=== PATIENT | male | born 1945 | race Hispanic/Latino ===

== ENCOUNTER 2017-11-07 18:54 | Observation (INO) | payer MEDICARE ==
[2017-11-07 20:33] LABS: Mean Corpuscular HGB Conc 32 % (32-34); Mean Corpuscular Hemoglobin 29 pg (28-32); Mean Corpuscular Volume 90 fl (84-94); Platelet Count 102 K/mm3 (140-440); Red Blood Count 2.04 M/mm3 (3.65-5.03)
[2017-11-07 20:42] LABS: Hematocrit 18.4 % (35.5-45.6); Hemoglobin 5.9 gm/dl (11.8-15.2); Red Cell Distribution Width 24.9 % (13.2-15.2)
[2017-11-07 20:45] LABS: Calcium 9.4 mg/dL (8.4-10.2)
[2017-11-07] MEDS ORDERED: NACL 0.9% 1000 ML 1,000 ML IV ONE (21:03)
[2017-11-07] MEDS ORDERED: NACL 0.9% 500 ML 500 ML IV ONE (21:03)
[2017-11-07 21:08] LABS: Basophils % (Manual) 0 % (0.0-1.8); Total Cells Counted 100
[2017-11-07 21:09] LABS: Anisocytosis 2+; Poikilocytosis 1+
[2017-11-07 21:10] LABS: Hypochromasia 3+; Tear Drop Cells 1+
[2017-11-07 21:11] LABS: Schistocytes Few
[2017-11-07 21:12] LABS: Giant Platelets Few; Large Platelets Few; Platelet Estimate Consistent w Auto
[2017-11-07] MEDS ORDERED: BABY ASPIRIN PO ONE (21:17)
--- NOTE | 2017-11-07 21:17 | Emergency Department Report ---
HPI - General Chief Complaint: Medical Clearance Time Seen by Provider: 11/07/17 20:53 - HPI HPI: The patient is a 72-year-old male with a history of chronic anemia, diverticulosis, diffuse colitis, internal or external hemorrhoids, and GI bleed , and who presents for evaluation of generalized weakness and lightheadedness. The patient reports 1 week of progressive and severe lightheadedness and generalized weakness, exacerbated with position changes or activity, improved with rest. He shares that he has experienced recurrent episodes of severe anemia requiring blood transfusions for the past one year. He denies trauma to the abdomen, headache, chest pain, dyspnea, abdominal pain, hematemesis, hemoptysis, melana, hematochezia, hematuria, easy bruising or bleeding, or blood thinner use. ED Past Medical Hx - Past Medical History Hx Hypertension: Yes Hx Heart Attack/AMI: Yes (, meds only) Hx Renal Disease: No Hx of Cancer: Yes Hx Arthritis: Yes (foot lt.) Hx Seizures: No Hx Asthma: Yes (childhood, ) - Surgical History Additional Surgical History: hemorrhoid surgery - Social History Smoking Status: Former Smoker - Medications Home Medications: Home Medications Medication Instructions Recorded Confirmed Last Taken Type Levofloxacin [Levaquin TAB] 500 mg PO QDAY #7 tablet 10/01/16 Unknown Rx Multivitamin Tab W-MINERAL 1 each PO QDAY #30 tablet 10/01/16 Unknown Rx [Multiple Vitamin/Mineral (Theragran M)] Pantoprazole [Protonix TAB] 40 mg PO QDAY #30 tablet 10/01/16 Unknown Rx metroNIDAZOLE [Flagyl TAB] 500 mg PO Q8H #21 tablet 10/01/16 Unknown Rx ED Review of Systems ROS: Stated complaint: ANEMIC/LOW HEMOGLOBIN Other details as noted in HPI Constitutional: Reports generalized weakness and lightheadedness denies: fever ENT: denies: throat or neck pain Respiratory: denies: cough, shortness of breath Cardiovascular: denies: chest pain Endocrine: denies unexplained weight loss or gain Gastrointestinal: denies: abdominal pain, nausea Genitourinary: denies: dysuria Musculoskeletal: denies: leg swelling Skin: denies: rash Neurological: denies: headache Hematological/Lymphatic: denies: easy bleeding or easy bruising Psych: denies sadness or hopelessness Physical Exam - Physical Exam Vital Signs: Vital Signs 11/07/17 11/07/17 19:37 21:04 Temperature 98.8 F 98.3 F Pulse Rate 63 68 Respiratory 15 16 Rate Blood Pressure 157/56 Blood Pressure 134/44 [Left] O2 Sat by Pulse 100 100 Oximetry Physical Exam: General: well-nourished, well-developed, no acute distress Head: Normocephalic, atraumatic Eyes: normal sclera ENT: Mucous membranes are pale and dry Neck: No neck stiffness, no cervical adenopathy Respiratory: Breath sounds equal bilaterally, no wheezing, rales, or rhonchi Cardio: S1 and S2 present, no murmurs, rubs, gallops, capillary refill is delayed Abdomen: Normoactive bowel sounds, soft abdomen, no rigidity, no guarding or rebound tenderness Chest WALL/Back: No tenderness to palpation of the chest wall, no CVA tenderness with percussion Musc: No pitting edema Skin: No rash Neuro: no facial drooping, normal speech Psych: Normal affect ED Course Vital Signs 11/07/17 11/07/17 19:37 21:04 Temperature 98.8 F 98.3 F Pulse Rate 63 68 Respiratory 15 16 Rate Blood Pressure 157/56 Blood Pressure 134/44 [Left] O2 Sat by Pulse 100 100 Oximetry ED Medical Decision Making - Lab Data Result diagrams: 11/07/17 19:57 11/07/17 19:57 - Medical Decision Making The patient was seen and examined by myself. The patient is placed on a distribution center manager and continuous pulse ox. On initial evaluation, the patient was found to be in no distress. Evaluation orders were placed. Lab results revealed low hemoglobin of 5.9. The patient is given IV Protonix for treatment of suspected GI bleed, and 2 units of PRBCs were ordered for treatment of his severe anemia and weakness/lightheadedness. The on-call hospitalist service was contacted. They agreed to admit the patient for further treatment and close monitoring. The ED admit order was placed. The patient was admitted in guarded condition. Critical care attestation.: If time is entered above; I have spent that time in minutes in the direct care of this critically ill patient, excluding procedure time. ED Disposition Clinical Impression: Anemia requiring transfusions, Severe anemia, Positional lightheadedness, Generalized weakness GI bleed Qualifiers: GI bleed type/associated pathology: unspecified gastrointestinal hemorrhage type Qualified Code(s): K92.2 - Gastrointestinal hemorrhage, unspecified Disposition: 09 OP ADMIT IP TO THIS HOSP Is pt being admited?: Yes Does the pt Need Aspirin: Yes Condition: Serious Referrals: PRIMARY CARE, [Referring] - 3-5 Days Time of Disposition: 21:05
[2017-11-07 22:19] LABS: INR 1.13 (0.87-1.13)
[2017-11-07 22:20] LABS: Partial Thromboplastin Time 30.9 Sec. (24.2-36.6)
[2017-11-07] MEDS ORDERED: PROTONIX IV ONE (23:16)
--- NOTE | 2017-11-07 23:44 | History and Physical Report ---
History of Present Illness Date of examination: 11/07/17 History of present illness: 72-year-old man with history of coronary artery disease, hypertension, chronic anemia comes emergency room with complaints of generalized weakness, fatigue and dizziness. He went to his doctor, all lab work was drawn and his blood count was low, he was told to come to the emergency room for evaluation. He has any evaluated by GI in the past, no source of bleed was found. He has hemorrhoids, no blood per rectum, hematemesis Review of systems Constitutional: no weight loss, chills, fever Ears, eyes, nose, mouth and throat: no nasal congestion, no nasal discharge, no sinus pressure, no vision change, no red eye. Neck: No neck pain or rigidity. Cardiovascular: no chest pain, palpitations Respiratory: no cough, shortness of breath Gastrointestinal: no abdominal pain hematochezia Genitourinary : no frequency , no hematuria Musculoskeletal: no joint swelling or muscle ache Integumentary: no rash, no pruritis Neurological: no parathesias, no numbness, no focal weakness Endocrine: no cold or heat intolerance, no polyuria or polydipsia Hematologic/Lymphatic: no easy bruising, no easy bleeding, no gland swelling Allergic/Immunologic: no urticaria, no angioedema. PAST MEDICAL HISTORY coronary artery disease, hypertension, chronic anemia PAST SURGICAL HISTORY: None SOCIAL HISTORY: Quit tobacco, alcohol, no drugs FAMILY HISTORY: Hypertension Medications and Allergies Allergies Allergy/AdvReac Type Severity Reaction Status Date / Time tetanus and diphtheria Allergy Anaphylaxis Verified 09/29/16 17:51 toxoids [tetanus & diphtheria toxoids] Home Medications Medication Instructions Recorded Confirmed Last Taken Type Levofloxacin [Levaquin TAB] 500 mg PO QDAY #7 tablet 10/01/16 11/08/17 Unknown Rx Multivitamin Tab W-MINERAL 1 each PO QDAY #30 tablet 10/01/16 11/08/17 Unknown Rx [Multiple Vitamin/Mineral (Theragran M)] Pantoprazole [Protonix TAB] 40 mg PO QDAY #30 tablet 10/01/16 11/08/17 Unknown Rx metroNIDAZOLE [Flagyl TAB] 500 mg PO Q8H #21 tablet 10/01/16 11/08/17 Unknown Rx Exam - Physical Exam Narrative exam: Gen. appearance: Patient lying in bed, no apparent distress HEENT: Normocephalic, atraumatic, pupils equally round and reactive to light, extraocular movement intact, and no sclericterus,. No JVD or thyromegaly or nodule,neck supple, no carotid bruit ,mucous membranes moist, no exudate or erythema Heart: S1, S2, regular rate and rhythm Lungs: Clear to auscultation bilaterally, breathing comfortable Abdomen: Positive bowel sounds, non tenderness , nondistended, no organomegaly Extremity: No edema, cyanosis, clubbing Skin: No rash, nodules, warm, dry Neuro: Oriented 3, cranial nerves II-12 intact, speech is fluent, motor and sensory intact Rectal:refuse rectal exam - Constitutional Vitals: Temp Pulse Resp BP Pulse Ox 97.8 F 69 16 100/75 100 11/07/17 23:30 11/07/17 23:30 11/07/17 23:30 11/07/17 23:30 11/07/17 23:30 Results - Labs CBC & Chem 7: 11/07/17 19:57 11/07/17 19:57 Labs: Abnormal lab results 11/07/17 11/07/17 11/07/17 Range/Units 19:57 19:57 19:57 WBC 2.3 L (4.5-11.0) K/mm3 RBC 2.04 L (3.65-5.03) M/mm3 Hgb 5.9 L* (11.8-15.2) gm/dl Hct 18.4 L* (35.5-45.6) % RDW 24.9 H (13.2-15.2) % Plt Count 102 L (140-440) K/mm3 Lymphocytes % (Manual) 36.0 H (13.4-35.0) % Seg Neutrophils # Man 1.4 L (1.8-7.7) K/mm3 Lymphocytes # (Manual) 0.8 L (1.2-5.4) K/mm3 PT (12.2-14.9) Sec. BUN 26 H (9-20) mg/dL Glucose 139 H (75-100) mg/dL Crossmatch See Detail 11/07/17 Range/Units 21:06 WBC (4.5-11.0) K/mm3 RBC (3.65-5.03) M/mm3 Hgb (11.8-15.2) gm/dl Hct (35.5-45.6) % RDW (13.2-15.2) % Plt Count (140-440) K/mm3 Lymphocytes % (Manual) (13.4-35.0) % Seg Neutrophils # Man (1.8-7.7) K/mm3 Lymphocytes # (Manual) (1.2-5.4) K/mm3 PT 15.1 H (12.2-14.9) Sec. BUN (9-20) mg/dL Glucose (75-100) mg/dL Crossmatch Assessment and Plan Assessment Symptomatic Anemia, acute on chronic, blood loss Hypertension Coronary artery disease Plan Admit to medicine Transfuse packed red blood blood cells, consult GI Start DVT prophylaxis
[2017-11-08] MEDS ORDERED: TYLENOL PO PRN (01:00)
[2017-11-08] MEDS ORDERED: PROVENTIL IH PRN (01:00)
[2017-11-08] MEDS ORDERED: ZOFRAN IV PRN (01:00)
[2017-11-08] MEDS ORDERED: SODIUM CHLORIDE FLUSH SYRINGE 10 ML IV PRN (01:00)
--- NOTE | 2017-11-08 09:18 | Gastroenterology Consultation ---
<ZAK SERRANO - Last Filed: 11/08/17 09:23> History of Present Illness - Reason for Consult Consult date: 11/08/17 anemia Requesting physician: AFRICA CAZARES - History of Present Illness Patient is a 72 y/o male with PMH of CAD and anemia who presented to ED with c/ o generalized weakness and lightheadedness. He was found to be anemic on admission with HGB 5.9 to which GI has been consulted. He is previously known to our service from a consult last year for colitis and anemia. He underwent an EGD/colonoscopy at that time that revealed gastritis, 2 small stomach AVMs (s/p APC), small HH, diverticulosis, colon polyps, mild sigmoid colitis, and large hemorrhoids. This morning patient was resting in bed w/o acute distress. He reports his anemia has progressed over the past year requiring multiple blood transfusions. He states he underwent a further evaluation of anemia by a cyber transport systems specialist at [facility] with a pill camera approximately 5-6 months ago that was negative per patient with a follow up appt pending. He also reports recently being diagnosed with a "blood cancer" to which he is followed by [facility] and awaiting to start chemo. Has had no active signs of bleeding such as hematemesis, melena, or hematochezia. Denies fever, CP, SOB , dizziness, abd pain, N/V, dysphagia, diarrhea, or constipation. No blood thinning medications at home. Past History Past Medical History: anemia, CAD, cancer ("blood cancer"?) Past Surgical History: Other (hemorrhoidectomy) Social history: , other (former smoker) Family history: hypertension Medications and Allergies Allergies Allergy/AdvReac Type Severity Reaction Status Date / Time tetanus and diphtheria Allergy Anaphylaxis Verified 09/29/16 17:51 toxoids [tetanus & diphtheria toxoids] Home Medications Medication Instructions Recorded Confirmed Last Taken Type Levofloxacin [Levaquin TAB] 500 mg PO QDAY #7 tablet 10/01/16 11/08/17 Unknown Rx Multivitamin Tab W-MINERAL 1 each PO QDAY #30 tablet 10/01/16 11/08/17 Unknown Rx [Multiple Vitamin/Mineral (Theragran M)] Pantoprazole [Protonix TAB] 40 mg PO QDAY #30 tablet 06/09/17 07/17/18 Unknown Rx metroNIDAZOLE [Flagyl TAB] 500 mg PO Q8H #21 tablet 10/01/16 11/08/17 Unknown Rx Active Meds: Active Medications Acetaminophen (Tylenol) 650 mg PO Q4H PRN PRN Reason: Pain MILD(1-3)/Fever >100.5/LLANES Albuterol (Proventil) 2.5 mg IH Q4HRT PRN PRN Reason: Shortness Of Breath Ondansetron HCl (Zofran) 4 mg IV Q8H PRN PRN Reason: Nausea And Vomiting Sodium Chloride (Sodium Chloride Flush Syringe 10 Ml) 10 ml IV BID NANETTE Sodium Chloride (Sodium Chloride Flush Syringe 10 Ml) 10 ml IV PRN PRN PRN Reason: LINE FLUSH Review of Systems - Review of Systems All systems: negative Constitutional: weakness Exam - Constitutional Vital Signs: Temp Pulse Resp BP Pulse Ox 98.6 F 64 18 145/58 100 11/08/17 06:14 11/08/17 06:14 11/08/17 06:14 11/08/17 06:14 11/08/17 08:51 General appearance: no acute distress - EENT Eyes: PERRL, EOM intact ENT: hearing intact - Respiratory Respiratory: bilateral: CTA (anterior) - Cardiovascular Rhythm: regular Heart Sounds: Present: S1 & S2 - Gastrointestinal General gastrointestinal: Present: soft, non-tender, non-distended, normal bowel sounds - Integumentary Integumentary: Present: warm, dry - Neurologic Neurological: alert and oriented x3 - Labs CBC & Chem 7: 11/07/17 19:57 11/07/17 19:57 Lab Results: Laboratory Results - last 24 hr 11/07/17 11/07/17 11/07/17 19:57 19:57 19:57 WBC 2.3 L RBC 2.04 L Hgb 5.9 L* Hct 18.4 L* MCV 90 MCH 29 MCHC 32 RDW 24.9 H Plt Count 102 L Add Manual Diff Complete Total Counted 100 Seg Neuts % (Manual) 60.0 Band Neutrophils % 0 Lymphocytes % (Manual) 36.0 H Reactive Lymphs % (Man) 0 Monocytes % (Manual) 2.0 Eosinophils % (Manual) 2.0 Basophils % (Manual) 0 Metamyelocytes % 0 Myelocytes % 0 Promyelocytes % 0 Blast Cells % 0 Nucleated RBC % Not Reportable Seg Neutrophils # Man 1.4 L Band Neutrophils # 0.0 Lymphocytes # (Manual) 0.8 L Abs React Lymphs (Man) 0.0 Monocytes # (Manual) 0.0 Eosinophils # (Manual) 0.0 Basophils # (Manual) 0.0 Metamyelocytes # 0.0 Myelocytes # 0.0 Promyelocytes # 0.0 Blast Cells # 0.0 WBC Morphology Not Reportable Hypersegmented Neuts Not Reportable Hyposegmented Neuts Not Reportable Hypogranular Neuts Not Reportable Smudge Cells Not Reportable Toxic Granulation Not Reportable Toxic Vacuolation Not Reportable Dohle Bodies Not Reportable Pelger-Huet Anomaly Not Reportable Andra Rods Not Reportable Platelet Estimate Consistent w auto Clumped Platelets Not Reportable Plt Clumps, EDTA Not Reportable Large Platelets Few Giant Platelets Few Platelet Satelliting Not Reportable Plt Morphology Comment Not Reportable RBC Morphology Not Reportable Dimorphic RBCs Not Reportable Polychromasia Not Reportable Hypochromasia 3+ Poikilocytosis 1+ Anisocytosis 2+ Microcytosis Not Reportable Macrocytosis Not Reportable Spherocytes Not Reportable Pappenheimer Bodies Not Reportable Sickle Cells Not Reportable Target Cells Not Reportable Tear Drop Cells 1+ Ovalocytes Not Reportable Helmet Cells Not Reportable [place] Bodies Not Reportable [place]by Rings Not Reportable Tiona Cells Not Reportable Bite Cells Not Reportable Crenated Cell Not Reportable Elliptocytes 1+ Acanthocytes (Spur) Not Reportable Rouleaux Not Reportable Hemoglobin C Crystals Not Reportable Schistocytes Few Malaria parasites Not Reportable Donta Bodies Not Reportable Hem Pathologist Commnt No PT INR APTT Sodium 139 Potassium 4.7 Chloride 103.6 Carbon Dioxide 22 Anion Gap 18 BUN 26 H Creatinine 1.4 Estimated GFR 50 BUN/Creatinine Ratio 19 Glucose 139 H Calcium 9.4 Blood Type A POSITIVE Antibody Screen Negative Crossmatch See Detail 11/07/17 21:06 WBC RBC Hgb Hct MCV MCH MCHC RDW Plt Count Add Manual Diff Total Counted Seg Neuts % (Manual) Band Neutrophils % Lymphocytes % (Manual) Reactive Lymphs % (Man) Monocytes % (Manual) Eosinophils % (Manual) Basophils % (Manual) Metamyelocytes % Myelocytes % Promyelocytes % Blast Cells % Nucleated RBC % Seg Neutrophils # Man Band Neutrophils # Lymphocytes # (Manual) Abs React Lymphs (Man) Monocytes # (Manual) Eosinophils # (Manual) Basophils # (Manual) Metamyelocytes # Myelocytes # Promyelocytes # Blast Cells # WBC Morphology Hypersegmented Neuts Hyposegmented Neuts Hypogranular Neuts Smudge Cells Toxic Granulation Toxic Vacuolation Dohle Bodies Pelger-Huet Anomaly Andra Rods Platelet Estimate Clumped Platelets Plt Clumps, EDTA Large Platelets Giant Platelets Platelet Satelliting Plt Morphology Comment RBC Morphology Dimorphic RBCs Polychromasia Hypochromasia Poikilocytosis Anisocytosis Microcytosis Macrocytosis Spherocytes Pappenheimer Bodies Sickle Cells Target Cells Tear Drop Cells Ovalocytes Helmet Cells [place] Bodies Ashby Rings [place] Cells Bite Cells Crenated Cell Elliptocytes Acanthocytes (Spur) Rouleaux Hemoglobin C Crystals Schistocytes Malaria parasites Donta Bodies Hem Pathologist Commnt PT 15.1 H INR 1.13 APTT 30.9 Sodium Potassium Chloride Carbon Dioxide Anion Gap BUN Creatinine Estimated GFR BUN/Creatinine Ratio Glucose Calcium Blood Type Antibody Screen Crossmatch Assessment and Plan 1.anemia -HGB 5.9- 2 units PRBCs transfused- will order repeat H/H -continue to monitor H/H and transfuse as needed -hold blood thinning medications -no active signs of bleeding- HD stable -EGD 09/2016-antral gastritis, 2 small stomach AVMs (s/p APC), small HH -colon 09/2016-sigmoid diverticulosis, polyps, mild sigmoid colitis, and large hemorrhoids (IH & EH; grade III) -recent pill camera at [facility] with negative results per patient -etiology- likely multifactorial (recent dx of a "blood cancer" and h/o AVMs) -no plans for a repeat endoscopic evaluation at this time unless overt bleeding develops -will order iron studies- may require detention iron supplement 2/2 AVMs -start on daily PPI -continue supportive care -further recommendations to follow <CATRINA NIELSEN - Last Filed: 11/08/17 17:19> Medications and Allergies Active Meds: Active Medications Acetaminophen (Tylenol) 650 mg PO Q4H PRN PRN Reason: Pain MILD(1-3)/Fever >100.5/LLANES Albuterol (Proventil) 2.5 mg IH Q4HRT PRN PRN Reason: Shortness Of Breath Ondansetron HCl (Zofran) 4 mg IV Q8H PRN PRN Reason: Nausea And Vomiting Pantoprazole Sodium (Protonix) 40 mg PO QDAY [facility] Last Admin: 11/08/17 11:04 Dose: 40 mg Sodium Chloride (Sodium Chloride Flush Syringe 10 Ml) 10 ml IV BID [facility] Last Admin: 11/08/17 10:56 Dose: 10 ml Sodium Chloride (Sodium Chloride Flush Syringe 10 Ml) 10 ml IV PRN PRN PRN Reason: LINE FLUSH Exam - Constitutional Vital Signs: Temp Pulse Resp BP Pulse Ox 98.6 F 64 18 145/58 100 11/08/17 06:14 11/08/17 06:14 11/08/17 06:14 11/08/17 06:14 11/08/17 08:51 - Labs CBC & Chem 7: 11/08/17 13:59 11/07/17 19:57 Lab Results: Laboratory Results - last 24 hr 11/07/17 11/07/17 11/07/17 19:57 19:57 19:57 WBC 2.3 L RBC 2.04 L Hgb 5.9 L* Hct 18.4 L* MCV 90 MCH 29 MCHC 32 RDW 24.9 H Plt Count 102 L Add Manual Diff Complete Total Counted 100 Seg Neuts % (Manual) 60.0 Band Neutrophils % 0 Lymphocytes % (Manual) 36.0 H Reactive Lymphs % (Man) 0 Monocytes % (Manual) 2.0 Eosinophils % (Manual) 2.0 Basophils % (Manual) 0 Metamyelocytes % 0 Myelocytes % 0 Promyelocytes % 0 Blast Cells % 0 Nucleated RBC % Not Reportable Seg Neutrophils # Man 1.4 L Band Neutrophils # 0.0 Lymphocytes # (Manual) 0.8 L Abs React Lymphs (Man) 0.0 Monocytes # (Manual) 0.0 Eosinophils # (Manual) 0.0 Basophils # (Manual) 0.0 Metamyelocytes # 0.0 Myelocytes # 0.0 Promyelocytes # 0.0 Blast Cells # 0.0 WBC Morphology Not Reportable Hypersegmented Neuts Not Reportable Hyposegmented Neuts Not Reportable Hypogranular Neuts Not Reportable Smudge Cells Not Reportable Toxic Granulation Not Reportable Toxic Vacuolation Not Reportable Dohle Bodies Not Reportable Pelger-Huet Anomaly Not Reportable Andra Rods Not Reportable Platelet Estimate Consistent w auto Clumped Platelets Not Reportable Plt Clumps, EDTA Not Reportable Large Platelets Few Giant Platelets Few Platelet Satelliting Not Reportable Plt Morphology Comment Not Reportable RBC Morphology Not Reportable Dimorphic RBCs Not Reportable Polychromasia Not Reportable Hypochromasia 3+ Poikilocytosis 1+ Anisocytosis 2+ Microcytosis Not Reportable Macrocytosis Not Reportable Spherocytes Not Reportable Pappenheimer Bodies Not Reportable Sickle Cells Not Reportable Target Cells Not Reportable Tear Drop Cells 1+ Ovalocytes Not Reportable Helmet Cells Not Reportable [place] Bodies Not Reportable Ashby Rings Not Reportable [place] Cells Not Reportable Bite Cells Not Reportable Crenated Cell Not Reportable Elliptocytes 1+ Acanthocytes (Spur) Not Reportable Rouleaux Not Reportable Hemoglobin C Crystals Not Reportable Schistocytes Few Malaria parasites Not Reportable Donta Bodies Not Reportable Hem Pathologist Commnt No PT INR APTT Sodium 139 Potassium 4.7 Chloride 103.6 Carbon Dioxide 22 Anion Gap 18 BUN 26 H Creatinine 1.4 Estimated GFR 50 BUN/Creatinine Ratio 19 Glucose 139 H Calcium 9.4 Iron TIBC Ferritin Blood Type A POSITIVE Antibody Screen Negative Crossmatch See Detail 11/07/17 11/08/17 11/08/17 21:06 13:59 13:59 WBC RBC Hgb 8.1 L Hct 25.2 L D MCV MCH MCHC RDW Plt Count Add Manual Diff Total Counted Seg Neuts % (Manual) Band Neutrophils % Lymphocytes % (Manual) Reactive Lymphs % (Man) Monocytes % (Manual) Eosinophils % (Manual) Basophils % (Manual) Metamyelocytes % Myelocytes % Promyelocytes % Blast Cells % Nucleated RBC % Seg Neutrophils # Man Band Neutrophils # Lymphocytes # (Manual) Abs React Lymphs (Man) Monocytes # (Manual) Eosinophils # (Manual) Basophils # (Manual) Metamyelocytes # Myelocytes # Promyelocytes # Blast Cells # WBC Morphology Hypersegmented Neuts Hyposegmented Neuts Hypogranular Neuts Smudge Cells Toxic Granulation Toxic Vacuolation Dohle Bodies Pelger-Huet Anomaly Andra Rods Platelet Estimate Clumped Platelets Plt Clumps, EDTA Large Platelets Giant Platelets Platelet Satelliting Plt Morphology Comment RBC Morphology Dimorphic RBCs Polychromasia Hypochromasia Poikilocytosis Anisocytosis Microcytosis Macrocytosis Spherocytes Pappenheimer Bodies Sickle Cells Target Cells Tear Drop Cells Ovalocytes Helmet Cells [place] Bodies Ashby Rings Tiona Cells Bite Cells Crenated Cell Elliptocytes Acanthocytes (Spur) Rouleaux Hemoglobin C Crystals Schistocytes Malaria parasites Donta Bodies Hem Pathologist Commnt PT 15.1 H INR 1.13 APTT 30.9 Sodium Potassium Chloride Carbon Dioxide Anion Gap BUN Creatinine Estimated GFR BUN/Creatinine Ratio Glucose Calcium Iron 192 H TIBC 187 L Ferritin Blood Type Antibody Screen Crossmatch 11/08/17 13:59 WBC RBC Hgb Hct MCV MCH MCHC RDW Plt Count Add Manual Diff Total Counted Seg Neuts % (Manual) Band Neutrophils % Lymphocytes % (Manual) Reactive Lymphs % (Man) Monocytes % (Manual) Eosinophils % (Manual) Basophils % (Manual) Metamyelocytes % Myelocytes % Promyelocytes % Blast Cells % Nucleated RBC % Seg Neutrophils # Man Band Neutrophils # Lymphocytes # (Manual) Abs React Lymphs (Man) Monocytes # (Manual) Eosinophils # (Manual) Basophils # (Manual) Metamyelocytes # Myelocytes # Promyelocytes # Blast Cells # WBC Morphology Hypersegmented Neuts Hyposegmented Neuts Hypogranular Neuts Smudge Cells Toxic Granulation Toxic Vacuolation Dohle Bodies Pelger-Huet Anomaly Andra Rods Platelet Estimate Clumped Platelets Plt Clumps, EDTA Large Platelets Giant Platelets Platelet Satelliting Plt Morphology Comment RBC Morphology Dimorphic RBCs Polychromasia Hypochromasia Poikilocytosis Anisocytosis Microcytosis Macrocytosis Spherocytes Pappenheimer Bodies Sickle Cells Target Cells Tear Drop Cells Ovalocytes Helmet Cells [place] Bodies Ashby Rings [place] Cells Bite Cells Crenated Cell Elliptocytes Acanthocytes (Spur) Rouleaux Hemoglobin C Crystals Schistocytes Malaria parasites Donta Bodies Hem Pathologist Commnt PT INR APTT Sodium Potassium Chloride Carbon Dioxide Anion Gap BUN Creatinine Estimated GFR BUN/Creatinine Ratio Glucose Calcium Iron TIBC Ferritin 1521.0 H Blood Type Antibody Screen Crossmatch Assessment and Plan Pt seen and examined. Agree with note above by Zak Serrano. Pt with h/o severe anemia and prior AVM's on egd. presents after outpatient labs showed severe anemia. he denies overt gi bleeding. 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 He received blood transfusions and is feeling better. he has f/u with his gi physician in a couple months. hold off on endoscopy at this time.
[2017-11-08] MEDS: SODIUM CHLORIDE FLUSH SYRINGE 10 ML IV SCH ×2 (10:56→23:17)
[2017-11-08] MEDS: PROTONIX PO SCH (11:04)
--- NOTE | 2017-11-08 13:48 | Progress Note ---
Assessment and Plan Assessment and plan: 72-year-old man with history of coronary artery disease, hypertension, chronic anemia comes emergency room with complaints of generalized weakness, fatigue and dizziness. He went to his doctor, all lab work was drawn and his blood count was low, he was told to come to the emergency room for evaluation. He was evaluated by GI before, was admitted to [facility] and extensive workup was done. He had history of anemia with multiple transfusions. Severe symptomatic anemia likely due to GI bleed - Hemoglobin on admission was 5.9 transfused with 2 units of blood pending was transfusion H&H - GI was consulted and recommended no scope is needed unless the patient has active bleeding GI recommendations: -HGB 5.9- 2 units PRBCs transfused- will order repeat H/H -continue to monitor H/H and transfuse as needed -hold blood thinning medications -no active signs of bleeding- HD stable -EGD 09/2016-antral gastritis, 2 small stomach AVMs (s/p APC), small HH -colon 09/2016-sigmoid diverticulosis, polyps, mild sigmoid colitis, and large hemorrhoids (IH & EH; grade III) -recent pill camera at [place] with negative results per patient -etiology- likely multifactorial (recent dx of a "blood cancer" and h/o AVMs) -no plans for a repeat endoscopic evaluation at this time unless overt bleeding develops -will order iron studies- 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 History Interval history: Patient was seen and evaluated this morning, dizziness and weakness subsided. No active bleeding. Hospitalist Physical - Physical exam Narrative exam: Not in cardiopulmonary distress. The patient appeared well nourished and normally developed. Vital signs as documented. Head exam is unremarkable. No scleral icterus . Neck is without jugular venous distension, thyromegaly, or carotid bruits. Lungs are clear to auscultation. Cardiac exam reveals regular rate and Rhythm. First and second heart sounds normal. No murmurs, rubs or gallops. Abdominal exam reveals normal bowel sounds. Extremities are nonedematous and both femoral and pedal pulses are normal. CONSTRUCTION ELECTRICIAN: Alert and oriented 3. No focal weakness. - Constitutional Vitals: Temp Pulse Resp BP Pulse Ox 98.6 F 64 18 145/58 100 11/08/17 06:14 11/08/17 06:14 11/08/17 06:14 11/08/17 06:14 11/08/17 08:51 Results - Labs CBC & Chem 7: 11/07/17 19:57 11/07/17 19:57 Labs: Laboratory Last Values WBC 2.3 K/mm3 (4.5-11.0) L 11/07/17 19:57 RBC 2.04 M/mm3 (3.65-5.03) L 11/07/17 19:57 Hgb 5.9 gm/dl (11.8-15.2) L* 11/07/17 19:57 Hct 18.4 % (35.5-45.6) L* 11/07/17 19:57 MCV 90 fl (84-94) 11/07/17 19:57 MCH 29 pg (28-32) 11/07/17 19:57 MCHC 32 % (32-34) 11/07/17 19:57 RDW 24.9 % (13.2-15.2) H 11/07/17 19:57 Plt Count 102 K/mm3 (140-440) L 11/07/17 19:57 Add Manual Diff Complete 11/07/17 19:57 Total Counted 100 11/07/17 19:57 Seg Neuts % (Manual) 60.0 % (40.0-70.0) 11/07/17 19:57 Band Neutrophils % 0 % 11/07/17 19:57 Lymphocytes % (Manual) 36.0 % (13.4-35.0) H 11/07/17 19:57 Reactive Lymphs % (Man) 0 % 11/07/17 19:57 Monocytes % (Manual) 2.0 % (0.0-7.3) 11/07/17 19:57 Eosinophils % (Manual) 2.0 % (0.0-4.3) 11/07/17 19:57 Basophils % (Manual) 0 % (0.0-1.8) 11/07/17 19:57 Metamyelocytes % 0 % 11/07/17 19:57 Myelocytes % 0 % 11/07/17 19:57 Promyelocytes % 0 % 11/07/17 19:57 Blast Cells % 0 % 11/07/17 19:57 Nucleated RBC % Not Reportable 11/07/17 19:57 Seg Neutrophils # Man 1.4 K/mm3 (1.8-7.7) L 11/07/17 19:57 Band Neutrophils # 0.0 K/mm3 11/07/17 19:57 Lymphocytes # (Manual) 0.8 K/mm3 (1.2-5.4) L 11/07/17 19:57 Abs React Lymphs (Man) 0.0 K/mm3 11/07/17 19:57 Monocytes # (Manual) 0.0 K/mm3 (0.0-0.8) 11/07/17 19:57 Eosinophils # (Manual) 0.0 K/mm3 (0.0-0.4) 11/07/17 19:57 Basophils # (Manual) 0.0 K/mm3 (0.0-0.1) 11/07/17 19:57 Metamyelocytes # 0.0 K/mm3 11/07/17 19:57 Myelocytes # 0.0 K/mm3 11/07/17 19:57 Promyelocytes # 0.0 K/mm3 11/07/17 19:57 Blast Cells # 0.0 K/mm3 11/07/17 19:57 WBC Morphology Not Reportable 11/07/17 19:57 Hypersegmented Neuts Not Reportable 11/07/17 19:57 Hyposegmented Neuts Not Reportable 11/07/17 19:57 Hypogranular Neuts Not Reportable 11/07/17 19:57 Smudge Cells Not Reportable 11/07/17 19:57 Toxic Granulation Not Reportable 11/07/17 19:57 Toxic Vacuolation Not Reportable 11/07/17 19:57 Dohle Bodies Not Reportable 11/07/17 19:57 Pelger-Huet Anomaly Not Reportable 11/07/17 19:57 Andra Rods Not Reportable 11/07/17 19:57 Platelet Estimate Consistent w auto 11/07/17 19:57 Clumped Platelets Not Reportable 11/07/17 19:57 Plt Clumps, EDTA Not Reportable 11/07/17 19:57 Large Platelets Few 11/07/17 19:57 Giant Platelets Few 11/07/17 19:57 Platelet Satelliting Not Reportable 11/07/17 19:57 Plt Morphology Comment Not Reportable 11/07/17 19:57 RBC Morphology Not Reportable 11/07/17 19:57 Dimorphic RBCs Not Reportable 11/07/17 19:57 Polychromasia Not Reportable 11/07/17 19:57 Hypochromasia 3+ 11/07/17 19:57 Poikilocytosis 1+ 11/07/17 19:57 Anisocytosis 2+ 11/07/17 19:57 Microcytosis Not Reportable 11/07/17 19:57 Macrocytosis Not Reportable 11/07/17 19:57 Spherocytes Not Reportable 11/07/17 19:57 Pappenheimer Bodies Not Reportable 11/07/17 19:57 Sickle Cells Not Reportable 11/07/17 19:57 Target Cells Not Reportable 11/07/17 19:57 Tear Drop Cells 1+ 11/07/17 19:57 Ovalocytes Not Reportable 11/07/17 19:57 Helmet Cells Not Reportable 11/07/17 19:57 Joseph-[place]ri[place] Bodies Not Reportable 11/07/17 19:57 [place] Rings Not Reportable 11/07/17 19:57 Corona Cells Not Reportable 11/07/17 19:57 Bite Cells Not Reportable 11/07/17 19:57 Crenated Cell Not Reportable 11/07/17 19:57 Elliptocytes 1+ 11/07/17 19:57 Acanthocytes (Spur) Not Reportable 11/07/17 19:57 Rouleaux Not Reportable 11/07/17 19:57 Hemoglobin C Crystals Not Reportable 11/07/17 19:57 Schistocytes Few 11/07/17 19:57 Malaria parasites Not Reportable 11/07/17 19:57 Donta Bodies Not Reportable 11/07/17 19:57 Hem Pathologist Commnt No 11/07/17 19:57 PT 15.1 Sec. (12.2-14.9) H 11/07/17 21:06 INR 1.13 (0.87-1.13) 11/07/17 21:06 APTT 30.9 Sec. (24.2-36.6) 11/07/17 21:06 Sodium 139 mmol/L (137-145) 11/07/17 19:57 Potassium 4.7 mmol/L (3.6-5.0) 11/07/17 19:57 Chloride 103.6 mmol/L (98-107) 11/07/17 19:57 Carbon Dioxide 22 mmol/L (22-30) 11/07/17 19:57 Anion Gap 18 mmol/L 11/07/17 19:57 BUN 26 mg/dL (9-20) H 11/07/17 19:57 Creatinine 1.4 mg/dL (0.8-1.5) 11/07/17 19:57 Estimated GFR 50 ml/min 11/07/17 19:57 BUN/Creatinine Ratio 19 % 11/07/17 19:57 Glucose 139 mg/dL (75-100) H 11/07/17 19:57 Calcium 9.4 mg/dL (8.4-10.2) 11/07/17 19:57 Blood Type A POSITIVE 11/07/17 19:57 Antibody Screen Negative 11/07/17 19:57 Crossmatch See Detail 11/07/17 19:57
[2017-11-08 14:52] LABS: Hematocrit 25.2 % (35.5-45.6); Hemoglobin 8.1 gm/dl (11.8-15.2)
[2017-11-08 15:04] LABS: Iron 192 ug/dL (49-181)
[2017-11-08 16:10] LABS: Total Iron Binding Capacity 187 mcg/dL (250-450)
[2017-11-09 06:45] LABS: Hematocrit 22.6 % (35.5-45.6); Hemoglobin 7.2 gm/dl (11.8-15.2); Mean Corpuscular HGB Conc 32 % (32-34); Mean Corpuscular Hemoglobin 30 pg (28-32); Mean Corpuscular Volume 93 fl (84-94); Red Blood Count 2.45 M/mm3 (3.65-5.03); Red Cell Distribution Width 19.9 % (13.2-15.2)
[2017-11-09 06:49] LABS: Platelet Count 92 K/mm3 (140-440)
[2017-11-09 07:11] LABS: BUN/Creatinine Ratio 17; Blood Urea Nitrogen 17 mg/dL (9-20); Calcium 8.8 mg/dL (8.4-10.2); Hemolysis Index 7
[2017-11-09 08:25] LABS: Total Cells Counted 100
[2017-11-09 08:26] LABS: Anisocytosis 2+; Hypochromasia 2+; Platelet Estimate Consistent w Auto; Poikilocytosis 1+; Schistocytes Rare; Tear Drop Cells 1+
[2017-11-09] MEDS: PROTONIX PO SCH (09:21)
[2017-11-09] MEDS: SODIUM CHLORIDE FLUSH SYRINGE 10 ML IV SCH (09:23)
--- NOTE | 2017-11-09 11:07 | Gastroenterology Progress Note ---
<ZAK MEHTA - Last Filed: 11/09/17 11:08> Assessment and Plan 1.anemia -HGB 7.2- s/p transfusion of 2 units PRBCs -continue to monitor H/H and transfuse as needed -hold blood thinning medications -no active signs of bleeding- HD stable -EGD 09/2016-antral gastritis, 2 small stomach AVMs (s/p APC), small HH -colon 09/2016-sigmoid diverticulosis, polyps, mild sigmoid colitis, and large hemorrhoids (IH & EH; grade III) -recent pill camera at [place] with negative results per patient -etiology- likely multifactorial (recent dx of hematologic malignancy and h/o AVMs) -no plans for a repeat endoscopic evaluation at this time unless overt bleeding develops -iron studies elevated, however results may not be accurate due to recent transfusions -recommend starting on daily iron supplement -continue PPI and supportive care -no further recommendations per GI, patient okay to be d/c with follow up clinic appt with oncology and GI provider at [place] -will sign off, please call if needed Subjective Date of service: 11/09/17 Principal diagnosis: anemia Interval history: Patient resting in bed w/o acute distress. No active signs of bleeding overnight or this am. Denies abd pain or N/V. Tolerating diet. Objective - Constitutional Vitals: Temp Pulse Resp BP Pulse Ox 98.3 F 59 L 18 144/53 97 11/09/17 07:22 11/09/17 07:22 11/09/17 09:45 11/09/17 07:22 11/09/17 09:45 General appearance: no acute distress - Respiratory Respiratory: bilateral: CTA - Cardiovascular Rhythm: other (bradycardia) Heart Sounds: Present: S1 & S2 - Gastrointestinal General gastrointestinal: Present: soft, non-tender, non-distended, normal bowel sounds - Neurologic Neurological: alert and oriented x3 - Labs CBC & Chem 7: 11/09/17 05:40 11/09/17 05:40 Labs: Laboratory Results - last 24 hr 11/08/17 11/08/17 11/08/17 13:59 13:59 13:59 WBC RBC Hgb 8.1 L Hct 25.2 L D MCV MCH MCHC RDW Plt Count Add Manual Diff Total Counted Seg Neuts % (Manual) Band Neutrophils % Lymphocytes % (Manual) Reactive Lymphs % (Man) Monocytes % (Manual) Eosinophils % (Manual) Basophils % (Manual) Metamyelocytes % Myelocytes % Promyelocytes % Blast Cells % Nucleated RBC % Seg Neutrophils # Man Band Neutrophils # Lymphocytes # (Manual) Abs React Lymphs (Man) Monocytes # (Manual) Eosinophils # (Manual) Basophils # (Manual) Metamyelocytes # Myelocytes # Promyelocytes # Blast Cells # WBC Morphology Hypersegmented Neuts Hyposegmented Neuts Hypogranular Neuts Smudge Cells Toxic Granulation Toxic Vacuolation Dohle Bodies Pelger-Huet Anomaly Andra Rods Platelet Estimate Clumped Platelets Plt Clumps, EDTA Large Platelets Giant Platelets Platelet Satelliting Plt Morphology Comment RBC Morphology Dimorphic RBCs Polychromasia Hypochromasia Poikilocytosis Anisocytosis Microcytosis Macrocytosis Spherocytes Pappenheimer Bodies Sickle Cells Target Cells Tear Drop Cells Ovalocytes Helmet Cells Joseph-Lyman Bodies Ponder Rings [place] Cells Bite Cells Crenated Cell Elliptocytes Acanthocytes (Spur) Rouleaux Hemoglobin C Crystals Schistocytes Malaria parasites Donta Bodies Hem Pathologist Commnt Sodium Potassium Chloride Carbon Dioxide Anion Gap BUN Creatinine Estimated GFR BUN/Creatinine Ratio Glucose Calcium Iron 192 H TIBC 187 L Ferritin 1521.0 H 11/09/17 11/09/17 05:40 05:40 WBC 2.3 L RBC 2.45 L Hgb 7.2 L Hct 22.6 L MCV 93 MCH 30 MCHC 32 RDW 19.9 H Plt Count 92 L Add Manual Diff Complete Total Counted 100 Seg Neuts % (Manual) 47.0 Band Neutrophils % 0 Lymphocytes % (Manual) 43.0 H Reactive Lymphs % (Man) 0 Monocytes % (Manual) 6.0 Eosinophils % (Manual) 3.0 Basophils % (Manual) 1.0 Metamyelocytes % 0 Myelocytes % 0 Promyelocytes % 0 Blast Cells % 0 Nucleated RBC % Not Reportable Seg Neutrophils # Man 1.1 L Band Neutrophils # 0.0 Lymphocytes # (Manual) 1.0 L Abs React Lymphs (Man) 0.0 Monocytes # (Manual) 0.1 Eosinophils # (Manual) 0.1 Basophils # (Manual) 0.0 Metamyelocytes # 0.0 Myelocytes # 0.0 Promyelocytes # 0.0 Blast Cells # 0.0 WBC Morphology Not Reportable Hypersegmented Neuts Not Reportable Hyposegmented Neuts Not Reportable Hypogranular Neuts Not Reportable Smudge Cells Not Reportable Toxic Granulation Not Reportable Toxic Vacuolation Not Reportable Dohle Bodies Not Reportable Pelger-Huet Anomaly Not Reportable Andra Rods Not Reportable Platelet Estimate Consistent w auto Clumped Platelets Not Reportable Plt Clumps, EDTA Not Reportable Large Platelets Not Reportable Giant Platelets Not Reportable Platelet Satelliting Not Reportable Plt Morphology Comment Not Reportable RBC Morphology Not Reportable Dimorphic RBCs Not Reportable Polychromasia Not Reportable Hypochromasia 2+ Poikilocytosis 1+ Anisocytosis 2+ Microcytosis Not Reportable Macrocytosis Not Reportable Spherocytes Not Reportable Pappenheimer Bodies Not Reportable Sickle Cells Not Reportable Target Cells Not Reportable Tear Drop Cells 1+ Ovalocytes Not Reportable Helmet Cells Not Reportable Joseph-Lyman Bodies Not Reportable Ponder Rings Not Reportable [place] Cells Not Reportable Bite Cells Not Reportable Crenated Cell Not Reportable Elliptocytes Not Reportable Acanthocytes (Spur) Not Reportable Rouleaux Not Reportable Hemoglobin C Crystals Not Reportable Schistocytes Rare Malaria parasites Not Reportable Donta Bodies Not Reportable Hem Pathologist Commnt No Sodium 141 Potassium 5.0 Chloride 106.4 Carbon Dioxide 20 L Anion Gap 20 BUN 17 Creatinine 1.0 Estimated GFR > 60 BUN/Creatinine Ratio 17 Glucose 99 Calcium 8.8 Iron TIBC Ferritin <CATRINA NIELSEN - Last Filed: 11/09/17 11:17> Assessment and Plan pt seen and examined. agree with note above. pt continues to deny overt gi bleeding. noted drop in h/h today. he wishes to go home without further gi work-up as inpt. recommend transfusion prior to d/c. he needs to f/u with his outpt gi physician soon after discharge and with hematology due to ? hematologic malignancy. maintain on iron replacement therapy. Objective - Constitutional Vitals: Temp Pulse Resp BP Pulse Ox 98.3 F 59 L 18 144/53 97 11/09/17 07:22 11/09/17 07:22 11/09/17 09:45 11/09/17 07:22 11/09/17 09:45 - Labs CBC & Chem 7: 11/09/17 05:40 11/09/17 05:40 Labs: Laboratory Results - last 24 hr 11/07/17 11/08/17 11/08/17 19:57 13:59 13:59 WBC RBC Hgb 8.1 L Hct 25.2 L D MCV MCH MCHC RDW Plt Count Add Manual Diff Total Counted Seg Neuts % (Manual) Band Neutrophils % Lymphocytes % (Manual) Reactive Lymphs % (Man) Monocytes % (Manual) Eosinophils % (Manual) Basophils % (Manual) Metamyelocytes % Myelocytes % Promyelocytes % Blast Cells % Nucleated RBC % Seg Neutrophils # Man Band Neutrophils # Lymphocytes # (Manual) Abs React Lymphs (Man) Monocytes # (Manual) Eosinophils # (Manual) Basophils # (Manual) Metamyelocytes # Myelocytes # Promyelocytes # Blast Cells # WBC Morphology Hypersegmented Neuts Hyposegmented Neuts Hypogranular Neuts Smudge Cells Toxic Granulation Toxic Vacuolation Dohle Bodies Pelger-Huet Anomaly Andra Rods Platelet Estimate Clumped Platelets Plt Clumps, EDTA Large Platelets Giant Platelets Platelet Satelliting Plt Morphology Comment RBC Morphology Dimorphic RBCs Polychromasia Hypochromasia Poikilocytosis Anisocytosis Microcytosis Macrocytosis Spherocytes Pappenheimer Bodies Sickle Cells Target Cells Tear Drop Cells Ovalocytes Helmet Cells Joseph-Lyman Bodies Ponder Rings [place] Cells Bite Cells Crenated Cell Elliptocytes Acanthocytes (Spur) Rouleaux Hemoglobin C Crystals Schistocytes Malaria parasites Donta Bodies Hem Pathologist Commnt Sodium Potassium Chloride Carbon Dioxide Anion Gap BUN Creatinine Estimated GFR BUN/Creatinine Ratio Glucose Calcium Iron 192 H TIBC 187 L Ferritin Crossmatch See Detail 11/08/17 11/09/17 11/09/17 13:59 05:40 05:40 WBC 2.3 L RBC 2.45 L Hgb 7.2 L Hct 22.6 L MCV 93 MCH 30 MCHC 32 RDW 19.9 H Plt Count 92 L Add Manual Diff Complete Total Counted 100 Seg Neuts % (Manual) 47.0 Band Neutrophils % 0 Lymphocytes % (Manual) 43.0 H Reactive Lymphs % (Man) 0 Monocytes % (Manual) 6.0 Eosinophils % (Manual) 3.0 Basophils % (Manual) 1.0 Metamyelocytes % 0 Myelocytes % 0 Promyelocytes % 0 Blast Cells % 0 Nucleated RBC % Not Reportable Seg Neutrophils # Man 1.1 L Band Neutrophils # 0.0 Lymphocytes # (Manual) 1.0 L Abs React Lymphs (Man) 0.0 Monocytes # (Manual) 0.1 Eosinophils # (Manual) 0.1 Basophils # (Manual) 0.0 Metamyelocytes # 0.0 Myelocytes # 0.0 Promyelocytes # 0.0 Blast Cells # 0.0 WBC Morphology Not Reportable Hypersegmented Neuts Not Reportable Hyposegmented Neuts Not Reportable Hypogranular Neuts Not Reportable Smudge Cells Not Reportable Toxic Granulation Not Reportable Toxic Vacuolation Not Reportable Dohle Bodies Not Reportable Pelger-Huet Anomaly Not Reportable Andra Rods Not Reportable Platelet Estimate Consistent w auto Clumped Platelets Not Reportable Plt Clumps, EDTA Not Reportable Large Platelets Not Reportable Giant Platelets Not Reportable Platelet Satelliting Not Reportable Plt Morphology Comment Not Reportable RBC Morphology Not Reportable Dimorphic RBCs Not Reportable Polychromasia Not Reportable Hypochromasia 2+ Poikilocytosis 1+ Anisocytosis 2+ Microcytosis Not Reportable Macrocytosis Not Reportable Spherocytes Not Reportable Pappenheimer Bodies Not Reportable Sickle Cells Not Reportable Target Cells Not Reportable Tear Drop Cells 1+ Ovalocytes Not Reportable Helmet Cells Not Reportable Joseph-Lyman Bodies Not Reportable Ponder Rings Not Reportable [place] Cells Not Reportable Bite Cells Not Reportable Crenated Cell Not Reportable Elliptocytes Not Reportable Acanthocytes (Spur) Not Reportable Rouleaux Not Reportable Hemoglobin C Crystals Not Reportable Schistocytes Rare Malaria parasites Not Reportable Donta Bodies Not Reportable Hem Pathologist Commnt No Sodium 141 Potassium 5.0 Chloride 106.4 Carbon Dioxide 20 L Anion Gap 20 BUN 17 Creatinine 1.0 Estimated GFR > 60 BUN/Creatinine Ratio 17 Glucose 99 Calcium 8.8 Iron TIBC Ferritin 1521.0 H Crossmatch
[2017-11-09] MEDS ORDERED: NACL 0.9% 500 ML 500 ML IV NR (11:30)
[2017-11-09] MEDS ORDERED: FEOSOL PO ONE (12:09)
--- NOTE | 2017-11-09 12:19 | Discharge Summary ---
Providers - Providers Date of Admission: 11/07/17 23:43 Date of discharge: 11/09/17 Attending physician: RADHA LUU MD 11/08/17 01:00 Consult to Physician [CONS] Routine Comment: called ans. serv./ delaney Consulting Provider: MARGARITA ANTONIO Physician Instructions: Reason For Exam: anemia Primary care physician: TAVO DAMIAN Hospitalization Reason for admission: Severe anemia and acute GI bleed Condition: Serious Hospital course: 72-year-old man with history of coronary artery disease, hypertension, chronic anemia comes emergency room with complaints of generalized weakness, fatigue and dizziness. He went to his doctor, all lab work was drawn and his blood count was low, he was told to come to the emergency room for evaluation. He was evaluated by GI before, was admitted to [facility] and extensive workup was done. He had history of anemia with multiple transfusions. Present presentation hemoglobin was 5.9 and was transfused with 2 units of blood, this morning his hemoglobin was 7.2. Patient didn't have any dizziness, weakness resolved. patient transfused one more unit of blood and discharged home. Patient said he has follow up appointment with his warehouse unloader and primary care physician. Patient was hemodynamically stable at the time of discharge. Patient didn't have any active GI bleeding after admission. Disposition: TO HOME OR SELFCARE Time spent for discharge: 31 minutes - Discharge Diagnoses (1) Anemia requiring transfusions Status: Chronic (2) GI bleed Status: Chronic Qualifiers: GI bleed type/associated pathology: unspecified gastrointestinal hemorrhage type Qualified Code(s): K92.2 - Gastrointestinal hemorrhage, unspecified (3) Generalized weakness Status: Acute (4) Severe anemia Status: Chronic Core Measure Documentation - Palliative Care Palliative Care/ Comfort Measures: Not Applicable - Core Measures Any of the following diagnoses?: none Exam - Physical Exam Narrative exam: Not in cardiopulmonary distress. The patient appeared well nourished and normally developed. Vital signs as documented. Head exam is unremarkable. No scleral icterus . Neck is without jugular venous distension, thyromegaly, or carotid bruits. Lungs are clear to auscultation. Cardiac exam reveals regular rate and Rhythm. First and second heart sounds normal. No murmurs, rubs or gallops. Abdominal exam reveals normal bowel sounds. Extremities are nonedematous and both femoral and pedal pulses are normal. FRUIT SHIPPER: Alert and oriented 3. No focal weakness. - Constitutional Vitals: Temp Pulse Resp BP Pulse Ox 98.3 F 59 L 18 144/53 97 11/09/17 07:22 11/09/17 07:22 11/09/17 09:45 11/09/17 07:22 11/09/17 09:45 Plan Activity: no restrictions Weight Bearing Status: Full Weight Bearing Diet: low cholesterol Additional Instructions: Patient has an appointment with his GI Follow up with: PRIMARY CAREMD [Referring] - 3-5 Days
[2017-11-09 14:50] VITALS: BP 115/49
== END 2017-11-09 15:25 | disposition home or self-care (01) ==
LOC: ED 18:54 → INTOOBSV 23:43 → 2B-ACE 23:43
PROVIDERS: ADMIT Internal Medicine; ATTEND Internal Medicine
DX: D50.0 Iron deficiency anemia secondary to blood loss (chronic) (principal); I25.10 Atherosclerotic heart disease of native coronary artery without angina pectoris; I10 Essential (primary) hypertension
CPT/HCPCS: 36415; 36430; 80048; 82728; 83550; 85007; 85014; 85018; 85025; 85610; 85730; 86850; 86900; 86901; 86920; 99285; G0378; J7030; J7040; P9016

== ENCOUNTER 2017-11-26 20:07 | Emergency (ER) | payer MEDICARE ==
[2017-11-26 20:59] LABS: Hematocrit 21.4 % (35.5-45.6); Hemoglobin 7.2 gm/dl (11.8-15.2); Mean Corpuscular HGB Conc 34 % (32-34); Mean Corpuscular Hemoglobin 30 pg (28-32); Mean Corpuscular Volume 90 fl (84-94); Platelet Count 113 K/mm3 (140-440); Red Blood Count 2.38 M/mm3 (3.65-5.03)
[2017-11-26 21:09] LABS: Albumin 4.8 g/dL (3.9-5); Calcium 9.1 mg/dL (8.4-10.2); INR 1.1 (0.87-1.13)
[2017-11-26 21:10] LABS: Albumin 4.7 g/dL (3.9-5); Bilirubin,Direct 0.2 mg/dL (0-0.2)
[2017-11-26 21:10] LABS: Partial Thromboplastin Time 31.7 Sec. (24.2-36.6)
[2017-11-26] MEDS ORDERED: NACL 0.9% 500 ML 500 ML IV ONE (23:01)
--- NOTE | 2017-11-26 23:03 | Emergency Department Report ---
HPI - General Chief Complaint: Weakness Time Seen by Provider: 11/26/17 22:31 - HPI HPI: The patient is a 72 -year-old male with a history of hematologic cancer, who presents for evaluation of generalized weakness. The patient reports constant severe generalized weakness the past couple of days, exacerbated with physical activity or exertion, improved at rest. The patient denies fever, head injury, headache, chest pain, dyspnea, syncope, abdominal pain, neck pain, neck stiffness, vision or hearing changes, smell or taste changes, paresthesias, facial drooping, slurred speech, seizure-like activity, urine or bowel incontinence or retention, or other focal neurological deficit. ED Past Medical Hx - Past Medical History Previous Medical History?: Yes Hx Hypertension: Yes Hx Heart Attack/AMI: Yes (, meds only) Hx Renal Disease: No Hx Arthritis: Yes (foot lt.) Hx Seizures: No Hx Asthma: Yes (childhood, ) Additional medical history: GI bleeds, CAD, Anemia, Multiple blood transfusions 21 units since September 2017, recently diagnosed with Blood Cancer MDA - Surgical History Additional Surgical History: hemorrhoid surgery - Social History Smoking Status: Former Smoker - Medications Home Medications: Home Medications Medication Instructions Recorded Confirmed Last Taken Type Multivitamin Tab W-MINERAL 1 each PO QDAY #30 tablet 10/01/16 11/08/17 Unknown Rx [Multiple Vitamin/Mineral (Theragran M)] Pantoprazole [Protonix TAB] 40 mg PO QDAY #30 tablet 10/01/16 11/08/17 Unknown Rx ED Review of Systems ROS: Stated complaint: WEAKNESS Other details as noted in HPI Constitutional: reports generalized weaknes denies: fever ENT: denies: throat or neck pain Respiratory: denies: cough, shortness of breath Cardiovascular: denies: chest pain Endocrine: denies unexplained weight loss or gain Gastrointestinal: denies: abdominal pain, nausea Genitourinary: denies: dysuria Musculoskeletal: denies: leg swelling Skin: denies: rash Neurological: denies: headache Hematological/Lymphatic: denies: easy bleeding or easy bruising Psych: denies sadness or hopelessness Physical Exam - Physical Exam Vital Signs: Vital Signs 11/26/17 11/26/17 11/26/17 20:23 21:47 21:51 Temperature 98.6 F Pulse Rate 61 59 L Respiratory 20 20 20 Rate Blood Pressure 157/57 Blood Pressure 130/54 [Left] O2 Sat by Pulse 100 100 Oximetry Physical Exam: General: well-nourished, well-developed, no acute distress Head: Normocephalic, atraumatic Eyes: normal sclera ENT: Mucous membranes are pale and dry Neck: No neck stiffness, no cervical adenopathy Respiratory: Breath sounds equal bilaterally, no wheezing, rales, or rhonchi Cardio: S1 and S2 present, no murmurs, rubs, gallops, capillary refill is delayed Abdomen: Normoactive bowel sounds, soft abdomen, no rigidity, no guarding or rebound tenderness Chest WALL/Back: No tenderness to palpation of the chest wall, no CVA tenderness with percussion Musc: No pitting edema Skin: No rash Neuro: no facial drooping, normal speech Psych: Normal affect ED Course Vital Signs 11/26/17 11/26/17 11/26/17 20:23 21:47 21:51 Temperature 98.6 F Pulse Rate 61 59 L Respiratory 20 20 20 Rate Blood Pressure 157/57 Blood Pressure 130/54 [Left] O2 Sat by Pulse 100 100 Oximetry ED Medical Decision Making - Lab Data Result diagrams: 11/26/17 20:39 11/26/17 20:39 - Medical Decision Making The patient was seen and examined by myself. The patient is placed on a panel monitor and continuous pulse ox. On initial evaluation, the patient was found to be in no distress. Evaluation orders are placed. IV access is established and the patient is given 1 L normal saline fluid bolus and Zofran for nausea, and IV analgesic for pain Lab results revealed low hemoglobin of 7.2, low RBC, low hematocrit, and otherwise labs are grossly unrevealing. The patient is transfused 1 unit of PRBCs for treatment of his severe anemia and weakness. The patient was informed of recommendation to be admitted to the hospital. The patient declined. The patient is informed of risks of refusal of further care/ stabilization and signing out AGAINST MEDICAL ADVICE, including potential risk of increased morbidity and/or , versus benefits of further treatment and stablization. The patient is informed of treatment options and outside facility options for futher treatment and definitive stablization. The patient is able to verbalize their treatment options and benefits of treatments, versus risks of refusal of further care. The patient is competent to make medical decisions and signed out AGAINST MEDICAL ADVICE. Critical care attestation.: If time is entered above; I have spent that time in minutes in the direct care of this critically ill patient, excluding procedure time. ED Disposition Clinical Impression: Anemia requiring transfusions, Generalized weakness, Severe anemia Disposition: LEFT AGAINST MED ADVICE Is pt being admited?: No Does the pt Need Aspirin: No Condition: Serious Instructions: Chest Pain (ED), Anemia (ED), Weakness (ED) Referrals: PRIMARY CARE, [Primary Care Provider] - 3-5 Days [facility] [Outside] - 3-5 Days Time of Disposition: 23:02
[2017-11-27 02:11] VITALS: BP 136/53
== END 2017-11-27 01:55 | disposition left against medical advice (07) ==
LOC: ED 20:07
DX: D64.9 Anemia, unspecified (principal); I10 Essential (primary) hypertension; I25.2 Old myocardial infarction; M13.872 Other specified arthritis, left ankle and foot; J45.909 Unspecified asthma, uncomplicated; Z87.891 Personal history of nicotine dependence
CPT/HCPCS: 36415; 36430; 80053; 80074; 85027; 85610; 85730; 86850; 86900; 86901; 86920; 93005; 93010; 99284; J7040; P9016

== ENCOUNTER 2017-11-28 06:46 | Day surgery (SDC) | payer MEDICARE ==
[2017-11-28] MEDS ORDERED: NACL 0.9% 500 ML 500 ML ONE (07:18)
[2017-11-28 08:10] LABS: Hematocrit 23.2 % (35.5-45.6); Hemoglobin 7.7 gm/dl (11.8-15.2); Mean Corpuscular HGB Conc 33 % (32-34); Mean Corpuscular Hemoglobin 30 pg (28-32); Mean Corpuscular Volume 89 fl (84-94); Platelet Count 114 K/mm3 (140-440); Red Blood Count 2.61 M/mm3 (3.65-5.03); Red Cell Distribution Width 18.8 % (13.2-15.2)
[2017-11-28 08:20] LABS: INR 1.12 (0.87-1.13); Partial Thromboplastin Time 28.2 Sec. (24.2-36.6)
[2017-11-28 08:22] LABS: BUN/Creatinine Ratio 22; Blood Urea Nitrogen 24 mg/dL (9-20); Calcium 8.8 mg/dL (8.4-10.2); Hemolysis Index 31
[2017-11-28] MEDS ORDERED: SUBLIMAZE IV NR (08:56)
[2017-11-28] MEDS: VERSED IV NR ×2 (09:21→10:16)
[2017-11-28] MEDS ORDERED: XYLOCAINE 1% 20 mL ONE (09:23)
--- NOTE | 2017-11-28 10:37 | Cat Scan Report ---
CT BIOPSY BONE MARROW: HISTORY: Myelodysplastic syndrome. DESCRIPTION OF PROCEDURE: Informed consent was obtained. Sterile technique was utilized. Conscious sedation was accomplished with Versed and fentanyl. The patient was sedated for 15 minutes. Independent cardiorespiratory monitoring by RN. Intra-observer time of [address] guidance, an introducer needle was advanced into the right posterior iliac bone. 4 aspirations and one 11-gauge bone core was obtained. Pathology was present to handle the sample. The patient tolerated the procedure without difficulty. IMPRESSION: Successful CT-guided bone marrow biopsy.
[2017-11-28 11:42] LABS: Total Cells Counted 100
[2017-11-28 11:43] LABS: Anisocytosis 1+; Poikilocytosis 2+
[2017-11-28 11:44] LABS: Ovalocytes Few; Platelet Estimate Cons; Tear Drop Cells 1+
[2017-11-28 12:06] VITALS: BP 122/53
== END 2017-11-28 11:00 | disposition home or self-care (01) ==
LOC: CATHLABREC 06:46 → EDSTATUS 07:30 → CATHLABREC 11:00
DX: D46.9 Myelodysplastic syndrome, unspecified (principal); D61.818 Other pancytopenia; D75.81 Myelofibrosis; I25.2 Old myocardial infarction; I25.10 Atherosclerotic heart disease of native coronary artery without angina pectoris; I10 Essential (primary) hypertension; J45.909 Unspecified asthma, uncomplicated; M19.072 Primary osteoarthritis, left ankle and foot; Z79.899 Other long term (current) drug therapy; Z88.7 Allergy status to serum and vaccine; Z72.89 Other problems related to lifestyle; Z87.891 Personal history of nicotine dependence; Z98.890 Other specified postprocedural states
CPT/HCPCS: 36415; 38221; 77012; 80048; 85007; 85025; 85097; 85610; 85730; 88184; 88185; 88230; 88291; 88305; 99156; J2250; J3010; J7040; 88161; 88311; 88313

== ENCOUNTER 2017-12-22 07:23 | Emergency (ER) | payer MEDICARE ==
[2017-12-22 08:34] LABS: Hematocrit 22.9 % (35.5-45.6); Hemoglobin 7.4 gm/dl (11.8-15.2); Mean Corpuscular HGB Conc 33 % (32-34); Mean Corpuscular Hemoglobin 30 pg (28-32); Mean Corpuscular Volume 91 fl (84-94); Red Blood Count 2.51 M/mm3 (3.65-5.03)
[2017-12-22 08:41] LABS: Platelet Count 99 K/mm3 (140-440)
[2017-12-22 08:44] LABS: INR 1.17 (0.87-1.13)
[2017-12-22 08:45] LABS: Partial Thromboplastin Time 35.6 Sec. (24.2-36.6)
[2017-12-22 08:53] LABS: Albumin 4.4 g/dL (3.9-5); Calcium 9.2 mg/dL (8.4-10.2)
[2017-12-22 09:33] LABS: Basophils % (Manual) 0 % (0.0-1.8); Total Cells Counted 100
[2017-12-22 09:36] LABS: Anisocytosis 1+; Ovalocytes 1+; Platelet Estimate Consistent w Auto; Schistocytes Few; Tear Drop Cells 1+
--- NOTE | 2017-12-22 09:55 | Emergency Department Report ---
ED General Adult HPI - General Chief complaint: Recheck/Abnormal Lab/Rx Stated complaint: LABS DONE Time Seen by Provider: 12/22/17 08:24 Source: patient Mode of arrival: Ambulatory Limitations: No Limitations - History of Present Illness Initial comments: Patient reports hx low hemoglobin over the past year. Reports multiple blood transfusions. Reports followed by multiple specialists without diagnosis of anemia. Reports sent to the ER because told by Dr. Fitzpatrick PCP that his hgb was low. Reports no symptoms. - Related Data Home Medications Medication Instructions Recorded Confirmed Last Taken Atenolol [Tenormin] 25 mg PO DAILY 11/28/17 12/16/17 11/27/17 Previous Rx's Medication Instructions Recorded Last Taken Type Pantoprazole [Protonix TAB] 40 mg PO QDAY #30 tablet 10/01/16 11/26/17 Rx Allergies Allergy/AdvReac Type Severity Reaction Status Date / Time tetanus and diphtheria Allergy Anaphylaxis Verified 09/29/16 17:51 toxoids [tetanus & diphtheria toxoids] ED Review of Systems ROS: Stated complaint: LABS DONE Other details as noted in HPI Other: GENERAL: No weight change, fatigue, weakness, fever, chills, or night sweats SKIN: No changes in skin or hair, no itching, no rashes, no jaundice HEAD: No trauma, headache, or visual changes EYES: No blurriness, tearing, itching, acute visual loss, conjunctival discoloration, or scleral icterus EARS: No hearing loss, tinnitus, vertigo, or earache NOSE: No rhinorrhea, stuffiness, sneezing, itching, or epistaxis MOUTH: No bleeding gums, hoarseness, sore throat, or swelling CARDIAC: No new murmur, chest pain, palpitations, dyspnea on exertion, orthopnea , PND, or edema RESPIRATORY: No shortness of breath, wheeze, cough, sputum production, hemoptysis, pneumonia, asthma, bronchitis, or emphysema GI: No change in appetite, nausea, vomiting, dysphagia, change in bowel frequency, diarrhea, constipation, bleeding, hematemesis, melena, hematochezia, or abdominal pain URINARY: No frequency, urgency, polyuria, dysuria, hematuria, or incontinence MUSCULOSKELETAL: No muscle weakness, joint stiffness, decrease in range of motion, redness, swelling NEUROLOGIC: No loss of sensation, numbness, tingling, tremors, weakness, paralysis, seizures ENDOCRINE: No hot or cold intolerance, sweating, polyuria, polydipsia or, polyphagia no thyroid problems PSYCHIATRIC: No change in mood, no anxiety, no depression ED Past Medical Hx - Past Medical History Previous Medical History?: Yes Hx Hypertension: Yes Hx Heart Attack/AMI: Yes (1987) Hx Congestive Heart Failure: No Hx Diabetes: No Hx Renal Disease: No Hx Arthritis: Yes Hx Seizures: No Hx Asthma: Yes (childhood) Hx COPD: No Additional medical history: GI bleeds, CAD, Anemia, Multiple blood transfusions 21 units since September 2017, recently diagnosed with Blood Cancer MDA - Surgical History Past Surgical History?: Yes Additional Surgical History: hemorrhoid surgery - Social History Smoking Status: Former Smoker Substance Use Type: None - Medications Home Medications: Home Medications Medication Instructions Recorded Confirmed Last Taken Type Pantoprazole [Protonix TAB] 40 mg PO QDAY #30 tablet 10/01/16 12/16/17 11/26/17 Rx Atenolol [Tenormin] 25 mg PO DAILY 11/28/17 12/16/17 11/27/17 History ED Physical Exam - General Limitations: No Limitations - Other Other exam information: GENERAL: Patient in no acute distress HEAD: Normocephalic, atraumatic EYES: PERRLA, EOM intact, no scleral icterus, visual boswell and acuity wnl NOSE: No tenderness, discharge, sinus tenderness MOUTH: No erythema, bleeding, exudate HEART: Regular rate and rhythm, no murmur, S1-S2 are auscultated, pulses are symmetric LUNGS: bilateral breath sounds. No wheezing, rales, rhonchi ABDOMEN: Normal bowel sounds, no tenderness, no rebound, no guarding, no masses , no CVA tenderness MUSCULOSKELETAL: Normal joint range of motion, no redness, no swelling, no tenderness NEUROLOGIC: GCS 15, Alert and Oriented x3, Cranial nerves intact, normal sensation, normal strength, normal gait, no cerebellar deficit PSYCHIATRIC: No homicidal or suicidal ideation, no anxiety, no hallucinations SKIN: Skin is warm and dry, no wounds, no rashes ED Course Vital Signs 12/22/17 12/22/17 12/22/17 07:56 08:30 09:00 Temperature 98.9 F Pulse Rate 55 L 56 L Respiratory 16 17 Rate Blood Pressure 132/82 122/48 O2 Sat by Pulse 100 100 Oximetry 12/22/17 10:00 Temperature Pulse Rate 53 L Respiratory 15 Rate Blood Pressure 122/48 O2 Sat by Pulse Oximetry ED Medical Decision Making - Lab Data Result diagrams: 12/22/17 08:18 12/22/17 08:18 - Medical Decision Making Patient comfortable. Updated with results. Patient reports no symptoms. Reports he came to the ER because his PCP Dr. Fitzpatrick said his hgb was 6. Patient reports no complaints. Suggested Dr. Fitzpatrick be contacted for recommendations. Patient reports that he never stays in the hospital for repeat hgb checks. Patient says he is followed by multiple specialists and awaiting results of a bone marrow biopsy. Patient requesting discharge and agrees to monitor symptoms closely. Agrees to return to the ER if any worsening. Critical care attestation.: If time is entered above; I have spent that time in minutes in the direct care of this critically ill patient, excluding procedure time. ED Disposition Clinical Impression: Anemia Qualifiers: Anemia type: unspecified type Qualified Code(s): D64.9 - Anemia, unspecified Disposition: DC- TO HOME OR SELFCARE Is pt being admited?: No Condition: Stable Instructions: Anemia (ED) Referrals: PRIMARY CARE, [Primary Care Provider] - 2-3 Days Time of Disposition: 09:53
[2017-12-22 10:09] VITALS: BP 122/48
== END 2017-12-22 10:20 | disposition home or self-care (01) ==
LOC: ED 07:23
DX: D64.9 Anemia, unspecified (principal); I10 Essential (primary) hypertension; M19.90 Unspecified osteoarthritis, unspecified site; J45.909 Unspecified asthma, uncomplicated; I25.10 Atherosclerotic heart disease of native coronary artery without angina pectoris; Z87.891 Personal history of nicotine dependence; Z88.7 Allergy status to serum and vaccine
CPT/HCPCS: 36415; 80053; 83690; 84484; 85007; 85025; 85610; 85730; 86850; 86900; 86901; 93005; 93010

== ENCOUNTER 2018-01-16 12:49 | Emergency (ER) | payer MEDICARE ==
[2018-01-16] MEDS ORDERED: NACL 0.9% 1000 ML 1,000 ML IV ONE (13:15)
[2018-01-16 13:46] LABS: Hematocrit 26.1 % (35.5-45.6); Hemoglobin 8.5 gm/dl (11.8-15.2); Mean Corpuscular HGB Conc 33 % (32-34); Mean Corpuscular Hemoglobin 29 pg (28-32); Mean Corpuscular Volume 88 fl (84-94); Platelet Count 105 K/mm3 (140-440); Red Blood Count 2.96 M/mm3 (3.65-5.03); Red Cell Distribution Width 17.1 % (13.2-15.2)
[2018-01-16 14:01] LABS: INR 1.2 (0.87-1.13)
[2018-01-16 14:10] LABS: Albumin 4.4 g/dL (3.9-5); Calcium 9.2 mg/dL (8.4-10.2)
[2018-01-16 14:29] LABS: Basophils % (Manual) 0 % (0.0-1.8); Total Cells Counted 100
[2018-01-16 14:31] LABS: Large Platelets 1+; Platelet Estimate Consistent w Auto
[2018-01-16 14:32] LABS: Anisocytosis 1+; Ovalocytes Few; Schistocytes Few
--- NOTE | 2018-01-16 20:40 | Emergency Department Report ---
HPI - General Chief Complaint: Weakness Time Seen by Provider: 01/16/18 20:29 - HPI HPI: 72-year-old male presents to the emergency department with concern for worsening of his chronic anemia. The patient has had multiple visits that have required transfusions including a visit a few weeks ago where he got 4 units transfused. The patient says that he is following with a oncologist and was told that he has a myelodysplastic syndrome but the patient says that "I do not trust him" and is interested in seeing a different purifying plant operator. He says that he was seen by someone at [facility] on behalf of Dr. Fitzpatrick and had some recent blood drawn and was told that his hemoglobin was 5. The patient does complain of some generalized weakness but says that he "lives this way" over the past year or so. He otherwise has a history of coronary artery disease, hypertension, previous GI bleeds. ED Past Medical Hx - Past Medical History Hx Hypertension: Yes Hx Heart Attack/AMI: Yes (1987) Hx Congestive Heart Failure: No Hx Diabetes: No Hx Renal Disease: No Hx Arthritis: Yes Hx Seizures: No Hx Asthma: Yes (childhood) Hx COPD: No Additional medical history: GI bleeds, CAD, Anemia, Multiple blood transfusions 21 units since September 2017, recently diagnosed with Blood Cancer myelodysplastic syndrome - Surgical History Additional Surgical History: hemorrhoid surgery - Social History Smoking Status: Unknown if ever smoked Substance Use Type: None - Medications Home Medications: Home Medications Medication Instructions Recorded Confirmed Last Taken Type Pantoprazole [Protonix TAB] 40 mg PO QDAY #30 tablet 10/01/16 12/16/17 11/26/17 Rx Atenolol [Tenormin] 25 mg PO DAILY 11/28/17 12/16/17 11/27/17 History ED Review of Systems ROS: Stated complaint: LOW BLOOD LEVELS Other details as noted in HPI Constitutional: weakness (chronic). denies: fever Eyes: denies: eye pain, eye discharge, vision change ENT: denies: ear pain, throat pain Respiratory: denies: cough, shortness of breath, wheezing Cardiovascular: denies: chest pain, palpitations Gastrointestinal: denies: abdominal pain, nausea, diarrhea Genitourinary: denies: urgency, dysuria Musculoskeletal: denies: back pain, joint swelling, arthralgia Skin: denies: rash, lesions Neurological: denies: headache, weakness, paresthesias Physical Exam - Physical Exam Vital Signs: Vital Signs 01/16/18 13:10 Temperature 99.4 F Pulse Rate 56 L Respiratory 18 Rate Blood Pressure 142/52 O2 Sat by Pulse 99 Oximetry Physical Exam: GENERAL: The patient is well-developed well-nourished. HENT: Normocephalic. Atraumatic. Patient has moist mucous membranes. EYES: Extraocular motions are intact. NECK: Supple. Trachea is midline. CHEST/LUNGS: Clear to auscultation. There is no respiratory distress noted. HEART/CARDIOVASCULAR: Regular. There is no tachycardia. There is no murmur. ABDOMEN: Abdomen is soft, nontender. Patient has normal bowel sounds. There is no abdominal distention. SKIN: Skin is warm and dry. NEURO: The patient is awake, alert, and oriented. The patient is cooperative. The patient has no focal neurologic deficits. The patient has normal speech. Cranial nerves II through XII grossly intact. MUSCULOSKELETAL: There is no tenderness or deformity. There is no limitation range of motion. There is no evidence of acute injury. ED Course Vital Signs 01/16/18 13:10 Temperature 99.4 F Pulse Rate 56 L Respiratory 18 Rate Blood Pressure 142/52 O2 Sat by Pulse 99 Oximetry ED Medical Decision Making - Lab Data Result diagrams: 01/16/18 13:31 01/16/18 13:31 - Medical Decision Making Patient appears to have a history of a recent diagnosis of mild dysplastic syndrome. He has a history of severe anemia requiring multiple transfusions over the past few months. Apparently he was told that he had a hemoglobin of 5 recent blood work. This is the reason why he came to the hospital today. His hemoglobin was found to be 8.5. He denies any current bleeding. 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 Patient says that he has some chronic generalized weakness but no new complaints or any deficits. The patient has been here for many hours and has remained stable. Vital signs stable throughout his ED course. There are no focal, motor or sensory deficits. At the patient's request, he was given a different referral for oncology/hematology and he was instructed to follow-up with his PCP, Dr. Fitzpatrick. Critical Care Time: No Critical care attestation.: If time is entered above; I have spent that time in minutes in the direct care of this critically ill patient, excluding procedure time. ED Disposition Clinical Impression: Anemia Qualifiers: Anemia type: unspecified type Qualified Code(s): D64.9 - Anemia, unspecified Disposition: DC-01 TO HOME OR SELFCARE Is pt being admited?: No Condition: Stable Instructions: Anemia (ED) Additional Instructions: Please return to the emergency department with any chest pain, shortness of breath, worsening of your symptoms or any acute distress. I have given you a name of a different purifying plant operator/oncologist, Dr. De Souza, in case you would like a second opinion regarding your anemia. Referrals: TAVO FITZPATRICK MD [Primary Care Provider] - 3-5 Days SAILAJA DE SOUZA MD [Staff Physician] - 3-5 Days Time of Disposition: 20:40
[2018-01-16 20:59] VITALS: BP 133/61
== END 2018-01-16 21:04 | disposition home or self-care (01) ==
LOC: ED 12:49
DX: D64.9 Anemia, unspecified (principal); I11.0 Hypertensive heart disease with heart failure; M19.90 Unspecified osteoarthritis, unspecified site; J45.909 Unspecified asthma, uncomplicated
CPT/HCPCS: 36415; 80053; 83690; 85007; 85025; 85610; 85730; 86850; 86900; 86901; 93005; 93010; 99284

== ENCOUNTER 2018-01-30 17:30 | Observation (INO) | payer MEDICARE ==
[2018-01-30] MEDS ORDERED: NACL 0.9% 1000 ML 1,000 ML IV ONE (17:46)
[2018-01-30 18:47] LABS: Hemoglobin 6.9 gm/dl (11.8-15.2); Mean Corpuscular HGB Conc 33 % (32-34); Mean Corpuscular Hemoglobin 28 pg (28-32); Mean Corpuscular Volume 86 fl (84-94); Platelet Count 124 K/mm3 (140-440); Red Blood Count 2.43 M/mm3 (3.65-5.03); Red Cell Distribution Width 19.2 % (13.2-15.2)
[2018-01-30 18:58] LABS: INR 1.13 (0.87-1.13)
[2018-01-30 18:59] LABS: Partial Thromboplastin Time 35.3 Sec. (24.2-36.6)
[2018-01-30 19:04] LABS: Albumin 4.9 g/dL (3.9-5); Calcium 9.1 mg/dL (8.4-10.2)
[2018-01-30 20:02] LABS: Anisocytosis 1+; Basophils % (Manual) 0 % (0.0-1.8); Total Cells Counted 100
[2018-01-30 20:03] LABS: Hypochromasia 2+; Poikilocytosis 1+
[2018-01-30 20:04] LABS: Platelet Estimate Consistent w Auto; Schistocytes Few; Tear Drop Cells Few
[2018-01-30] MEDS ORDERED: NACL 0.9% 500 ML 500 ML IV ONE ×2 (20:20→22:51)
--- NOTE | 2018-01-30 20:26 | Emergency Department Report ---
ED General Adult HPI - General Chief complaint: GI Bleed Stated complaint: BLOOD TRANSFUSION Time Seen by Provider: 01/30/18 20:19 Source: patient Mode of arrival: Ambulatory Limitations: No Limitations - History of Present Illness Initial comments: Patient is 72 years old male with history of hypertension, coronary artery disease and MDS, blood transfusion-dependent anemia with multiple admission for blood transfusion. Patient was last time admitted here in December and received 3 pints of blood. Patient presented to the ER today complaining of generalized weakness. He also stated that his primary care physician: Dung and advised him to come to the ER because his hemoglobin is 5. Patient hemoglobin is 6.9. Patient denying any hematemesis, hematochezia, melena, hemoptysis or hematuria. Patient stated that he has bone marrow biopsy done at [facility] and he supposed to be started on chemotherapy very soon. Patient stated that he has a colonoscopy and endoscopy last year and was told that it was completely normal. - Related Data Home Medications Medication Instructions Recorded Confirmed Last Taken Atenolol [Tenormin] 25 mg PO DAILY 11/28/17 12/16/17 11/27/17 Previous Rx's Medication Instructions Recorded Last Taken Type Pantoprazole [Protonix TAB] 40 mg PO QDAY #30 tablet 10/01/16 11/26/17 Rx Allergies Allergy/AdvReac Type Severity Reaction Status Date / Time tetanus and diphtheria Allergy Anaphylaxis Verified 09/29/16 17:51 toxoids [tetanus & diphtheria toxoids] ED Review of Systems ROS: Stated complaint: BLOOD TRANSFUSION Other details as noted in HPI Comment: All other systems reviewed and negative Constitutional: denies: chills, fever Respiratory: denies: cough, orthopnea, shortness of breath, SOB with exertion, SOB at rest, wheezing Gastrointestinal: denies: abdominal pain, nausea, vomiting, diarrhea, constipation, hematemesis, melena, hematochezia Genitourinary: denies: hematuria Neurological: denies: headache, weakness, numbness, paresthesias, confusion ED Past Medical Hx - Past Medical History Hx Hypertension: Yes Hx Heart Attack/AMI: Yes (1987) Hx Congestive Heart Failure: No Hx Diabetes: No Hx Renal Disease: No Hx Arthritis: Yes Hx Seizures: No Hx Asthma: Yes (childhood) Hx COPD: No Additional medical history: GI bleeds, CAD, Anemia, Multiple blood transfusions 21 units since September 2017, recently diagnosed with Blood Cancer myelodysplastic syndrome - Surgical History Additional Surgical History: hemorrhoid surgery - Social History Smoking Status: Never Smoker Substance Use Type: None - Medications Home Medications: Home Medications Medication Instructions Recorded Confirmed Last Taken Type Pantoprazole [Protonix TAB] 40 mg PO QDAY #30 tablet 10/01/16 12/16/17 11/26/17 Rx Atenolol [Tenormin] 25 mg PO DAILY 11/28/17 12/16/17 11/27/17 History ED Physical Exam - General Limitations: No Limitations General appearance: alert, in no apparent distress, other (pale) - Head Head exam: Present: atraumatic, normocephalic, normal inspection - Eye Eye exam: Present: normal appearance - ENT ENT exam: Present: normal exam, normal orophraynx, mucous membranes moist - Neck Neck exam: Present: normal inspection, full ROM. Absent: tenderness, meningismus, lymphadenopathy, thyromegaly - Respiratory Respiratory exam: Present: normal lung sounds bilaterally. Absent: respiratory distress, wheezes, rales, rhonchi, chest wall tenderness, accessory muscle use, decreased breath sounds, prolonged expiratory - Cardiovascular Cardiovascular Exam: Present: regular rate, normal rhythm, normal heart sounds - GI/Abdominal GI/Abdominal exam: Present: soft, normal bowel sounds. Absent: distended, tenderness, guarding, rebound, rigid, organomegaly, mass, bruit, pulsatile mass , hernia - Extremities Exam Extremities exam: Present: normal inspection, full ROM, normal capillary refill. Absent: pedal edema, calf tenderness - Back Exam Back exam: Present: normal inspection, full ROM. Absent: CVA tenderness (R), CVA tenderness (L), muscle spasm, paraspinal tenderness, vertebral tenderness - Neurological Exam Neurological exam: Present: alert, oriented X3, CN II-XII intact, normal gait, reflexes normal - Skin Skin exam: Present: warm, intact, normal color ED Course Vital Signs 01/30/18 01/30/18 01/30/18 17:40 21:16 21:30 Temperature 98.1 F Pulse Rate 72 63 64 Respiratory 18 11 L 16 Rate Blood Pressure 134/42 136/43 136/43 O2 Sat by Pulse 98 100 100 Oximetry 01/30/18 01/30/18 01/30/18 21:36 21:46 21:51 Temperature 98.3 F 98.0 F Pulse Rate 65 65 65 Respiratory 11 L 14 16 Rate Blood Pressure 153/54 153/54 137/81 O2 Sat by Pulse 100 98 100 Oximetry ED Medical Decision Making - Lab Data Result diagrams: 01/30/18 18:08 01/30/18 18:08 - Medical Decision Making Mr Rincon is 72 years old male with history of hypertension, coronary artery disease and MDS, blood transfusion-dependent anemia with multiple admission for blood transfusion. Patient was last time admitted here in December and received 3 pints of blood. Patient presented to the ER today complaining of generalized weakness. He also stated that his primary care physician: Dung and advised him to come to the ER because his hemoglobin is 5. Patient hemoglobin is 6.9. Patient denying any hematemesis, hematochezia, melena, hemoptysis or hematuria. Patient stated that he has bone marrow biopsy done at [facility] and he supposed to be started on chemotherapy very soon. Patient stated that he has a colonoscopy and endoscopy last year and was told that it was completely normal. I discussed the patient was Isabelle Romo agreed to admit the patient to medical service. Critical Care Time: Yes Critical care time in (mins) excluding proc time.: 30 Critical care attestation.: If time is entered above; I have spent that time in minutes in the direct care of this critically ill patient, excluding procedure time. ED Disposition Clinical Impression: Myelodysplasia (myelodysplastic syndrome), Symptomatic anemia, Generalized weakness, Severe anemia Disposition: OP ADMIT IP TO THIS HOSP Is pt being admited?: Yes Condition: Stable Referrals: PRIMARY CARE, [Primary Care Provider] - 3-5 Days Forms: Accompanied Note
[2018-01-30] MEDS ORDERED: ZOFRAN IV PRN (22:49)
[2018-01-30] MEDS ORDERED: PERCOCET 5/325 PO PRN (22:49)
[2018-01-30] MEDS ORDERED: SODIUM CHLORIDE FLUSH SYRINGE 10 ML IV PRN (22:49)
[2018-01-30] MEDS ORDERED: TYLENOL PO PRN (22:49)
[2018-01-30] MEDS ORDERED: APRESOLINE IV PRN (22:51)
--- NOTE | 2018-01-30 22:51 | History and Physical Report ---
History of Present Illness Date of examination: 01/30/18 History of present illness: 72-year-old man with history of coronary artery disease, hypertension, transfusion dependent anemia, MDS comes emergency room with complaints of generalized weakness, fatigue and dizziness.His doctor sent him to the emergency room for evaluation of anemia. Review of systems Constitutional: no weight loss, chills, fever Ears, eyes, nose, mouth and throat: no nasal congestion, no nasal discharge, no sinus pressure, no vision change, no red eye. Neck: No neck pain or rigidity. Cardiovascular: no chest pain, palpitations Respiratory: no cough, shortness of breath Gastrointestinal: no abdominal pain hematochezia Genitourinary : no frequency , no hematuria Musculoskeletal: no joint swelling or muscle ache Integumentary: no rash, no pruritis Neurological: no parathesias, no numbness, no focal weakness Endocrine: no cold or heat intolerance, no polyuria or polydipsia Hematologic/Lymphatic: no easy bruising, no easy bleeding, no gland swelling Allergic/Immunologic: no urticaria, no angioedema. PAST MEDICAL HISTORY coronary artery disease, hypertension, chronic anemia, MDS PAST SURGICAL HISTORY: Hemorroidectomy SOCIAL HISTORY: Quit tobacco, alcohol, no drugs FAMILY HISTORY: Hypertension Medications and Allergies Allergies Allergy/AdvReac Type Severity Reaction Status Date / Time tetanus and diphtheria Allergy Anaphylaxis Verified 09/29/16 17:51 toxoids [tetanus & diphtheria toxoids] Home Medications Medication Instructions Recorded Confirmed Last Taken Type Pantoprazole [Protonix TAB] 40 mg PO QDAY #30 tablet 10/01/16 12/16/17 11/26/17 Rx Atenolol [Tenormin] 25 mg PO DAILY 11/28/17 12/16/17 11/27/17 History Exam - Physical Exam Narrative exam: Gen. appearance: Patient lying in bed, no apparent distress HEENT: Normocephalic, atraumatic, pupils equally round and reactive to light, extraocular movement intact, and no sclericterus,. No JVD or thyromegaly or nodule,neck supple, no carotid bruit ,mucous membranes moist, no exudate or erythema Heart: S1, S2, regular rate and rhythm Lungs: Clear bilaterally, breathing comfortable Abdomen: Positive bowel sounds, non-tender, nondistended, no organomegaly Extremity:no edema cyanosis, clubbing Skin: no rash, dry, warm Neuro: Oriented 3, cranial nerves II-12 intact, speech is fluent, motor and sensory intact - Constitutional Vitals: Temp Pulse Resp BP Pulse Ox 98.0 F 65 12 142/58 100 01/30/18 22:36 01/30/18 22:30 01/30/18 22:30 01/30/18 22:30 01/30/18 22:30 Results - Labs CBC & Chem 7: 01/30/18 18:08 01/30/18 18:08 Labs: Abnormal lab results 01/30/18 01/30/18 01/30/18 Range/Units 18:08 18:08 18:08 WBC 2.6 L (4.5-11.0) K/mm3 RBC 2.43 L (3.65-5.03) M/mm3 Hgb 6.9 L (11.8-15.2) gm/dl Hct 21.0 L (35.5-45.6) % RDW 19.2 H (13.2-15.2) % Plt Count 124 L (140-440) K/mm3 Lymphocytes % (Manual) 37.0 H (13.4-35.0) % Eosinophils % (Manual) 5.0 H (0.0-4.3) % Seg Neutrophils # Man 1.4 L (1.8-7.7) K/mm3 Lymphocytes # (Manual) 1.0 L (1.2-5.4) K/mm3 PT 15.0 H (12.2-14.9) Sec. BUN 30 H (9-20) mg/dL Creatinine 1.6 H (0.8-1.5) mg/dL Glucose 127 H (75-100) mg/dL Crossmatch 01/30/18 Range/Units 18:24 WBC (4.5-11.0) K/mm3 RBC (3.65-5.03) M/mm3 Hgb (11.8-15.2) gm/dl Hct (35.5-45.6) % RDW (13.2-15.2) % Plt Count (140-440) K/mm3 Lymphocytes % (Manual) (13.4-35.0) % Eosinophils % (Manual) (0.0-4.3) % Seg Neutrophils # Man (1.8-7.7) K/mm3 Lymphocytes # (Manual) (1.2-5.4) K/mm3 PT (12.2-14.9) Sec. BUN (9-20) mg/dL Creatinine (0.8-1.5) mg/dL Glucose (75-100) mg/dL Crossmatch See Detail Assessment and Plan Assessment Acute on chronic anemia secondary to MDS Acute renal insufficiency Hypertension MDS Coronary artery disease Pancytopenia Plan Transfuse blood, start IV fluid, monitor kidney function Continue appropriate outpatient medications DVT prophylaxis
[2018-01-30] MEDS ORDERED: NACL 0.45% 1000 ML 1,000 ML IV SCH (23:00)
[2018-01-31] MEDS ORDERED: TYLENOL PO ONE (01:37)
[2018-01-31] MEDS ORDERED: TYLENOL ONE (01:42)
[2018-01-31 05:20] LABS: Hematocrit 22.1 % (35.5-45.6); Hemoglobin 7.3 gm/dl (11.8-15.2); Mean Corpuscular HGB Conc 33 % (32-34); Mean Corpuscular Hemoglobin 28 pg (28-32); Mean Corpuscular Volume 84 fl (84-94); Platelet Count 113 K/mm3 (140-440); Red Blood Count 2.62 M/mm3 (3.65-5.03); Red Cell Distribution Width 17.9 % (13.2-15.2)
[2018-01-31 05:32] LABS: Calcium 8.8 mg/dL (8.4-10.2)
[2018-01-31] MEDS ORDERED: NACL 0.9% 500 ML 500 ML ONE (05:51)
[2018-01-31 06:14] LABS: Basophils % (Manual) 0 % (0.0-1.8); Total Cells Counted 100
[2018-01-31 06:15] LABS: Anisocytosis 1+; Hypochromasia 1+; Platelet Estimate Appears Decreased; Poikilocytosis 1+; Tear Drop Cells Few
[2018-01-31] MEDS ORDERED: SODIUM CHLORIDE FLUSH SYRINGE 10 ML IV SCH (10:00)
[2018-01-31] MEDS ORDERED: TENORMIN PO SCH (10:00)
[2018-01-31] MEDS ORDERED: PROTONIX PO SCH (10:00)
--- NOTE | 2018-01-31 11:44 | Progress Note ---
Assessment and Plan Assessment and plan: 72-year-old man with history of coronary artery disease, hypertension, transfusion dependent anemia, MDS comes emergency room with complaints of generalized weakness, fatigue and dizziness.His doctor sent him to the emergency room for evaluation of anemia. PAST MEDICAL HISTORY coronary artery disease, hypertension, chronic anemia, MDS Acute on chronic anemia secondary to MDS sp 3 units, did not have adequate response in Hg, will transfuse another 2 units and consult hematology n/b, has had recent GI workup -EGD 09/2016-antral gastritis, 2 small stomach AVMs (s/p APC), small HH -colon 09/2016-sigmoid diverticulosis, polyps, mild sigmoid colitis, and large hemorrhoids (IH & EH; grade III) -recent pill camera at [place] with negative results per patient Acute renal insufficiency due to ATN, resolved with blood transfusion Hypertension well controlled History Interval history: Review of systems Constitutional: No fevers, no malaise, no joint pains CVS: No chest pain, no orthopnea, no dyspnea on exertion, no pedal edema GI: No abdominal pain, no diarrhea, no vomiting, no constipation Respiratory: No shortness of breath, no wheezing, no coughing Hospitalist Physical - Physical exam Narrative exam: General.: Appears well, no distress, nontoxic HEENT: Moist mucous membranes, extraocular muscles intact, no lymphadenopathy Neck: supple Cardiac: S1-S2 heard Lungs: clear to auscultation bilaterally Abdomen: soft , nontender, nondistended, bowel sounds positive Extremities: no edema clubbing or cyanosis Skin: no rash or lesions Neurologic: no gross focal deficits Psych: appropriate behavior, appropriate mood, corporative, judgment intact - Constitutional Vitals: Temp Pulse Resp BP Pulse Ox 97.8 F 60 18 136/48 99 01/31/18 07:16 01/31/18 10:33 01/31/18 07:16 01/31/18 10:33 01/31/18 09:14 Results - Labs CBC & Chem 7: 01/31/18 05:09 01/31/18 05:09 Labs: Laboratory Last Values WBC 2.8 K/mm3 (4.5-11.0) L 01/31/18 05:09 RBC 2.62 M/mm3 (3.65-5.03) L 01/31/18 05:09 Hgb 7.3 gm/dl (11.8-15.2) L 01/31/18 05:09 Hct 22.1 % (35.5-45.6) L 01/31/18 05:09 MCV 84 fl (84-94) 01/31/18 05:09 MCH 28 pg (28-32) 01/31/18 05:09 MCHC 33 % (32-34) 01/31/18 05:09 RDW 17.9 % (13.2-15.2) H 01/31/18 05:09 Plt Count 113 K/mm3 (140-440) L 01/31/18 05:09 Add Manual Diff Complete 01/31/18 05:09 Total Counted 100 01/31/18 05:09 Seg Neuts % (Manual) 62.0 % (40.0-70.0) 01/31/18 05:09 Band Neutrophils % 0 % 01/31/18 05:09 Lymphocytes % (Manual) 33.0 % (13.4-35.0) 01/31/18 05:09 Reactive Lymphs % (Man) 0 % 01/31/18 05:09 Monocytes % (Manual) 3.0 % (0.0-7.3) 01/31/18 05:09 Eosinophils % (Manual) 2.0 % (0.0-4.3) 01/31/18 05:09 Basophils % (Manual) 0 % (0.0-1.8) 01/31/18 05:09 Metamyelocytes % 0 % 01/31/18 05:09 Myelocytes % 0 % 01/31/18 05:09 Promyelocytes % 0 % 01/31/18 05:09 Blast Cells % 0 % 01/31/18 05:09 Nucleated RBC % Not Reportable 01/31/18 05:09 Seg Neutrophils # Man 1.7 K/mm3 (1.8-7.7) L 01/31/18 05:09 Band Neutrophils # 0.0 K/mm3 01/31/18 05:09 Lymphocytes # (Manual) 0.9 K/mm3 (1.2-5.4) L 01/31/18 05:09 Abs React Lymphs (Man) 0.0 K/mm3 01/31/18 05:09 Monocytes # (Manual) 0.1 K/mm3 (0.0-0.8) 01/31/18 05:09 Eosinophils # (Manual) 0.1 K/mm3 (0.0-0.4) 01/31/18 05:09 Basophils # (Manual) 0.0 K/mm3 (0.0-0.1) 01/31/18 05:09 Metamyelocytes # 0.0 K/mm3 01/31/18 05:09 Myelocytes # 0.0 K/mm3 01/31/18 05:09 Promyelocytes # 0.0 K/mm3 01/31/18 05:09 Blast Cells # 0.0 K/mm3 01/31/18 05:09 WBC Morphology Not Reportable 01/31/18 05:09 Hypersegmented Neuts Not Reportable 01/31/18 05:09 Hyposegmented Neuts Not Reportable 01/31/18 05:09 Hypogranular Neuts Not Reportable 01/31/18 05:09 Smudge Cells Not Reportable 01/31/18 05:09 Toxic Granulation Not Reportable 01/31/18 05:09 Toxic Vacuolation Not Reportable 01/31/18 05:09 Dohle Bodies Not Reportable 01/31/18 05:09 Pelger-Huet Anomaly Not Reportable 01/31/18 05:09 Andra Rods Not Reportable 01/31/18 05:09 Platelet Estimate Appears decreased 01/31/18 05:09 Clumped Platelets Not Reportable 01/31/18 05:09 Plt Clumps, EDTA Not Reportable 01/31/18 05:09 Large Platelets Not Reportable 01/31/18 05:09 Giant Platelets Not Reportable 01/31/18 05:09 Platelet Satelliting Not Reportable 01/31/18 05:09 Plt Morphology Comment Not Reportable 01/31/18 05:09 RBC Morphology Not Reportable 01/31/18 05:09 Dimorphic RBCs Not Reportable 01/31/18 05:09 Polychromasia Not Reportable 01/31/18 05:09 Hypochromasia 1+ 01/31/18 05:09 Poikilocytosis 1+ 01/31/18 05:09 Anisocytosis 1+ 01/31/18 05:09 Microcytosis Not Reportable 01/31/18 05:09 Macrocytosis Not Reportable 01/31/18 05:09 Spherocytes Not Reportable 01/31/18 05:09 Pappenheimer Bodies Not Reportable 01/31/18 05:09 Sickle Cells Not Reportable 01/31/18 05:09 Target Cells Not Reportable 01/31/18 05:09 Tear Drop Cells Few 01/31/18 05:09 Ovalocytes Not Reportable 01/31/18 05:09 Helmet Cells Not Reportable 01/31/18 05:09 [place] Bodies Not Reportable 01/31/18 05:09 [place] Rings Not Reportable 01/31/18 05:09 [place] Cells Not Reportable 01/31/18 05:09 Bite Cells Not Reportable 01/31/18 05:09 Crenated Cell Not Reportable 01/31/18 05:09 Elliptocytes Not Reportable 01/31/18 05:09 Acanthocytes (Spur) Not Reportable 01/31/18 05:09 Rouleaux Not Reportable 01/31/18 05:09 Hemoglobin C Crystals Not Reportable 01/31/18 05:09 Schistocytes Not Reportable 01/31/18 05:09 Malaria parasites Not Reportable 01/31/18 05:09 Donta Bodies Not Reportable 01/31/18 05:09 Hem Pathologist Commnt No 01/31/18 05:09 PT 15.0 Sec. (12.2-14.9) H 01/30/18 18:08 INR 1.13 (0.87-1.13) 01/30/18 18:08 APTT 35.3 Sec. (24.2-36.6) 01/30/18 18:08 Sodium 142 mmol/L (137-145) 01/31/18 05:09 Potassium 4.4 mmol/L (3.6-5.0) 01/31/18 05:09 Chloride 106.6 mmol/L (98-107) 01/31/18 05:09 Carbon Dioxide 25 mmol/L (22-30) 01/31/18 05:09 Anion Gap 15 mmol/L 01/31/18 05:09 BUN 28 mg/dL (9-20) H 01/31/18 05:09 Creatinine 1.2 mg/dL (0.8-1.5) 01/31/18 05:09 Estimated GFR 59 ml/min 01/31/18 05:09 BUN/Creatinine Ratio 23 % 01/31/18 05:09 Glucose 103 mg/dL (75-100) H 01/31/18 05:09 Calcium 8.8 mg/dL (8.4-10.2) 01/31/18 05:09 Total Bilirubin 0.50 mg/dL (0.1-1.2) 01/30/18 18:08 AST 16 units/L (5-40) 01/30/18 18:08 ALT 25 units/L (7-56) 01/30/18 18:08 Alkaline Phosphatase 60 units/L (35-129) 01/30/18 18:08 Total Protein 7.5 g/dL (6.3-8.2) 01/30/18 18:08 Albumin 4.9 g/dL (3.9-5) 01/30/18 18:08 Albumin/Globulin Ratio 1.9 % 01/30/18 18:08 Lipase 42 units/L (13-60) 01/30/18 18:08 Blood Type A POSITIVE 01/30/18:24 Antibody Screen Negative 01/30/18: Crossmatch See Detail 01/30/18:24
[2018-01-31] MEDS ORDERED: NACL 0.9% 500 ML 500 ML IV ONE (11:58)
--- NOTE | 2018-01-31 12:52 | Discharge Summary ---
Providers - Providers Date of Admission: 01/30/18 22:49 Attending physician: JOHN CORONEL MD 01/31/18 11:45 Consult to Physician [CONS] Routine Comment: Consulting Provider: MONIQUE BRODY Physician Instructions: Reason For Exam: Anemia, MDS Primary care physician: [facility] [employer] Hospitalization Condition: Stable Hospital course: 72-year-old man with history of coronary artery disease, hypertension, transfusion dependent anemia, MDS comes emergency room with complaints of generalized weakness, fatigue and dizziness.His doctor sent him to the emergency room for evaluation of anemia. Of note patient had had recent GI workup -EGD 09/2016-antral gastritis, 2 small stomach AVMs (s/p APC), small HH -colon 09/2016-sigmoid diverticulosis, polyps, mild sigmoid colitis, and large hemorrhoids (IH & EH; grade III) -recent pill camera at [place] with negative results per patient He was transfused 3 units of blood after which he improved, and his renal function also improved afterwards Diagnosis Acute on chronic anemia secondary to MDS Acute renal insufficiency due to ATN Hypertension Disposition: - TO HOME OR SELFCARE Time spent for discharge: 33 minutes Core Measure Documentation - Palliative Care Palliative Care/ Comfort Measures: Not Applicable - Core Measures Any of the following diagnoses?: none Exam - Constitutional Vitals: Temp Pulse Resp BP Pulse Ox 97.8 F 60 18 136/48 99 01/31/18 07:16 01/31/18 10:33 01/31/18 07:16 01/31/18 10:33 01/31/18 09:14 General appearance: Present: no acute distress, well-nourished - EENT Eyes: Present: PERRL ENT: hearing intact, clear oral mucosa - Neck Neck: Present: supple, normal ROM - Respiratory Respiratory effort: normal Respiratory: bilateral: CTA - Cardiovascular Heart Sounds: Present: S1 & S2. Absent: rub, click - Extremities Extremities: pulses symmetrical, No edema Peripheral Pulses: within normal limits - Abdominal General gastrointestinal: Present: soft, non-tender, non-distended, normal bowel sounds Male genitourinary: Present: normal - Integumentary Integumentary: Present: clear, warm, dry - Musculoskeletal Musculoskeletal: gait normal, strength equal bilaterally - Psychiatric Psychiatric: appropriate mood/affect, intact judgment & insight - Neurologic Neurologic: CNII-XII intact, moves all extremities Plan Follow up with: PRIMARY CARE, [Primary Care Provider] - 3-5 Days Forms: Accompanied Note
[2018-01-31 13:14] LABS: Hematocrit 26.7 % (35.5-45.6)
[2018-01-31 13:38] LABS: Iron 215 ug/dL (49-181)
[2018-01-31 14:00] LABS: Total Iron Binding Capacity 210 mcg/dL (250-450)
[2018-01-31 14:22] VITALS: BP 125/58
--- NOTE | 2018-01-31 21:18 | Event Note ---
Date: 01/31/[address]emia MDS follows Dr Rojas at [facility] [id number]
--- NOTE | 2018-02-01 05:00 | Consultation ---
Consultation was referred by Dr. Chou. HISTORY OF PRESENT ILLNESS: I saw the patient, 72-year-old male in the medical floor. The patient has history of MDS. This he states was diagnosed in 2017. He has had received multiple blood transfusions. He follows with Dr. Rojas at [facility]. As per the patient, he has had two bone marrow biopsies, one at [place] and one at [facility]. Dr. Rojas was planning to start him on chemotherapeutic agent. The patient was sent to the hospital because of anemia and need for transfusion. His complaints include generalized weakness, fatigue, and dizziness. REVIEW OF SYSTEMS: CONSTITUTIONAL: No fever, no chills, no weight loss. HEENT: No nasal congestion. No vision change. CARDIOVASCULAR: No chest pain, no palpitations, no cough. PULMONARY: No shortness of breath. GASTROINTESTINAL: No abdominal pain. GENITOURINARY: No hematuria. SKIN: No rash, no focal weakness. PAST MEDICAL HISTORY: Coronary artery disease, hypertension, anemia, MDS. PAST SURGICAL HISTORY: Hemorrhoid surgery. SOCIAL HISTORY: No active alcohol, smoking or drug usage. FAMILY HISTORY: Hypertension. SOCIAL HISTORY: Lives with his who has diabetes and daughter. ALLERGIES: DIPHTHERIA AND TETANUS VACCINE. MEDICATIONS: Included Protonix and atenolol. PHYSICAL EXAMINATION: VITAL SIGNS: Temperature 98.2, pulse 53, respirations 18, BP 125/58. HEENT: Pallor present, no icterus. LYMPH NODES: No neck lymph nodes. LUNGS: Clear to auscultation. HEART: S1, S2. ABDOMEN: Soft. EXTREMITIES: No calf tenderness. NEUROLOGIC: Alert, awake. LABORATORY DATA: White cells 2.6, hemoglobin 6.9, MCV 86, platelet 124. After transfusion, hemoglobin was 9. Serum iron 215, serum ferritin 1499, B12 of 660, folate level 7.2, low. ASSESSMENT AND PLAN: 1. Anemia. The patient states that he has been diagnosed with MDS, details not clear. The patient follows with Dr. Rojas at [facility]. 2. Renal issues. 3. History of hypertension. 4. History of coronary artery disease. 5. Anemia secondary to myelodysplastic syndrome. 6. Thrombocytopenia secondary to myelodysplastic syndrome. 7. Leukopenia secondary to myelodysplastic syndrome. 8. The patient was admitted for transfusion. He will follow up with Dr. Rojas in the clinic setting. JOB# [id number] SHAHNAZ/BALJIT
== END 2018-01-31 14:40 | disposition home or self-care (01) ==
LOC: ED 17:30 → 2B-ACE 22:49
PROVIDERS: ADMIT Internal Medicine; ATTEND Internal Medicine
DX: D46.9 Myelodysplastic syndrome, unspecified (principal); K92.2 Gastrointestinal hemorrhage, unspecified; I10 Essential (primary) hypertension; J45.909 Unspecified asthma, uncomplicated; M19.90 Unspecified osteoarthritis, unspecified site; I25.10 Atherosclerotic heart disease of native coronary artery without angina pectoris; I21.9 Acute myocardial infarction, unspecified; D61.818 Other pancytopenia; N28.9 Disorder of kidney and ureter, unspecified; I82.409 Acute embolism and thrombosis of unspecified deep veins of unspecified lower extremity
CPT/HCPCS: 36415; 36430; 80048; 80053; 82607; 82728; 82747; 83550; 83615; 83690; 85007; 85014; 85018; 85025; 85610; 85730; 86850; 86900; 86901; 86920; 93005; 93010; G0378; J7030; J7040; P9016

== ENCOUNTER 2018-07-12 13:20 | Inpatient (IN) | payer MEDICARE ==
[2018-07-12] MEDS ORDERED: NACL 0.9% 1000 ML IV ONE (13:41)
[2018-07-12] MEDS ORDERED: MAXIPIME/NS 2 GM/100 ML 2 GM/100 ML BAG IV ONE (13:41)
--- NOTE | 2018-07-12 13:46 | Emergency Department Report ---
ED Abdominal Pain HPI - General Chief Complaint: Weakness Stated Complaint: WEAKNESS/SEPSIS Time Seen by Provider: 07/12/18 13:40 Source: patient, EMS Mode of arrival: Stretcher Limitations: No Limitations - History of Present Illness Initial Comments: Patient is a 73-year-old male that presents to emergency with complaints of fever and weakness 4 days and abdominal pain. Patient also complaining of diarrhea. Patient states he was in the hospital 4 days ago for a platelet infusion and packed red blood cells and ever since he's had a fever and weak ness. Patient states that the fever and weakness and abdominal pain or worsening. Patient states abdominal pain is a 10 out of 10 pain. Patient states that the pain is better with rest and worse with movement. Denies nausea vomiting. MD Complaint: abdominal pain -: Sudden Location: diffuse Radiation: none Migration to: no migration Severity: severe Severity scale (0 -10): 10 Quality: sharp Consistency: constant Improves With: rest Worsens With: movement Associated Symptoms: diarrhea, fever, chills. denies: nausea, vomiting, constipation, dysuria, hematemesis, hematochezia, melena, anorexia, syncope - Related Data Home Medications Medication Instructions Recorded Confirmed Last Taken Ascorbic Acid [Vitamin C] 500 mg PO DAILY 07/12/18 07/12/18 Unknown Magnesium Oxide 400 mg PO DAILY 07/12/18 07/12/18 Unknown Previous Rx's Medication Instructions Recorded Last Taken Type Potassium Chloride 20 meq PO QDAY #10 packet 06/03/18 Unknown Rx Allergies Allergy/AdvReac Type Severity Reaction Status Date / Time tetanus and diphtheria Allergy Anaphylaxis Verified 07/12/18 13:31 toxoids [tetanus & diphtheria toxoids] ED Review of Systems ROS: Stated complaint: WEAKNESS/SEPSIS Other details as noted in HPI Constitutional: chills, fever, weakness Eyes: denies: eye pain, eye discharge, vision change ENT: denies: ear pain, throat pain Respiratory: denies: cough, shortness of breath, wheezing Cardiovascular: denies: chest pain, palpitations Endocrine: no symptoms reported Gastrointestinal: abdominal pain, diarrhea. denies: nausea Genitourinary: denies: urgency, dysuria Musculoskeletal: denies: back pain, joint swelling, arthralgia Skin: denies: rash, lesions Neurological: weakness. denies: headache, paresthesias Psychiatric: denies: anxiety, depression Hematological/Lymphatic: denies: easy bleeding, easy bruising ED Past Medical Hx - Past Medical History Previous Medical History?: Yes Hx Hypertension: Yes Hx Heart Attack/AMI: Yes Hx Congestive Heart Failure: No Hx Diabetes: No Hx Renal Disease: No Hx Arthritis: Yes Hx Seizures: No Hx Asthma: Yes Hx COPD: No Additional medical history: GI bleeds, CAD, Anemia, Multiple blood transfusions 21 units since September 2017, recently diagnosed with Blood Cancer myelodysplastic syndrome - Surgical History Past Surgical History?: Yes Additional Surgical History: hemorrhoid surgery, port upper right chest - Family History Family history: no significant - Social History Smoking Status: Former Smoker Substance Use Type: None - Medications Home Medications: Home Medications Medication Instructions Recorded Confirmed Last Taken Type Potassium Chloride 20 meq PO QDAY #10 packet 06/03/18 07/12/18 Unknown Rx Ascorbic Acid [Vitamin C] 500 mg PO DAILY 07/12/18 07/12/18 Unknown History Magnesium Oxide 400 mg PO DAILY 07/12/18 07/12/18 Unknown History ED Physical Exam - General Limitations: No Limitations General appearance: alert, in no apparent distress - Head Head exam: Present: atraumatic, normocephalic - Eye Eye exam: Present: normal appearance, PERRL Pupils: Present: normal accommodation - ENT ENT exam: Present: mucous membranes moist - Neck Neck exam: Present: normal inspection - Respiratory Respiratory exam: Present: normal lung sounds bilaterally. Absent: respiratory distress - Cardiovascular Cardiovascular Exam: Present: regular rate, normal rhythm. Absent: systolic murmur, diastolic murmur, rubs, gallop - GI/Abdominal GI/Abdominal exam: Present: soft, normal bowel sounds - Rectal Rectal exam: Present: deferred - Extremities Exam Extremities exam: Present: normal inspection - Back Exam Back exam: Present: normal inspection - Neurological Exam Neurological exam: Present: alert, oriented X3 - Psychiatric Psychiatric exam: Present: normal affect, normal mood - Skin Skin exam: Present: warm, dry, intact, normal color. Absent: rash ED Course Vital Signs 07/12/18 07/12/18 07/12/18 13:31 14:30 15:06 Temperature 98.9 F Pulse Rate 115 H 121 H Respiratory 18 20 Rate Blood Pressure 117/46 117/56 117/56 O2 Sat by Pulse 97 99 Oximetry 07/12/18 07/12/18 07/12/18 15:10 15:20 15:30 Temperature Pulse Rate 116 H 117 H 111 H Respiratory 19 28 H 32 H Rate Blood Pressure 117/56 117/56 117/56 O2 Sat by Pulse 99 98 99 Oximetry 07/12/18 07/12/18 07/12/18 15:40 15:50 16:00 Temperature Pulse Rate 115 H 120 H 118 H Respiratory 16 26 H 26 H Rate Blood Pressure 120/54 120/54 120/54 O2 Sat by Pulse 100 100 Oximetry 07/12/18 07/12/18 07/12/18 16:10 16:20 16:30 Temperature Pulse Rate 117 H 122 H 110 H Respiratory 17 26 H 28 H Rate Blood Pressure 126/51 126/51 126/51 O2 Sat by Pulse 99 99 99 Oximetry 07/12/18 07/12/18 07/12/18 16:40 16:50 17:00 Temperature Pulse Rate 109 H 114 H 115 H Respiratory 29 H 16 11 L Rate Blood Pressure 116/57 116/57 116/57 O2 Sat by Pulse 99 96 94 Oximetry 07/12/18 07/12/18 07/12/18 17:10 17:20 17:30 Temperature Pulse Rate 116 H 112 H 115 H Respiratory 17 13 32 H Rate Blood Pressure 123/51 123/51 123/51 O2 Sat by Pulse 95 95 94 Oximetry 07/12/18 07/12/18 07/12/18 17:40 17:50 18:00 Temperature Pulse Rate 120 H 114 H 114 H Respiratory 22 30 H 32 H Rate Blood Pressure 128/56 128/56 128/56 O2 Sat by Pulse 94 95 94 Oximetry 07/12/18 07/12/18 07/12/18 18:10 18:22 18:52 Temperature Pulse Rate 119 H Respiratory 34 H Rate Blood Pressure 114/55 114/55 128/56 O2 Sat by Pulse 93 99 99 Oximetry - Reevaluation(s) Reevaluation #1: Discussed results with patient. CT is pending. Patient and family request to be transferred to [facility]. 07/12/18 15:47 - Consultations Consultation #1: [facility] transfer center/house mover consulted. The house mover is contacting the hospitalist. 07/12/18 15:48 Dr. Carter [facility] hospitalist refused to accept the patient as a transfer to the hospital. He recommends patient be admitted here. 07/12/18 16:01 I spoke with the patient's oncologist at [facility], Dr. Rojas and he also refused to accept the patient to be transferred. And states the patient should be admitted here 07/12/18 16:37 Consultation #2: Hospitalist here consulted for admission. Hospitalist to admit patient and assume care of patient. 07/12/18 16:30 ED Medical Decision Making - Lab Data Result diagrams: 07/12/18 14:02 07/13/18 05:40 - EKG Data -: EKG Interpreted by Ri EKG shows normal: sinus rhythm, axis, intervals, ST-T waves Rate: tachycardia - EKG Data Interpretation: other (widened QRS) - Radiology Data Radiology results: report reviewed PROCEDURE: CT ABDOMEN PELVIS WO CON TECHNIQUE: Computerized axial tomography of the abdomen and pelvis was performed without intravenous contrast. This study is performed without intravascular contrast material and its sensitivity for abdominal and pelvic pathology, including neoplasms, inflammation, abscess, free fluid, thrombosis, arterial dissection and infarction, is reduced compared with a contrast enhanced study. HISTORY: abd pain COMPARISONS: None . FINDINGS: Lower Lung boswell: There is a [id number] size right pleural effusion. Th ere are some patchy densities in both bases suggesting atelectasis. Subsegmental infiltrates and cli nical exclusion. Mild emphysematous changes appear to be present in the lower lung boswell. Upper Abdomen: Several small gallstones are seen lying dependently in the gallbladder. Gallbladder is otherwise unremarkable. The unenhanced images of the liver, the adrenal glands and the pancreas are unremarkable. Calcified granulomas are seen in the spleen which is otherwise unremarkable. Kidneys, Ureters and Urinary bladder: Renal arterial calcification visualized in the right and left. No renal calculi are seen in the right or left. There is no hydronephrosis. Cortical/parapelvic cyst visualized in the lower third of the left kidney measuring 3.5 cm. No solid masses are identified. Ureters are not distended. No ureteral calculi are seen. There is mild nonspecific increased density in the perinephric adipose tissue. There also appears to be mild prominence of Gerota's fascia bilaterally and mild strandy density in the right and left pericolonic gutters. Retroperitoneum: Atherosclerotic changes are seen in the abdominal aorta. No aneurysm is visualized. Nonspecific subcentimeter lymph nodes are seen in the retroperitoneum. No pathologically enlarged lymph nodes are identified. Bowel: There is minimal sigmoid diverticulosis without evidence of diverticulitis. No evidence of bowel obstruction ascites or free intraperitoneal gas. Reproductive organs: Prostate gland does not appear to be significantly enlarged. Other: No acute bone abnormalities are identified. IMPRESSION: Small to moderate sized right pleural effusion present. Increased density in the lung bases suggest atelectasis. Pneumonia needs clinical exclusion. Cholelithiasis. Mild sigmoid diverticulosis without evidence of diverticulitis. Mild increased density perinephric adipose tissue. This can be a normal variant. Correlation with urinalysis suggested to ensure there is no evidence of pyelonephritis. Cortical/peripelvic cyst left kidney. - Medical Decision Making Patient is a 73-year-old mellitus emergency room with fever, weakness and abdominal pain. Patient found to be acutely dehydrated. She also found to have pancytopenia.. Patient's baseline creatinine is 1.0. Patient's creatinine today is 1.5. Patient found to have metabolic acidosis. Patient found to have hyponatremia. - Differential Diagnosis weakness. Fever. MDS. Pancytopenia. Dehydration Critical Care Time: Yes Critical care attestation.: If time is entered above; I have spent that time in minutes in the direct care of this critically ill patient, excluding procedure time. Critical Care Time: 35 minutes ED Disposition Clinical Impression: Weakness, Pancytopenia, Myelodysplasia (myelodysplastic syndrome), Dehydration, Acute renal insufficiency, Metabolic acidosis, Hyponatremia Anemia Qualifiers: Anemia type: unspecified type Qualified Code(s): D64.9 - Anemia, unspecified Abdominal pain Qualifiers: Abdominal location: generalized Qualified Code(s): R10.84 - Generalized abdominal pain Fever Qualifiers: Fever type: unspecified Qualified Code(s): R50.9 - Fever, unspecified Diarrhea Qualifiers: Diarrhea type: unspecified type Qualified Code(s): R19.7 - Diarrhea, unspecified Disposition: -09 OP ADMIT IP TO THIS HOSP Is pt being admited?: Yes Does the pt Need Aspirin: No Condition: Critical Time of Disposition: 16:29
[2018-07-12 14:22] LABS: Hematocrit 21.8 % (35.5-45.6); Hemoglobin 7.5 gm/dl (11.8-15.2); Mean Corpuscular HGB Conc 34 % (32-34); Mean Corpuscular Volume 98 fl (84-94); Red Blood Count 2.24 M/mm3 (3.65-5.03); Red Cell Distribution Width 15.8 % (13.2-15.2)
[2018-07-12 14:24] LABS: Platelet Count 47 K/mm3 (140-440)
[2018-07-12 14:48] LABS: Alanine Aminotransferase 24 units/L (7-56); Albumin 3.3 g/dL (3.9-5); BUN/Creatinine Ratio 21; Blood Urea Nitrogen 31 mg/dL (9-20); Calcium 8.3 mg/dL (8.4-10.2); Hemolysis Index 13
[2018-07-12 15:44] LABS: Total Cells Counted 25
[2018-07-12 15:45] LABS: Basophils % (Manual) 0 % (0.0-1.8); Eosinophils % (Manual) 0 % (0.0-4.3)
[2018-07-12 15:47] LABS: Platelet Estimate Appears Decreased
[2018-07-12 15:48] LABS: Anisocytosis Few; Large Platelets Few; Ovalocytes Rare; Poikilocytosis Few
--- NOTE | 2018-07-12 17:00 | History and Physical Report ---
History of Present Illness Chief complaint: Im hurting History of present illness: 73 YO Male with MDS, Asthma, OA, GA, HTN presents to ED for evaluation. Pt states that he has experienced subjective fever, generalized weakness, and abdominal pain over the past 4 days with persistent symptoms over the same time frame. Pt states that his pain is 10/10, constant, worse with movement, relieved with rest and nonmovement. EMS notified. Pt transported to [facility]. Pt seen and evaluated in ED and found to have Acidosis, Pancytopenia, Hyponatremia, and MDS. Pt admitted to medical floor. Hemotology consulted in ED. Pt denies chills, CP, Palpitations, Trauma, BRBPR, Productive Cough, skin Rash, Hematuria, or recent ill contacts. Pt last admission on 04/24/18 reviewed. All listed medication reconciled at time of admission. Ultrasound Abdomen ordered and pending at admission. Past History Past Medical History: acute GA, arthritis, cancer, hypertension Past Surgical History: Other (hemmorhoid, Right chest prot) Social history: , lives with family. denies: smoking, alcohol abuse, prescription drug abuse Family history: hypertension Medications and Allergies Allergies Allergy/AdvReac Type Severity Reaction Status Date / Time tetanus and diphtheria Allergy Anaphylaxis Verified 07/12/18 13:31 toxoids [tetanus & diphtheria toxoids] Home Medications Medication Instructions Recorded Confirmed Last Taken Type Potassium Chloride 20 meq PO QDAY #10 packet 06/03/18 07/12/18 Unknown Rx Ascorbic Acid [Vitamin C] 500 mg PO DAILY 07/12/18 07/12/18 Unknown History Magnesium Oxide 400 mg PO DAILY 07/12/18 07/12/18 Unknown History Review of Systems Constitutional: fever, weakness, no weight loss, no weight gain Ears, nose, mouth and throat: no ear pain, no ear discharge, no tinnitis, no decreased hearing, no nose pain Cardiovascular: no chest pain, no orthopnea, no palpitations, no rapid/irregular heart beat Respiratory: no cough, no cough with sputum, no excessive sputum, no hemoptysis Gastrointestinal: abdominal pain, no constipation, no change in bowel habits, no hematemesis Genitourinary Male: no hematuria, no flank pain, no discharge, no urinary frequency Rectal: no pain, no incontinence, no bleeding Musculoskeletal: no neck pain, no shooting arm pain, no arm numbness/tingling, no low back pain, no shooting leg pain Integumentary: no rash, no pruritis, no redness, no sores, no wounds Neurological: no paralysis, no weakness, no parathesias, no numbness, no tingling, no seizures Psychiatric: no memory loss, no change in sleep habits, no sleep disturbances, no insomnia, no hypersomnia, no change in appetite Endocrine: no cold intolerance, no heat intolerance, no polyphagia, no excessive thirst, no polydipsia Hematologic/Lymphatic: no easy bruising, no easy bleeding, no lymphadenopathy, no lymphedema Allergic/Immunologic: no allergic rhinitis, no wheezing, no persistent infections Exam - Constitutional Vitals: Temp Pulse Resp BP Pulse Ox 98.9 F 115 H 18 117/46 97 07/12/18 13:31 07/12/18 13:31 07/12/18 13:31 07/12/18 13:31 07/12/18 13:31 General appearance: Present: mild distress, cachectic - EENT Eyes: Present: PERRL ENT: hearing intact, clear oral mucosa - Neck Neck: Present: supple, normal ROM - Respiratory Respiratory effort: normal Respiratory: bilateral: CTA - Cardiovascular Heart Sounds: Present: S1 & S2. Absent: rub, click - Extremities Extremities: pulses symmetrical, No edema Peripheral Pulses: within normal limits - Abdominal General gastrointestinal: Present: soft, non-tender, non-distended, normal bowel sounds Male genitourinary: Present: normal - Integumentary Integumentary: Present: clear, warm, dry - Musculoskeletal Musculoskeletal: generalized weakness - Psychiatric Psychiatric: appropriate mood/affect, intact judgment & insight - Neurologic Neurologic: CNII-XII intact, moves all extremities Results - Labs CBC & Chem 7: 07/12/18 14:02 07/12/18 14:02 Labs: Abnormal lab results 07/12/18 07/12/18 Range/Units 14:02 14:02 WBC 0.3 L* (4.5-11.0) K/mm3 RBC 2.24 L (3.65-5.03) M/mm3 Hgb 7.5 L (11.8-15.2) gm/dl Hct 21.8 L (35.5-45.6) % MCV 98 H (84-94) fl MCH 34 H (28-32) pg RDW 15.8 H (13.2-15.2) % Plt Count 47 L (140-440) K/mm3 Seg Neuts % (Manual) 12.0 L (40.0-70.0) % Lymphocytes % (Manual) 84.0 H (13.4-35.0) % Seg Neutrophils # Man 0.0 L (1.8-7.7) K/mm3 Lymphocytes # (Manual) 0.3 L (1.2-5.4) K/mm3 Sodium 135 L (137-145) mmol/L Potassium 3.5 L (3.6-5.0) mmol/L Carbon Dioxide 17 L (22-30) mmol/L BUN 31 H (9-20) mg/dL Glucose 115 H (75-100) mg/dL Calcium 8.3 L (8.4-10.2) mg/dL Total Bilirubin 2.00 H (0.1-1.2) mg/dL Alkaline Phosphatase 33 L (35-129) units/L Albumin 3.3 L (3.9-5) g/dL Assessment and Plan - Patient Problems (1) Myelodysplasia (myelodysplastic syndrome) Current Visit: Yes Status: Acute Plan to address problem: CBC, CMP, Hematology consulted, no transfusion at this time. pain control, IVF resuscitation therapy, neutropenic precautions. (2) Hyponatremia syndrome Current Visit: Yes Status: Acute Plan to address problem: IVF resuscitation therapy, repeat bmp in am to monitor serum sodium (3) Abdominal pain Current Visit: Yes Status: Acute Qualifiers: Abdominal location: generalized Qualified Code(s): R10.84 - Generalized abdominal pain Plan to address problem: pain control, CT Abdomen/Pelvis, serial abdominal exam, CMP, abdominal ultrasound (4) Acidosis Current Visit: Yes Status: Acute Plan to address problem: IVF resuscitation therapy, repeat bmp in am, IV bicarbonate therapy (5) Elevated LFTs Current Visit: Yes Status: Acute Plan to address problem: supportive care, CT Abdomen pelvis, Ultrasound abdomen to evaluate for biliary obstruction. (6) Generalized weakness Current Visit: Yes Status: Acute Plan to address problem: Supportive care, increasedprotein intake, IVF resuscitation therapy (7) Pancytopenia Current Visit: Yes Status: Acute Plan to address problem: Hematology consulted, supportive care, neutropenic precautions, (8) DVT prophylaxis Current Visit: Yes Status: Acute Plan to address problem: SCD to BLE while in bed.
[2018-07-12] MEDS ORDERED: ZOFRAN IV PRN (17:08)
[2018-07-12] MEDS ORDERED: PERCOCET 5/325 PO PRN (17:08)
[2018-07-12] MEDS ORDERED: PROVENTIL IH PRN (17:08)
[2018-07-12] MEDS ORDERED: SODIUM CHLORIDE FLUSH SYRINGE 10 ML IV PRN (17:08)
--- NOTE | 2018-07-12 17:14 | Cat Scan Report ---
PROCEDURE: CT ABDOMEN PELVIS WO CON TECHNIQUE: Computerized axial tomography of the abdomen and pelvis was performed without intravenous contrast. This study is performed without intravascular contrast material and its sensitivity for ab dominal and pelvic pathology, including neoplasms, inflammation, abscess, free fluid, thrombosis, art erial dissection and infarction, is reduced compared with a contrast enhanced study. HISTORY: abd pain COMPARISONS: None . FINDINGS: Lower Lung boswell: There is a [id number] size right pleural effusion. There are some patchy d ensities in both bases suggesting atelectasis. Subsegmental infiltrates and clinical exclusion. Mild emphysematous changes appear to be present in the lower lung boswell. Upper Abdomen: Several small gallstones are seen lying dependently in the gallbladder. Gallbladder i s otherwise unremarkable. The unenhanced images of the liver, the adrenal glands and the pancreas are unremarkable. Calcified granulomas are seen in the spleen which is otherwise unremarkable. Kidneys, Ureters and Urinary bladder: Renal arterial calcification visualized in the right and left. No renal calculi are seen in the right or left. There is no hydronephrosis. Cortical/parapelvic cyst visualized in the lower third of the left kidney measuring 3.5 cm. No solid masses are identified. U reters are not distended. No ureteral calculi are seen. There is mild nonspecific increased density in the perinephric adipose tissue. There also appears to be mild prominence of Gerota's fascia bilaterally and mild strandy density in the right and left dana colonic gutters. Retroperitoneum: Atherosclerotic changes are seen in the abdominal aorta. No aneurysm is visualized. Nonspecific subcentimeter lymph nodes are seen in the retroperitoneum. No pathologically enlarged ly mph nodes are identified. Bowel: There is minimal sigmoid diverticulosis without evidence of diverticulitis. No evidence of niraj wel obstruction ascites or free intraperitoneal gas. Reproductive organs: Prostate gland does not appear to be significantly enlarged. Other: No acute bone abnormalities are identified. IMPRESSION: Small to moderate sized right pleural effusion present. Increased density in the lung bas es suggest atelectasis. Pneumonia needs clinical exclusion. Cholelithiasis. Mild sigmoid diverticulosis without evidence of diverticulitis. Mild increased density perinephric adipose tissue. This can be a normal variant. Correlation with uri nalysis suggested to ensure there is no evidence of pyelonephritis. Cortical/peripelvic cyst left kidney. This document is electronically signed by Hi Bedolla MD., July 12 2018 05:12:16 PM ET
[2018-07-12] MEDS ORDERED: EMLA TP ONE (18:11)
[2018-07-12] MEDS ORDERED: SODIUM BICARBONATE IV ONE (20:01)
[2018-07-12] MEDS: TYLENOL PO PRN (22:44)
[2018-07-13 00:05] LABS: Amorphous Crystals,Urine 1+; Bilirubin,Urine NEG (Negative); Blood,Urine NEG (Negative); Color,Urine Amber (Yellow); Granular Casts,Urine 28 /LPF; Hyaline Casts,Urine 39 /LPF; Mucus,Urine FEW /HPF; Urobilinogen,Urine < 2.0 mg/dL (<2.0)
[2018-07-13] MEDS: SODIUM CHLORIDE FLUSH SYRINGE 10 ML IV SCH (02:31)
[2018-07-13] MEDS: NACL 0.45% 1000 ML 1,000 ML IV SCH (02:57)
[2018-07-13 06:14] LABS: Calcium 7.8 mg/dL (8.4-10.2)
--- NOTE | 2018-07-13 08:35 | Ultrasound Report ---
ULTRASOUND ABDOMEN COMPLETE: TECHNIQUE: Transabdominal ultrasound with color Doppler interrogation. HISTORY: abdominal pain. COMPARISON: Noncontrast CT abdomen pelvis dated 07/12/18. FINDINGS: LIVER: Within normal limits. BILIARY SYSTEM: There is moderate sludge in the gallbladder. No large shadowing gallstones, gallbladder wall thickening or surrounding fluid. The CBD measures 2 mm. PANCREAS: Normal. SPLEEN: Normal. KIDNEYS: The kidneys are normal size and position. The renal parenchyma echogenicity is slightly increased consistent with nonspecific medical renal disease. 2.3 cm cyst in the inferior left renal sinuses noted. No evidence for mass, shadowing calculus or hydronephrosis. AORTA/IVC: Normal. ASCITES: None. Small right pleural effusion is partially imaged. IMPRESSION: Moderate sludge in the gallbladder. Medical renal disease. Simple left renal cyst. Small right pleural effusion.
--- NOTE | 2018-07-13 08:50 | Event Note ---
Date: 07/13/18 [id number]
--- NOTE | 2018-07-13 09:02 | Consultation ---
History of Present Illness - Reason for Consult Consult date: 07/13/18 acute renal failure - History of Present Illness The patient is a 73 YO male with history significant for HTN, MDS transfusion dependent, chronic neutropenia and Asthma/COPD who presented to [facility] ED yesterday with complaintss of generalized weakness, shortness of breath and fever. He had a temp of 103F at home. Patient also reports cough, nausea, decreased PO intake, intermittent diarrhea and abd discomfort. Patient denies dsyuria, hematuria, dizziness, cp, syncope, leg swelling or hemoptysis. On further evaluation he was found to have hypotension, Neutropenia and FAWAD. Nephrology was consulted for further evaluation. Past History Past Medical History: acute [place], arthritis, cancer, hypertension Past Surgical History: Other (hemmorhoid, Right chest prot) Social history: , lives with family. denies: smoking, alcohol abuse, prescription drug abuse Family history: hypertension Medications and Allergies Allergies Allergy/AdvReac Type Severity Reaction Status Date / Time tetanus and diphtheria Allergy Anaphylaxis Verified 07/12/18 13:31 toxoids [tetanus & diphtheria toxoids] Home Medications Medication Instructions Recorded Confirmed Last Taken Type Potassium Chloride 20 meq PO QDAY #10 packet 06/03/18 07/12/18 Unknown Rx Ascorbic Acid [Vitamin C] 500 mg PO DAILY 07/12/18 07/12/18 Unknown History Magnesium Oxide 400 mg PO DAILY 07/12/18 07/12/18 Unknown History Active Meds: Active Medications Acetaminophen (Tylenol) 650 mg PO Q4H PRN PRN Reason: Pain MILD(1-3)/Fever >100.5/LLANES Last Admin: 07/12/18 22:44 Dose: 650 mg Documented by: Albuterol (Proventil) 2.5 mg IH Q4HRT PRN PRN Reason: Shortness Of Breath Ascorbic Acid (Vitamin C) 500 mg PO QDAY NANETTE Sodium Chloride (Nacl 0.45% 1000 Ml) 1,000 mls @ 42 mls/hr IV DIRECT NANETTE Last Admin: 07/13/18 02:57 Dose: 42 mls/hr Documented by: Magnesium Oxide (Mag-Ox) 400 mg PO QDAY NANETTE Ondansetron HCl (Zofran) 4 mg IV Q8H PRN PRN Reason: Nausea And Vomiting Oxycodone/Acetaminophen (Percocet 5/325) 1 tab PO Q6H PRN PRN Reason: Pain, Moderate (4-6) Potassium Chloride (K-Dur) 20 meq PO QDAY [facility] Sodium Chloride (Sodium Chloride Flush Syringe 10 Ml) 10 ml IV BID [facility] Last Admin: 07/13/18 02:31 Dose: 10 ml Documented by: Sodium Chloride (Sodium Chloride Flush Syringe 10 Ml) 10 ml IV PRN PRN PRN Reason: LINE FLUSH Tbo-Filgrastim (Granix) 480 mcg SUB-Q DAILY [facility] Stop: 07/17/18 23:59 Review of Systems Constitutional: weight loss, fever, chills, anorexia, weakness, poor appetite, no weight gain Cardiovascular: shortness of breath, dyspnea on exertion, high blood pressure, no chest pain, no orthopnea, no edema, no syncope, no lightheadedness, no leg edema Respiratory: cough, cough with sputum, shortness of breath, dyspnea on exertion, no hemoptysis, no home oxygen Gastrointestinal: nausea, diarrhea, no hematemesis, no melena Genitourinary Male: no dysuria, no hematuria Musculoskeletal: muscle weakness, no muscle cramps Integumentary: no rash, no wounds, no jaundice Neurological: weakness, no paralysis, no aphasia, no change in speech, no change in mentation, no confusion Exam - Vital Signs Vital signs: Vital Signs Temp Pulse Resp BP Pulse Ox 98.9 F 115 H 18 117/46 97 07/12/18 13:31 07/12/18 13:31 07/12/18 13:31 07/12/18 13:31 07/12/18 13:31 - General Appearance General appearance: well-developed, appears stated age, other (not in distress) EENT: ATNC, PERRL, hearing intact, vision intact Neck: Present: neck supple, trachea midline Respiratory: Clear to Ascultation Heart: regular, S1S2, no murmurs Gastrointestinal: Present: normoactive bowel sounds. Absent: tenderness, diste nded Integumentary: no rash, warm and dry Neurologic: no focal deficit, no asterixis Musculoskeletal: Present: other (no edema) Psychiatric: cooperative Results - Lab Results 07/12/18 14:02 07/13/18 05:40 Most recent lab results Calcium 7.8 mg/dL (8.4-10.2) L 07/13/18 05:40 - Image Kidney/bladder ultrasound: other Assessment and Plan 1. Acute kidney injury: Vasomotor / hemodynamic FAWAD in the setting of volume depletion and hypotension. Urine studies ordered. CT negative for hydronephrosis. Continue IV fluids. Monitor renal function. Renal prognosis is guarded. Avoid nephrotoxic agents. Meds dosage based on GFR. 2. FEN: Hypokalemia, replete K. Metabolic acidosis, monitor. 3. Pancytopenia. 4. Febrile neutropenia.
--- NOTE | 2018-07-13 09:40 | Progress Note ---
Assessment and Plan Assessment and plan: 73-year-old woman who presented to the hospital with fever and weakness plus abdominal pain 4 days. She also complained of diarrhea, Previously been in hospital for platelet and PRBC infusion. Past medical history chronic GI bleed, chronic anemia, transfusion dependence, CAD, myelodysplastic syndrome Ultrasound abdomen and pelvis shows moderate sludge in the gallbladder, medical renal disease and simple left renal cyst. There is also a small right pleural effusion. CT abdomen and pelvis shows small to moderate size right pleural effusion, increased density in the lung bases suggestive of atelectasis. Cholelithiasis, but no obvious cholecystitis. Diagnoses Neutropenic fever Anemia of chronic disease due to mild dysplastic syndrome, Thrombocytopenia Acute kidney injury likely due to vasomotor nephropathy Hypokalemia Abdominal pain Transaminitis ER course The family requested to be transferred to [facility] in the ER, ER physician called. He spoke to the hospitalist, and the patient was not accepted there. Therefore the patient was admitted to our hospital. The patient received IV antibiotics, IV fluids, and hospitalist was called for admission Plan cont neupogen Continue potassium supplements Obtain HIDA scan Continue empiric antibiotics ID and GI consults Patient has been seen by hematology/oncology and nephrology, awaiting dictated consultation DVT prophylaxis will be mechanical given thrombocytopenia History Interval history: Review of systems Constitutional: No fevers, no malaise, no joint pains CVS: No chest pain, no orthopnea, no dyspnea on exertion, no pedal edema GI: Abdominal pain has now resolved, no diarrhea, no vomiting, no constipation Respiratory: No shortness of breath, no wheezing, no coughing Hospitalist Physical - Physical exam Narrative exam: General.: Appears chronically ill, multiple cystic lesions on his skin HEENT: Moist mucous membranes, extraocular muscles intact, no lymphadenopathy Neck: supple Cardiac: S1-S2 heard Lungs: clear to auscultation bilaterally Abdomen: soft , nontender, nondistended, bowel sounds positive Extremities: no edema clubbing or cyanosis Skin: no rash Neurologic: no gross focal deficits Psych: calm, and cooperative - Constitutional Vitals: Temp Pulse Resp BP Pulse Ox 98.0 F 103 H 20 103/56 96 07/13/18 07:31 07/13/18 07:31 07/13/18 07:31 07/13/18 07:31 07/13/18 07:31 General appearance: Present: mild distress, cachectic Results - Labs CBC & Chem 7: 07/14/18 05:19 07/14/18 05:19 Labs: Laboratory Last Values WBC 0.3 K/mm3 (4.5-11.0) L* 07/12/18 14:02 RBC 2.24 M/mm3 (3.65-5.03) L 07/12/18 14:02 Hgb 7.5 gm/dl (11.8-15.2) L 07/12/18 14:02 Hct 21.8 % (35.5-45.6) L 07/12/18 14:02 MCV 98 fl (84-94) H 07/12/18 14:02 MCH 34 pg (28-32) H 07/12/18 14:02 MCHC 34 % (32-34) 07/12/18 14:02 RDW 15.8 % (13.2-15.2) H 07/12/18 14:02 Plt Count 47 K/mm3 (140-440) L 07/12/18 14:02 Lymph % (Auto) [employer]orer [employer] Gun Placing 07/12/18 14:02 Add Manual Diff Complete 07/12/18 14:02 Total Counted 25 07/12/18 14:02 Seg Neutrophils % [employer]orer [employer] Placing 07/12/18 14:02 Seg Neuts % (Manual) 12.0 % (40.0-70.0) L 07/12/18 14:02 Band Neutrophils % 0 % 07/12/18 14:02 Lymphocytes % (Manual) 84.0 % (13.4-35.0) H 07/12/18 14:02 Reactive Lymphs % (Man) 0 % 07/12/18 14:02 Monocytes % (Manual) 4.0 % (0.0-7.3) 07/12/18 14:02 Eosinophils % (Manual) 0 % (0.0-4.3) 07/12/18 14:02 Basophils % (Manual) 0 % (0.0-1.8) 07/12/18 14:02 Metamyelocytes % 0 % 07/12/18 14:02 Myelocytes % 0 % 07/12/18 14:02 Promyelocytes % 0 % 07/12/18 14:02 Blast Cells % 0 % 07/12/18 14:02 Nucleated RBC % Not Reportable 07/12/18 14:02 Seg Neutrophils # Man 0.0 K/mm3 (1.8-7.7) L 07/12/18 14:02 Band Neutrophils # 0.0 K/mm3 07/12/18 14:02 Lymphocytes # (Manual) 0.3 K/mm3 (1.2-5.4) L 07/12/18 14:02 Abs React Lymphs (Man) 0.0 K/mm3 07/12/18 14:02 Monocytes # (Manual) 0.0 K/mm3 (0.0-0.8) 07/12/18 14:02 Eosinophils # (Manual) 0.0 K/mm3 (0.0-0.4) 07/12/18 14:02 Basophils # (Manual) 0.0 K/mm3 (0.0-0.1) 07/12/18 14:02 Metamyelocytes # 0.0 K/mm3 07/12/18 14:02 Myelocytes # 0.0 K/mm3 07/12/18 14:02 Promyelocytes # 0.0 K/mm3 07/12/18 14:02 Blast Cells # 0.0 K/mm3 07/12/18 14:02 WBC Morphology Not Reportable 07/12/18 14:02 Hypersegmented Neuts Not Reportable 07/12/18 14:02 Hyposegmented Neuts Not Reportable 07/12/18 14:02 Hypogranular Neuts Not Reportable 07/12/18 14:02 Smudge Cells Not Reportable 07/12/18 14:02 Toxic Granulation Not Reportable 07/12/18 14:02 Toxic Vacuolation Not Reportable 07/12/18 14:02 Dohle Bodies Not Reportable 07/12/18 14:02 Pelger-Huet Anomaly Not Reportable 07/12/18 14:02 Andra Rods Not Reportable 07/12/18 14:02 Platelet Estimate Appears decreased 07/12/18 14:02 Clumped Platelets Not Reportable 07/12/18 14:02 Plt Clumps, EDTA Not Reportable 07/12/18 14:02 Large Platelets Few 07/12/18 14:02 Giant Platelets Not Reportable 07/12/18 14:02 Platelet Satelliting Not Reportable 07/12/18 14:02 Plt Morphology Comment Not Reportable 07/12/18 14:02 RBC Morphology Not Reportable 07/12/18 14:02 Dimorphic RBCs Not Reportable 07/12/18 14:02 Polychromasia Not Reportable 07/12/18 14:02 Hypochromasia Not Reportable 07/12/18 14:02 Poikilocytosis Few 07/12/18 14:02 Anisocytosis Few 07/12/18 14:02 Microcytosis Not Reportable 07/12/18 14:02 Macrocytosis Not Reportable 07/12/18 14:02 Spherocytes Not Reportable 07/12/18 14:02 Pappenheimer Bodies Not Reportable 07/12/18 14:02 Sickle Cells Not Reportable 07/12/18 14:02 Target Cells Not Reportable 07/12/18 14:02 Tear Drop Cells Not Reportable 07/12/18 14:02 Ovalocytes Rare 07/12/18 14:02 Helmet Cells Not Reportable 07/12/18 14:02 [employer] Bodies Not Reportable 07/12/18 14:02 [place] Rings Not Reportable 07/12/18 14:02 Harmans Cells Not Reportable 07/12/18 14:02 Bite Cells Not Reportable 07/12/18 14:02 Crenated Cell Not Reportable 07/12/18 14:02 Elliptocytes Rare 07/12/18 14:02 Acanthocytes (Spur) Not Reportable 07/12/18 14:02 Rouleaux Not Reportable 07/12/18 14:02 Hemoglobin C Crystals Not Reportable 07/12/18 14:02 Schistocytes Not Reportable 07/12/18 14:02 Malaria parasites Not Reportable 07/12/18 14:02 Donta Bodies Not Reportable 07/12/18 14:02 Hem Pathologist Commnt No 07/12/18 14:02 Sodium 140 mmol/L (137-145) 07/13/18 05:40 Potassium 3.3 mmol/L (3.6-5.0) L 07/13/18 05:40 Chloride 104.0 mmol/L (98-107) 07/13/18 05:40 Carbon Dioxide 20 mmol/L (22-30) L 07/13/18 05:40 Anion Gap 19 mmol/L 07/13/18 05:40 BUN 43 mg/dL (9-20) H 07/13/18 05:40 Creatinine 2.2 mg/dL (0.8-1.5) H 07/13/18 05:40 Estimated GFR 29 ml/min 07/13/18 05:40 BUN/Creatinine Ratio 20 % 07/13/18 05:40 Glucose 112 mg/dL (75-100) H 07/13/18 05:40 Calcium 7.8 mg/dL (8.4-10.2) L 07/13/18 05:40 Total Bilirubin 2.00 mg/dL (0.1-1.2) H 07/12/18 14:02 AST 26 units/L (5-40) 07/12/18 14:02 ALT 24 units/L (7-56) 07/12/18 14:02 Alkaline Phosphatase 33 units/L (35-129) L 07/12/18 14:02 Troponin T < 0.010 ng/mL (0.00-0.029) 07/12/18 14:02 Total Protein 6.9 g/dL (6.3-8.2) 07/12/18 14:02 Albumin 3.3 g/dL (3.9-5) L 07/12/18 14:02 Albumin/Globulin Ratio 0.9 % 07/12/18 14:02 Urine Color Felicia (Yellow) 07/12/18 23:15 Urine Turbidity Cloudy (Clear) 07/12/18 23:15 Urine pH 5.0 (5.0-7.0) 07/12/18 23:15 Ur Specific [place] 1.021 (1.003-1.030) 07/12/18 23:15 Urine Protein 100 mg/dl mg/dL (Negative) 07/12/18 23:15 Urine Glucose (UA) Neg mg/dL (Negative) 07/12/18 23:15 Urine Ketones Tr mg/dL (Negative) 07/12/18 23:15 Urine Blood Neg (Negative) 07/12/18 23:15 Urine Nitrite Neg (Negative) 07/12/18 23:15 Urine Bilirubin Neg (Negative) 07/12/18 23:15 Urine Urobilinogen < 2.0 mg/dL (<2.0) 07/12/18 23:15 Ur Leukocyte Esterase Neg (Negative) 07/12/18 23:15 Urine WBC (Auto) 6.0 /HPF (0.0-6.0) 07/12/18 23:15 Urine RBC (Auto) 1.0 /HPF (0.0-6.0) 07/12/18 23:15 U Epithel Cells (Auto) 1.0 /HPF (0-13.0) 07/12/18 23:15 Amorphous Crystals 1+ 07/12/18 23:15 Hyaline Casts 39 /LPF 07/12/18 23:15 Granular Casts 28 /LPF 07/12/18 23:15 Urine Mucus Few /HPF 07/12/18 23:15 Active Medications - Current Medications Current Medications: Generic Name Dose Route Start Last Admin Trade Name Freq PRN Reason Stop Dose Admin Acetaminophen 650 mg 07/12/18 17:08 07/12/18 22:44 Tylenol PO 650 mg Q4H PRN Administration Pain MILD(1-3)/Fever >100.5/LLANES Albuterol 2.5 mg 07/12/18 17:08 Proventil IH Q4HRT PRN Shortness Of Breath Ascorbic Acid 500 mg 07/13/18 10:00 Vitamin C PO QDAY [facility] Sodium Chloride 1,000 mls @ 125 mls/hr 07/12/18 18:00 07/13/18 02:57 Nacl 0.45% 1000 Ml IV 42 mls/hr DIRECT NANETTE Administration Potassium Chloride 40 meq/ 520 mls @ 125 mls/hr 07/13/18 09:45 Sodium Chloride IV 07/13/18 13:55 DIRECT NANETTE Piperacillin Sod/Tazobactam Sod 4.5 gm in 100 mls @ 200 mls/hr 07/13/18 10:00 Zosyn/Ns 4.5gm/100ml IV Q8HR [facility] Protocol Magnesium Oxide 400 mg 07/13/18 10:00 Mag-Ox PO QDAY NANETTE Ondansetron HCl 4 mg 07/12/18 17:08 Zofran IV Q8H PRN Nausea And Vomiting Oxycodone/Acetaminophen 1 tab 07/12/18 17:08 Percocet 5/325 PO Q6H PRN Pain, Moderate (4-6) Potassium Chloride 20 meq 07/13/18 10:00 K-Dur PO QDAY [facility] Sodium Chloride 10 ml 07/12/18 22:00 07/13/18 02:31 Sodium Chloride Flush Syringe 10 Ml IV 10 ml BID NANETTE Administration Sodium Chloride 10 ml 07/12/18 17:08 Sodium Chloride Flush Syringe 10 Ml IV PRN PRN LINE FLUSH Tbo-Filgrastim 480 mcg 07/13/18 10:00 Granix SUB-Q 07/17/18 23:59 DAILY NANETTE
--- NOTE | 2018-07-13 09:52 | Consultation ---
REFERRED BY: Orestes Figueredo MD REASON FOR CONSULTATION: MDS, anemia, leukopenia, thrombocytopenia. HISTORY OF PRESENT ILLNESS: I saw the patient, a 73-year-old male in the medical floor. I had seen the patient in the past in 01/2018. Today, I spoke to Dr. Rojas, a [facility], his oncologist. The patient has MDS. He has been cytopenic. His white cell count is 0.2 or 0.3 most of the time. The patient had been on Procrit before and has been getting blood and platelet transfusion periodically. Recently, the patient has completed 2 sessions of Dacogen through the port and he was due for the next cycle, but he came to the hospital because of weakness. The patient had undergone bone marrow biopsy last in 01/2018. At this time, he is complaining of cough. No bleeding. The patient states he received transfusion support recently. No headache, no visual disturbances. No ear discharge, no chest pain. Has a port, which has been accessed. No vomiting, no diarrhea, no dysuria. He has history of abdominal pain. PAST MEDICAL HISTORY: MDS, [place], arthritis, hypertension. PAST SURGICAL HISTORY: Port placement. SOCIAL HISTORY: , lives with family members. No history of tobacco use. FAMILY HISTORY: Hypertension. ALLERGIES: TETANUS AND DIPHTHERIA TOXIN. CURRENT MEDICATIONS: Include potassium, vitamin C, magnesium. PHYSICAL EXAMINATION: VITAL SIGNS: Temperature 98, respirations 20, pulse 103, BP is 103/56. HEENT: Pallor present. No icterus. NECK: No neck lymph nodes were present. HEART: S1, S2. LUNGS: Clear to auscultation anteriorly. ABDOMEN: Soft. No guarding. EXTREMITIES: No calf tenderness. NEUROLOGIC: Alert, awake, oriented. LABORATORY DATA: White cell 0.3, hemoglobin 7.5, MCV 98, platelet 47. In May, the platelet was 115, potassium 3.3, creatinine 2.2, calcium is 7.8, bilirubin 2. RADIOLOGY: Abdominal ultrasound was done and abdominal CT was done. Right pleural effusion, diverticular disease, gallbladder, mild density perinephric adipose tissue. ASSESSMENT AND PLAN: 1. Anemia secondary to myelodysplastic syndrome. 2. Leukopenia. Dr. Rojas told me that his white cell count had been low most of the time. 3. Thrombocytopenia secondary to myelodysplastic syndrome. 4. For his myelodysplastic syndrome, the patient has received 2 cycles of Dacogen regimen. He was on Procrit before. He was due to third cycle, but did not go to the [facility] for same. 5. Renal impairment. We will get Nephrology consultation. 6. History of hypertension. 7. History of coronary artery disease. 8. History of renal issues. I will follow the patient during inpatient stay and then in the clinic setting. We will look into [facility] support for now. JOB# [id number] NM/NTS
[2018-07-13] MEDS ORDERED: MAGNESIUM OXIDE 400 MG PO SCH (10:00)
[2018-07-13] MEDS ORDERED: ZOSYN/NS 4.5GM/100ML 4.5 GM/100 ML VIAL IV SCH (10:00)
[2018-07-13] MEDS ORDERED: NON-FORMULARY (Ascorbic Acid [Vitamin C] 500 MG) PO SCH (10:00)
[2018-07-13] MEDS ORDERED: NON-FORMULARY (Potassium Chloride [Potassium Chloride] 20 MEQ) PO SCH (10:00)
[2018-07-13] MEDS: GRANIX SUB-Q SCH (10:07)
[2018-07-13] MEDS: K-DUR PO SCH (10:22)
[2018-07-13] MEDS: VITAMIN C PO SCH (10:23)
[2018-07-13] MEDS: MAG-OX PO SCH (10:23)
[2018-07-13] MEDS ORDERED: KCL 40 MEQ in NACL 0.45% 500 ML IV SCH (12:45)
[2018-07-13] MEDS ORDERED: ZOSYN/NS 3.375GM/50ML 3.375 GM/50 ML BAG IV SCH (14:00)
--- NOTE | 2018-07-13 15:08 | Consultation ---
History of Present Illness - Reason for Consult Consult date: 07/13/18 Febrile neutropenia Requesting physician: JOHN CORONEL - History of Present Illness The patient is a 73-year-old male with MDS who is transfusion dependent and has chronic neutropenia. He also has asthma/COPD, hypertension. He has been on chemotherapy, receiving Dacogen by [facility]. He presented to the emergency room on 07/12/2018 with a multitude of complaints including weakness, shortness of breath, fever of 103F at home, cough with whitish expectoration more than usual. He also had abdominal pain, nausea along with diarrhea, reports 4-5 episodes of stools. Also reports frequent urination. He was admitted to the hospital, started empirically on IV Zosyn. Neutropenia. Infectious diseases was consulted. Currently, he denies any abdominal pain. His nausea has resolved. Still coughing and bringing out whitish expectoration. Feels weak. Review of Systems: General: no fevers,chills or rigors currently HEENT: no new visual disturbance Respiratory: + cough, sputum, shortness of breath. no hemoptysis Cardiovascular: No chest pain, syncope Gastrointestinal: + nausea, vomiting, diarrhea and abdominal pain Genitourinary: No dysuria or hematuria Musculoskeletal: No new or worsening neck pain or back pain Neurologic: No headaches, seizures Hematologic: No easy bruising or bleeding Endocrine: No night sweats or acute weight loss Skin: negative for rash, jaundice Psychiatric: No suicidal or homicidal ideation Past History Past Medical History: acute [place], arthritis, cancer, hypertension Past Surgical History: Other (hemmorhoid, Right chest prot) Social history: , lives with family. denies: smoking, alcohol abuse, prescription drug abuse Family history: hypertension Medications and Allergies Allergies Allergy/AdvReac Type Severity Reaction Status Date / Time tetanus and diphtheria Allergy Anaphylaxis Verified 07/12/18 13:31 toxoids [tetanus & diphtheria toxoids] Home Medications Medication Instructions Recorded Confirmed Last Taken Type Potassium Chloride 20 meq PO QDAY #10 packet 06/03/18 07/12/18 Unknown Rx Ascorbic Acid [Vitamin C] 500 mg PO DAILY 07/12/18 07/12/18 Unknown History Magnesium Oxide 400 mg PO DAILY 07/12/18 07/12/18 Unknown History Active Meds: Active Medications Acetaminophen (Tylenol) 650 mg PO Q4H PRN PRN Reason: Pain MILD(1-3)/Fever >100.5/LLANES Last Admin: 07/12/18 22:44 Dose: 650 mg Documented by: Albuterol (Proventil) 2.5 mg IH Q4HRT PRN PRN Reason: Shortness Of Breath Ascorbic Acid (Vitamin C) 500 mg PO QDAY COUNTS INCLUDE 234 BEDS AT THE [facility] Last Admin: 07/13/18 10:23 Dose: 500 mg Documented by: Sodium Chloride (Nacl 0.45% 1000 Ml) 1,000 mls @ 125 mls/hr IV DIRECT NANETTE Last Admin: 07/13/18 02:57 Dose: 42 mls/hr Documented by: Potassium Chloride 40 meq/ (Sodium Chloride) 520 mls @ 125 mls/hr IV DIRECT NANETTE Stop: 07/13/18 16:55 Piperacillin Sod/Tazobactam Sod (Zosyn/Ns 3.375gm/50ml) 3.375 gm in 50 mls @ 100 mls/hr IV Q8H NANETTE; Protocol Magnesium Oxide (Mag-Ox) 400 mg PO QDAY COUNTS INCLUDE 234 BEDS AT THE [facility] Last Admin: 07/13/18 10:23 Dose: 400 mg Documented by: Ondansetron HCl (Zofran) 4 mg IV Q8H PRN PRN Reason: Nausea And Vomiting Oxycodone/Acetaminophen (Percocet 5/325) 1 tab PO Q6H PRN PRN Reason: Pain, Moderate (4-6) Potassium Chloride (K-Dur) 20 meq PO QDAY COUNTS INCLUDE 234 BEDS AT THE [facility] Last Admin: 07/13/18 10:22 Dose: 20 meq Documented by: Sodium Chloride (Sodium Chloride Flush Syringe 10 Ml) 10 ml IV BID COUNTS INCLUDE 234 BEDS AT THE [facility] Last Admin: 07/13/18 02:31 Dose: 10 ml Documented by: Sodium Chloride (Sodium Chloride Flush Syringe 10 Ml) 10 ml IV PRN PRN PRN Reason: LINE FLUSH Tbo-Filgrastim (Granix) 480 mcg SUB-Q DAILY COUNTS INCLUDE 234 BEDS AT THE [facility] Stop: 07/17/18 13:59 Physical Examination - Physical Exam Narrative exam: Physical Exam: Constitutional: Alert, cooperative. No acute distress Head, Ears, Nose: Normocephalic, atraumatic. External ears, nose normal Eyes: Conjunctivae/corneas clear. No icterus. No ptosis. Neck: Supple, no meningeal signs Oral: dentition poor, no thrush Cardiovascular: S1, S2 normal. Respiratory: bilateral basal crackles GI: Soft, non-tender; bowel sounds normal. No peritoneal signs Musculoskeletal: No pedal edema, no cyanosis. Right upper chest PORT + Skin: No rash or abscess Hem/Lymphatic: No palpable cervical or supraclavicular nodes. No lymphangitis Psych: Mood ok. Affect normal Neurological: Awake, alert, oriented. No gross abnormality - Constitutional Vitals: Vital Signs Temp Pulse Resp BP Pulse Ox 98.0 F 74 22 96/52 96 07/13/18 13:14 07/13/18 13:14 07/13/18 13:14 07/13/18 13:14 07/13/18 13:50 Temperature -Last 24 Hours Temperature 98.0 F Temperature 98.0 F Temperature 97.5 F Temperature 99.2 F Results - Labs CBC & Chem 7: 07/12/18 14:02 07/13/18 05:40 Labs: Abnormal lab results 07/12/18 07/13/18 Range/Units 14:02 05:40 Seg Neuts % (Manual) 12.0 L (40.0-70.0) % Lymphocytes % (Manual) 84.0 H (13.4-35.0) % Seg Neutrophils # Man 0.0 L (1.8-7.7) K/mm3 Lymphocytes # (Manual) 0.3 L (1.2-5.4) K/mm3 Potassium 3.3 L (3.6-5.0) mmol/L Carbon Dioxide 20 L (22-30) mmol/L BUN 43 H (9-20) mg/dL Creatinine 2.2 H (0.8-1.5) mg/dL Glucose 112 H (75-100) mg/dL Calcium 7.8 L (8.4-10.2) mg/dL - Imaging and Cardiology Abdominal x-ray: report reviewed (Abdominal ultrasound showed moderate sludge in the gallbladder, small right pleural effusion.) CT scan - abdomen: report reviewed, image reviewed (CT abdomen pelvis without contrast showed small right-sided pleural effusion with associated atelectasis versus pneumonia. Cholelithiasis, diverticulosis without evidence of diverticulitis. Slight increased perinephric density.) Assessment and Plan Cultures: 07/12/2018 blood culture: No growth at 24 hours A/P: 73/M with MDS, admitted with: 1) Febrile neutropenia: Apparently was febrile at home, however no fevers here. He has chronic neutropenia that is unchanged. ANC here is 0. Etiology unclear, has multitude of complaints. Abdominal imaging thus far has been unremarkable. Follow-up blood cultures. Follow-up HIDA scan. For now, treat with empiric IV cefepime. Has indwelling PORT, follow up blood cultures. 2) Acute diarrhea: Multiple recent hospitalizations, check stool culture and C. difficile toxin PCR. Abdomen is non tender on exam, low suspicion for typhlitis. 3) Question of pneumonia: CT with small right pleural effusion, no obvious pneumonia as such. Does report increased cough, SOB and sputum, hence, check sputum culture. Also check Aspergillus galactomannan and 1,3 [id number] due to profound neutropenia. 4) Pancytopenia: from MDS, on Dacogen cycles per Oncology. Dr. Quiroga following. 5) FAWAD: Nephrology consulted. Renally dose antibiotics. Recs: Discontinued Zosyn Started IV cefepime, 1 g every 12 hr Follow-up HIDA scan Stool culture ordered C. difficile toxin PCR ordered Aspergillus galactomannan and 1,3 [id number] ordered F/U blood cultures and fever curve MD [facility] C: [phone] O: [phone] F: [phone]
--- NOTE | 2018-07-13 15:40 | Gastroenterology Consultation ---
<ZAK CASTANEDA - Last Filed: 07/13/18 15:56> History of Present Illness - Reason for Consult Consult date: 07/13/18 abd pain, transaminitis Requesting physician: JOHN CORONEL - History of Present Illness Patient is a 73 y/o male with PMH of CAD, COPD, and myelodysplastic syndrome ( on Dacogen cycles per Oncology) with refractory anemia (transfusion dependent) who presented to ED with c/o weakness and abdominal pain. He is currently being treated for febrile neutropenia, possible pneumonia, pancytopenia, and FAWAD. GI has been consulted for abdominal pain and elevated LFTs. Patient is previously known to our service. He was evaluated for anemia in 2017 with EGD/colonosocopy showing gastritis, 2 small stomach AVMs (s/p APC), small HH, diverticulosis, colon polyps, mild sigmoid colitis, and large hemorrhoids and was most recently seen by our group at [facility] last month (05/2018) for colitis which resolved with treatment of cefepime, levaquin, and flagyl. Abd CT this admission w/o acute inflammatory process. This afternoon patient was resting in bed w/o acute distress. He reports no GI complaints such as abd pain, N/V, or signs of bleeding. Has no hx or Fhx of liver disease. No ETOH abuse. Former smoker. Abdomen benign upon exam. Past History Past Medical History: acute VT, arthritis, cancer, COPD, hypertension Past Surgical History: Other (hemmorhoid, Right chest prot) Social history: , lives with family. denies: smoking, alcohol abuse, prescription drug abuse Family history: hypertension Medications and Allergies Allergies Allergy/AdvReac Type Severity Reaction Status Date / Time tetanus and diphtheria Allergy Anaphylaxis Verified 07/12/18 13:31 toxoids [tetanus & diphtheria toxoids] Home Medications Medication Instructions Recorded Confirmed Last Taken Type Potassium Chloride 20 meq PO QDAY #10 packet 06/03/18 07/12/18 Unknown Rx Ascorbic Acid [Vitamin C] 500 mg PO DAILY 07/12/18 07/12/18 Unknown History Magnesium Oxide 400 mg PO DAILY 07/12/18 07/12/18 Unknown History Active Meds: Active Medications Acetaminophen (Tylenol) 650 mg PO Q4H PRN PRN Reason: Pain MILD(1-3)/Fever >100.5/LLANES Last Admin: 07/12/18 22:44 Dose: 650 mg Documented by: Albuterol (Proventil) 2.5 mg IH Q4HRT PRN PRN Reason: Shortness Of Breath Ascorbic Acid (Vitamin C) 500 mg PO QDAY [facility] Last Admin: 07/13/18 10:23 Dose: 500 mg Documented by: Sodium Chloride (Nacl 0.45% 1000 Ml) 1,000 mls @ 125 mls/hr IV DIRECT [facility] Last Admin: 07/13/18 02:57 Dose: 42 mls/hr Documented by: Potassium Chloride 40 meq/ (Sodium Chloride) 520 mls @ 125 mls/hr IV DIRECT [facility] Stop: 07/13/18 16:55 Cefepime HCl (Maxipime/Ns 1 Gm/100 Ml) 1 gm in 100 mls @ 200 mls/hr IV Q8HR [facility]; Protocol Magnesium Oxide (Mag-Ox) 400 mg PO QDAY [facility] Last Admin: 07/13/18 10:23 Dose: 400 mg Documented by: Ondansetron HCl (Zofran) 4 mg IV Q8H PRN PRN Reason: Nausea And Vomiting Oxycodone/Acetaminophen (Percocet 5/325) 1 tab PO Q6H PRN PRN Reason: Pain, Moderate (4-6) Potassium Chloride (K-Dur) 20 meq PO QDAY [facility] Last Admin: 07/13/18 10:22 Dose: 20 meq Documented by: Sodium Chloride (Sodium Chloride Flush Syringe 10 Ml) 10 ml IV BID [facility] Last Admin: 07/13/18 02:31 Dose: 10 ml Documented by: Sodium Chloride (Sodium Chloride Flush Syringe 10 Ml) 10 ml IV PRN PRN PRN Reason: LINE FLUSH Tbo-Filgrastim (Granix) 480 mcg SUB-Q DAILY [facility] Stop: 07/17/18 13:59 medications reviewed/updated as required Review of Systems - Review of Systems All systems: negative Gastrointestinal: no abdominal pain, no nausea, no vomiting Exam - Constitutional Vital Signs: Temp Pulse Resp BP Pulse Ox 98.0 F 74 22 96/52 96 07/13/18 13:14 07/13/18 13:14 07/13/18 13:14 07/13/18 13:14 07/13/18 13:50 General appearance: no acute distress - Respiratory Respiratory: bilateral: diminished - Cardiovascular Rhythm: regular - Gastrointestinal General gastrointestinal: Present: soft, non-tender, non-distended, normal bowel sounds - Neurologic Neurological: alert and oriented x3 - Labs CBC & Chem 7: 07/12/18 14:02 07/13/18 05:40 Lab Results: Laboratory Results - last 24 hr 07/12/18 07/12/18 07/13/18 14:02 23:15 05:40 Add Manual Diff Complete Total Counted 25 Seg Neuts % (Manual) 12.0 L Band Neutrophils % 0 Lymphocytes % (Manual) 84.0 H Reactive Lymphs % (Man) 0 Monocytes % (Manual) 4.0 Eosinophils % (Manual) 0 Basophils % (Manual) 0 Metamyelocytes % 0 Myelocytes % 0 Promyelocytes % 0 Blast Cells % 0 Nucleated RBC % Not Reportable Seg Neutrophils # Man 0.0 L Band Neutrophils # 0.0 Lymphocytes # (Manual) 0.3 L Abs React Lymphs (Man) 0.0 Monocytes # (Manual) 0.0 Eosinophils # (Manual) 0.0 Basophils # (Manual) 0.0 Metamyelocytes # 0.0 Myelocytes # 0.0 Promyelocytes # 0.0 Blast Cells # 0.0 WBC Morphology Not Reportable Hypersegmented Neuts Not Reportable Hyposegmented Neuts Not Reportable Hypogranular Neuts Not Reportable Smudge Cells Not Reportable Toxic Granulation Not Reportable Toxic Vacuolation Not Reportable Dohle Bodies Not Reportable Pelger-Huet Anomaly Not Reportable Andra Rods Not Reportable Platelet Estimate Appears decreased Clumped Platelets Not Reportable Plt Clumps, EDTA Not Reportable Large Platelets Few Giant Platelets Not Reportable Platelet Satelliting Not Reportable Plt Morphology Comment Not Reportable RBC Morphology Not Reportable Dimorphic RBCs Not Reportable Polychromasia Not Reportable Hypochromasia Not Reportable Poikilocytosis Few Anisocytosis Few Microcytosis Not Reportable Macrocytosis Not Reportable Spherocytes Not Reportable Pappenheimer Bodies Not Reportable Sickle Cells Not Reportable Target Cells Not Reportable Tear Drop Cells Not Reportable Ovalocytes Rare Helmet Cells Not Reportable [place] [place] Bodies Not Reportable [place] Rings Not Reportable [place] Cells Not Reportable Bite Cells Not Reportable Crenated Cell Not Reportable Elliptocytes Rare Acanthocytes (Spur) Not Reportable Rouleaux Not Reportable Hemoglobin C Crystals Not Reportable Schistocytes Not Reportable Malaria parasites Not Reportable Donta Bodies Not Reportable Hem Pathologist Commnt No Sodium 140 Potassium 3.3 L Chloride 104.0 Carbon Dioxide 20 L Anion Gap 19 BUN 43 H Creatinine 2.2 H Estimated GFR 29 BUN/Creatinine Ratio 20 Glucose 112 H Calcium 7.8 L Urine Color Felicia Urine Turbidity Cloudy Urine pH 5.0 Ur Specific [place] 1.021 Urine Protein 100 mg/dl Urine Glucose (UA) Neg Urine Ketones Tr Urine Blood Neg Urine Nitrite Neg Urine Bilirubin Neg Urine Urobilinogen < 2.0 Ur Leukocyte Esterase Neg Urine WBC (Auto) 6.0 Urine RBC (Auto) 1.0 U Epithel Cells (Auto) 1.0 Amorphous Crystals 1+ Hyaline Casts 39 Granular Casts 28 Urine Mucus Few Assessment and Plan 1.abdominal pain 2.hyperbilirubinemia 3.myelodysplastic syndrome -T.mikey 2.0 (AST 26, ALT 24, alk phos 37-WNL) -CT with pleural effusion, and gallstones but no acute inflammatory process -abd U/S showed sludge in the gallbladder but liver normal -etiology-likely 2/2 cholestasis due to ineffective hemopoiesis from MDS -clinically, patient reports feeling better with no abd pain, N/V, or signs of bleeding. Tolerating diet. -continue supportive care -no further workup recommended per GI standpoint -will sign off, please call if needed <MATTHEW WINTERS R - Last Filed: 07/14/18 12:45> Medications and Allergies Active Meds: Active Medications Acetaminophen (Tylenol) 650 mg PO Q4H PRN PRN Reason: Pain MILD(1-3)/Fever >100.5/LLANES Last Admin: 07/12/18 22:44 Dose: 650 mg Documented by: Albuterol (Proventil) 2.5 mg IH Q4HRT PRN PRN Reason: Shortness Of Breath Ascorbic Acid (Vitamin C) 500 mg PO QDAY [facility] Last Admin: 07/14/18 09:42 Dose: 500 mg Documented by: Sodium Chloride (Nacl 0.45% 1000 Ml) 1,000 mls @ 125 mls/hr IV DIRECT [facility] Last Admin: 07/13/18 02:57 Dose: 42 mls/hr Documented by: Cefepime HCl (Maxipime/Ns 1 Gm/100 Ml) 1 gm in 100 mls @ 200 mls/hr IV Q8HR [facility]; Protocol Last Admin: 07/14/18 08:09 Dose: Not Given Documented by: Magnesium Oxide (Mag-Ox) 400 mg PO QDAY [facility] Last Admin: 07/14/18 09:42 Dose: 400 mg Documented by: Metoprolol Tartrate (Lopressor) 5 mg IV Q4H PRN PRN Reason: sustained HR >130 Metoprolol Tartrate (Lopressor) 12.5 mg PO BID [facility] Last Admin: 07/14/18 12:23 Dose: 12.5 mg Documented by: Ondansetron HCl (Zofran) 4 mg IV Q8H PRN PRN Reason: Nausea And Vomiting Oxycodone/Acetaminophen (Percocet 5/325) 1 tab PO Q6H PRN PRN Reason: Pain, Moderate (4-6) Potassium Chloride (K-Dur) 20 meq PO QDAY [facility] Last Admin: 07/14/18 09:42 Dose: 20 meq Documented by: Sodium Chloride (Sodium Chloride Flush Syringe 10 Ml) 10 ml IV BID [facility] Last Admin: 07/14/18 09:43 Dose: 10 ml Documented by: Sodium Chloride (Sodium Chloride Flush Syringe 10 Ml) 10 ml IV PRN PRN PRN Reason: LINE FLUSH Tbo-Filgrastim (Granix) 480 mcg SUB-Q DAILY [facility] Stop: 07/17/18 13:59 Last Admin: 07/14/18 12:23 Dose: 480 mcg Documented by: Exam - Constitutional Vital Signs: Temp Pulse Resp BP Pulse Ox 98.7 F 138 H 18 115/65 97 07/14/18 12:30 07/14/18 12:30 07/14/18 12:30 07/14/18 12:30 07/14/18 12:30 - Labs CBC & Chem 7: 07/14/18 05:19 07/14/18 05:19 Lab Results: Laboratory Results - last 24 hr 07/14/18 07/14/18 07/14/18 05:19 05:19 06:06 WBC 0.3 L* RBC 1.72 L Hgb 5.7 L* Hct 16.9 L* MCV 98 H MCH 33 H MCHC 34 RDW 16.4 H Plt Count 25 L Lymph % (Auto) Oil Producer Add Manual Diff Complete Total Counted 25 Seg Neutrophils % Oil Producer Seg Neuts % (Manual) 12.0 L Band Neutrophils % 4.0 Lymphocytes % (Manual) 64.0 H Reactive Lymphs % (Man) 0 Monocytes % (Manual) 8.0 H Eosinophils % (Manual) 12.0 H Basophils % (Manual) 0 Metamyelocytes % 0 Myelocytes % 0 Promyelocytes % 0 Blast Cells % 0 Nucleated RBC % Not Reportable Seg Neutrophils # Man 0.0 L Band Neutrophils # 0.0 Lymphocytes # (Manual) 0.2 L Abs React Lymphs (Man) 0.0 Monocytes # (Manual) 0.0 Eosinophils # (Manual) 0.0 Basophils # (Manual) 0.0 Metamyelocytes # 0.0 Myelocytes # 0.0 Promyelocytes # 0.0 Blast Cells # 0.0 WBC Morphology Not Reportable Hypersegmented Neuts Not Reportable Hyposegmented Neuts Not Reportable Hypogranular Neuts Not Reportable Smudge Cells Not Reportable Toxic Granulation Not Reportable Toxic Vacuolation Not Reportable Dohle Bodies Not Reportable Pelger-Huet Anomaly Not Reportable Andra Rods Not Reportable Platelet Estimate Consistent w auto Clumped Platelets Not Reportable Plt Clumps, EDTA Not Reportable Large Platelets Not Reportable Giant Platelets Not Reportable Platelet Satelliting Not Reportable Plt Morphology Comment Not Reportable RBC Morphology Not Reportable Dimorphic RBCs Not Reportable Polychromasia Not Reportable Hypochromasia Few Poikilocytosis Few Anisocytosis 1+ Microcytosis Not Reportable Macrocytosis Not Reportable Spherocytes Not Reportable Pappenheimer Bodies Not Reportable Sickle Cells Not Reportable Target Cells Not Reportable Tear Drop Cells Not Reportable Ovalocytes Few Helmet Cells Not Reportable [employer] Bodies Not Reportable [place] Rings Not Reportable [place] Cells Not Reportable Bite Cells Not Reportable Crenated Cell Not Reportable Elliptocytes Not Reportable Acanthocytes (Spur) Not Reportable Rouleaux Not Reportable Hemoglobin C Crystals Not Reportable Schistocytes Not Reportable Malaria parasites Not Reportable Donta Bodies Not Reportable Hem Pathologist Commnt No Sodium 141 Potassium 3.7 Chloride 106.5 Carbon Dioxide 20 L Anion Gap 18 BUN 54 H Creatinine 1.7 H Estimated GFR 39 BUN/Creatinine Ratio 32 Glucose 99 Calcium 7.8 L Phosphorus 3.70 Magnesium 1.70 Urine Creatinine 87.6 H Urine Sodium 10 Blood Type Antibody Screen Crossmatch 07/14/18 07:29 WBC RBC Hgb Hct MCV MCH MCHC RDW Plt Count Lymph % (Auto) Add Manual Diff Total Counted Seg Neutrophils % Seg Neuts % (Manual) Band Neutrophils % Lymphocytes % (Manual) Reactive Lymphs % (Man) Monocytes % (Manual) Eosinophils % (Manual) Basophils % (Manual) Metamyelocytes % Myelocytes % Promyelocytes % Blast Cells % Nucleated RBC % Seg Neutrophils # Man Band Neutrophils # Lymphocytes # (Manual) Abs React Lymphs (Man) Monocytes # (Manual) Eosinophils # (Manual) Basophils # (Manual) Metamyelocytes # Myelocytes # Promyelocytes # Blast Cells # WBC Morphology Hypersegmented Neuts Hyposegmented Neuts Hypogranular Neuts Smudge Cells Toxic Granulation Toxic Vacuolation Dohle Bodies Pelger-Huet Anomaly Andra Rods Platelet Estimate Clumped Platelets Plt Clumps, EDTA Large Platelets Giant Platelets Platelet Satelliting Plt Morphology Comment RBC Morphology Dimorphic RBCs Polychromasia Hypochromasia Poikilocytosis Anisocytosis Microcytosis Macrocytosis Spherocytes Pappenheimer Bodies Sickle Cells Target Cells Tear Drop Cells Ovalocytes Helmet Cells [place] [place] Bodies St[place]man Rings [place] Cells Bite Cells Crenated Cell Elliptocytes Acanthocytes (Spur) Rouleaux Hemoglobin C Crystals Schistocytes Malaria parasites Donta Bodies Hem Pathologist Commnt Sodium Potassium Chloride Carbon Dioxide Anion Gap BUN Creatinine Estimated GFR BUN/Creatinine Ratio Glucose Calcium Phosphorus Magnesium Urine Creatinine Urine Sodium Blood Type A POSITIVE Antibody Screen Negative Crossmatch See Detail Assessment and Plan Pt seen and examined. Plan as noted.
--- NOTE | 2018-07-13 16:17 | XRay Report ---
PROCEDURE: XR CHEST ROUTINE 2V TECHNIQUE: Frontal and lateral chest radiographs. HISTORY: fever COMPARISONS: None FINDINGS: The cardiomediastinal silhouette is normal. Right upper lobe consolidation is seen. A right chest port is present with the tip lying in the lower SVC. There is a trace right pleural effusion. No left pleural effusion. No pneumothorax. No acute osseous abnormality. IMPRESSION: Right upper lobe pneumonia. Trace right pleural effusion. This document is electronically signed by Clarisse Mcmillan., July 13 2018 04:15:13 PM ET
[2018-07-13] MEDS: MAXIPIME/NS 1 GM/100 ML 1 GM/100 ML BAG IV SCH (17:10)
[2018-07-14 06:10] LABS: Calcium 7.8 mg/dL (8.4-10.2)
[2018-07-14 07:03] LABS: Mean Corpuscular HGB Conc 34 % (32-34); Mean Corpuscular Volume 98 fl (84-94); Red Blood Count 1.72 M/mm3 (3.65-5.03); Red Cell Distribution Width 16.4 % (13.2-15.2)
[2018-07-14 07:19] LABS: Platelet Count 25 K/mm3 (140-440)
[2018-07-14 07:21] LABS: Hematocrit 16.9 % (35.5-45.6); Hemoglobin 5.7 gm/dl (11.8-15.2)
[2018-07-14] MEDS ORDERED: NACL 0.9% 500 ML 500 ML IV ONE ×2 (07:23→07:45)
--- NOTE | 2018-07-14 07:26 | Hem/Onc Progress Note ---
Assessment and Plan 1. Anemia secondary to myelodysplastic syndrome. 2. Leukopenia. Dr. Rojas told me that his white cell count had been low most of the time. 3. Thrombocytopenia secondary to myelodysplastic syndrome. 4. For his myelodysplastic syndrome, the patient has received 2 cycles of Dacogen regimen. He was on Procrit before. He was due to third cycle, but did not go to the [facility] for same. 5. Renal impairment. Nephrology consultation. 6. History of hypertension. 7. History of coronary artery disease. 8. History of renal issues. I will follow the patient during inpatient stay and then in the clinic setting. We will look into Neupogen support for now. Nephrology consult GCSF PRBC as per his collections assistant - pt's counts have been low for some time - Patient Problems (1) Anemia Current Visit: Yes Status: Acute Qualifiers: Anemia type: unspecified type Qualified Code(s): D64.9 - Anemia, unspecified Subjective Date of service: 07/14/18 Principal diagnosis: MDS Interval history: pt says doing ok Objective - Constitutional Vitals: Last Vital Signs Temp 97.8 F 07/14/18 02:09 Pulse 132 H 07/14/18 02:09 Resp 20 07/14/18 02:09 BP 98/56 07/14/18 02:09 Pulse Ox 93 07/14/18 02:09 Pain Intensity (0-10): denies any pain General appearance: no acute distress Performance status: 3-limited selfcare - EENT Eyes: EOM intact ENT: clear oral mucosa - Neck Neck: normal ROM - Respiratory Respiratory effort: Positive: normal Respiratory: bilateral: CTA - Cardiovascular Heart Sounds: Present: S1 & S2 Extremities: No edema - Gastrointestinal General gastrointestinal: Present: soft, non-tender Rectal Exam: deferred - Genitourinary Male genitourinary: Present: deferred - Integumentary Integumentary: warm - Musculoskeletal Musculoskeletal: generalized weakness - Neurologic Neurologic: moves all extremities - Labs Lab Results: Laboratory Results - last 24 hr 07/14/18 07/14/18 07/14/18 05:19 05:19 06:06 WBC 0.3 L* RBC 1.72 L Hgb 5.7 L* Hct 16.9 L* MCV 98 H MCH 33 H MCHC 34 RDW 16.4 H Plt Count 25 L Lymph % (Auto) Nutritionist Seg Neutrophils % Nutritionist Sodium 141 Potassium 3.7 Chloride 106.5 Carbon Dioxide 20 L Anion Gap 18 BUN 54 H Creatinine 1.7 H Estimated GFR 39 BUN/Creatinine Ratio 32 Glucose 99 Calcium 7.8 L Phosphorus 3.70 Magnesium 1.70 Urine Sodium 10 Medications & Allergies - Medications Allergies/Adverse Reactions: Allergies tetanus and diphtheria toxoids [tetanus & diphtheria toxoids] Allergy (Verified 07/12/18 13:31) Anaphylaxis Home Medications: Home Medications Medication Instructions Recorded Confirmed Last Taken Type Potassium Chloride 20 meq PO QDAY #10 packet 06/03/18 07/12/18 Unknown Rx Ascorbic Acid [Vitamin C] 500 mg PO DAILY 07/12/18 07/12/18 Unknown History Magnesium Oxide 400 mg PO DAILY 07/12/18 07/12/18 Unknown History Active Medications: Generic Name Dose Route Start Last Admin Trade Name Freq PRN Reason Stop Dose Admin Acetaminophen 650 mg 07/12/18 17:08 07/12/18 22:44 Tylenol PO 650 mg Q4H PRN Administration Pain MILD(1-3)/Fever >100.5/LLANES Albuterol 2.5 mg 07/12/18 17:08 Proventil IH Q4HRT PRN Shortness Of Breath Ascorbic Acid 500 mg 07/13/18 10:00 07/13/18 10:23 Vitamin C PO 500 mg QDAY [facility] Administration Sodium Chloride 1,000 mls @ 125 mls/hr 07/12/18 18:00 07/13/18 02:57 Nacl 0.45% 1000 Ml IV 42 mls/hr DIRECT [facility] Administration Cefepime HCl 1 gm in 100 mls @ 200 mls/hr 07/13/18 16:00 07/13/18 17:10 Maxipime/Ns 1 Gm/100 Ml IV 200 mls/hr Q8HR [facility] Administration Protocol Magnesium Oxide 400 mg 07/13/18 10:00 07/13/18 10:23 Mag-Ox PO 400 mg QDAY [facility] Administration Ondansetron HCl 4 mg 07/12/18 17:08 Zofran IV Q8H PRN Nausea And Vomiting Oxycodone/Acetaminophen 1 tab 07/12/18 17:08 Percocet 5/325 PO Q6H PRN Pain, Moderate (4-6) Potassium Chloride 20 meq 07/13/18 10:00 07/13/18 10:22 K-Dur PO 20 meq QDAY [facility] Administration Sodium Chloride 10 ml 07/12/18 22:00 07/13/18 02:31 Sodium Chloride Flush Syringe 10 Ml IV 10 ml BID [facility] Administration Sodium Chloride 10 ml 07/12/18 17:08 Sodium Chloride Flush Syringe 10 Ml IV PRN PRN LINE FLUSH Tbo-Filgrastim 480 mcg 07/13/18 14:00 07/13/18 10:07 Granix SUB-Q 07/17/18 13:59 480 mcg DAILY [facility] Administration
[2018-07-14 07:27] LABS: Creatinine,Urine 87.6 mg/dL (0.1-20.0)
[2018-07-14] MEDS: MAXIPIME/NS 1 GM/100 ML 1 GM/100 ML BAG IV SCH ×4 (08:08→23:25)
[2018-07-14 08:22] LABS: Basophils % (Manual) 0 % (0.0-1.8); Total Cells Counted 25
[2018-07-14 08:23] LABS: Anisocytosis 1+; Hypochromasia Few; Ovalocytes Few; Platelet Estimate Consistent w Auto; Poikilocytosis Few
[2018-07-14] MEDS: SODIUM CHLORIDE FLUSH SYRINGE 10 ML IV SCH ×2 (08:23→09:43)
--- NOTE | 2018-07-14 08:38 | Progress Note ---
Assessment and Plan Assessment and Plan Cultures: 07/12/2018 blood culture: No growth at 24 hours A/P: 73/M with MDS, admitted with: 1) Febrile neutropenia: Remains afebrile inpatient. Apparently was febrile at home. He has chronic neutropenia that is unchanged. ANC here is 0. Etiology unclear, has multitude of complaints. Abdominal imaging thus far has been unremarkable. Follow-up blood cultures. Follow-up HIDA scan. For now, treat with empiric IV cefepime. Has indwelling PORT, follow up blood cultures. 2) Acute diarrhea: Improved. Multiple recent hospitalizations, check stool culture and C. difficile toxin PCR. Abdomen is non tender on exam, low suspicion for typhlitis. 3) Question of pneumonia: CT with small right pleural effusion, no obvious pneumonia as such. Does report increased cough, SOB and sputum, hence, check sputum culture. Also check Aspergillus galactomannan and 1,3 [id number] due to profound neutropenia. 4) Pancytopenia: from MDS, on Dacogen cycles per Oncology. Dr. Quiroga following. 5) FAWAD: Nephrology consulted. Renally dose antibiotics. Recs: Continue IV cefepime, 1 g every 12 H, D2 Follow-up HIDA scan F/u stool culture ordered f/u C. difficile toxin PCR ordered f/u Aspergillus galactomannan and 1,3 [id number] ordered F/U blood cultures and fever curve order CT of chest with contrast obtain sputum culture order MRSA PCR [facility] M: [id number] O:[phone] Subjective Date of service: 07/14/18 Principal diagnosis: MDS Interval history: Patient seen and examined. Denies abdominal pain, weakness, SOB or diarrhea. No fevers. Objective - Exam Narrative Exam: Constitutional: Alert, cooperative. No acute distress Head, Ears, Nose: Normocephalic, atraumatic. External ears, nose normal Eyes: Conjunctivae/corneas clear. No icterus. No ptosis. Neck: Supple, no meningeal signs Oral: dentition poor, no thrush Cardiovascular: S1, S2 normal. Respiratory: bilateral basal crackles GI: Soft, non-tender; bowel sounds normal. No peritoneal signs Musculoskeletal: No pedal edema, no cyanosis. Right upper chest PORT + Skin: No rash or abscess Hem/Lymphatic: No palpable cervical or supraclavicular nodes. No lymphangitis Psych: Mood ok. Affect normal Neurological: Awake, alert, oriented. No gross abnormality - Constitutional Vitals: Vital Signs Temp Pulse Resp BP Pulse Ox 97.8 F 132 H 20 98/56 93 07/14/18 02:09 07/14/18 02:09 07/14/18 02:09 07/14/18 02:09 07/14/18 02:09 Temperature -Last 24 Hours Temperature 97.8 F Temperature 99.4 F Temperature 98.0 F - Labs CBC & Chem 7: 07/14/18 05:19 07/14/18 05:19 Labs: Abnormal lab results 07/14/18 07/14/18 07/14/18 Range/Units 05:19 05:19 06:06 WBC 0.3 L* (4.5-11.0) K/mm3 RBC 1.72 L (3.65-5.03) M/mm3 Hgb 5.7 L* (11.8-15.2) gm/dl Hct 16.9 L* (35.5-45.6) % MCV 98 H (84-94) fl MCH 33 H (28-32) pg RDW 16.4 H (13.2-15.2) % Plt Count 25 L (140-440) K/mm3 Seg Neuts % (Manual) 12.0 L (40.0-70.0) % Lymphocytes % (Manual) 64.0 H (13.4-35.0) % Monocytes % (Manual) 8.0 H (0.0-7.3) % Eosinophils % (Manual) 12.0 H (0.0-4.3) % Seg Neutrophils # Man 0.0 L (1.8-7.7) K/mm3 Lymphocytes # (Manual) 0.2 L (1.2-5.4) K/mm3 Carbon Dioxide 20 L (22-30) mmol/L BUN 54 H (9-20) mg/dL Creatinine 1.7 H (0.8-1.5) mg/dL Calcium 7.8 L (8.4-10.2) mg/dL Urine Creatinine 87.6 H (0.1-20.0) mg/dL Crossmatch 07/14/18 Range/Units 07:29 WBC (4.5-11.0) K/mm3 RBC (3.65-5.03) M/mm3 Hgb (11.8-15.2) gm/dl Hct (35.5-45.6) % MCV (84-94) fl MCH (28-32) pg RDW (13.2-15.2) % Plt Count (140-440) K/mm3 Seg Neuts % (Manual) (40.0-70.0) % Lymphocytes % (Manual) (13.4-35.0) % Monocytes % (Manual) (0.0-7.3) % Eosinophils % (Manual) (0.0-4.3) % Seg Neutrophils # Man (1.8-7.7) K/mm3 Lymphocytes # (Manual) (1.2-5.4) K/mm3 Carbon Dioxide (22-30) mmol/L BUN (9-20) mg/dL Creatinine (0.8-1.5) mg/dL Calcium (8.4-10.2) mg/dL Urine Creatinine (0.1-20.0) mg/dL Crossmatch See Detail
--- NOTE | 2018-07-14 09:01 | Progress Note ---
Assessment and Plan 1. Acute kidney injury: Vasomotor / hemodynamic FAWAD in the setting of volume depletion and hypotension. CT negative for hydronephrosis. Renal function is improving. Continue IV fluids. Monitor renal function. Renal prognosis is guarded. Avoid nephrotoxic agents. Meds dosage based on GFR. 2. FEN: Hypokalemia, replete K. Metabolic acidosis, monitor. 3. Pancytopenia: PRBC and Platelet transfusion. 4. Febrile neutropenia. Subjective Date of service: 07/14/18 Principal diagnosis: MDS Interval history: Patient was seen and examined at the bedside. Objective - Vital Signs Vital signs: Vital Signs - 12hr 07/14/18 07/14/18 02:09 08:54 Temperature 97.8 F Pulse Rate 132 H Respiratory 20 Rate Blood Pressure 98/56 O2 Sat by Pulse 93 95 Oximetry - General Appearance General appearance: well-developed, well-nourished, appears stated age, other (not in distress) EENT: ATNC, PERRL, hearing intact, vision intact Neck: supple Respiratory: Present: Clear to Ascultation Cardiology: regular, S1S2, no murmurs Gastrointestinal: normoactive bowel sounds, no tenderness, no distended Integumentary: no rash, warm and dry Neurologic: no focal deficit, no asterixis Musculoskeletal: other (no edema) - Lab 07/14/18 05:19 07/14/18 05:19 Most recent lab results Calcium 7.8 mg/dL (8.4-10.2) L 07/14/18 05:19 Phosphorus 3.70 mg/dL (2.5-4.5) 07/14/18 05:19 Magnesium 1.70 mg/dL (1.7-2.3) 07/14/18 05:19 Urine Creatinine 87.6 mg/dL (0.1-20.0) H 07/14/18 06:06 Urine Sodium 10 mmol/L 07/14/18 06:06 Medications & Allergies - Medications Allergies/Adverse Reactions: Allergies tetanus and diphtheria toxoids [tetanus & diphtheria toxoids] Allergy (Verified 07/12/18 13:31) Anaphylaxis Home Medications: Home Medications Medication Instructions Recorded Confirmed Last Taken Type Potassium Chloride 20 meq PO QDAY #10 packet 06/03/18 07/12/18 Unknown Rx Ascorbic Acid [Vitamin C] 500 mg PO DAILY 07/12/18 07/12/18 Unknown History Magnesium Oxide 400 mg PO DAILY 07/12/18 07/12/18 Unknown History Active Medications: Generic Name Dose Route Start Last Admin Trade Name Lei PRN Reason Stop Dose Admin Acetaminophen 650 mg 07/12/18 17:08 07/12/18 22:44 Tylenol PO 650 mg Q4H PRN Administration Pain MILD(1-3)/Fever >100.5/LLANES Albuterol 2.5 mg 07/12/18 17:08 Proventil IH Q4HRT PRN Shortness Of Breath Ascorbic Acid 500 mg 07/13/18 10:00 07/13/18 10:23 Vitamin C PO 500 mg QDAY NANETTE Administration Sodium Chloride 1,000 mls @ 125 mls/hr 07/12/18 18:00 07/13/18 02:57 Nacl 0.45% 1000 Ml IV 42 mls/hr DIRECT NANETTE Administration Cefepime HCl 1 gm in 100 mls @ 200 mls/hr 07/13/18 16:00 07/14/18 08:09 Maxipime/Ns 1 Gm/100 Ml IV Not Given Q8HR NANETTE Protocol Magnesium Oxide 400 mg 07/13/18 10:00 07/13/18 10:23 Mag-Ox PO 400 mg QDAY NANETTE Administration Ondansetron HCl 4 mg 07/12/18 17:08 Zofran IV Q8H PRN Nausea And Vomiting Oxycodone/Acetaminophen 1 tab 07/12/18 17:08 Percocet 5/325 PO Q6H PRN Pain, Moderate (4-6) Potassium Chloride 20 meq 07/13/18 10:00 07/13/18 10:22 K-Dur PO 20 meq QDAY NANETTE Administration Sodium Chloride 10 ml 07/12/18 22:00 07/14/18 08:23 Sodium Chloride Flush Syringe 10 Ml IV Not Given BID NANETTE Sodium Chloride 10 ml 07/12/18 17:08 Sodium Chloride Flush Syringe 10 Ml IV PRN PRN LINE FLUSH Tbo-Filgrastim 480 mcg 07/13/18 14:00 07/13/18 10:07 Granix SUB-Q 07/17/18 13:59 480 mcg DAILY NANETTE Administration
[2018-07-14] MEDS: MAG-OX PO SCH (09:42)
[2018-07-14] MEDS: VITAMIN C PO SCH (09:42)
[2018-07-14] MEDS: K-DUR PO SCH (09:42)
--- NOTE | 2018-07-14 10:21 | Progress Note ---
Assessment and Plan Assessment and plan: 73-year-old woman who presented to the hospital with fever and weakness plus abdominal pain 4 days. She also complained of diarrhea, Previously been in hospital for platelet and PRBC infusion. Past medical history chronic GI bleed, chronic anemia, transfusion dependence, CAD, myelodysplastic syndrome Ultrasound abdomen and pelvis shows moderate sludge in the gallbladder, medical renal disease and simple left renal cyst. There is also a small right pleural effusion. CT abdomen and pelvis shows small to moderate size right pleural effusion, increased density in the lung bases suggestive of atelectasis. Cholelithiasis, but no obvious cholecystitis. Chest x-ray positive for right upper lobe pneumonia Diagnoses Neutropenic fever Acute bacterial pneumonia last sepsis Anemia of chronic disease due to mild dysplastic syndrome, Thrombocytopenia Acute kidney injury likely due to vasomotor nephropathy Hypokalemia Abdominal pain Transaminitis Diarrhea Aflutter ER course The family requested to be transferred to [facility] in the ER, ER physician called. He spoke to the hospitalist, and the patient was not accepted there. Therefore the patient was admitted to our hospital. The patient received IV antibiotics, IV fluids, and hospitalist was called for admission Plan cont neupogen Continue potassium supplements transfuse 2 units PRBC on 07/14, 1 unit of platelets on 07/14 Continue antibiotics GI consult appreciated, no further workup is needed. "etiology-likely 2/2 cholestasis due to ineffective hemopoiesis from MDS " Patient has been seen by hematology/oncology and nephrology, awaiting dictated c onsultation ID input appreciated, continue empiric antibiotics for pneumonia, follow-up stool C. difficile, f/u Aspergillus galactomannan and 1,3 [id number] ordered DVT prophylaxis will be mechanical given thrombocytopenia Aflutter; Metoprol ordered, obtain echo and cardiology consulted History Interval history: Review of systems Constitutional: No fevers, no malaise, no joint pains CVS: No chest pain, no orthopnea, no dyspnea on exertion, no pedal edema GI: Abdominal pain has now resolved, no diarrhea, no vomiting, no constipation Respiratory:c/o sob, no wheezing, having dry cough Hospitalist Physical - Physical exam Narrative exam: General.: Appears chronically ill, multiple cystic lesions on his skin HEENT: Moist mucous membranes, extraocular muscles intact, no lymphadenopathy Neck: supple Cardiac: S1-S2 heard Lungs: crackles on R lung, decreased air entry Abdomen: soft , nontender, nondistended, bowel sounds positive Extremities: no edema clubbing or cyanosis Skin: no rash Neurologic: no gross focal deficits Psych: calm, and cooperative - Constitutional Vitals: Temp Pulse Resp BP Pulse Ox 98.0 F 136 H 20 98/52 98 07/14/18 10:14 07/14/18 10:14 07/14/18 10:14 07/14/18 10:14 07/14/18 10:14 General appearance: Present: mild distress, cachectic Results - Labs CBC & Chem 7: 07/14/18 05:19 07/14/18 05:19 Labs: Laboratory Last Values WBC 0.3 K/mm3 (4.5-11.0) L* 07/14/18 05:19 RBC 1.72 M/mm3 (3.65-5.03) L 07/14/18 05:19 Hgb 5.7 gm/dl (11.8-15.2) L* 07/14/18 05:19 Hct 16.9 % (35.5-45.6) L* 07/14/18 05:19 MCV 98 fl (84-94) H 07/14/18 05:19 MCH 33 pg (28-32) H 07/14/18 05:19 MCHC 34 % (32-34) 07/14/18 05:19 RDW 16.4 % (13.2-15.2) H 07/14/18 05:19 Plt Count 25 K/mm3 (140-440) L 07/14/18 05:19 Lymph % (Auto) Belt Cutter 07/14/18 05:19 Add Manual Diff Complete 07/14/18 05:19 Total Counted 25 07/14/18 05:19 Seg Neutrophils % Belt Cutter 07/14/18 05:19 Seg Neuts % (Manual) 12.0 % (40.0-70.0) L 07/14/18 05:19 Band Neutrophils % 4.0 % 07/14/18 05:19 Lymphocytes % (Manual) 64.0 % (13.4-35.0) H 07/14/18 05:19 Reactive Lymphs % (Man) 0 % 07/14/18 05:19 Monocytes % (Manual) 8.0 % (0.0-7.3) H 07/14/18 05:19 Eosinophils % (Manual) 12.0 % (0.0-4.3) H 07/14/18 05:19 Basophils % (Manual) 0 % (0.0-1.8) 07/14/18 05:19 Metamyelocytes % 0 % 07/14/18 05:19 Myelocytes % 0 % 07/14/18 05:19 Promyelocytes % 0 % 07/14/18 05:19 Blast Cells % 0 % 07/14/18 05:19 Nucleated RBC % Not Reportable 07/14/18 05:19 Seg Neutrophils # Man 0.0 K/mm3 (1.8-7.7) L 07/14/18 05:19 Band Neutrophils # 0.0 K/mm3 07/14/18 05:19 Lymphocytes # (Manual) 0.2 K/mm3 (1.2-5.4) L 07/14/18 05:19 Abs React Lymphs (Man) 0.0 K/mm3 07/14/18 05:19 Monocytes # (Manual) 0.0 K/mm3 (0.0-0.8) 07/14/18 05:19 Eosinophils # (Manual) 0.0 K/mm3 (0.0-0.4) 07/14/18 05:19 Basophils # (Manual) 0.0 K/mm3 (0.0-0.1) 07/14/18 05:19 Metamyelocytes # 0.0 K/mm3 07/14/18 05:19 Myelocytes # 0.0 K/mm3 07/14/18 05:19 Promyelocytes # 0.0 K/mm3 07/14/18 05:19 Blast Cells # 0.0 K/mm3 07/14/18 05:19 WBC Morphology Not Reportable 07/14/18 05:19 Hypersegmented Neuts Not Reportable 07/14/18 05:19 Hyposegmented Neuts Not Reportable 07/14/18 05:19 Hypogranular Neuts Not Reportable 07/14/18 05:19 Smudge Cells Not Reportable 07/14/18 05:19 Toxic Granulation Not Reportable 07/14/18 05:19 Toxic Vacuolation Not Reportable 07/14/18 05:19 Dohle Bodies Not Reportable 07/14/18 05:19 Pelger-Huet Anomaly Not Reportable 07/14/18 05:19 Andra Rods Not Reportable 07/14/18 05:19 Platelet Estimate Consistent w auto 07/14/18 05:19 Clumped Platelets Not Reportable 07/14/18 05:19 Plt Clumps, EDTA Not Reportable 07/14/18 05:19 Large Platelets Not Reportable 07/14/18 05:19 Giant Platelets Not Reportable 07/14/18 05:19 Platelet Satelliting Not Reportable 07/14/18 05:19 Plt Morphology Comment Not Reportable 07/14/18 05:19 RBC Morphology Not Reportable 07/14/18 05:19 Dimorphic RBCs Not Reportable 07/14/18 05:19 Polychromasia Not Reportable 07/14/18 05:19 Hypochromasia Few 07/14/18 05:19 Poikilocytosis Few 07/14/18 05:19 Anisocytosis 1+ 07/14/18 05:19 Microcytosis Not Reportable 07/14/18 05:19 Macrocytosis Not Reportable 07/14/18 05:19 Spherocytes Not Reportable 07/14/18 05:19 Pappenheimer Bodies Not Reportable 07/14/18 05:19 Sickle Cells Not Reportable 07/14/18 05:19 Target Cells Not Reportable 07/14/18 05:19 Tear Drop Cells Not Reportable 07/14/18 05:19 Ovalocytes Few 07/14/18 05:19 Helmet Cells Not Reportable 07/14/18 05:19 Joseph-Corinth Bodies Not Reportable 07/14/18 05:19 Ewell Rings Not Reportable 07/14/18 05:19 Corona Cells Not Reportable 07/14/18 05:19 Bite Cells Not Reportable 07/14/18 05:19 Crenated Cell Not Reportable 07/14/18 05:19 Elliptocytes Not Reportable 07/14/18 05:19 Acanthocytes (Spur) Not Reportable 07/14/18 05:19 Rouleaux Not Reportable 07/14/18 05:19 Hemoglobin C Crystals Not Reportable 07/14/18 05:19 Schistocytes Not Reportable 07/14/18 05:19 Malaria parasites Not Reportable 07/14/18 05:19 Donta Bodies Not Reportable 07/14/18 05:19 Hem Pathologist Commnt No 07/14/18 05:19 Sodium 141 mmol/L (137-145) 07/14/18 05:19 Potassium 3.7 mmol/L (3.6-5.0) 07/14/18 05:19 Chloride 106.5 mmol/L (98-107) 07/14/18 05:19 Carbon Dioxide 20 mmol/L (22-30) L 07/14/18 05:19 Anion Gap 18 mmol/L 07/14/18 05:19 BUN 54 mg/dL (9-20) H 07/14/18 05:19 Creatinine 1.7 mg/dL (0.8-1.5) H 07/14/18 05:19 Estimated GFR 39 ml/min 07/14/18 05:19 BUN/Creatinine Ratio 32 % 07/14/18 05:19 Glucose 99 mg/dL (75-100) 07/14/18 05:19 Calcium 7.8 mg/dL (8.4-10.2) L 07/14/18 05:19 Phosphorus 3.70 mg/dL (2.5-4.5) 07/14/18 05:19 Magnesium 1.70 mg/dL (1.7-2.3) 07/14/18 05:19 Total Bilirubin 2.00 mg/dL (0.1-1.2) H 07/12/18 14:02 AST 26 units/L (5-40) 07/12/18 14:02 ALT 24 units/L (7-56) 07/12/18 14:02 Alkaline Phosphatase 33 units/L (35-129) L 07/12/18 14:02 Troponin T < 0.010 ng/mL (0.00-0.029) 07/12/18 14:02 Total Protein 6.9 g/dL (6.3-8.2) 07/12/18 14:02 Albumin 3.3 g/dL (3.9-5) L 07/12/18 14:02 Albumin/Globulin Ratio 0.9 % 07/12/18 14:02 Urine Color Felicia (Yellow) 07/12/18 23:15 Urine Turbidity Cloudy (Clear) 07/12/18 23:15 Urine pH 5.0 (5.0-7.0) 07/12/18 23:15 Ur Specific [place] 1.021 (1.003-1.030) 07/12/18 23:15 Urine Protein 100 mg/dl mg/dL (Negative) 07/12/18 23:15 Urine Glucose (UA) Neg mg/dL (Negative) 07/12/18 23:15 Urine Ketones Tr mg/dL (Negative) 07/12/18 23:15 Urine Blood Neg (Negative) 07/12/18 23:15 Urine Nitrite Neg (Negative) 07/12/18 23:15 Urine Bilirubin Neg (Negative) 07/12/18 23:15 Urine Urobilinogen < 2.0 mg/dL (<2.0) 07/12/18 23:15 Ur Leukocyte Esterase Neg (Negative) 07/12/18 23:15 Urine WBC (Auto) 6.0 /HPF (0.0-6.0) 07/12/18 23:15 Urine RBC (Auto) 1.0 /HPF (0.0-6.0) 07/12/18 23:15 U Epithel Cells (Auto) 1.0 /HPF (0-13.0) 07/12/18 23:15 Amorphous Crystals 1+ 07/12/18 23:15 Hyaline Casts 39 /LPF 07/12/18 23:15 Granular Casts 28 /LPF 07/12/18 23:15 Urine Mucus Few /HPF 07/12/18 23:15 Urine Creatinine 87.6 mg/dL (0.1-20.0) H 07/14/18 06:06 Urine Sodium 10 mmol/L 07/14/18 06:06 Blood Type A POSITIVE 07/14/18 07:29 Antibody Screen Negative 07/14/18 07:29 Crossmatch See Detail 07/14/18 07:29 Active Medications - Current Medications Current Medications: Generic Name Dose Route Start Last Admin Trade Name Freq PRN Reason Stop Dose Admin Acetaminophen 650 mg 07/12/18 17:08 07/12/18 22:44 Tylenol PO 650 mg Q4H PRN Administration Pain MILD(1-3)/Fever >100.5/LLANES Albuterol 2.5 mg 07/12/18 17:08 Proventil IH Q4HRT PRN Shortness Of Breath Ascorbic Acid 500 mg 07/13/18 10:00 07/14/18 09:42 Vitamin C PO 500 mg QDAY NANETTE Administration Sodium Chloride 1,000 mls @ 125 mls/hr 07/12/18 18:00 07/13/18 02:57 Nacl 0.45% 1000 Ml IV 42 mls/hr DIRECT NANETTE Administration Cefepime HCl 1 gm in 100 mls @ 200 mls/hr 07/13/18 16:00 07/14/18 08:09 Maxipime/Ns 1 Gm/100 Ml IV Not Given Q8HR NANETTE Protocol Magnesium Oxide 400 mg 07/13/18 10:00 07/14/18 09:42 Mag-Ox PO 400 mg QDAY NANETTE Administration Ondansetron HCl 4 mg 07/12/18 17:08 Zofran IV Q8H PRN Nausea And Vomiting Oxycodone/Acetaminophen 1 tab 07/12/18 17:08 Percocet 5/325 PO Q6H PRN Pain, Moderate (4-6) Potassium Chloride 20 meq 07/13/18 10:00 07/14/18 09:42 K-Dur PO 20 meq QDAY NANETTE Administration Sodium Chloride 10 ml 07/12/18 22:00 07/14/18 09:43 Sodium Chloride Flush Syringe 10 Ml IV 10 ml BID NANETTE Administration Sodium Chloride 10 ml 07/12/18 17:08 Sodium Chloride Flush Syringe 10 Ml IV PRN PRN LINE FLUSH Tbo-Filgrastim 480 mcg 07/13/18 14:00 07/13/18 10:07 Granix SUB-Q 07/17/18 13:59 480 mcg DAILY NANETTE Administration Nutrition/Malnutrition Assess - Dietary Evaluation Nutrition/Malnutrition Findings: Nutrition Notes Start: 07/13/18 15:36 Freq: Status: Active Protocol: Document 07/13/18 15:36 RD (Rec: 07/13/18 16:09 RD [email or web address]) Co-Sign 07/13/18 15:36 RM Nutrition Notes 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 Pt previously NPO. Regular diet ordered later today. Pt reports constant throwing up and does not want to eat because of it. Pt can tolerate liquids. Pt had a decreased appetite due to weakness. Pt reports no chewing or swallowing difficulty. Observed no temporal or orbital wasting. Pt reported usual body weight is 214 lbs for past 10 years. Percent of energy/protein needs met: 0%/0% Burn Absent Trauma Absent GI Symptoms Nausea,Vomiting #1 Nutrition Diagnosis Inadequate oral intake Etiology N/V As Evidenced by Signs and Symptoms Previous NPO status Is patient on ventilator? No Is Patient Ambulatory and/or Out of Bed Yes REE-([facility]-ambulatory/OOB) [ 2001.415 [id number]] Calculation Used for Recommendations [facility] Additional Notes Protein needs: (1-1.5 g/kg) 80 -120g/day Fluid needs: 1mL/kcal Nutrition Intervention Change Diet Order: Continue Regular Diet Add Supplement/Snack (indicate name/kcal Ensure Clear BID /protein ) Provides kCal: 480 Provides Protein (gm) 16 Goal #1 Meet at least 75% of nutrient needs via ONS and PO intake Anticipated Discharge Needs: Unable to determine at this time Follow-Up By: 07/17/18 Additional Comments f/u: intakes
[2018-07-14] MEDS ORDERED: LOPRESSOR IV PRN (11:43)
[2018-07-14] MEDS: GRANIX SUB-Q SCH (12:23)
[2018-07-14] MEDS: LOPRESSOR PO SCH (12:23)
--- NOTE | 2018-07-14 14:18 | Consultation ---
History of Present Illness Consult date: 07/14/18 Requesting physician: JOHN CORONEL Consult reason: tachycardia History of present illness: The pt is a 73 YO male with a past medical history of reported AMI in with no intervention, COPD, former tobacco use (quit 2 years ago), HTN, GI bleed, chronic anemia requiring transfusions, myelodysplastic syndrome who presented to the hospital with c/o generalized weakness, fever, diarrhea and abdominal pain for several days prior to arrival. Since admission, he has been diagnosed with pancytopenia, pneumonia, FAWAD. He was noted to have atrial flutter on telemetry and thus cardiology has been consulted. Pt denies any current cardiac complaints. He denies any prior diagnosis of HF or arrhythmia. He has not had r egular cardiology follow up since his AMI in . Past History Past Medical History: acute CO, anemia, COPD, hypertension Past Surgical History: Other (hemmorhoid, Right chest port) Social history: , lives with family, smoking (former). denies: alcohol abuse, prescription drug abuse Family history: hypertension Medications and Allergies Allergies Allergy/AdvReac Type Severity Reaction Status Date / Time tetanus and diphtheria Allergy Anaphylaxis Verified 07/12/18 13:31 toxoids [tetanus & diphtheria toxoids] Home Medications Medication Instructions Recorded Confirmed Last Taken Type Potassium Chloride 20 meq PO QDAY #10 packet 06/03/18 07/12/18 Unknown Rx Ascorbic Acid [Vitamin C] 500 mg PO DAILY 07/12/18 07/12/18 Unknown History Magnesium Oxide 400 mg PO DAILY 07/12/18 07/12/18 Unknown History Active Meds: Active Medications Acetaminophen (Tylenol) 650 mg PO Q4H PRN PRN Reason: Pain MILD(1-3)/Fever >100.5/LLANES Last Admin: 07/12/18 22:44 Dose: 650 mg Documented by: Albuterol (Proventil) 2.5 mg IH Q4HRT PRN PRN Reason: Shortness Of Breath Ascorbic Acid (Vitamin C) 500 mg PO QDAY [facility] Last Admin: 07/14/18 09:42 Dose: 500 mg Documented by: Sodium Chloride (Nacl 0.45% 1000 Ml) 1,000 mls @ 125 mls/hr IV DIRECT NANETTE Last Admin: 07/13/18 02:57 Dose: 42 mls/hr Documented by: Cefepime HCl (Maxipime/Ns 1 Gm/100 Ml) 1 gm in 100 mls @ 200 mls/hr IV Q8HR [facility]; Protocol Last Admin: 07/14/18 08:09 Dose: Not Given Documented by: Magnesium Oxide (Mag-Ox) 400 mg PO QDAY [facility] Last Admin: 07/14/18 09:42 Dose: 400 mg Documented by: Metoprolol Tartrate (Lopressor) 5 mg IV Q4H PRN PRN Reason: sustained HR >130 Metoprolol Tartrate (Lopressor) 12.5 mg PO BID [facility] Last Admin: 07/14/18 12:23 Dose: 12.5 mg Documented by: Ondansetron HCl (Zofran) 4 mg IV Q8H PRN PRN Reason: Nausea And Vomiting Oxycodone/Acetaminophen (Percocet 5/325) 1 tab PO Q6H PRN PRN Reason: Pain, Moderate (4-6) Potassium Chloride (K-Dur) 20 meq PO QDAY [facility] Last Admin: 07/14/18 09:42 Dose: 20 meq Documented by: Sodium Chloride (Sodium Chloride Flush Syringe 10 Ml) 10 ml IV BID [facility] Last Admin: 07/14/18 09:43 Dose: 10 ml Documented by: Sodium Chloride (Sodium Chloride Flush Syringe 10 Ml) 10 ml IV PRN PRN PRN Reason: LINE FLUSH Tbo-Filgrastim (Granix) 480 mcg SUB-Q DAILY [facility] Stop: 07/17/18 13:59 Last Admin: 07/14/18 12:23 Dose: 480 mcg Documented by: Review of Systems All systems: negative Constitutional: fatigue, weakness (generalized) Cardiovascular: shortness of breath (chronic), dyspnea on exertion (chronic ), no chest pain, no palpitations, no rapid/irregular heart beat Physical Examination Vital Signs Temp Pulse Resp BP Pulse Ox 98.9 F 115 H 18 117/46 97 07/12/18 13:31 07/12/18 13:31 07/12/18 13:31 07/12/18 13:31 07/12/18 13:31 General appearance: no acute distress, other (chronically ill appearing) HEENT: Positive: PERRL, Normocephaly, Mucus Membranes Moist Cardiac: Positive: irregularly irregular, S1/S2, Tachycardia Lungs: Positive: Decreased Breath Sounds Neuro: Positive: Grossly Intact Abdomen: Negative: Tender Skin: Negative: Wound Musculoskeletal: No Pain Extremities: Absent: edema Results 07/14/18 05:19 07/14/18 05:19 CBC 07/14/18 Range/Units 05:19 WBC 0.3 L* (4.5-11.0) K/mm3 RBC 1.72 L (3.65-5.03) M/mm3 Hgb 5.7 L* (11.8-15.2) gm/dl Hct 16.9 L* (35.5-45.6) % Plt Count 25 L (140-440) K/mm3 Comprehensive Metabolic Panel 07/14/18 Range/Units 05:19 Sodium 141 (137-145) mmol/L Potassium 3.7 (3.6-5.0) mmol/L Chloride 106.5 (98-107) mmol/L Carbon Dioxide 20 L (22-30) mmol/L BUN 54 H (9-20) mg/dL Creatinine 1.7 H (0.8-1.5) mg/dL Glucose 99 (75-100) mg/dL Calcium 7.8 L (8.4-10.2) mg/dL - Imaging and Cardiology Echo: pending EKG: report reviewed, image reviewed EKG interpretations - Telemetry EKG Rhythm: Atrial Flutter - EKG Supraventricular dysrhythmia: atrial flutter Assessment and Plan Optimize HR - initiate PO amio. Consider addition of BB if BPs permit. Obtain thyroid profile and echo. Cont telemetry. The patient has been seen in conjunction with Dr. Mulligan who agrees with the assessment and plan of care. - Patient Problems (1) Paroxysmal atrial flutter Current Visit: Yes Status: Chronic (2) Symptomatic anemia Current Visit: Yes Status: Acute (3) Pancytopenia Current Visit: Yes Status: Acute (4) Pneumonia Current Visit: Yes Status: Suspected (5) Fever Current Visit: Yes Status: Acute Qualifiers: Fever type: unspecified Qualified Code(s): R50.9 - Fever, unspecified (6) Abdominal pain Current Visit: Yes Status: Acute Qualifiers: Abdominal location: generalized Qualified Code(s): R10.84 - Generalized abdominal pain (7) COPD (chronic obstructive pulmonary disease) Current Visit: Yes Status: Acute (8) History of GI bleed Current Visit: Yes Status: Chronic (9) FAWAD (acute kidney injury) Current Visit: Yes Status: Acute (10) HTN (hypertension) Current Visit: Yes Status: Chronic Qualifiers: Hypertension type: essential hypertension Qualified Code(s): I10 - Essential (primary) hypertension (11) History of myocardial infarction Current Visit: Yes Status: Suspected (12) Myelodysplasia (myelodysplastic syndrome) Current Visit: Yes Status: Chronic
[2018-07-14] MEDS: CORDARONE PO SCH ×2 (15:05→23:24)
--- NOTE | 2018-07-15 07:28 | Progress Note ---
Assessment and Plan Assessment and plan: 73-year-old woman who presented to the hospital with fever and weakness plus abdominal pain 4 days. She also complained of diarrhea, Previously been in hospital for platelet and PRBC infusion. Past medical history chronic GI bleed, chronic anemia, transfusion dependence, CAD, myelodysplastic syndrome Ultrasound abdomen and pelvis shows moderate sludge in the gallbladder, medical renal disease and simple left renal cyst. There is also a small right pleural effusion. CT abdomen and pelvis shows small to moderate size right pleural effusion, increased density in the lung bases suggestive of atelectasis. Cholelithiasis, but no obvious cholecystitis. Chest x-ray positive for right upper lobe pneumonia Diagnoses Neutropenic fever Acute bacterial pneumonia last sepsis Anemia of chronic disease due to mild dysplastic syndrome, Thrombocytopenia Acute kidney injury likely due to vasomotor nephropathy Hypokalemia Abdominal pain Transaminitis Diarrhea Aflutter ER course The family requested to be transferred to [facility] in the ER, ER physician called. He spoke to the hospitalist, and the patient was not accepted there. Therefore the patient was admitted to our hospital. The patient received IV antibiotics, IV fluids, and hospitalist was called for admission Plan cont neupogen Continue potassium supplements transfuse 2 units PRBC on 07/14, 1 unit of platelets on 07/14 Continue antibiotics GI consult appreciated, no further workup is needed. "etiology-likely 2/2 cholestasis due to ineffective hemopoiesis from MDS " Patient has been seen by hematology/oncology and nephrology ID input appreciated, continue empiric antibiotics for pneumonia, follow-up stool C. difficile, f/u Aspergillus galactomannan and 1,3 [id number] ordered DVT prophylaxis will be mechanical given thrombocytopenia Aflutter; Metoprol ordered, obtain echo and cardiology consulted History Interval history: Review of systems Constitutional: No fevers, no malaise, no joint pains CVS: No chest pain, no orthopnea, no dyspnea on exertion, no pedal edema GI: Abdominal pain has now resolved, no diarrhea, no vomiting, no constipation Respiratory:c/o sob, no wheezing, having dry cough Hospitalist Physical - Physical exam Narrative exam: General.: Appears chronically ill, multiple cystic lesions on his skin HEENT: Moist mucous membranes, extraocular muscles intact, no lymphadenopathy Neck: supple Cardiac: S1-S2 heard Lungs: crackles on R lung, decreased air entry Abdomen: soft , nontender, nondistended, bowel sounds positive Extremities: no edema clubbing or cyanosis Skin: no rash Neurologic: no gross focal deficits Psych: calm, and cooperative - Constitutional Vitals: Temp Pulse Resp BP Pulse Ox 98.3 F 125 H 20 98/66 96 07/15/18 04:55 07/15/18 04:55 07/15/18 04:55 07/15/18 04:55 07/15/18 02:07 General appearance: Present: mild distress, cachectic Results - Labs CBC & Chem 7: 07/15/18 07:50 07/15/18 07:50 Labs: Laboratory Last Values WBC 0.3 K/mm3 (4.5-11.0) L* 07/14/18 05:19 RBC 1.72 M/mm3 (3.65-5.03) L 07/14/18 05:19 Hgb 5.7 gm/dl (11.8-15.2) L* 07/14/18 05:19 Hct 16.9 % (35.5-45.6) L* 07/14/18 05:19 MCV 98 fl (84-94) H 07/14/18 05:19 MCH 33 pg (28-32) H 07/14/18 05:19 MCHC 34 % (32-34) 07/14/18 05:19 RDW 16.4 % (13.2-15.2) H 07/14/18 05:19 Plt Count 25 K/mm3 (140-440) L 07/14/18 05:19 Lymph % (Auto) Dance Artist 07/14/18 05:19 Add Manual Diff Complete 07/14/18 05:19 Total Counted 25 07/14/18 05:19 Seg Neutrophils % Dance Artist 07/14/18 05:19 Seg Neuts % (Manual) 12.0 % (40.0-70.0) L 07/14/18 05:19 Band Neutrophils % 4.0 % 07/14/18 05:19 Lymphocytes % (Manual) 64.0 % (13.4-35.0) H 07/14/18 05:19 Reactive Lymphs % (Man) 0 % 07/14/18 05:19 Monocytes % (Manual) 8.0 % (0.0-7.3) H 07/14/18 05:19 Eosinophils % (Manual) 12.0 % (0.0-4.3) H 07/14/18 05:19 Basophils % (Manual) 0 % (0.0-1.8) 07/14/18 05:19 Metamyelocytes % 0 % 07/14/18 05:19 Myelocytes % 0 % 07/14/18 05:19 Promyelocytes % 0 % 07/14/18 05:19 Blast Cells % 0 % 07/14/18 05:19 Nucleated RBC % Not Reportable 07/14/18 05:19 Seg Neutrophils # Man 0.0 K/mm3 (1.8-7.7) L 07/14/18 05:19 Band Neutrophils # 0.0 K/mm3 07/14/18 05:19 Lymphocytes # (Manual) 0.2 K/mm3 (1.2-5.4) L 07/14/18 05:19 Abs React Lymphs (Man) 0.0 K/mm3 07/14/18 05:19 Monocytes # (Manual) 0.0 K/mm3 (0.0-0.8) 07/14/18 05:19 Eosinophils # (Manual) 0.0 K/mm3 (0.0-0.4) 07/14/18 05:19 Basophils # (Manual) 0.0 K/mm3 (0.0-0.1) 07/14/18 05:19 Metamyelocytes # 0.0 K/mm3 07/14/18 05:19 Myelocytes # 0.0 K/mm3 07/14/18 05:19 Promyelocytes # 0.0 K/mm3 07/14/18 05:19 Blast Cells # 0.0 K/mm3 07/14/18 05:19 WBC Morphology Not Reportable 07/14/18 05:19 Hypersegmented Neuts Not Reportable 07/14/18 05:19 Hyposegmented Neuts Not Reportable 07/14/18 05:19 Hypogranular Neuts Not Reportable 07/14/18 05:19 Smudge Cells Not Reportable 07/14/18 05:19 Toxic Granulation Not Reportable 07/14/18 05:19 Toxic Vacuolation Not Reportable 07/14/18 05:19 Dohle Bodies Not Reportable 07/14/18 05:19 Pelger-Huet Anomaly Not Reportable 07/14/18 05:19 Andra Rods Not Reportable 07/14/18 05:19 Platelet Estimate Consistent w auto 07/14/18 05:19 Clumped Platelets Not Reportable 07/14/18 05:19 Plt Clumps, EDTA Not Reportable 07/14/18 05:19 Large Platelets Not Reportable 07/14/18 05:19 Giant Platelets Not Reportable 07/14/18 05:19 Platelet Satelliting Not Reportable 07/14/18 05:19 Plt Morphology Comment Not Reportable 07/14/18 05:19 RBC Morphology Not Reportable 07/14/18 05:19 Dimorphic RBCs Not Reportable 07/14/18 05:19 Polychromasia Not Reportable 07/14/18 05:19 Hypochromasia Few 07/14/18 05:19 Poikilocytosis Few 07/14/18 05:19 Anisocytosis 1+ 07/14/18 05:19 Microcytosis Not Reportable 07/14/18 05:19 Macrocytosis Not Reportable 07/14/18 05:19 Spherocytes Not Reportable 07/14/18 05:19 Pappenheimer Bodies Not Reportable 07/14/18 05:19 Sickle Cells Not Reportable 07/14/18 05:19 Target Cells Not Reportable 07/14/18 05:19 Tear Drop Cells Not Reportable 07/14/18 05:19 Ovalocytes Few 07/14/18 05:19 Helmet Cells Not Reportable 07/14/18 05:19 [place] Bodies Not Reportable 07/14/18 05:19 [place] Rings Not Reportable 07/14/18 05:19 [place] Cells Not Reportable 07/14/18 05:19 Bite Cells Not Reportable 07/14/18 05:19 Crenated Cell Not Reportable 07/14/18 05:19 Elliptocytes Not Reportable 07/14/18 05:19 Acanthocytes (Spur) Not Reportable 07/14/18 05:19 Rouleaux Not Reportable 07/14/18 05:19 Hemoglobin C Crystals Not Reportable 07/14/18 05:19 Schistocytes Not Reportable 07/14/18 05:19 Malaria parasites Not Reportable 07/14/18 05:19 Donta Bodies Not Reportable 07/14/18 05:19 Hem Pathologist Commnt No 07/14/18 05:19 Sodium 141 mmol/L (137-145) 07/14/18 05:19 Potassium 3.7 mmol/L (3.6-5.0) 07/14/18 05:19 Chloride 106.5 mmol/L (98-107) 07/14/18 05:19 Carbon Dioxide 20 mmol/L (22-30) L 07/14/18 05:19 Anion Gap 18 mmol/L 07/14/18 05:19 BUN 54 mg/dL (9-20) H 07/14/18 05:19 Creatinine 1.7 mg/dL (0.8-1.5) H 07/14/18 05:19 Estimated GFR 39 ml/min 07/14/18 05:19 BUN/Creatinine Ratio 32 % 07/14/18 05:19 Glucose 99 mg/dL (75-100) 07/14/18 05:19 Calcium 7.8 mg/dL (8.4-10.2) L 07/14/18 05:19 Phosphorus 3.70 mg/dL (2.5-4.5) 07/14/18 05:19 Magnesium 1.70 mg/dL (1.7-2.3) 07/14/18 05:19 Total Bilirubin 2.00 mg/dL (0.1-1.2) H 07/12/18 14:02 AST 26 units/L (5-40) 07/12/18 14:02 ALT 24 units/L (7-56) 07/12/18 14:02 Alkaline Phosphatase 33 units/L (35-129) L 07/12/18 14:02 Troponin T < 0.010 ng/mL (0.00-0.029) 07/12/18 14:02 Total Protein 6.9 g/dL (6.3-8.2) 07/12/18 14:02 Albumin 3.3 g/dL (3.9-5) L 07/12/18 14:02 Albumin/Globulin Ratio 0.9 % 07/12/18 14:02 TSH 2.990 mlU/mL (0.270-4.200) 07/14/18 16:35 Free T4 0.64 ng/dL (0.76-1.46) L 07/14/18 16:25 Urine Color Felicia (Yellow) 07/12/18 23:15 Urine Turbidity Cloudy (Clear) 07/12/18 23:15 Urine pH 5.0 (5.0-7.0) 07/12/18 23:15 Ur Specific [place] 1.021 (1.003-1.030) 07/12/18 23:15 Urine Protein 100 mg/dl mg/dL (Negative) 07/12/18 23:15 Urine Glucose (UA) Neg mg/dL (Negative) 07/12/18 23:15 Urine Ketones Tr mg/dL (Negative) 07/12/18 23:15 Urine Blood Neg (Negative) 07/12/18 23:15 Urine Nitrite Neg (Negative) 07/12/18 23:15 Urine Bilirubin Neg (Negative) 07/12/18 23:15 Urine Urobilinogen < 2.0 mg/dL (<2.0) 07/12/18 23:15 Ur Leukocyte Esterase Neg (Negative) 07/12/18 23:15 Urine WBC (Auto) 6.0 /HPF (0.0-6.0) 07/12/18 23:15 Urine RBC (Auto) 1.0 /HPF (0.0-6.0) 07/12/18 23:15 U Epithel Cells (Auto) 1.0 /HPF (0-13.0) 07/12/18 23:15 Amorphous Crystals 1+ 07/12/18 23:15 Hyaline Casts 39 /LPF 07/12/18 23:15 Granular Casts 28 /LPF 07/12/18 23:15 Urine Mucus Few /HPF 07/12/18 23:15 Urine Creatinine 87.6 mg/dL (0.1-20.0) H 07/14/18 06:06 Urine Sodium 10 mmol/L 07/14/18 06:06 Blood Type A POSITIVE 07/14/18 07:29 Antibody Screen Negative 07/14/18 07:29 Crossmatch See Detail 07/14/18 07:29 Active Medications - Current Medications Current Medications: Generic Name Dose Route Start Last Admin Trade Name Freq PRN Reason Stop Dose Admin Acetaminophen 650 mg 07/12/18 17:08 07/12/18 22:44 Tylenol PO 650 mg Q4H PRN Administration Pain MILD(1-3)/Fever >100.5/LLANES Albuterol 2.5 mg 07/12/18 17:08 Proventil IH Q4HRT PRN Shortness Of Breath Amiodarone HCl 200 mg 07/14/18 15:00 07/14/18 23:24 Cordarone PO 200 mg BID NANETTE Administration Ascorbic Acid 500 mg 07/13/18 10:00 07/14/18 09:42 Vitamin C PO 500 mg QDAY NANETTE Administration Sodium Chloride 1,000 mls @ 125 mls/hr 07/12/18 18:00 07/13/18 02:57 Nacl 0.45% 1000 Ml IV 42 mls/hr DIRECT NANETTE Administration Cefepime HCl 1 gm in 100 mls @ 200 mls/hr 07/13/18 16:00 07/14/18 23:25 Maxipime/Ns 1 Gm/100 Ml IV 200 mls/hr Q8HR NANETTE Administration Protocol Magnesium Oxide 400 mg 07/13/18 10:00 07/14/18 09:42 Mag-Ox PO 400 mg QDAY NANETTE Administration Metoprolol Tartrate 5 mg 07/14/18 11:43 Lopressor IV Q4H PRN sustained HR >130 Metoprolol Tartrate 12.5 mg 07/14/18 12:00 07/14/18 12:23 Lopressor PO 12.5 mg BID NANETTE Administration Ondansetron HCl 4 mg 07/12/18 17:08 Zofran IV Q8H PRN Nausea And Vomiting Oxycodone/Acetaminophen 1 tab 07/12/18 17:08 Percocet 5/325 PO Q6H PRN Pain, Moderate (4-6) Potassium Chloride 20 meq 07/13/18 10:00 07/14/18 09:42 K-Dur PO 20 meq QDAY NANETTE Administration Sodium Chloride 10 ml 07/12/18 22:00 07/14/18 09:43 Sodium Chloride Flush Syringe 10 Ml IV 10 ml BID NANETTE Administration Sodium Chloride 10 ml 07/12/18 17:08 Sodium Chloride Flush Syringe 10 Ml IV PRN PRN LINE FLUSH Tbo-Filgrastim 480 mcg 07/13/18 14:00 07/14/18 12:23 Granix SUB-Q 07/17/18 13:59 480 mcg DAILY NANETTE Administration Nutrition/Malnutrition Assess - Dietary Evaluation Nutrition/Malnutrition Findings: Nutrition Notes Start: 07/13/18 15:36 Freq: Status: Active Protocol: Document 07/13/18 15:36 RD (Rec: 07/13/18 16:09 RD [email or web address]) Co-Sign 07/13/18 15:36 RM Nutrition Notes Need for Assessment 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 Pt previously NPO. Regular diet ordered later today. Pt reports constant throwing up and does not want to eat because of it. Pt can tolerate liquids. Pt had a decreased appetite due to weakness. Pt reports no chewing or swallowing difficulty. Observed no temporal or orbital wasting. Pt reported usual body weight is 214 lbs for past 10 years. Percent of energy/protein needs met: 0%/0% Burn Absent Trauma Absent GI Symptoms Nausea,Vomiting #1 Nutrition Diagnosis Inadequate oral intake Etiology N/V As Evidenced by Signs and Symptoms Previous NPO status Is patient on ventilator? No Is Patient Ambulatory and/or Out of Bed Yes REE-([facility]-ambulatory/OOB) [ 2001.415 [id number]] Calculation Used for Recommendations [facility] Additional Notes Protein needs: (1-1.5 g/kg) 80 -120g/day Fluid needs: 1mL/kcal Nutrition Intervention Change Diet Order: Continue Regular Diet Add Supplement/Snack (indicate name/kcal Ensure Clear BID /protein ) Provides kCal: 480 Provides Protein (gm) 16 Goal #1 Meet at least 75% of nutrient needs via ONS and PO intake Anticipated Discharge Needs: Unable to determine at this time Follow-Up By: 07/17/18 Additional Comments f/u: intakes
[2018-07-15 08:43] LABS: Calcium 8.4 mg/dL (8.4-10.2)
[2018-07-15 09:43] LABS: Hematocrit 21.8 % (35.5-45.6); Hemoglobin 7.3 gm/dl (11.8-15.2); Mean Corpuscular HGB Conc 34 % (32-34); Mean Corpuscular Volume 95 fl (84-94); Mean Platelet Volume 9.4 fl (6-12); Platelet Count 33 K/mm3 (140-440); Red Blood Count 2.29 M/mm3 (3.65-5.03); Red Cell Distribution Width 19.8 % (13.2-15.2)
[2018-07-15 09:59] LABS: Monocytes % (Manual) 11.1 % (0.0-7.3); Total Cells Counted 18
[2018-07-15 10:00] LABS: Anisocytosis 1+; Basophils % (Manual) 0 % (0.0-1.8); Eosinophils % (Manual) 0 % (0.0-4.3); Hypochromasia Few; Ovalocytes Few; Platelet Estimate Consistent w Auto; Poikilocytosis Few
[2018-07-15] MEDS: VITAMIN C PO SCH (10:50)
[2018-07-15] MEDS: K-DUR PO SCH (10:50)
[2018-07-15] MEDS: CORDARONE PO SCH ×2 (10:50→21:59)
[2018-07-15] MEDS: MAG-OX PO SCH (10:51)
[2018-07-15] MEDS: LOPRESSOR PO SCH ×2 (10:51→22:00)
[2018-07-15] MEDS: SODIUM CHLORIDE FLUSH SYRINGE 10 ML IV SCH ×2 (10:52→22:01)
--- NOTE | 2018-07-15 11:08 | Hem/Onc Progress Note ---
Assessment and Plan 1. Anemia secondary to myelodysplastic syndrome. 2. Leukopenia. Dr. Rojas told me that his white cell count had been low most of the time. 3. Thrombocytopenia secondary to myelodysplastic syndrome. 4. For his myelodysplastic syndrome, the patient has received 2 cycles of Dacogen regimen. He was on Procrit before. He was due to third cycle, but did not go to the [facility] for same. 5. Renal impairment. Nephrology consultation. 6. History of hypertension. 7. History of coronary artery disease. 8. History of renal issues. I will follow the patient during inpatient stay and then in the clinic setting. We will look into Neupogen support for now. Nephrology consult GCSF PRBC as per his general manager - pt's counts have been low for some time 07/15 - hb better - post transfusion gcsf - wbc better - Patient Problems (1) Anemia Current Visit: Yes Status: Acute Qualifiers: Anemia type: unspecified type Qualified Code(s): D64.9 - Anemia, unspecifi ed Subjective Date of service: 07/15/18 Principal diagnosis: mds Interval history: s/p prbc Objective - Constitutional Vitals: Last Vital Signs Temp 98.3 F 07/15/18 08:13 Pulse 104 H 07/15/18 10:51 Resp 18 07/15/18 08:13 BP 107/63 07/15/18 10:51 Pulse Ox 97 07/15/18 08:13 Pain Intensity (0-10): denies any pain General appearance: no acute distress Performance status: 3-limited selfcare - EENT Eyes: EOM intact ENT: clear oral mucosa Lymph node exam: negative cervical - Neck Neck: normal ROM - Respiratory Respiratory effort: Positive: normal Respiratory: bilateral: CTA - Cardiovascular Heart Sounds: Present: S1 & S2 Extremities: No edema - Gastrointestinal General gastrointestinal: Present: soft, non-tender Rectal Exam: deferred - Genitourinary Male genitourinary: Present: deferred - Integumentary Integumentary: warm - Musculoskeletal Musculoskeletal: strength equal bilaterally - Neurologic Neurologic: moves all extremities - Labs Lab Results: Laboratory Results - last 24 hr 07/14/18 07/14/18 07/14/18 07:29 16:25 16:35 WBC RBC Hgb Hct MCV MCH MCHC RDW Plt Count Lymph % (Auto) Add Manual Diff Total Counted Seg Neutrophils % Seg Neuts % (Manual) Band Neutrophils % Lymphocytes % (Manual) Reactive Lymphs % (Man) Monocytes % (Manual) Eosinophils % (Manual) Basophils % (Manual) Metamyelocytes % Myelocytes % Promyelocytes % Blast Cells % Nucleated RBC % Seg Neutrophils # Man Band Neutrophils # Lymphocytes # (Manual) Abs React Lymphs (Man) Monocytes # (Manual) Eosinophils # (Manual) Basophils # (Manual) Metamyelocytes # Myelocytes # Promyelocytes # Blast Cells # WBC Morphology Hypersegmented Neuts Hyposegmented Neuts Hypogranular Neuts Smudge Cells Toxic Granulation Toxic Vacuolation Dohle Bodies Pelger-Huet Anomaly Andra Rods Platelet Estimate Clumped Platelets Plt Clumps, EDTA Large Platelets Giant Platelets Platelet Satelliting Plt Morphology Comment RBC Morphology Dimorphic RBCs Polychromasia Hypochromasia Poikilocytosis Anisocytosis Microcytosis Macrocytosis Spherocytes Pappenheimer Bodies Sickle Cells Target Cells Tear Drop Cells Ovalocytes Helmet Cells [place] Bodies [place] Rings [place] Cells Bite Cells Crenated Cell Elliptocytes Acanthocytes (Spur) Rouleaux Hemoglobin C Crystals Schistocytes Malaria parasites Donta Bodies Hem Pathologist Commnt Sodium Potassium Chloride Carbon Dioxide Anion Gap BUN Creatinine Estimated GFR BUN/Creatinine Ratio Glucose Calcium TSH 2.990 Free T4 0.64 L Thyroxine (T4) Blood Type A POSITIVE Antibody Screen Negative Crossmatch See Detail 07/15/18 07/15/18 07/15/18 07:50 07:50 07:50 WBC 0.5 L* RBC 2.29 L Hgb 7.3 L Hct 21.8 L MCV 95 H MCH 32 MCHC 34 RDW 19.8 H Plt Count 33 L Lymph % (Auto) Project/Production Manager Imaging Add Manual Diff Complete Total Counted 18 Seg Neutrophils % Project/Production Manager Imaging Seg Neuts % (Manual) 22.2 L Band Neutrophils % 0 Lymphocytes % (Manual) 66.7 H Reactive Lymphs % (Man) 0 Monocytes % (Manual) 11.1 H Eosinophils % (Manual) 0 Basophils % (Manual) 0 Metamyelocytes % 0 Myelocytes % 0 Promyelocytes % 0 Blast Cells % 0 Nucleated RBC % Not Reportable Seg Neutrophils # Man 0.1 L Band Neutrophils # 0.0 Lymphocytes # (Manual) 0.3 L Abs React Lymphs (Man) 0.0 Monocytes # (Manual) 0.1 Eosinophils # (Manual) 0.0 Basophils # (Manual) 0.0 Metamyelocytes # 0.0 Myelocytes # 0.0 Promyelocytes # 0.0 Blast Cells # 0.0 WBC Morphology Not Reportable Hypersegmented Neuts Not Reportable Hyposegmented Neuts Not Reportable Hypogranular Neuts Not Reportable Smudge Cells Not Reportable Toxic Granulation Not Reportable Toxic Vacuolation Not Reportable Dohle Bodies Not Reportable Pelger-Huet Anomaly Not Reportable Andra Rods Not Reportable Platelet Estimate Consistent w auto Clumped Platelets Not Reportable Plt Clumps, EDTA Not Reportable Large Platelets Not Reportable Giant Platelets Not Reportable Platelet Satelliting Not Reportable Plt Morphology Comment Not Reportable RBC Morphology Not Reportable Dimorphic RBCs Not Reportable Polychromasia Not Reportable Hypochromasia Few Poikilocytosis Few Anisocytosis 1+ Microcytosis Not Reportable Macrocytosis Not Reportable Spherocytes Not Reportable Pappenheimer Bodies Not Reportable Sickle Cells Not Reportable Target Cells Not Reportable Tear Drop Cells Not Reportable Ovalocytes Few Helmet Cells Not Reportable Joseph-[place] Bodies Not Reportable [place] Rings Not Reportable [place] Cells Not Reportable Bite Cells Not Reportable Crenated Cell Not Reportable Elliptocytes Not Reportable Acanthocytes (Spur) Not Reportable Rouleaux Not Reportable Hemoglobin C Crystals Not Reportable Schistocytes Not Reportable Malaria parasites Not Reportable Donta Bodies Not Reportable Hem Pathologist Commnt No Sodium 138 Potassium 3.7 Chloride 105.4 Carbon Dioxide 20 L Anion Gap 16 BUN 64 H Creatinine 1.4 Estimated GFR 49 BUN/Creatinine Ratio 46 Glucose 124 H Calcium 8.4 TSH Free T4 Thyroxine (T4) 3.4 L Blood Type Antibody Screen Crossmatch Medications & Allergies - Medications Allergies/Adverse Reactions: Allergies tetanus and diphtheria toxoids [tetanus & diphtheria toxoids] Allergy (Verified 07/12/18 13:31) Anaphylaxis Home Medications: Home Medications Medication Instructions Recorded Confirmed Last Taken Type Potassium Chloride 20 meq PO QDAY #10 packet 06/03/18 07/12/18 Unknown Rx Ascorbic Acid [Vitamin C] 500 mg PO DAILY 07/12/18 07/12/18 Unknown History Magnesium Oxide 400 mg PO DAILY 07/12/18 07/12/18 Unknown History Active Medications: Generic Name Dose Route Start Last Admin Trade Name Freq PRN Reason Stop Dose Admin Acetaminophen 650 mg 07/12/18 17:08 07/12/18 22:44 Tylenol PO 650 mg Q4H PRN Administration Pain MILD(1-3)/Fever >100.5/LLANES Albuterol 2.5 mg 07/12/18 17:08 Proventil IH Q4HRT PRN Shortness Of Breath Amiodarone HCl 200 mg 07/14/18 15:00 07/15/18 10:50 Cordarone PO 200 mg BID NANETTE Administration Ascorbic Acid 500 mg 07/13/18 10:00 07/15/18 10:50 Vitamin C PO 500 mg QDAY NANETTE Administration Sodium Chloride 1,000 mls @ 125 mls/hr 07/12/18 18:00 07/13/18 02:57 Nacl 0.45% 1000 Ml IV 42 mls/hr DIRECT NANETTE Administration Cefepime HCl 1 gm in 100 mls @ 200 mls/hr 07/13/18 16:00 07/14/18 23:25 Maxipime/Ns 1 Gm/100 Ml IV 200 mls/hr Q8HR NANETTE Administration Protocol Magnesium Oxide 400 mg 07/13/18 10:00 07/15/18 10:51 Mag-Ox PO 400 mg QDAY NANETTE Administration Metoprolol Tartrate 5 mg 07/14/18 11:43 Lopressor IV Q4H PRN sustained HR >130 Metoprolol Tartrate 12.5 mg 07/14/18 12:00 07/15/18 10:51 Lopressor PO Not Given BID NANETTE Ondansetron HCl 4 mg 07/12/18 17:08 Zofran IV Q8H PRN Nausea And Vomiting Oxycodone/Acetaminophen 1 tab 07/12/18 17:08 Percocet 5/325 PO Q6H PRN Pain, Moderate (4-6) Potassium Chloride 20 meq 07/13/18 10:00 07/15/18 10:50 K-Dur PO 20 meq QDAY NANETTE Administration Sodium Chloride 10 ml 07/12/18 22:00 07/15/18 10:52 Sodium Chloride Flush Syringe 10 Ml IV 10 ml BID NANETTE Administration Sodium Chloride 10 ml 07/12/18 17:08 Sodium Chloride Flush Syringe 10 Ml IV PRN PRN LINE FLUSH Tbo-Filgrastim 480 mcg 07/13/18 14:00 07/14/18 12:23 Granix SUB-Q 07/17/18 13:59 480 mcg DAILY NANETTE Administration
[2018-07-15] MEDS: GRANIX SUB-Q SCH (12:35)
--- NOTE | 2018-07-15 12:57 | Progress Note ---
Assessment and Plan 1. Acute kidney injury: Vasomotor / hemodynamic FAWAD in the setting of volume depletion and hypotension. CT negative for hydronephrosis. Renal function is improving. Continue IV fluids. Monitor renal function. Avoid nephrotoxic agents. Meds dosage based on GFR. 2. FEN: Hypokalemia, replete K. Metabolic acidosis, monitor. 3. Pancytopenia: PRBC and Platelet transfusion. 4. Febrile neutropenia. 5. A.fib. Subjective Date of service: 07/15/18 Principal diagnosis: MDS Interval history: Patient was seen and examined at the bedside. Objective - Vital Signs Vital signs: Vital Signs - 12hr 07/15/18 07/15/18 07/15/18 02:07 04:30 04:45 Temperature 98.0 F 98.3 F 98.3 F Pulse Rate 118 H 93 H 114 H Pulse Rate [ From Monitor] Respiratory 18 20 20 Rate Blood Pressure 96/55 98/60 98/65 O2 Sat by Pulse 96 Oximetry 07/15/18 07/15/18 07/15/18 04:55 08:13 09:03 Temperature 98.3 F 98.3 F Pulse Rate 125 H 104 H Pulse Rate [ 104 H From Monitor] Respiratory 20 18 Rate Blood Pressure 98/66 107/63 O2 Sat by Pulse 97 Oximetry 07/15/18 10:51 Temperature Pulse Rate 104 H Pulse Rate [ From Monitor] Respiratory Rate Blood Pressure 107/63 O2 Sat by Pulse Oximetry - General Appearance General appearance: well-developed, appears stated age, other (not in distress) EENT: ATNC, PERRL, hearing intact, vision intact Neck: supple Respiratory: Present: Clear to Ascultation Cardiology: irregularly irregular, S1S2, no murmurs Gastrointestinal: normoactive bowel sounds, no tenderness, no distended Integumentary: no rash Neurologic: no focal deficit, no asterixis Musculoskeletal: other (no edema) Psychiatric: cooperative - Lab 07/15/18 07:50 07/15/18 07:50 Most recent lab results Calcium 8.4 mg/dL (8.4-10.2) 07/15/18 07:50 Phosphorus 3.70 mg/dL (2.5-4.5) 07/14/18 05:19 Magnesium 1.70 mg/dL (1.7-2.3) 07/14/18 05:19 Urine Creatinine 87.6 mg/dL (0.1-20.0) H 07/14/18 06:06 Urine Sodium 10 mmol/L 07/14/18 06:06 Medications & Allergies - Medications Allergies/Adverse Reactions: Allergies tetanus and diphtheria toxoids [tetanus & diphtheria toxoids] Allergy (Verified 07/12/18 13:31) Anaphylaxis Home Medications: Home Medications Medication Instructions Recorded Confirmed Last Taken Type Potassium Chloride 20 meq PO QDAY #10 packet 06/03/18 07/12/18 Unknown Rx Ascorbic Acid [Vitamin C] 500 mg PO DAILY 07/12/18 07/12/18 Unknown History Magnesium Oxide 400 mg PO DAILY 07/12/18 07/12/18 Unknown History Active Medications: Generic Name Dose Route Start Last Admin Trade Name Freq PRN Reason Stop Dose Admin Acetaminophen 650 mg 07/12/18 17:08 07/12/18 22:44 Tylenol PO 650 mg Q4H PRN Administration Pain MILD(1-3)/Fever >100.5/LLANES Albuterol 2.5 mg 07/12/18 17:08 Proventil IH Q4HRT PRN Shortness Of Breath Amiodarone HCl 200 mg 07/14/18 15:00 07/15/18 10:50 Cordarone PO 200 mg BID NANETTE Administration Ascorbic Acid 500 mg 07/13/18 10:00 07/15/18 10:50 Vitamin C PO 500 mg QDAY NANETTE Administration Sodium Chloride 1,000 mls @ 125 mls/hr 07/12/18 18:00 07/13/18 02:57 Nacl 0.45% 1000 Ml IV 42 mls/hr DIRECT NANETTE Administration Cefepime HCl 1 gm in 100 mls @ 200 mls/hr 07/13/18 16:00 07/14/18 23:25 Maxipime/Ns 1 Gm/100 Ml IV 200 mls/hr Q8HR NANETTE Administration Protocol Magnesium Oxide 400 mg 07/13/18 10:00 07/15/18 10:51 Mag-Ox PO 400 mg QDAY NANETTE Administration Metoprolol Tartrate 5 mg 07/14/18 11:43 Lopressor IV Q4H PRN sustained HR >130 Metoprolol Tartrate 12.5 mg 07/14/18 12:00 07/15/18 10:51 Lopressor PO Not Given BID NANETTE Ondansetron HCl 4 mg 07/12/18 17:08 Zofran IV Q8H PRN Nausea And Vomiting Oxycodone/Acetaminophen 1 tab 07/12/18 17:08 Percocet 5/325 PO Q6H PRN Pain, Moderate (4-6) Potassium Chloride 20 meq 07/13/18 10:00 07/15/18 10:50 K-Dur PO 20 meq QDAY NANETTE Administration Sodium Chloride 10 ml 07/12/18 22:00 07/15/18 10:52 Sodium Chloride Flush Syringe 10 Ml IV 10 ml BID NANETTE Administration Sodium Chloride 10 ml 07/12/18 17:08 Sodium Chloride Flush Syringe 10 Ml IV PRN PRN LINE FLUSH Tbo-Filgrastim 480 mcg 07/13/18 14:00 07/14/18 12:23 Granix SUB-Q 07/17/18 13:59 480 mcg DAILY NANETTE Administration
[2018-07-15] MEDS: MAXIPIME/NS 1 GM/100 ML 1 GM/100 ML BAG IV SCH ×3 (13:02→21:59)
--- NOTE | 2018-07-15 13:39 | Progress Note ---
Assessment and Plan Patient lying in bed in no palpitations patient's A. fib being controlled with amiodarone and low-dose beta ronni candidate for oral coagulation secondary to anemia echo is pending - Patient Problems (1) Atrial fibrillation Current Visit: Yes Status: Acute Qualifiers: Atrial fibrillation type: persistent Qualified Code(s): I48.1 - Persistent atrial fibrillation (2) FAWAD (acute kidney injury) Current Visit: Yes Status: Acute (3) Anemia Current Visit: Yes Status: Acute Qualifiers: Anemia type: unspecified type Qualified Code(s): D64.9 - Anemia, unspecified (4) Myelodysplasia (myelodysplastic syndrome) Current Visit: Yes Status: Chronic (5) CAD (coronary artery disease) Current Visit: No Status: Acute Qualifiers: Associated angina: without angina (6) Severe anemia Current Visit: No Status: Chronic Subjective Date of service: 07/15/18 Principal diagnosis: MDS Interval history: lying in bed Objective Vital Signs Temp Pulse Pulse Resp BP Pulse Ox 07/15/18 10:51 104 H 107/63 07/15/18 09:03 104 H 07/15/18 08:13 98.3 F 104 H 18 107/63 97 07/15/18 04:55 98.3 F 125 H 20 98/66 07/15/18 04:45 98.3 F 114 H 20 98/65 07/15/18 04:30 98.3 F 93 H 20 98/60 07/15/18 02:07 98.0 F 118 H 18 96/55 96 07/14/18 19:46 97.5 F L 118 H 20 104/53 92 07/14/18 14:26 97.4 F L 113 H 20 93/59 98 07/14/18 14:00 97.3 F L 133 H 18 94/55 97 - Physical Examination General: No Apparent Distress HEENT: Positive: PERRL, Normocephaly, Mucus Membranes Moist Neck: Positive: neck supple, trachea midline Cardiac: Positive: Irregularly Regular Lungs: Positive: clear to auscultation Neuro: Positive: Grossly Intact Abdomen: Negative: Tender Skin: Negative: Wound Musculoskeletal: No Pain Extremities: Absent: edema - Labs and Meds CBC 07/15/18 Range/Units 07:50 WBC 0.5 L* (4.5-11.0) K/mm3 RBC 2.29 L (3.65-5.03) M/mm3 Hgb 7.3 L (11.8-15.2) gm/dl Hct 21.8 L (35.5-45.6) % Plt Count 33 L (140-440) K/mm3 Comprehensive Metabolic Panel 07/15/18 Range/Units 07:50 Sodium 138 (137-145) mmol/L Potassium 3.7 (3.6-5.0) mmol/L Chloride 105.4 (98-107) mmol/L Carbon Dioxide 20 L (22-30) mmol/L BUN 64 H (9-20) mg/dL Creatinine 1.4 (0.8-1.5) mg/dL Glucose 124 H (75-100) mg/dL Calcium 8.4 (8.4-10.2) mg/dL - Imaging and Cardiology EKG: report reviewed, image reviewed Echo: pending - Telemetry EKG Rhythm: Atrial Fibrillation (in 100's)
--- NOTE | 2018-07-15 16:49 | Progress Note ---
Assessment and Plan Cultures: 07/12/2018 blood culture: No growth A/P: 73/M with MDS, admitted with: 1) Febrile neutropenia: Remains afebrile inpatient. Apparently was febrile at home. He has chronic neutropenia that is unchanged. ANC here is low but slowly improving. Etiology likely R sided pneumonia. Abdominal imaging thus far has been unremarkable. Follow-up HIDA scan. For now, treat with empiric IV cefepime. Has indwelling PORT, follow up blood cultures. 2) Right sided pneumonia: f/u sputum culture. Also check Aspergillus galactomannan and 1,3 [id number] due to profound neutropenia. He is at risk for invasive mold disease, hence needs CT chest 3) Acute diarrhea: Improved. Multiple recent hospitalizations. Abdomen is non tender on exam, low suspicion for typhlitis. No stool sample sent. 4) Pancytopenia: from MDS, on Dacogen cycles per Oncology. Dr. Quiroga following. 5) FAWAD: Nephrology consulted. Renally dose antibiotics. Recs: Continue IV cefepime, increase dose to 1 g every 8H, D3 CT chest ordered without contrast Follow-up HIDA scan f/u Aspergillus galactomannan and 1,3 [id number] ordered F/U blood cultures and fever curve obtain sputum culture f/u MRSA PCR No Flores MD [facility] C: [phone] O: [phone] F: [phone] Subjective Date of service: 07/15/18 Principal diagnosis: MDS Interval history: No fever. States he feels well. No diarrhea, no abdominal pain. Objective - Exam Narrative Exam: Physical Exam: Constitutional: Alert, cooperative. No acute distress Head, Ears, Nose: Normocephalic, atraumatic. External ears, nose normal Eyes: Conjunctivae/corneas clear. No icterus. No ptosis. Neck: Supple, no meningeal signs Oral: dentition poor, no thrush Cardiovascular: S1, S2 normal. Respiratory: bilateral basal crackles GI: Soft, non-tender; bowel sounds normal. No peritoneal signs Musculoskeletal: No pedal edema, no cyanosis. Right upper chest PORT + site non tender Skin: No rash or abscess Hem/Lymphatic: No palpable cervical or supraclavicular nodes. No lymphangitis Psych: Mood ok. Affect normal Neurological: Awake, alert, oriented. No gross abnormality - Constitutional Vitals: Vital Signs Temp Pulse Resp BP Pulse Ox 97.3 F L 90 18 116/71 96 07/15/18 13:11 07/15/18 13:13 07/15/18 13:11 07/15/18 13:11 07/15/18 13:13 Temperature -Last 24 Hours Temperature 97.3 F Temperature 98.3 F Temperature 98.3 F Temperature 98.3 F Temperature 98.3 F Temperature 98.0 F Temperature 97.5 F - Labs CBC & Chem 7: 07/15/18 07:50 07/15/18 07:50 Labs: Abnormal lab results 07/14/18 07/14/18 07/15/18 Range/Units 07:29 16:25 07:50 WBC 0.5 L* (4.5-11.0) K/mm3 RBC 2.29 L (3.65-5.03) M/mm3 Hgb 7.3 L (11.8-15.2) gm/dl Hct 21.8 L (35.5-45.6) % MCV 95 H (84-94) fl RDW 19.8 H (13.2-15.2) % Plt Count 33 L (140-440) K/mm3 Seg Neuts % (Manual) 22.2 L (40.0-70.0) % Lymphocytes % (Manual) 66.7 H (13.4-35.0) % Monocytes % (Manual) 11.1 H (0.0-7.3) % Seg Neutrophils # Man 0.1 L (1.8-7.7) K/mm3 Lymphocytes # (Manual) 0.3 L (1.2-5.4) K/mm3 Carbon Dioxide (22-30) mmol/L BUN (9-20) mg/dL Glucose (75-100) mg/dL Free T4 0.64 L (0.76-1.46) ng/dL Thyroxine (T4) (4.0-12.0) ug/dL Crossmatch See Detail 07/15/18 07/15/18 Range/Units 07:50 07:50 WBC (4.5-11.0) K/mm3 RBC (3.65-5.03) M/mm3 Hgb (11.8-15.2) gm/dl Hct (35.5-45.6) % MCV (84-94) fl RDW (13.2-15.2) % Plt Count (140-440) K/mm3 Seg Neuts % (Manual) (40.0-70.0) % Lymphocytes % (Manual) (13.4-35.0) % Monocytes % (Manual) (0.0-7.3) % Seg Neutrophils # Man (1.8-7.7) K/mm3 Lymphocytes # (Manual) (1.2-5.4) K/mm3 Carbon Dioxide 20 L (22-30) mmol/L BUN 64 H (9-20) mg/dL Glucose 124 H (75-100) mg/dL Free T4 (0.76-1.46) ng/dL Thyroxine (T4) 3.4 L (4.0-12.0) ug/dL Crossmatch - Imaging and cardiology Chest x-ray: report reviewed, image reviewed (R sided pneumonia)
[2018-07-16] MEDS: MAXIPIME/NS 1 GM/100 ML 1 GM/100 ML BAG IV SCH ×3 (05:14→22:59)
--- NOTE | 2018-07-16 07:59 | Hem/Onc Progress Note ---
Assessment and Plan 1. Anemia secondary to myelodysplastic syndrome. 2. Leukopenia. Dr. Rojas told me that his white cell count had been low most of the time. 3. Thrombocytopenia secondary to myelodysplastic syndrome. 4. For his myelodysplastic syndrome, the patient has received 2 cycles of Dacogen regimen. He was on Procrit before. He was due to third cycle, but did not go to the [facility] for same. 5. Renal impairment. Nephrology consultation. 6. History of hypertension. 7. History of coronary artery disease. 8. History of renal issues. I will follow the patient during inpatient stay and then in the clinic setting. We will look into Neupogen support for now. Nephrology consult GCSF PRBC as per his formula technician - pt's counts have been low for some time 07/15 - hb better - post transfusion gcsf - wbc better 07/16 - plt 13 - plan for transfusion support as per RN OP follow up with pts oncologist at [facility] - as per the pt's onc - pt's count have been low most of the time - Patient Problems (1) Anemia Current Visit: Yes Status: Acute Qualifiers: Anemia type: unspecified type Qualified Code(s): D64.9 - Anemia, unspecified Subjective Date of service: 07/16/18 Principal diagnosis: MDS Objective - Constitutional Vitals: Last Vital Signs Temp 98.6 F 07/16/18 01:49 Pulse 106 H 07/16/18 02:09 Resp 20 07/16/18 01:49 BP 108/54 07/16/18 01:49 Pulse Ox 98 07/16/18 02:09 Pain Intensity (0-10): denies any pain General appearance: no acute distress Performance status: 3-limited selfcare - EENT Eyes: EOM intact ENT: clear oral mucosa Lymph node exam: negative cervical - Neck Neck: normal ROM - Respiratory Respiratory effort: Positive: normal Respiratory: bilateral: CTA - Cardiovascular Heart Sounds: Present: S1 & S2 Extremities: No edema - Gastrointestinal General gastrointestinal: Present: soft, non-tender Rectal Exam: deferred - Integumentary Integumentary: warm - Musculoskeletal Musculoskeletal: strength equal bilaterally - Neurologic Neurologic: moves all extremities - Psychiatric Psychiatric: appropriate mood/affect - Labs Lab Results: Laboratory Results - last 24 hr 07/15/18 07/15/18 07/15/18 07:50 07:50 07:50 WBC 0.5 L* RBC 2.29 L Hgb 7.3 L Hct 21.8 L MCV 95 H MCH 32 MCHC 34 RDW 19.8 H Plt Count 33 L Lymph % (Auto) Marine Operations Coordinator Add Manual Diff Complete Total Counted 18 Seg Neutrophils % Marine Operations Coordinator Seg Neuts % (Manual) 22.2 L Band Neutrophils % 0 Lymphocytes % (Manual) 66.7 H Reactive Lymphs % (Man) 0 Monocytes % (Manual) 11.1 H Eosinophils % (Manual) 0 Basophils % (Manual) 0 Metamyelocytes % 0 Myelocytes % 0 Promyelocytes % 0 Blast Cells % 0 Nucleated RBC % Not Reportable Seg Neutrophils # Man 0.1 L Band Neutrophils # 0.0 Lymphocytes # (Manual) 0.3 L Abs React Lymphs (Man) 0.0 Monocytes # (Manual) 0.1 Eosinophils # (Manual) 0.0 Basophils # (Manual) 0.0 Metamyelocytes # 0.0 Myelocytes # 0.0 Promyelocytes # 0.0 Blast Cells # 0.0 WBC Morphology Not Reportable Hypersegmented Neuts Not Reportable Hyposegmented Neuts Not Reportable Hypogranular Neuts Not Reportable Smudge Cells Not Reportable Toxic Granulation Not Reportable Toxic Vacuolation Not Reportable Dohle Bodies Not Reportable Pelger-Huet Anomaly Not Reportable Andra Rods Not Reportable Platelet Estimate Consistent w auto Clumped Platelets Not Reportable Plt Clumps, EDTA Not Reportable Large Platelets Not Reportable Giant Platelets Not Reportable Platelet Satelliting Not Reportable Plt Morphology Comment Not Reportable RBC Morphology Not Reportable Dimorphic RBCs Not Reportable Polychromasia Not Reportable Hypochromasia Few Poikilocytosis Few Anisocytosis 1+ Microcytosis Not Reportable Macrocytosis Not Reportable Spherocytes Not Reportable Pappenheimer Bodies Not Reportable Sickle Cells Not Reportable Target Cells Not Reportable Tear Drop Cells Not Reportable Ovalocytes Few Helmet Cells Not Reportable [place] Bodies Not Reportable Belcher Rings Not Reportable Butler Cells Not Reportable Bite Cells Not Reportable Crenated Cell Not Reportable Elliptocytes Not Reportable Acanthocytes (Spur) Not Reportable Rouleaux Not Reportable Hemoglobin C Crystals Not Reportable Schistocytes Not Reportable Malaria parasites Not Reportable Donta Bodies Not Reportable Hem Pathologist Commnt No Sodium 138 Potassium 3.7 Chloride 105.4 Carbon Dioxide 20 L Anion Gap 16 BUN 64 H Creatinine 1.4 Estimated GFR 49 BUN/Creatinine Ratio 46 Glucose 124 H Calcium 8.4 Thyroxine (T4) 3.4 L Medications & Allergies - Medications Allergies/Adverse Reactions: Allergies tetanus and diphtheria toxoids [tetanus & diphtheria toxoids] Allergy (Verified 07/12/18 13:31) Anaphylaxis Home Medications: Home Medications Medication Instructions Recorded Confirmed Last Taken Type Potassium Chloride 20 meq PO QDAY #10 packet 06/03/18 07/12/18 Unknown Rx Ascorbic Acid [Vitamin C] 500 mg PO DAILY 07/12/18 07/12/18 Unknown History Magnesium Oxide 400 mg PO DAILY 07/12/18 07/12/18 Unknown History Active Medications: Generic Name Dose Route Start Last Admin Trade Name Freq PRN Reason Stop Dose Admin Acetaminophen 650 mg 07/12/18 17:08 07/12/18 22:44 Tylenol PO 650 mg Q4H PRN Administration Pain MILD(1-3)/Fever >100.5/LLANES Albuterol 2.5 mg 07/12/18 17:08 Proventil IH Q4HRT PRN Shortness Of Breath Amiodarone HCl 200 mg 07/14/18 15:00 07/15/18 21:59 Cordarone PO 200 mg BID NANETTE Administration Ascorbic Acid 500 mg 07/13/18 10:00 07/15/18 10:50 Vitamin C PO 500 mg QDAY NANETTE Administration Sodium Chloride 1,000 mls @ 125 mls/hr 07/12/18 18:00 07/13/18 02:57 Nacl 0.45% 1000 Ml IV 42 mls/hr DIRECT NANETTE Administration Cefepime HCl 1 gm in 100 mls @ 200 mls/hr 07/13/18 16:00 07/16/18 05:14 Maxipime/Ns 1 Gm/100 Ml IV 200 mls/hr Q8HR NANETTE Administration Protocol Magnesium Oxide 400 mg 07/13/18 10:00 07/15/18 10:51 Mag-Ox PO 400 mg QDAY NANETTE Administration Metoprolol Tartrate 5 mg 07/14/18 11:43 Lopressor IV Q4H PRN sustained HR >130 Metoprolol Tartrate 12.5 mg 07/14/18 12:00 07/15/18 22:00 Lopressor PO 12.5 mg BID NANETTE Administration Ondansetron HCl 4 mg 07/12/18 17:08 Zofran IV Q8H PRN Nausea And Vomiting Oxycodone/Acetaminophen 1 tab 07/12/18 17:08 Percocet 5/325 PO Q6H PRN Pain, Moderate (4-6) Potassium Chloride 20 meq 07/13/18 10:00 07/15/18 10:50 K-Dur PO 20 meq QDAY NANETTE Administration Sodium Chloride 10 ml 07/12/18 22:00 07/15/18 22:01 Sodium Chloride Flush Syringe 10 Ml IV 10 ml BID NANETTE Administration Sodium Chloride 10 ml 07/12/18 17:08 Sodium Chloride Flush Syringe 10 Ml IV PRN PRN LINE FLUSH Tbo-Filgrastim 480 mcg 07/13/18 14:00 07/15/18 12:35 Granix SUB-Q 07/17/18 13:59 480 mcg DAILY NANETTE Administration
--- NOTE | 2018-07-16 09:33 | Progress Note ---
Assessment and Plan Assessment and plan: 73-year-old woman who presented to the hospital with fever and weakness plus abdominal pain 4 days. She also complained of diarrhea, Previously been in hospital for platelet and PRBC infusion. Past medical history chronic GI bleed, chronic anemia, transfusion dependence, CAD, myelodysplastic syndrome Ultrasound abdomen and pelvis shows moderate sludge in the gallbladder, medical renal disease and simple left renal cyst. There is also a small right pleural effusion. CT abdomen and pelvis shows small to moderate size right pleural effusion, increased density in the lung bases suggestive of atelectasis. Cholelithiasis, but no obvious cholecystitis. Chest x-ray positive for right upper lobe pneumonia Diagnoses Neutropenic fever Acute bacterial pneumonia last sepsis Anemia of chronic disease due to mild dysplastic syndrome, Thrombocytopenia Acute kidney injury likely due to vasomotor nephropathy Hypokalemia Abdominal pain Transaminitis Diarrhea Aflutter ER course The family requested to be transferred to [facility] in the ER, ER physician called. He spoke to the hospitalist, and the patient was not accepted there. Therefore the patient was admitted to our hospital. The patient received IV antibiotics, IV fluids, and hospitalist was called for admission Plan cont neupogen Continue potassium supplements continue to tranfuse rbc and plts Continue antibiotics GI consult appreciated, no further workup is needed. "etiology-likely 2/2 cholestasis due to ineffective hemopoiesis from MDS " Patient has been seen by hematology/oncology and nephrology ID input appreciated, continue empiric antibiotics for pneumonia, follow-up stool C. difficile, f/u Aspergillus galactomannan and 1,3 [id number] ordered DVT prophylaxis will be mechanical given thrombocytopenia Aflutter; Metoprol ordered, echo shows preserved EF, cardiology input appreciated History Interval history: Review of systems Constitutional: No fevers, no malaise, no joint pains CVS: No chest pain, no orthopnea, no dyspnea on exertion, no pedal edema GI: Abdominal pain has now resolved, no diarrhea, no vomiting, no constipation Respiratory:c/o sob, no wheezing, having dry cough Hospitalist Physical - Physical exam Narrative exam: General.: Appears chronically ill, multiple cystic lesions on his skin HEENT: Moist mucous membranes, extraocular muscles intact, no lymphadenopathy Neck: supple Cardiac: S1-S2 heard Lungs: crackles on R lung, decreased air entry Abdomen: soft , nontender, nondistended, bowel sounds positive Extremities: no edema clubbing or cyanosis Skin: no rash Neurologic: no gross focal deficits Psych: calm, and cooperative - Constitutional Vitals: Temp Pulse Resp BP Pulse Ox 97.7 F 84 20 112/63 96 07/16/18 08:04 07/16/18 08:04 07/16/18 08:47 07/16/18 08:04 07/16/18 08:04 General appearance: Present: mild distress, cachectic Results - Labs CBC & Chem 7: 07/17/18 07:34 07/17/18 07:33 Labs: Laboratory Last Values WBC 0.5 K/mm3 (4.5-11.0) L* 07/15/18 07:50 RBC 2.29 M/mm3 (3.65-5.03) L 07/15/18 07:50 Hgb 7.3 gm/dl (11.8-15.2) L 07/15/18 07:50 Hct 21.8 % (35.5-45.6) L 07/15/18 07:50 MCV 95 fl (84-94) H 07/15/18 07:50 MCH 32 pg (28-32) 07/15/18 07:50 MCHC 34 % (32-34) 07/15/18 07:50 RDW 19.8 % (13.2-15.2) H 07/15/18 07:50 Plt Count 33 K/mm3 (140-440) L 07/15/18 07:50 Lymph % (Auto) Business Account Specialist 07/15/18 07:50 Add Manual Diff Complete 07/15/18 07:50 Total Counted 18 07/15/18 07:50 Seg Neutrophils % Business Account Specialist 07/15/18 07:50 Seg Neuts % (Manual) 22.2 % (40.0-70.0) L 07/15/18 07:50 Band Neutrophils % 0 % 07/15/18 07:50 Lymphocytes % (Manual) 66.7 % (13.4-35.0) H 07/15/18 07:50 Reactive Lymphs % (Man) 0 % 07/15/18 07:50 Monocytes % (Manual) 11.1 % (0.0-7.3) H 07/15/18 07:50 Eosinophils % (Manual) 0 % (0.0-4.3) 07/15/18 07:50 Basophils % (Manual) 0 % (0.0-1.8) 07/15/18 07:50 Metamyelocytes % 0 % 07/15/18 07:50 Myelocytes % 0 % 07/15/18 07:50 Promyelocytes % 0 % 07/15/18 07:50 Blast Cells % 0 % 07/15/18 07:50 Nucleated RBC % Not Reportable 07/15/18 07:50 Seg Neutrophils # Man 0.1 K/mm3 (1.8-7.7) L 07/15/18 07:50 Band Neutrophils # 0.0 K/mm3 07/15/18 07:50 Lymphocytes # (Manual) 0.3 K/mm3 (1.2-5.4) L 07/15/18 07:50 Abs React Lymphs (Man) 0.0 K/mm3 07/15/18 07:50 Monocytes # (Manual) 0.1 K/mm3 (0.0-0.8) 07/15/18 07:50 Eosinophils # (Manual) 0.0 K/mm3 (0.0-0.4) 07/15/18 07:50 Basophils # (Manual) 0.0 K/mm3 (0.0-0.1) 07/15/18 07:50 Metamyelocytes # 0.0 K/mm3 07/15/18 07:50 Myelocytes # 0.0 K/mm3 07/15/18 07:50 Promyelocytes # 0.0 K/mm3 07/15/18 07:50 Blast Cells # 0.0 K/mm3 07/15/18 07:50 WBC Morphology Not Reportable 07/15/18 07:50 Hypersegmented Neuts Not Reportable 07/15/18 07:50 Hyposegmented Neuts Not Reportable 07/15/18 07:50 Hypogranular Neuts Not Reportable 07/15/18 07:50 Smudge Cells Not Reportable 07/15/18 07:50 Toxic Granulation Not Reportable 07/15/18 07:50 Toxic Vacuolation Not Reportable 07/15/18 07:50 Dohle Bodies Not Reportable 07/15/18 07:50 Pelger-Huet Anomaly Not Reportable 07/15/18 07:50 Andra Rods Not Reportable 07/15/18 07:50 Platelet Estimate Consistent w auto 07/15/18 07:50 Clumped Platelets Not Reportable 07/15/18 07:50 Plt Clumps, EDTA Not Reportable 07/15/18 07:50 Large Platelets Not Reportable 07/15/18 07:50 Giant Platelets Not Reportable 07/15/18 07:50 Platelet Satelliting Not Reportable 07/15/18 07:50 Plt Morphology Comment Not Reportable 07/15/18 07:50 RBC Morphology Not Reportable 07/15/18 07:50 Dimorphic RBCs Not Reportable 07/15/18 07:50 Polychromasia Not Reportable 07/15/18 07:50 Hypochromasia Few 07/15/18 07:50 Poikilocytosis Few 07/15/18 07:50 Anisocytosis 1+ 07/15/18 07:50 Microcytosis Not Reportable 07/15/18 07:50 Macrocytosis Not Reportable 07/15/18 07:50 Spherocytes Not Reportable 07/15/18 07:50 Pappenheimer Bodies Not Reportable 07/15/18 07:50 Sickle Cells Not Reportable 07/15/18 07:50 Target Cells Not Reportable 07/15/18 07:50 Tear Drop Cells Not Reportable 07/15/18 07:50 Ovalocytes Few 07/15/18 07:50 Helmet Cells Not Reportable 07/15/18 07:50 Joseph-Grotto[place] Bodies Not Reportable 07/15/18 07:50 Buchanan Rings Not Reportable 07/15/18 07:50 [place]a Cells Not Reportable 07/15/18 07:50 Bite Cells Not Reportable 07/15/18 07:50 Crenated Cell Not Reportable 07/15/18 07:50 Elliptocytes Not Reportable 07/15/18 07:50 Acanthocytes (Spur) Not Reportable 07/15/18 07:50 Rouleaux Not Reportable 07/15/18 07:50 Hemoglobin C Crystals Not Reportable 07/15/18 07:50 Schistocytes Not Reportable 07/15/18 07:50 Malaria parasites Not Reportable 07/15/18 07:50 Donta Bodies Not Reportable 07/15/18 07:50 Hem Pathologist Commnt No 07/15/18 07:50 Sodium 138 mmol/L (137-145) 07/15/18 07:50 Potassium 3.7 mmol/L (3.6-5.0) 07/15/18 07:50 Chloride 105.4 mmol/L (98-107) 07/15/18 07:50 Carbon Dioxide 20 mmol/L (22-30) L 07/15/18 07:50 Anion Gap 16 mmol/L 07/15/18 07:50 BUN 64 mg/dL (9-20) H 07/15/18 07:50 Creatinine 1.4 mg/dL (0.8-1.5) 07/15/18 07:50 Estimated GFR 49 ml/min 07/15/18 07:50 BUN/Creatinine Ratio 46 % 07/15/18 07:50 Glucose 124 mg/dL (75-100) H 07/15/18 07:50 Calcium 8.4 mg/dL (8.4-10.2) 07/15/18 07:50 Phosphorus 3.70 mg/dL (2.5-4.5) 07/14/18 05:19 Magnesium 1.70 mg/dL (1.7-2.3) 07/14/18 05:19 Total Bilirubin 2.00 mg/dL (0.1-1.2) H 07/12/18 14:02 AST 26 units/L (5-40) 07/12/18 14:02 ALT 24 units/L (7-56) 07/12/18 14:02 Alkaline Phosphatase 33 units/L (35-129) L 07/12/18 14:02 Troponin T < 0.010 ng/mL (0.00-0.029) 07/12/18 14:02 Total Protein 6.9 g/dL (6.3-8.2) 07/12/18 14:02 Albumin 3.3 g/dL (3.9-5) L 07/12/18 14:02 Albumin/Globulin Ratio 0.9 % 07/12/18 14:02 TSH 2.990 mlU/mL (0.270-4.200) 07/14/18 16:35 Free T4 0.64 ng/dL (0.76-1.46) L 07/14/18 16:25 Thyroxine (T4) 3.4 ug/dL (4.0-12.0) L 07/15/18 07:50 Urine Color Felicia (Yellow) 07/12/18 23:15 Urine Turbidity Cloudy (Clear) 07/12/18 23:15 Urine pH 5.0 (5.0-7.0) 07/12/18 23:15 Ur Specific Preble 1.021 (1.003-1.030) 07/12/18 23:15 Urine Protein 100 mg/dl mg/dL (Negative) 07/12/18 23:15 Urine Glucose (UA) Neg mg/dL (Negative) 07/12/18 23:15 Urine Ketones Tr mg/dL (Negative) 07/12/18 23:15 Urine Blood Neg (Negative) 07/12/18 23:15 Urine Nitrite Neg (Negative) 07/12/18 23:15 Urine Bilirubin Neg (Negative) 07/12/18 23:15 Urine Urobilinogen < 2.0 mg/dL (<2.0) 07/12/18 23:15 Ur Leukocyte Esterase Neg (Negative) 07/12/18 23:15 Urine WBC (Auto) 6.0 /HPF (0.0-6.0) 07/12/18 23:15 Urine RBC (Auto) 1.0 /HPF (0.0-6.0) 07/12/18 23:15 U Epithel Cells (Auto) 1.0 /HPF (0-13.0) 07/12/18 23:15 Amorphous Crystals 1+ 07/12/18 23:15 Hyaline Casts 39 /LPF 07/12/18 23:15 Granular Casts 28 /LPF 07/12/18 23:15 Urine Mucus Few /HPF 07/12/18 23:15 Urine Creatinine 87.6 mg/dL (0.1-20.0) H 07/14/18 06:06 Urine Sodium 10 mmol/L 07/14/18 06:06 Blood Type A POSITIVE 07/14/18 07:29 Antibody Screen Negative 07/14/18 07:29 Crossmatch See Detail 07/14/18 07:29 Active Medications - Current Medications Current Medications: Generic Name Dose Route Start Last Admin Trade Name Freq PRN Reason Stop Dose Admin Acetaminophen 650 mg 07/12/18 17:08 07/12/18 22:44 Tylenol PO 650 mg Q4H PRN Administration Pain MILD(1-3)/Fever >100.5/LLANES Albuterol 2.5 mg 07/12/18 17:08 Proventil IH Q4HRT PRN Shortness Of Breath Amiodarone HCl 200 mg 07/14/18 15:00 07/15/18 21:59 Cordarone PO 200 mg BID NANETTE Administration Ascorbic Acid 500 mg 07/13/18 10:00 07/15/18 10:50 Vitamin C PO 500 mg QDAY NANETTE Administration Sodium Chloride 1,000 mls @ 125 mls/hr 07/12/18 18:00 07/13/18 02:57 Nacl 0.45% 1000 Ml IV 42 mls/hr DIRECT NANETTE Administration Cefepime HCl 1 gm in 100 mls @ 200 mls/hr 07/13/18 16:00 07/16/18 05:14 Maxipime/Ns 1 Gm/100 Ml IV 200 mls/hr Q8HR NANETTE Administration Protocol Magnesium Oxide 400 mg 07/13/18 10:00 07/15/18 10:51 Mag-Ox PO 400 mg QDAY NANETTE Administration Metoprolol Tartrate 5 mg 07/14/18 11:43 Lopressor IV Q4H PRN sustained HR >130 Metoprolol Tartrate 12.5 mg 07/14/18 12:00 07/15/18 22:00 Lopressor PO 12.5 mg BID NANETTE Administration Ondansetron HCl 4 mg 07/12/18 17:08 Zofran IV Q8H PRN Nausea And Vomiting Oxycodone/Acetaminophen 1 tab 07/12/18 17:08 Percocet 5/325 PO Q6H PRN Pain, Moderate (4-6) Potassium Chloride 20 meq 07/13/18 10:00 07/15/18 10:50 K-Dur PO 20 meq QDAY NANETTE Administration Sodium Chloride 10 ml 07/12/18 22:00 07/15/18 22:01 Sodium Chloride Flush Syringe 10 Ml IV 10 ml BID NANETTE Administration Sodium Chloride 10 ml 07/12/18 17:08 Sodium Chloride Flush Syringe 10 Ml IV PRN PRN LINE FLUSH Tbo-Filgrastim 480 mcg 07/13/18 14:00 07/15/18 12:35 Granix SUB-Q 07/17/18 13:59 480 mcg DAILY NANETTE Administration Nutrition/Malnutrition Assess - Dietary Evaluation Nutrition/Malnutrition Findings: Nutrition Notes Start: 07/13/18 15:36 Freq: Status: Active Protocol: Document 07/13/18 15:36 RD (Rec: 07/13/18 16:09 RD [email or web address]) Co-Sign 07/13/18 15:36 RM Nutrition Notes 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 Pt previously NPO. Regular diet ordered later today. Pt reports constant throwing up and does not want to eat because of it. Pt can tolerate liquids. Pt had a decreased appetite due to weakness. Pt reports no chewing or swallowing difficulty. Observed no temporal or orbital wasting. Pt reported usual body weight is 214 lbs for past 10 years. Percent of energy/protein needs met: 0%/0% Burn Absent Trauma Absent GI Symptoms Nausea,Vomiting #1 Nutrition Diagnosis Inadequate oral intake Etiology N/V As Evidenced by Signs and Symptoms Previous NPO status Is patient on ventilator? No Is Patient Ambulatory and/or Out of Bed Yes REE-([facility]-ambulatory/OOB) [ 2001.415 [id number]] Calculation Used for Recommendations [facility] Additional Notes Protein needs: (1-1.5 g/kg) 80 -120g/day Fluid needs: 1mL/kcal Nutrition Intervention Change Diet Order: Continue Regular Diet Add Supplement/Snack (indicate name/kcal Ensure Clear BID /protein ) Provides kCal: 480 Provides Protein (gm) 16 Goal #1 Meet at least 75% of nutrient needs via ONS and PO intake Anticipated Discharge Needs: Unable to determine at this time Follow-Up By: 07/17/18 Additional Comments f/u: intakes
[2018-07-16] MEDS: CORDARONE PO SCH ×2 (09:54→23:00)
[2018-07-16] MEDS: K-DUR PO SCH (09:54)
[2018-07-16] MEDS: MAG-OX PO SCH (09:54)
[2018-07-16] MEDS: VITAMIN C PO SCH (09:54)
[2018-07-16] MEDS: LOPRESSOR PO SCH ×3 (09:54→23:01)
[2018-07-16] MEDS: GRANIX SUB-Q SCH (09:55)
[2018-07-16] MEDS: SODIUM CHLORIDE FLUSH SYRINGE 10 ML IV SCH ×3 (09:56→23:01)
--- NOTE | 2018-07-16 11:04 | Progress Note ---
Assessment and Plan Patient lying in bed in no palpitations patient's A. fib being controlled with amiodarone and low-dose beta ronni candidate for oral coagulation secondary to anemia , heart fluctuates with activity and senna maximum tolerable dose of medications has normal function on echocardiogram - Patient Problems (1) Atrial fibrillation Current Visit: Yes Status: Acute Qualifiers: Atrial fibrillation type: persistent Qualified Code(s): I48.1 - Persistent atrial fibrillation (2) FAWAD (acute kidney injury) Current Visit: Yes Status: Acute (3) Anemia Current Visit: Yes Status: Acute Qualifiers: Anemia type: unspecified type Qualified Code(s): D64.9 - Anemia, unspecified (4) Myelodysplasia (myelodysplastic syndrome) Current Visit: Yes Status: Chronic (5) CAD (coronary artery disease) Current Visit: No Status: Acute Qualifiers: Associated angina: without angina (6) Severe anemia Current Visit: No Status: Chronic Subjective Date of service: 07/16/18 Principal diagnosis: MDS Interval history: pt lying in bed in no distress no palpations Objective Vital Signs Temp Pulse Pulse Resp BP Pulse Ox 07/16/18 09:54 84 112/63 07/16/18 08:47 20 07/16/18 08:04 97.7 F 84 18 112/63 96 07/16/18 02:09 106 H 98 07/16/18 01:49 98.6 F 20 108/54 07/15/18 22:00 131 H 131 H 20 117/66 07/15/18 21:12 131 H 95 07/15/18 20:40 99.2 F 20 117/66 07/15/18 13:13 90 96 07/15/18 13:11 97.3 F L 18 116/71 - Physical Examination General: No Apparent Distress HEENT: Positive: PERRL, Normocephaly, Mucus Membranes Moist Neck: Positive: neck supple, trachea midline Cardiac: Positive: Irregularly Regular Lungs: Positive: clear to auscultation Neuro: Positive: Grossly Intact Abdomen: Negative: Tender Skin: Negative: Wound Musculoskeletal: No Pain Extremities: Absent: edema - Imaging and Cardiology EKG: report reviewed, image reviewed Echo: report reviewed (normal lv function, no signficant regurtitations ) - Telemetry EKG Rhythm: Atrial Fibrillation (in afib 80's ,)
[2018-07-16 12:36] LABS: Hemoglobin 6.7 gm/dl (11.8-15.2); Mean Corpuscular HGB Conc 35 % (32-34); Mean Corpuscular Volume 94 fl (84-94); Red Blood Count 2.05 M/mm3 (3.65-5.03); Red Cell Distribution Width 19.1 % (13.2-15.2)
--- NOTE | 2018-07-16 12:46 | Progress Note ---
Assessment and Plan 1. Acute kidney injury: Vasomotor / hemodynamic FAWAD in the setting of volume depletion and hypotension. Renal function is better. Continue IV fluids. Monitor renal function. Avoid nephrotoxic agents. Meds dosage based on GFR. 2. FEN: Hypokalemia, replete K. Metabolic acidosis, monitor. 3. Pancytopenia: PRBC and Platelet transfusion. 4. Febrile neutropenia: No fever in the hospital. 5. A.fib. Subjective Date of service: 07/16/18 Principal diagnosis: MDS Interval history: Patient was seen and examined at the bedside. Doing ok. Objective - Vital Signs Vital signs: Vital Signs - 12hr 07/16/18 07/16/18 07/16/18 01:49 02:09 08:04 Temperature 98.6 F 97.7 F Pulse Rate 106 H 84 Respiratory 20 18 Rate Blood Pressure 108/54 112/63 O2 Sat by Pulse 98 96 Oximetry 07/16/18 07/16/18 08:47 09:54 Temperature Pulse Rate 84 Respiratory 20 Rate Blood Pressure 112/63 O2 Sat by Pulse Oximetry - General Appearance General appearance: well-developed, appears stated age, other (not in distress) EENT: ATNC, PERRL, vision intact Neck: supple Respiratory: Present: Clear to Ascultation Cardiology: irregularly irregular, S1S2, no murmurs Gastrointestinal: normoactive bowel sounds, no tenderness, no distended Integumentary: no rash Neurologic: no focal deficit, no asterixis Musculoskeletal: other (no edema) - Lab 07/16/18 11:47 07/16/18 11:47 Most recent lab results Calcium 8.4 mg/dL (8.4-10.2) 07/15/18 07:50 Phosphorus 3.70 mg/dL (2.5-4.5) 07/14/18 05:19 Magnesium 1.70 mg/dL (1.7-2.3) 07/14/18 05:19 Urine Creatinine 87.6 mg/dL (0.1-20.0) H 07/14/18 06:06 Urine Sodium 10 mmol/L 07/14/18 06:06 Medications & Allergies - Medications Allergies/Adverse Reactions: Allergies tetanus and diphtheria toxoids [tetanus & diphtheria toxoids] Allergy (Verified 07/12/18 13:31) Anaphylaxis Home Medications: Home Medications Medication Instructions Recorded Confirmed Last Taken Type Potassium Chloride 20 meq PO QDAY #10 packet 06/03/18 07/12/18 Unknown Rx Ascorbic Acid [Vitamin C] 500 mg PO DAILY 07/12/18 07/12/18 Unknown History Magnesium Oxide 400 mg PO DAILY 07/12/18 07/12/18 Unknown History Active Medications: Generic Name Dose Route Start Last Admin Trade Name Freq PRN Reason Stop Dose Admin Acetaminophen 650 mg 07/12/18 17:08 07/12/18 22:44 Tylenol PO 650 mg Q4H PRN Administration Pain MILD(1-3)/Fever >100.5/LLANES Albuterol 2.5 mg 07/12/18 17:08 Proventil IH Q4HRT PRN Shortness Of Breath Amiodarone HCl 200 mg 07/14/18 15:00 07/16/18 09:54 Cordarone PO 200 mg BID NANETTE Administration Ascorbic Acid 500 mg 07/13/18 10:00 07/16/18 09:54 Vitamin C PO 500 mg QDAY NANETTE Administration Sodium Chloride 1,000 mls @ 125 mls/hr 07/12/18 18:00 07/13/18 02:57 Nacl 0.45% 1000 Ml IV 42 mls/hr DIRECT NANETTE Administration Cefepime HCl 1 gm in 100 mls @ 200 mls/hr 07/13/18 16:00 07/16/18 05:14 Maxipime/Ns 1 Gm/100 Ml IV 200 mls/hr Q8HR NANETTE Administration Protocol Magnesium Oxide 400 mg 07/13/18 10:00 07/16/18 09:54 Mag-Ox PO 400 mg QDAY NANETTE Administration Metoprolol Tartrate 5 mg 07/14/18 11:43 Lopressor IV Q4H PRN sustained HR >130 Metoprolol Tartrate 12.5 mg 07/14/18 12:00 07/16/18 09:54 Lopressor PO Not Given BID NANETTE Ondansetron HCl 4 mg 07/12/18 17:08 Zofran IV Q8H PRN Nausea And Vomiting Oxycodone/Acetaminophen 1 tab 07/12/18 17:08 Percocet 5/325 PO Q6H PRN Pain, Moderate (4-6) Potassium Chloride 20 meq 07/13/18 10:00 07/16/18 09:54 K-Dur PO 20 meq QDAY NANETTE Administration Sodium Chloride 10 ml 07/12/18 22:00 07/16/18 09:56 Sodium Chloride Flush Syringe 10 Ml IV 10 ml BID NANETTE Administration Sodium Chloride 10 ml 07/12/18 17:08 Sodium Chloride Flush Syringe 10 Ml IV PRN PRN LINE FLUSH Tbo-Filgrastim 480 mcg 07/13/18 14:00 07/16/18 09:55 Granix SUB-Q 07/17/18 13:59 480 mcg DAILY NANETTE Administration
[2018-07-16 12:48] LABS: Hematocrit 19.3 % (35.5-45.6); Platelet Count 13 K/mm3 (140-440)
[2018-07-16] MEDS ORDERED: NACL 0.9% 500 ML 500 ML IV ONE (12:54)
[2018-07-16 12:57] LABS: BUN/Creatinine Ratio 50; Blood Urea Nitrogen 55 mg/dL (9-20); Hemolysis Index 14
--- NOTE | 2018-07-16 13:32 | Cat Scan Report ---
PROCEDURE: CT CHEST WO CON TECHNIQUE: Computerized axial tomography of the chest was performed without contrast material. This study is performed without intravenous contrast and the sensitivity for pathology, including neoplasm s, adenopathy, abscess, pulmonary embolism and aortic dissection, is reduced. CT DOSE LENGTH PRODUCT: mGycm HISTORY: Neutropenic patient with pneumonia, ?fungal pna COMPARISONS: None . FINDINGS: A large area of consolidation is noted involving the right upper lobe. Moderate degree centrilobular emphysematous changes are noted involving bilateral lungs with bullous formation. Bilateral pleural e ffusions are noted right more than left. Hilar structures are within normal limits as visualized on t his noncontrast study. Multiple nonenlarged lymph nodes are noted in the mediastinum. A 1.1 cm lymph node is noted in the as ago esophageal recess. Aorta is of normal caliber. Coronary arterial calcific ation is noted. Thyroid is normal in size and density. Vertebral height is normal. A few small calcul i measuring up to 4 mm are noted in the partially distended gallbladder. There is increased density o f the liver. A small calcified granuloma noted in the spleen. IMPRESSION: Large area of consolidation in the right upper lobe consistent with pneumonia Minimal degree mediastinal lymphadenopathy Cholelithiasis Bilateral pleural effusions right more than left Coronary arterial calcification Centrilobular emphysema This document is electronically signed by Rosales You MD., July 16 2018 01:30:49 PM ET
[2018-07-16 15:29] LABS: Basophils % (Manual) 0 % (0.0-1.8); Total Cells Counted 100
[2018-07-16 15:30] LABS: Hypochromasia 1+; Platelet Estimate Consistent w Auto
[2018-07-17] MEDS: MAXIPIME/NS 1 GM/100 ML 1 GM/100 ML BAG IV SCH ×3 (06:17→21:49)
--- NOTE | 2018-07-17 07:53 | Hem/Onc Progress Note ---
Assessment and Plan 1. Anemia secondary to myelodysplastic syndrome. 2. Leukopenia. Dr. Rojas told me that his white cell count had been low most of the time. 3. Thrombocytopenia secondary to myelodysplastic syndrome. 4. For his myelodysplastic syndrome, the patient has received 2 cycles of Dacogen regimen. He was on Procrit before. He was due to third cycle, but did not go to the [facility] for same. 5. Renal impairment. Nephrology consultation. 6. History of hypertension. 7. History of coronary artery disease. 8. History of renal issues. I will follow the patient during inpatient stay and then in the clinic setting. We will look into Neupogen support for now. 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 - pt's counts have been low for some time 07/15 - hb better - post transfusion gcsf - wbc better 07/16 - plt 13 - plan for transfusion support as per RN OP follow up with pts oncologist at [place] - as per the pt's onc - pt's count have been low most of the time 07/17 - plt 15k not sure if the plt will rise a lot if no bleeding - and he can get an apt with his onc for next day labs - OP follow up an option - Patient Problems (1) Anemia Current Visit: Yes Status: Acute Qualifiers: Anemia type: unspecified type Qualified Code(s): D64.9 - Anemia, unspecified Subjective Date of service: 07/17/18 Principal diagnosis: MDS Interval history: s/p plt Objective - Constitutional Vitals: Last Vital Signs Temp 98.3 F 07/17/18 02:36 Pulse 75 07/17/18 02:37 Resp 22 07/17/18 02:36 BP 107/58 07/17/18 02:36 Pulse Ox 95 07/17/18 02:37 Pain Intensity (0-10): denies any pain General appearance: no acute distress Performance status: 3-limited selfcare - EENT Eyes: EOM intact ENT: clear oral mucosa Lymph node exam: negative cervical - Neck Neck: normal ROM - Respiratory Respiratory effort: Positive: normal Respiratory: bilateral: CTA - Cardiovascular Heart Sounds: Present: S1 & S2 Extremities: No edema - Gastrointestinal General gastrointestinal: Present: soft, non-tender Rectal Exam: deferred - Genitourinary Male genitourinary: Present: deferred - Integumentary Integumentary: warm - Musculoskeletal Musculoskeletal: strength equal bilaterally, generalized weakness - Neurologic Neurologic: moves all extremities - Labs Lab Results: Laboratory Results - last 24 hr 07/14/18 07/16/18 07/16/18 07:29 11:47 11:47 WBC 0.5 L* RBC 2.05 L Hgb 6.7 L Hct 19.3 L* MCV 94 MCH 33 H MCHC 35 H RDW 19.1 H Plt Count 13 L* Add Manual Diff Complete Total Counted 100 Seg Neutrophils % Spinning Lathe Operator Hydraulic Seg Neuts % (Manual) 32.0 L Band Neutrophils % 0 Lymphocytes % (Manual) 59.0 H Reactive Lymphs % (Man) 1.0 Monocytes % (Manual) 3.0 Eosinophils % (Manual) 5.0 H Basophils % (Manual) 0 Metamyelocytes % 0 Myelocytes % 0 Promyelocytes % 0 Blast Cells % 0 Nucleated RBC % Not Reportable Seg Neutrophils # Man 0.2 L Band Neutrophils # 0.0 Lymphocytes # (Manual) 0.3 L Abs React Lymphs (Man) 0.0 Monocytes # (Manual) 0.0 Eosinophils # (Manual) 0.0 Basophils # (Manual) 0.0 Metamyelocytes # 0.0 Myelocytes # 0.0 Promyelocytes # 0.0 Blast Cells # 0.0 WBC Morphology Not Reportable Hypersegmented Neuts Not Reportable Hyposegmented Neuts Not Reportable Hypogranular Neuts Not Reportable Smudge Cells Not Reportable Toxic Granulation Not Reportable Toxic Vacuolation Not Reportable Dohle Bodies Not Reportable Pelger-Huet Anomaly Not Reportable Andra Rods Not Reportable Platelet Estimate Consistent w auto Clumped Platelets Not Reportable Plt Clumps, EDTA Not Reportable Large Platelets Not Reportable Giant Platelets Not Reportable Platelet Satelliting Not Reportable Plt Morphology Comment Not Reportable RBC Morphology Not Reportable Dimorphic RBCs Not Reportable Polychromasia Not Reportable Hypochromasia 1+ Poikilocytosis Not Reportable Anisocytosis Not Reportable Microcytosis Not Reportable Macrocytosis Not Reportable Spherocytes Not Reportable Pappenheimer Bodies Not Reportable Sickle Cells Not Reportable Target Cells Not Reportable Tear Drop Cells Not Reportable Ovalocytes Not Reportable Helmet Cells Not Reportable Joseph-Umbarger Bodies Not Reportable [place] Rings Not Reportable [place] Cells Not Reportable Bite Cells Not Reportable Crenated Cell Not Reportable Elliptocytes Not Reportable Acanthocytes (Spur) Not Reportable Rouleaux Not Reportable Hemoglobin C Crystals Not Reportable Schistocytes Not Reportable Malaria parasites Not Reportable Donta Bodies Not Reportable Hem Pathologist Commnt No Sodium 138 Potassium 3.8 Chloride 106.7 Carbon Dioxide 19 L Anion Gap 16 BUN 55 H Creatinine 1.1 Estimated GFR > 60 BUN/Creatinine Ratio 50 Glucose 119 H Calcium 8.0 L Blood Type A POSITIVE Antibody Screen Negative Crossmatch See Detail Medications & Allergies - Medications Allergies/Adverse Reactions: Allergies tetanus and diphtheria toxoids [tetanus & diphtheria toxoids] Allergy (Verified 07/12/18 13:31) Anaphylaxis Home Medications: Home Medications Medication Instructions Recorded Confirmed Last Taken Type Potassium Chloride 20 meq PO QDAY #10 packet 06/03/18 07/12/18 Unknown Rx Ascorbic Acid [Vitamin C] 500 mg PO DAILY 07/12/18 07/12/18 Unknown History Magnesium Oxide 400 mg PO DAILY 07/12/18 07/12/18 Unknown History Active Medications: Generic Name Dose Route Start Last Admin Trade Name Freq PRN Reason Stop Dose Admin Acetaminophen 650 mg 07/12/18 17:08 07/12/18 22:44 Tylenol PO 650 mg Q4H PRN Administration Pain MILD(1-3)/Fever >100.5/LLANES Albuterol 2.5 mg 07/12/18 17:08 Proventil IH Q4HRT PRN Shortness Of Breath Amiodarone HCl 200 mg 07/14/18 15:00 07/16/18 23:00 Cordarone PO 200 mg BID NANETTE Administration Ascorbic Acid 500 mg 07/13/18 10:00 07/16/18 09:54 Vitamin C PO 500 mg QDAY NANETTE Administration Sodium Chloride 1,000 mls @ 125 mls/hr 07/12/18 18:00 07/13/18 02:57 Nacl 0.45% 1000 Ml IV 42 mls/hr DIRECT NANETTE Administration Cefepime HCl 1 gm in 100 mls @ 200 mls/hr 07/13/18 16:00 07/17/18 06:17 Maxipime/Ns 1 Gm/100 Ml IV 200 mls/hr Q8HR NANETTE Administration Protocol Magnesium Oxide 400 mg 07/13/18 10:00 07/16/18 09:54 Mag-Ox PO 400 mg QDAY NANETTE Administration Metoprolol Tartrate 5 mg 07/14/18 11:43 Lopressor IV Q4H PRN sustained HR >130 Metoprolol Tartrate 12.5 mg 07/14/18 12:00 07/16/18 23:01 Lopressor PO 12.5 mg BID NANETTE Administration Ondansetron HCl 4 mg 07/12/18 17:08 Zofran IV Q8H PRN Nausea And Vomiting Oxycodone/Acetaminophen 1 tab 07/12/18 17:08 Percocet 5/325 PO Q6H PRN Pain, Moderate (4-6) Potassium Chloride 20 meq 07/13/18 10:00 07/16/18 09:54 K-Dur PO 20 meq QDAY NANETTE Administration Sodium Chloride 10 ml 07/12/18 22:00 07/16/18 23:01 Sodium Chloride Flush Syringe 10 Ml IV 10 ml BID NANETTE Administration Sodium Chloride 10 ml 07/12/18 17:08 Sodium Chloride Flush Syringe 10 Ml IV PRN PRN LINE FLUSH Tbo-Filgrastim 480 mcg 07/13/18 14:00 07/16/18 09:55 Granix SUB-Q 07/17/18 13:59 480 mcg DAILY NANETTE Administration
[2018-07-17 08:02] LABS: Hemoglobin 6.3 gm/dl (11.8-15.2); Mean Corpuscular HGB Conc 34 % (32-34); Mean Corpuscular Volume 95 fl (84-94); Red Blood Count 1.98 M/mm3 (3.65-5.03); Red Cell Distribution Width 18.6 % (13.2-15.2)
[2018-07-17 08:03] LABS: BUN/Creatinine Ratio 45; Blood Urea Nitrogen 49 mg/dL (9-20); Hemolysis Index 4
[2018-07-17 08:07] LABS: Hematocrit 18.8 % (35.5-45.6); Platelet Count 15 K/mm3 (140-440)
--- NOTE | 2018-07-17 08:36 | Progress Note ---
Assessment and Plan Assessment and Plan Cultures: 07/12/2018 blood culture: No growth 07/12/2018 MRSA: negative A/P: 73/M with MDS, admitted with: 1) Febrile neutropenia: Remains afebrile inpatient. Apparently was febrile at home. He has chronic neutropenia that is unchanged. ANC here is low but slowly improving. Etiology likely R sided pneumonia. Abdominal imaging thus far has been unremarkable. Follow-up HIDA scan. For now, treat with empiric IV cefepime. Has indwelling PORT, follow up blood cultures. 2) Right sided pneumonia: large upper lobe pneumonia in immunocompromised patient, at risk for invasive mold disease, f/u Aspergillus galactomannan and sputum cultures. CT chest: Large area of consolidation in the right upper lobe consistent with pneumonia Cholelithiasis Bilateral pleural effusions right more than left Centrilobular emphysema 1,3 [id number] - negative 3) Acute diarrhea: Improved. Multiple recent hospitalizations. Abdomen is non tender on exam, low suspicion for typhlitis. No stool sample sent. 4) Pancytopenia: from MDS, on Dacogen cycles per Oncology. Dr. Quiroga following. 5) FAWAD: Nephrology consulted. Renally dose antibiotics. Recs: Continue Cefepime, 1 gm IV every 8 hours Follow-up HIDA scan f/u Aspergillus galactomannan F/U blood cultures [facility] M: [id number] O:[phone] Subjective Date of service: 07/17/18 Principal diagnosis: MDS Interval history: Patient seen and examined. Complains of generalized weakness, no pain or SOB. no fevers. Objective - Exam Narrative Exam: Constitutional: Alert, generalized weakness. Head, Ears, Nose: Normocephalic, atraumatic. External ears, nose normal Eyes: Conjunctivae/corneas clear. No icterus. No ptosis. Neck: Supple, no meningeal signs Oral: dentition poor, no thrush Cardiovascular: S1, S2 normal. Respiratory: scattered rhonci GI: Soft, non-tender; bowel sounds normal. No peritoneal signs Musculoskeletal: No pedal edema, no cyanosis. Right upper chest PORT + Skin: No rash or abscess Hem/Lymphatic: No palpable cervical or supraclavicular nodes. No lymphangitis Psych: Mood ok. Affect normal Neurological: Awake, alert, oriented. No gross abnormality - Constitutional Vitals: Vital Signs Temp Pulse Resp BP Pulse Ox 98.2 F 78 20 130/57 94 07/17/18 07:45 07/17/18 07:45 07/17/18 07:45 07/17/18 07:45 07/17/18 07:45 Temperature -Last 24 Hours Temperature 98.2 F Temperature 98.3 F Temperature 98.2 F Temperature 98.5 F Temperature 98.6 F - Labs CBC & Chem 7: 07/17/18 07:34 07/17/18 07:33 Labs: Abnormal lab results 07/14/18 07/16/18 07/16/18 Range/Units 07:29 11:47 11:47 WBC 0.5 L* (4.5-11.0) K/mm3 RBC 2.05 L (3.65-5.03) M/mm3 Hgb 6.7 L (11.8-15.2) gm/dl Hct 19.3 L* (35.5-45.6) % MCV (84-94) fl MCH 33 H (28-32) pg MCHC 35 H (32-34) % RDW 19.1 H (13.2-15.2) % Plt Count 13 L* (140-440) K/mm3 Seg Neuts % (Manual) 32.0 L (40.0-70.0) % Lymphocytes % (Manual) 59.0 H (13.4-35.0) % Eosinophils % (Manual) 5.0 H (0.0-4.3) % Seg Neutrophils # Man 0.2 L (1.8-7.7) K/mm3 Lymphocytes # (Manual) 0.3 L (1.2-5.4) K/mm3 Sodium (137-145) mmol/L Carbon Dioxide 19 L (22-30) mmol/L BUN 55 H (9-20) mg/dL Glucose 119 H (75-100) mg/dL Calcium 8.0 L (8.4-10.2) mg/dL Crossmatch See Detail 07/17/18 07/17/18 Range/Units 07:33 07:34 WBC 0.7 L* (4.5-11.0) K/mm3 RBC 1.98 L (3.65-5.03) M/mm3 Hgb 6.3 L (11.8-15.2) gm/dl Hct 18.8 L* (35.5-45.6) % MCV 95 H (84-94) fl MCH (28-32) pg MCHC (32-34) % RDW 18.6 H (13.2-15.2) % Plt Count 15 L* (140-440) K/mm3 Seg Neuts % (Manual) (40.0-70.0) % Lymphocytes % (Manual) (13.4-35.0) % Eosinophils % (Manual) (0.0-4.3) % Seg Neutrophils # Man (1.8-7.7) K/mm3 Lymphocytes # (Manual) (1.2-5.4) K/mm3 Sodium 136 L (137-145) mmol/L Carbon Dioxide 19 L (22-30) mmol/L BUN 49 H (9-20) mg/dL Glucose 108 H (75-100) mg/dL Calcium 8.0 L (8.4-10.2) mg/dL Crossmatch
[2018-07-17 09:23] LABS: Basophils % (Manual) 0 % (0.0-1.8); Total Cells Counted 100
[2018-07-17] MEDS: K-DUR PO SCH (09:23)
[2018-07-17] MEDS: LOPRESSOR PO SCH ×2 (09:23→21:56)
[2018-07-17] MEDS: CORDARONE PO SCH ×2 (09:23→21:49)
[2018-07-17] MEDS: VITAMIN C PO SCH (09:23)
[2018-07-17] MEDS: MAG-OX PO SCH (09:23)
[2018-07-17 09:24] LABS: Anisocytosis 1+; Hypochromasia 1+; Poikilocytosis 1+
[2018-07-17 09:25] LABS: Giant Platelets Few; Platelet Estimate Consistent w Auto
--- NOTE | 2018-07-17 09:26 | Progress Note ---
Assessment and Plan 1. Acute kidney injury: Vasomotor / hemodynamic FAWAD in the setting of volume depletion and hypotension. Renal function is better. Continue IV fluids. Monitor renal function. Avoid nephrotoxic agents. Meds dosage based on GFR. 2. FEN: Hypokalemia, K level is better. Metabolic acidosis, monitor. 3. Pancytopenia: PRBC and Platelet transfusion. 4. Pneumonia: Followed by ID. Joel Koch. Subjective Date of service: 07/17/18 Principal diagnosis: MDS Interval history: Patient was seen and examined at the bedside. Doing ok. Objective - Vital Signs Vital signs: Vital Signs - 12hr 07/16/18 07/16/18 07/16/18 21:36 22:00 22:59 Temperature Pulse Rate 77 78 78 Pulse Rate [ 78 From Monitor] Respiratory 20 20 Rate Blood Pressure 114/48 114/48 O2 Sat by Pulse 98 Oximetry 07/16/18 07/17/18 07/17/18 23:01 02:36 02:37 Temperature 98.3 F Pulse Rate 78 75 Pulse Rate [ From Monitor] Respiratory 22 Rate Blood Pressure 114/48 107/58 O2 Sat by Pulse 95 Oximetry 07/17/18 07:45 Temperature 98.2 F Pulse Rate 78 Pulse Rate [ From Monitor] Respiratory 20 Rate Blood Pressure 130/57 O2 Sat by Pulse 94 Oximetry - General Appearance General appearance: well-developed, well-nourished, appears stated age, other (not in distress) EENT: ATNC, PERRL, hearing intact, vision intact Neck: supple Respiratory: Present: Clear to Ascultation Cardiology: S1S2, no murmurs Gastrointestinal: normoactive bowel sounds, no tenderness, no distended Integumentary: warm and dry Neurologic: no focal deficit, no asterixis Musculoskeletal: other (no edema) - Lab 07/17/18 07:34 07/17/18 07:33 Most recent lab results Calcium 8.0 mg/dL (8.4-10.2) L 07/17/18 07:33 Phosphorus 2.80 mg/dL (2.5-4.5) 07/17/18 07:33 Magnesium 1.80 mg/dL (1.7-2.3) 07/17/18 07:33 Urine Creatinine 87.6 mg/dL (0.1-20.0) H 07/14/18 06:06 Urine Sodium 10 mmol/L 07/14/18 06:06 Medications & Allergies - Medications Allergies/Adverse Reactions: Allergies tetanus and diphtheria toxoids [tetanus & diphtheria toxoids] Allergy (Verified 07/12/18 13:31) Anaphylaxis Home Medications: Home Medications Medication Instructions Recorded Confirmed Last Taken Type Potassium Chloride 20 meq PO QDAY #10 packet 06/03/18 07/12/18 Unknown Rx Ascorbic Acid [Vitamin C] 500 mg PO DAILY 07/12/18 07/12/18 Unknown History Magnesium Oxide 400 mg PO DAILY 07/12/18 07/12/18 Unknown History Active Medications: Generic Name Dose Route Start Last Admin Trade Name Freq PRN Reason Stop Dose Admin Acetaminophen 650 mg 07/12/18 17:08 07/12/18 22:44 Tylenol PO 650 mg Q4H PRN Administration Pain MILD(1-3)/Fever >100.5/LLANES Albuterol 2.5 mg 07/12/18 17:08 Proventil IH Q4HRT PRN Shortness Of Breath Amiodarone HCl 200 mg 07/14/18 15:00 07/17/18 09:23 Cordarone PO 200 mg BID NANETTE Administration Ascorbic Acid 500 mg 07/13/18 10:00 07/17/18 09:23 Vitamin C PO 500 mg QDAY NANETTE Administration Sodium Chloride 1,000 mls @ 125 mls/hr 07/12/18 18:00 07/13/18 02:57 Nacl 0.45% 1000 Ml IV 42 mls/hr DIRECT NANETTE Administration Cefepime HCl 1 gm in 100 mls @ 200 mls/hr 07/13/18 16:00 07/17/18 06:17 Maxipime/Ns 1 Gm/100 Ml IV 200 mls/hr Q8HR ANNETTE Administration Protocol Magnesium Oxide 400 mg 07/13/18 10:00 07/17/18 09:23 Mag-Ox PO 400 mg QDAY NANETTE Administration Metoprolol Tartrate 5 mg 07/14/18 11:43 Lopressor IV Q4H PRN sustained HR >130 Metoprolol Tartrate 12.5 mg 07/14/18 12:00 07/17/18 09:23 Lopressor PO 12.5 mg BID NANETTE Administration Ondansetron HCl 4 mg 07/12/18 17:08 Zofran IV Q8H PRN Nausea And Vomiting Oxycodone/Acetaminophen 1 tab 07/12/18 17:08 Percocet 5/325 PO Q6H PRN Pain, Moderate (4-6) Potassium Chloride 20 meq 07/13/18 10:00 07/17/18 09:23 K-Dur PO 20 meq QDAY NANETTE Administration Sodium Chloride 10 ml 07/12/18 22:00 07/16/18 23:01 Sodium Chloride Flush Syringe 10 Ml IV 10 ml BID NANETTE Administration Sodium Chloride 10 ml 07/12/18 17:08 Sodium Chloride Flush Syringe 10 Ml IV PRN PRN LINE FLUSH Tbo-Filgrastim 480 mcg 07/13/18 14:00 07/16/18 09:55 Granix SUB-Q 07/17/18 13:59 480 mcg DAILY NANETTE Administration
[2018-07-17] MEDS: SODIUM CHLORIDE FLUSH SYRINGE 10 ML IV SCH ×2 (09:31→21:50)
[2018-07-17] MEDS ORDERED: NACL 0.9% 500 ML 500 ML IV ONE ×2 (09:32→23:00)
--- NOTE | 2018-07-17 10:18 | Progress Note ---
Assessment and Plan Assessment and plan: 73-year-old woman who presented to the hospital with fever and weakness plus abdominal pain 4 days. She also complained of diarrhea, Previously been in hospital for platelet and PRBC infusion. Past medical history chronic GI bleed, chronic anemia, transfusion dependence, CAD, myelodysplastic syndrome Ultrasound abdomen and pelvis shows moderate sludge in the gallbladder, medical renal disease and simple left renal cyst. There is also a small right pleural effusion. CT abdomen and pelvis shows small to moderate size right pleural effusion, increased density in the lung bases suggestive of atelectasis. Cholelithiasis, but no obvious cholecystitis. Chest x-ray positive for right upper lobe pneumonia Diagnoses Neutropenic fever sepsis Acute bacterial pneumonia last sepsis Anemia of chronic disease due to mild dysplastic syndrome, Thrombocytopenia Acute kidney injury likely due to vasomotor nephropathy Hypokalemia Abdominal pain Transaminitis Diarrhea Aflutter ER course The family requested to be transferred to [facility] in the ER, ER physician called. He spoke to the hospitalist, and the patient was not accepted there. Therefore the patient was admitted to our hospital. The patient received IV antibiotics, IV fluids, and hospitalist was called for admission Plan cont neupogen Continue potassium supplements continue to tranfuse rbc and plts Continue antibiotics GI consult appreciated, no further workup is needed. "etiology-likely 2/2 cholestasis due to ineffective hemopoiesis from MDS " Patient has been seen by hematology/oncology and nephrology ID input appreciated, continue empiric antibiotics for pneumonia, follow-up stool C. difficile, f/u Aspergillus galactomannan and 1,3 [id number] ordered DVT prophylaxis will be mechanical given thrombocytopenia Aflutter; Metoprol ordered, echo shows preserved EF, cardiology input appreciated History Interval history: Review of systems Constitutional: No fevers, no malaise, no joint pains CVS: No chest pain, no orthopnea, no dyspnea on exertion, no pedal edema GI: Abdominal pain has now resolved, no diarrhea, no vomiting, no constipation Respiratory:c/o sob, no wheezing, having dry cough Hospitalist Physical - Physical exam Narrative exam: General.: Appears chronically ill, multiple cystic lesions on his skin HEENT: Moist mucous membranes, extraocular muscles intact, no lymphadenopathy Neck: supple Cardiac: S1-S2 heard Lungs: crackles on R lung, decreased air entry Abdomen: soft , nontender, nondistended, bowel sounds positive Extremities: no edema clubbing or cyanosis Skin: no rash Neurologic: no gross focal deficits Psych: calm, and cooperative - Constitutional Vitals: Temp Pulse Resp BP Pulse Ox 98.2 F 78 20 130/57 94 07/17/18 07:45 07/17/18 07:45 07/17/18 07:45 07/17/18 07:45 07/17/18 07:45 General appearance: Present: mild distress, cachectic Results - Labs CBC & Chem 7: 07/18/18 09:39 07/18/18 09:34 Labs: Laboratory Last Values WBC 0.7 K/mm3 (4.5-11.0) L* 07/17/18 07:34 RBC 1.98 M/mm3 (3.65-5.03) L 07/17/18 07:34 Hgb 6.3 gm/dl (11.8-15.2) L 07/17/18 07:34 Hct 18.8 % (35.5-45.6) L* 07/17/18 07:34 MCV 95 fl (84-94) H 07/17/18 07:34 MCH 32 pg (28-32) 07/17/18 07:34 MCHC 34 % (32-34) 07/17/18 07:34 RDW 18.6 % (13.2-15.2) H 07/17/18 07:34 Plt Count 15 K/mm3 (140-440) L* 07/17/18 07:34 Lymph % (Auto) Reporter Anchor 07/15/18 07:50 Add Manual Diff Complete 07/17/18 07:34 Total Counted 100 07/17/18 07:34 Seg Neutrophils % Reporter Anchor 07/16/18 11:47 Seg Neuts % (Manual) 46.0 % (40.0-70.0) 07/17/18 07:34 Band Neutrophils % 0 % 07/17/18 07:34 Lymphocytes % (Manual) 43.0 % (13.4-35.0) H 07/17/18 07:34 Reactive Lymphs % (Man) 0 % 07/17/18 07:34 Monocytes % (Manual) 7.0 % (0.0-7.3) 07/17/18 07:34 Eosinophils % (Manual) 4.0 % (0.0-4.3) 07/17/18 07:34 Basophils % (Manual) 0 % (0.0-1.8) 07/17/18 07:34 Metamyelocytes % 0 % 07/17/18 07:34 Myelocytes % 0 % 07/17/18 07:34 Promyelocytes % 0 % 07/17/18 07:34 Blast Cells % 0 % 07/17/18 07:34 Nucleated RBC % Not Reportable 07/17/18 07:34 Seg Neutrophils # Man 0.3 K/mm3 (1.8-7.7) L 07/17/18 07:34 Band Neutrophils # 0.0 K/mm3 07/17/18 07:34 Lymphocytes # (Manual) 0.3 K/mm3 (1.2-5.4) L 07/17/18 07:34 Abs React Lymphs (Man) 0.0 K/mm3 07/17/18 07:34 Monocytes # (Manual) 0.0 K/mm3 (0.0-0.8) 07/17/18 07:34 Eosinophils # (Manual) 0.0 K/mm3 (0.0-0.4) 07/17/18 07:34 Basophils # (Manual) 0.0 K/mm3 (0.0-0.1) 07/17/18 07:34 Metamyelocytes # 0.0 K/mm3 07/17/18 07:34 Myelocytes # 0.0 K/mm3 07/17/18 07:34 Promyelocytes # 0.0 K/mm3 07/17/18 07:34 Blast Cells # 0.0 K/mm3 07/17/18 07:34 WBC Morphology Not Reportable 07/17/18 07:34 Hypersegmented Neuts Not Reportable 07/17/18 07:34 Hyposegmented Neuts Not Reportable 07/17/18 07:34 Hypogranular Neuts Not Reportable 07/17/18 07:34 Smudge Cells Not Reportable 07/17/18 07:34 Toxic Granulation Not Reportable 07/17/18 07:34 Toxic Vacuolation Not Reportable 07/17/18 07:34 Dohle Bodies Not Reportable 07/17/18 07:34 Pelger-Huet Anomaly Not Reportable 07/17/18 07:34 Andra Rods Not Reportable 07/17/18 07:34 Platelet Estimate Consistent w auto 07/17/18 07:34 Clumped Platelets Not Reportable 07/17/18 07:34 Plt Clumps, EDTA Not Reportable 07/17/18 07:34 Large Platelets Not Reportable 07/17/18 07:34 Giant Platelets Few 07/17/18 07:34 Platelet Satelliting Not Reportable 07/17/18 07:34 Plt Morphology Comment Not Reportable 07/17/18 07:34 RBC Morphology Not Reportable 07/17/18 07:34 Dimorphic RBCs Not Reportable 07/17/18 07:34 Polychromasia Not Reportable 07/17/18 07:34 Hypochromasia 1+ 07/17/18 07:34 Poikilocytosis 1+ 07/17/18 07:34 Anisocytosis 1+ 07/17/18 07:34 Microcytosis Not Reportable 07/17/18 07:34 Macrocytosis Not Reportable 07/17/18 07:34 Spherocytes Not Reportable 07/17/18 07:34 Pappenheimer Bodies Not Reportable 07/17/18 07:34 Sickle Cells Not Reportable 07/17/18 07:34 Target Cells Not Reportable 07/17/18 07:34 Tear Drop Cells Not Reportable 07/17/18 07:34 Ovalocytes Not Reportable 07/17/18 07:34 Helmet Cells Not Reportable 07/17/18 07:34 Joseph-Jane Bodies Not Reportable 07/17/18 07:34 [place] Rings Not Reportable 07/17/18 07:34 [place] Cells Not Reportable 07/17/18 07:34 Bite Cells Not Reportable 07/17/18 07:34 Crenated Cell Not Reportable 07/17/18 07:34 Elliptocytes Rare 07/17/18 07:34 Acanthocytes (Spur) Not Reportable 07/17/18 07:34 Rouleaux Not Reportable 07/17/18 07:34 Hemoglobin C Crystals Not Reportable 07/17/18 07:34 Schistocytes Not Reportable 07/17/18 07:34 Malaria parasites Not Reportable 07/17/18 07:34 Donta Bodies Not Reportable 07/17/18 07:34 Hem Pathologist Commnt No 07/17/18 07:34 Sodium 136 mmol/L (137-145) L 07/17/18 07:33 Potassium 3.8 mmol/L (3.6-5.0) 07/17/18 07:33 Chloride 105.6 mmol/L (98-107) 07/17/18 07:33 Carbon Dioxide 19 mmol/L (22-30) L 07/17/18 07:33 Anion Gap 15 mmol/L 07/17/18 07:33 BUN 49 mg/dL (9-20) H 07/17/18 07:33 Creatinine 1.1 mg/dL (0.8-1.5) 07/17/18 07:33 Estimated GFR > 60 ml/min 07/17/18 07:33 BUN/Creatinine Ratio 45 % 07/17/18 07:33 Glucose 108 mg/dL (75-100) H 07/17/18 07:33 Calcium 8.0 mg/dL (8.4-10.2) L 07/17/18 07:33 Phosphorus 2.80 mg/dL (2.5-4.5) 07/17/18 07:33 Magnesium 1.80 mg/dL (1.7-2.3) 07/17/18 07:33 Total Bilirubin 2.00 mg/dL (0.1-1.2) H 07/12/18 14:02 AST 26 units/L (5-40) 07/12/18 14:02 ALT 24 units/L (7-56) 07/12/18 14:02 Alkaline Phosphatase 33 units/L (35-129) L 07/12/18 14:02 Troponin T < 0.010 ng/mL (0.00-0.029) 07/12/18 14:02 Total Protein 6.9 g/dL (6.3-8.2) 07/12/18 14:02 Albumin 3.3 g/dL (3.9-5) L 07/12/18 14:02 Albumin/Globulin Ratio 0.9 % 07/12/18 14:02 TSH 2.990 mlU/mL (0.270-4.200) 07/14/18 16:35 Free T4 0.64 ng/dL (0.76-1.46) L 07/14/18 16:25 Thyroxine (T4) 3.4 ug/dL (4.0-12.0) L 07/15/18 07:50 Urine Color Felicia (Yellow) 07/12/18 23:15 Urine Turbidity Cloudy (Clear) 07/12/18 23:15 Urine pH 5.0 (5.0-7.0) 07/12/18 23:15 Ur Specific [place] 1.021 (1.003-1.030) 07/12/18 23:15 Urine Protein 100 mg/dl mg/dL (Negative) 07/12/18 23:15 Urine Glucose (UA) Neg mg/dL (Negative) 07/12/18 23:15 Urine Ketones Tr mg/dL (Negative) 07/12/18 23:15 Urine Blood Neg (Negative) 07/12/18 23:15 Urine Nitrite Neg (Negative) 07/12/18 23:15 Urine Bilirubin Neg (Negative) 07/12/18 23:15 Urine Urobilinogen < 2.0 mg/dL (<2.0) 07/12/18 23:15 Ur Leukocyte Esterase Neg (Negative) 07/12/18 23:15 Urine WBC (Auto) 6.0 /HPF (0.0-6.0) 07/12/18 23:15 Urine RBC (Auto) 1.0 /HPF (0.0-6.0) 07/12/18 23:15 U Epithel Cells (Auto) 1.0 /HPF (0-13.0) 07/12/18 23:15 Amorphous Crystals 1+ 07/12/18 23:15 Hyaline Casts 39 /LPF 07/12/18 23:15 Granular Casts 28 /LPF 07/12/18 23:15 Urine Mucus Few /HPF 07/12/18 23:15 Urine Creatinine 87.6 mg/dL (0.1-20.0) H 07/14/18 06:06 Urine Sodium 10 mmol/L 07/14/18 06:06 Blood Type A POSITIVE 07/14/18 07:29 Antibody Screen Negative 07/14/18 07:29 Crossmatch See Detail 07/14/18 07:29 Active Medications - Current Medications Current Medications: Generic Name Dose Route Start Last Admin Trade Name Freq PRN Reason Stop Dose Admin Acetaminophen 650 mg 07/12/18 17:08 07/12/18 22:44 Tylenol PO 650 mg Q4H PRN Administration Pain MILD(1-3)/Fever >100.5/LLANES Albuterol 2.5 mg 07/12/18 17:08 Proventil IH Q4HRT PRN Shortness Of Breath Amiodarone HCl 200 mg 07/14/18 15:00 07/17/18 09:23 Cordarone PO 200 mg BID NANETTE Administration Ascorbic Acid 500 mg 07/13/18 10:00 07/17/18 09:23 Vitamin C PO 500 mg QDAY NANETTE Administration Sodium Chloride 1,000 mls @ 125 mls/hr 07/12/18 18:00 07/13/18 02:57 Nacl 0.45% 1000 Ml IV 42 mls/hr DIRECT NANETTE Administration Cefepime HCl 1 gm in 100 mls @ 200 mls/hr 07/13/18 16:00 07/17/18 06:17 Maxipime/Ns 1 Gm/100 Ml IV 200 mls/hr Q8HR NANETTE Administration Protocol Magnesium Oxide 400 mg 07/13/18 10:00 07/17/18 09:23 Mag-Ox PO 400 mg QDAY NANETTE Administration Metoprolol Tartrate 5 mg 07/14/18 11:43 Lopressor IV Q4H PRN sustained HR >130 Metoprolol Tartrate 12.5 mg 07/14/18 12:00 07/17/18 09:23 Lopressor PO 12.5 mg BID NANETTE Administration Ondansetron HCl 4 mg 07/12/18 17:08 Zofran IV Q8H PRN Nausea And Vomiting Oxycodone/Acetaminophen 1 tab 07/12/18 17:08 Percocet 5/325 PO Q6H PRN Pain, Moderate (4-6) Potassium Chloride 20 meq 07/13/18 10:00 07/17/18 09:23 K-Dur PO 20 meq QDAY NANETTE Administration Sodium Chloride 10 ml 07/12/18 22:00 07/17/18 09:31 Sodium Chloride Flush Syringe 10 Ml IV 10 ml BID NANETTE Administration Sodium Chloride 10 ml 07/12/18 17:08 Sodium Chloride Flush Syringe 10 Ml IV PRN PRN LINE FLUSH Tbo-Filgrastim 480 mcg 07/13/18 14:00 07/16/18 09:55 Granix SUB-Q 07/17/18 13:59 480 mcg DAILY NANETTE Administration Nutrition/Malnutrition Assess - Dietary Evaluation Nutrition/Malnutrition Findings: Nutrition Notes Start: 07/13/18 15:36 Freq: Status: Active Protocol: Document 07/13/18 15:36 RD (Rec: 07/13/18 16:09 RD [email or web address]) Co-Sign 07/13/18 15:36 RM Nutrition Notes Need for Assessment generated from: order caller Initial or Follow up Assessment Current Diagnosis Acute Kidney Injury, Hypertension Other Pertinent Diagnosis Acute [place], arthritis, cancer, acidosis, MDS, hyponatremia Current Diet Regular Labs/Tests K 3.3 BUN 43 Creat 2.2 Pertinent Medications Reviewed Height 5 ft 10 in Weight 79.83 kg Usual Body Weight 97.069 kg [place] Body Weight (kg) 75.45 BMI 25.2 Weight change and time frame 17.8% over 10 years Subjective/Other Information RD screen for malnutrition risk. Pt previously NPO. Regular diet ordered later today. Pt reports constant throwing up and does not want to eat because of it. Pt can tolerate liquids. Pt had a decreased appetite due to weakness. Pt reports no chewing or swallowing difficulty. Observed no temporal or orbital wasting. Pt reported usual body weight is 214 lbs for past 10 years. Percent of energy/protein needs met: 0%/0% Burn Absent Trauma Absent GI Symptoms Nausea,Vomiting #1 Nutrition Diagnosis Inadequate oral intake Etiology N/V As Evidenced by Signs and Symptoms Previous NPO status Is patient on ventilator? No Is Patient Ambulatory and/or Out of Bed Yes REE-([facility]-ambulatory/OOB) [ 2001.415 [id number]] Calculation Used for Recommendations [facility] Additional Notes Protein needs: (1-1.5 g/kg) 80 -120g/day Fluid needs: 1mL/kcal Nutrition Intervention Change Diet Order: Continue Regular Diet Add Supplement/Snack (indicate name/kcal Ensure Clear BID /protein ) Provides kCal: 480 Provides Protein (gm) 16 Goal #1 Meet at least 75% of nutrient needs via ONS and PO intake Anticipated Discharge Needs: Unable to determine at this time Follow-Up By: 07/17/18 Additional Comments f/u: intakes
[2018-07-17] MEDS: GRANIX SUB-Q SCH (10:21)
--- NOTE | 2018-07-17 11:11 | Progress Note ---
Assessment and Plan Patient currently in SR. Cont current cardiac regimen. Pt is not currently a candidate for systemic AC in regards to AFib/AFlutter due to severe anemia and thrombocytopenia. The patient has been seen in conjunction with Dr. Stephanie Liz who agrees with the assessment and plan of care. - Patient Problems (1) Paroxysmal atrial flutter Current Visit: Yes Status: Chronic (2) Symptomatic anemia Current Visit: Yes Status: Acute (3) Pancytopenia Current Visit: Yes Status: Acute (4) Pneumonia Current Visit: Yes Status: Suspected (5) Fever Current Visit: Yes Status: Acute Qualifiers: Fever type: unspecified Qualified Code(s): R50.9 - Fever, unspecified (6) Abdominal pain Current Visit: Yes Status: Acute Qualifiers: Abdominal location: generalized Qualified Code(s): R10.84 - Generalized abdominal pain (7) COPD (chronic obstructive pulmonary disease) Current Visit: Yes Status: Acute (8) History of GI bleed Current Visit: Yes Status: Chronic (9) FAWAD (acute kidney injury) Current Visit: Yes Status: Acute (10) HTN (hypertension) Current Visit: Yes Status: Chronic Qualifiers: Hypertension type: essential hypertension Qualified Code(s): I10 - Essential (primary) hypertension (11) History of myocardial infarction Current Visit: Yes Status: Suspected (12) Myelodysplasia (myelodysplastic syndrome) Current Visit: Yes Status: Chronic Subjective Date of service: 07/17/18 Principal diagnosis: MDS Interval history: pt resting in bed, no current cardiac complaints. states he still feels weak. tele reviewed - in SR. Objective Last Vital Signs Temp 98.2 F 07/17/18 07:45 Pulse 78 07/17/18 10:00 Resp 20 07/17/18 10:00 BP 130/57 07/17/18 07:45 Pulse Ox 94 07/17/18 10:00 - Physical Examination General: No Apparent Distress HEENT: Positive: PERRL, Normocephaly, Mucus Membranes Moist Neck: Positive: neck supple, trachea midline Cardiac: Positive: Reg Rate and Rhythm, S1/S2 Lungs: Positive: Decreased Breath Sounds Neuro: Positive: Grossly Intact Abdomen: Negative: Tender Skin: Negative: Wound Musculoskeletal: No Pain Extremities: Absent: edema - Labs and Meds CBC 07/16/18 07/17/18 Range/Units 11:47 07:34 WBC 0.5 L* 0.7 L* (4.5-11.0) K/mm3 RBC 2.05 L 1.98 L (3.65-5.03) M/mm3 Hgb 6.7 L 6.3 L (11.8-15.2) gm/dl Hct 19.3 L* 18.8 L* (35.5-45.6) % Plt Count 13 L* 15 L* (140-440) K/mm3 Comprehensive Metabolic Panel 07/16/18 07/17/18 Range/Units 11:47 07:33 Sodium 138 136 L (137-145) mmol/L Potassium 3.8 3.8 (3.6-5.0) mmol/L Chloride 106.7 105.6 (98-107) mmol/L Carbon Dioxide 19 L 19 L (22-30) mmol/L BUN 55 H 49 H (9-20) mg/dL Creatinine 1.1 1.1 (0.8-1.5) mg/dL Glucose 119 H 108 H (75-100) mg/dL Calcium 8.0 L 8.0 L (8.4-10.2) mg/dL - Imaging and Cardiology EKG: report reviewed, image reviewed Echo: report reviewed (normal lv function, no signficant regurtitations ) - Telemetry EKG Rhythm: Sinus Rhythm
[2018-07-17] MEDS: TYLENOL PO PRN (23:12)
[2018-07-18] MEDS: MAXIPIME/NS 1 GM/100 ML 1 GM/100 ML BAG IV SCH ×3 (05:06→21:41)
--- NOTE | 2018-07-18 08:52 | Progress Note ---
Assessment and Plan Assessment and Plan Cultures: 07/12/2018 blood culture: No growth 07/12/2018 MRSA: negative 07/17/2018 Sputum: rare Gram positive rods A/P: 73/M with MDS, admitted with: 1) Febrile neutropenia: Remains afebrile inpatient. Apparently was febrile at home. He has chronic neutropenia that is unchanged. ANC here is low but slowly improving. Etiology likely R sided pneumonia. Abdominal imaging thus far has been unremarkable. Follow-up HIDA scan. Continue to treat with empiric IV cefepime. Has indwelling PORT, follow up blood cultures. 2) Right sided pneumonia: large upper lobe pneumonia in immunocompromised patient. CT chest: Large area of consolidation in the right upper lobe consistent with pneumonia Cholelithiasis Bilateral pleural effusions right more than left Centrilobular emphysema 1,3 [id number] - negative Aspergillus Antigen- Negative 3) Acute diarrhea: Improved. Multiple recent hospitalizations. Abdomen is non tender on exam, low suspicion for typhlitis. No stool sample sent. 4) Pancytopenia: remains severely pancytopenic not responding to transfusions. 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 Quiroga following 5) FAWAD: Nephrology consulted. Renally dose antibiotics. Recs: Continue Cefepime, 1 gm IV every 8 hours, D6 of D7 Follow-up HIDA scan F/U blood cultures F/U sputum cultures Patient to follow outpatient oncologist [facility] M: [phone] O:[phone] Subjective Date of service: 07/18/18 Principal diagnosis: MDS Interval history: Patient seen and examined. Complains of generalized weakness, no pain or SOB. no fevers. Objective - Exam Narrative Exam: Constitutional: Alert, generalized weakness. Head, Ears, Nose: Normocephalic, atraumatic. External ears, nose normal Eyes: Conjunctivae/corneas clear. No icterus. No ptosis. Neck: Supple, no meningeal signs Oral: dentition poor, no thrush Cardiovascular: S1, S2 normal. Respiratory: scattered rhonci GI: Soft, non-tender; bowel sounds normal. No peritoneal signs Musculoskeletal: No pedal edema, no cyanosis. Right upper chest PORT + Skin: No rash or abscess Hem/Lymphatic: No palpable cervical or supraclavicular nodes. No lymphangitis Psych: Mood ok. Affect normal Neurological: Awake, alert, oriented. No gross abnormality - Constitutional Vitals: Vital Signs Temp Pulse Resp BP Pulse Ox 98.8 F 70 18 132/61 97 07/18/18 07:36 07/18/18 08:41 07/18/18 07:36 07/18/18 07:36 07/18/18 07:36 Temperature -Last 24 Hours Temperature 98.8 F Temperature 98.0 F Temperature 98.2 F Temperature 98.2 F Temperature 98.2 F Temperature 98.5 F Temperature 98.4 F Temperature 99.0 F Temperature 98.3 F Temperature 99.2 F Temperature 99.4 F Temperature 99.5 F Temperature 99.4 F Temperature 99.3 F Temperature 99.4 F Temperature 99.3 F Temperature 99.2 F Temperature 99.0 F Temperature 99.0 F Temperature 97.3 F Temperature 98.6 F Temperature 98 F Temperature 97.7 F Temperature 99.1 F Temperature 98.5 F Temperature 98.5 F Temperature 98.5 F Temperature 98.5 F Temperature 98.2 F Temperature 97.3 F Temperature 97.9 F - Labs CBC & Chem 7: 07/18/18 09:39 07/18/18 09:34 Labs: Abnormal lab results 07/14/18 07/17/18 07/17/18 Range/Units 07:29 07:34 10:45 Lymphocytes % (Manual) 43.0 H (13.4-35.0) % Seg Neutrophils # Man 0.3 L (1.8-7.7) K/mm3 Lymphocytes # (Manual) 0.3 L (1.2-5.4) K/mm3 Crossmatch See Detail See Detail
--- NOTE | 2018-07-18 09:15 | Progress Note ---
Assessment and Plan 1. Acute kidney injury: Vasomotor / hemodynamic FAWAD in the setting of volume depletion and hypotension. Renal function is better. Continue IV fluids. Monitor renal function. Avoid nephrotoxic agents. Meds dosage based on GFR. 2. FEN: Hypokalemia, K level is better. Metabolic acidosis, monitor. 3. Pancytopenia: PRBC and Platelet transfusion. 4. Pneumonia: Followed by ID. Joel Brennan Subjective Date of service: 07/18/18 Principal diagnosis: MDS Interval history: Patient was seen and examined at the bedside. Doing ok. Objective - Vital Signs Vital signs: Vital Signs - 12hr 07/17/18 07/17/18 07/17/18 21:56 22:00 22:43 Temperature 99.0 F Pulse Rate 77 74 Pulse Rate [ 76 From Monitor] Respiratory 18 18 Rate Blood Pressure 128/58 124/57 O2 Sat by Pulse 96 95 Oximetry 07/17/18 07/17/18 07/17/18 22:55 23:00 23:12 Temperature 99.0 F 99.2 F Pulse Rate 73 76 Pulse Rate [ From Monitor] Respiratory 18 18 18 Rate Blood Pressure 126/57 121/56 O2 Sat by Pulse Oximetry 07/17/18 07/17/18 07/18/18 23:15 23:45 00:15 Temperature 99.3 F 99.4 F 99.3 F Pulse Rate 75 68 Pulse Rate [ From Monitor] Respiratory 18 20 18 Rate Blood Pressure 120/55 110/52 109/49 O2 Sat by Pulse Oximetry 07/18/18 07/18/18 07/18/18 00:49 00:50 01:05 Temperature 99.5 F 99.4 F Pulse Rate 67 65 64 Pulse Rate [ From Monitor] Respiratory 20 18 Rate Blood Pressure 115/54 114/50 O2 Sat by Pulse 95 Oximetry 07/18/18 07/18/18 07/18/18 01:26 01:33 01:35 Temperature 99.2 F 98.3 F 99.0 F Pulse Rate 66 65 62 Pulse Rate [ From Monitor] Respiratory 20 18 18 Rate Blood Pressure 111/54 116/53 119/54 O2 Sat by Pulse 94 Oximetry 07/18/18 07/18/18 07/18/18 02:05 02:35 03:04 Temperature 98.4 F 98.5 F 98.2 F Pulse Rate 64 64 66 Pulse Rate [ From Monitor] Respiratory 18 20 18 Rate Blood Pressure 116/52 118/57 123/54 O2 Sat by Pulse 97 Oximetry 07/18/18 07/18/18 07/18/18 03:05 03:35 03:37 Temperature 98.2 F 98.2 F 98.0 F Pulse Rate 65 65 63 Pulse Rate [ From Monitor] Respiratory 20 18 18 Rate Blood Pressure 122/55 121/59 122/58 O2 Sat by Pulse 98 98 Oximetry 07/18/18 07/18/18 07:36 08:41 Temperature 98.8 F Pulse Rate 68 70 Pulse Rate [ From Monitor] Respiratory 18 Rate Blood Pressure 132/61 O2 Sat by Pulse 97 Oximetry - General Appearance General appearance: well-developed, appears stated age, other (not in distress) EENT: ATNC, PERRL, hearing intact, vision intact Neck: supple Respiratory: Present: Clear to Ascultation Cardiology: S1S2, no murmurs Gastrointestinal: normoactive bowel sounds, no tenderness, no distended Neurologic: no focal deficit, no asterixis Musculoskeletal: other (no edema) Psychiatric: cooperative - Lab 07/18/18 09:39 07/18/18 09:34 Most recent lab results Calcium 8.0 mg/dL (8.4-10.2) L 07/17/18 07:33 Phosphorus 2.80 mg/dL (2.5-4.5) 07/17/18 07:33 Magnesium 1.80 mg/dL (1.7-2.3) 07/17/18 07:33 Urine Creatinine 87.6 mg/dL (0.1-20.0) H 07/14/18 06:06 Urine Sodium 10 mmol/L 07/14/18 06:06 Medications & Allergies - Medications Allergies/Adverse Reactions: Allergies tetanus and diphtheria toxoids [tetanus & diphtheria toxoids] Allergy (Verified 07/12/18 13:31) Anaphylaxis Home Medications: Home Medications Medication Instructions Recorded Confirmed Last Taken Type Potassium Chloride 20 meq PO QDAY #10 packet 06/03/18 07/12/18 Unknown Rx Ascorbic Acid [Vitamin C] 500 mg PO DAILY 07/12/18 07/12/18 Unknown History Magnesium Oxide 400 mg PO DAILY 07/12/18 07/12/18 Unknown History Active Medications: Generic Name Dose Route Start Last Admin Trade Name Freq PRN Reason Stop Dose Admin Acetaminophen 650 mg 07/12/18 17:08 07/17/18 23:12 Tylenol PO 650 mg Q4H PRN Administration Pain MILD(1-3)/Fever >100.5/LLANES Albuterol 2.5 mg 07/12/18 17:08 Proventil IH Q4HRT PRN Shortness Of Breath Amiodarone HCl 200 mg 07/14/18 15:00 07/17/18 21:49 Cordarone PO 200 mg BID NANETTE Administration Ascorbic Acid 500 mg 07/13/18 10:00 07/17/18 09:23 Vitamin C PO 500 mg QDAY NANETTE Administration Sodium Chloride 1,000 mls @ 125 mls/hr 07/12/18 18:00 07/13/18 02:57 Nacl 0.45% 1000 Ml IV 42 mls/hr DIRECT NANETTE Administration Cefepime HCl 1 gm in 100 mls @ 200 mls/hr 07/13/18 16:00 07/18/18 05:06 Maxipime/Ns 1 Gm/100 Ml IV 200 mls/hr Q8HR NANETTE Administration Protocol Magnesium Oxide 400 mg 07/13/18 10:00 07/17/18 09:23 Mag-Ox PO 400 mg QDAY NANETTE Administration Metoprolol Tartrate 5 mg 07/14/18 11:43 Lopressor IV Q4H PRN sustained HR >130 Metoprolol Tartrate 12.5 mg 07/14/18 12:00 07/17/18 21:56 Lopressor PO 12.5 mg BID NANETTE Administration Ondansetron HCl 4 mg 07/12/18 17:08 Zofran IV Q8H PRN Nausea And Vomiting Oxycodone/Acetaminophen 1 tab 07/12/18 17:08 Percocet 5/325 PO Q6H PRN Pain, Moderate (4-6) Potassium Chloride 20 meq 07/13/18 10:00 07/17/18 09:23 K-Dur PO 20 meq QDAY NANETTE Administration Sodium Chloride 10 ml 07/12/18 22:00 07/17/18 21:50 Sodium Chloride Flush Syringe 10 Ml IV 10 ml BID NANETTE Administration Sodium Chloride 10 ml 07/12/18 17:08 Sodium Chloride Flush Syringe 10 Ml IV PRN PRN LINE FLUSH
[2018-07-18] MEDS: VITAMIN C PO SCH (09:50)
[2018-07-18] MEDS: LOPRESSOR PO SCH ×2 (09:50→21:40)
[2018-07-18] MEDS: CORDARONE PO SCH (09:51)
[2018-07-18] MEDS: SODIUM CHLORIDE FLUSH SYRINGE 10 ML IV SCH ×2 (09:51→21:53)
[2018-07-18] MEDS: MAG-OX PO SCH (09:51)
[2018-07-18] MEDS: K-DUR PO SCH (09:51)
[2018-07-18 09:55] LABS: Hematocrit 22.5 % (35.5-45.6); Hemoglobin 7.8 gm/dl (11.8-15.2); Mean Corpuscular HGB Conc 34 % (32-34); Mean Corpuscular Volume 92 fl (84-94); Red Blood Count 2.45 M/mm3 (3.65-5.03); Red Cell Distribution Width 18.1 % (13.2-15.2)
[2018-07-18 10:06] LABS: BUN/Creatinine Ratio 46; Blood Urea Nitrogen 37 mg/dL (9-20); Calcium 8.2 mg/dL (8.4-10.2); Hemolysis Index 23
[2018-07-18 10:16] LABS: Platelet Count 18 K/mm3 (140-440)
[2018-07-18] MEDS ORDERED: NACL 0.9% 500 ML 500 ML IV SCH (10:16)
--- NOTE | 2018-07-18 10:16 | Hem/Onc Progress Note ---
Assessment and Plan 1. Anemia secondary to myelodysplastic syndrome. 2. Leukopenia. Dr. Rojas told me that his white cell count had been low most of the time. 3. Thrombocytopenia secondary to myelodysplastic syndrome. 4. For his myelodysplastic syndrome, the patient has received 2 cycles of Dacogen regimen. He was on Procrit before. He was due to third cycle, but did not go to the [facility] for same. 5. Renal impairment. Nephrology consultation. 6. History of hypertension. 7. History of coronary artery disease. 8. History of renal issues. I will follow the patient during inpatient stay and then in the clinic setting. We will look into Neupogen support for now. Nephrology consult GCSF PRBC as per his investigations chief - pt's counts have been low for some time 07/15 - hb better - post transfusion gcsf - wbc better 07/16 - plt 13 - plan for transfusion support as per RN OP follow up with pts oncologist at [place] - as per the pt's onc - pt's count have been low most of the time 07/17 - plt 15k not sure if the plt will rise a lot if no bleeding - and he can get an apt with his onc for next day labs - OP follow up an option 07/18 - dw hospitalist - I am not sure if the plt count will rise a lot - he would need OP follow up by his hem onc pneumonia Rx as per ID - Patient Problems (1) Anemia Current Visit: Yes Status: Acute Qualifiers: Anemia type: unspecified type Qualified Code(s): D64.9 - Anemia, unspecified Subjective Date of service: 07/18/18 Principal diagnosis: MDS Interval history: no active bleeding Objective - Constitutional Vitals: Last Vital Signs Temp 98.8 F 07/18/18 07:36 Pulse 70 07/18/18 08:41 Resp 18 07/18/18 07:36 BP 132/61 07/18/18 07:36 Pulse Ox 97 07/18/18 07:36 Pain Intensity (0-10): denies any pain General appearance: no acute distress Performance status: 3-limited selfcare - EENT Eyes: EOM intact ENT: clear oral mucosa Lymph node exam: negative cervical - Neck Neck: normal ROM - Respiratory Respiratory effort: Positive: normal Respiratory: bilateral: CTA - Cardiovascular Heart Sounds: Present: S1 & S2 Extremities: No edema - Gastrointestinal General gastrointestinal: Present: soft, non-tender Rectal Exam: deferred - Genitourinary Male genitourinary: Present: deferred - Integumentary Integumentary: warm - Musculoskeletal Musculoskeletal: generalized weakness - Neurologic Neurologic: moves all extremities - Labs Lab Results: Laboratory Results - last 24 hr 07/14/18 07/14/18 07/14/18 06:48 06:48 07:29 Sodium Potassium Chloride Carbon Dioxide Anion Gap BUN Creatinine Estimated GFR BUN/Creatinine Ratio Glucose Calcium Miscellaneous Test Flexitest 1 Flexitest 1 Blood Type A POSITIVE Antibody Screen Negative Crossmatch See Detail 07/17/18 07/18/18 10:45 09:34 Sodium 139 Potassium 4.0 Chloride 107.3 H Carbon Dioxide 20 L Anion Gap 16 BUN 37 H Creatinine 0.8 Estimated GFR > 60 BUN/Creatinine Ratio 46 Glucose 137 H Calcium 8.2 L Miscellaneous Test Blood Type A POSITIVE Antibody Screen Negative Crossmatch See Detail Medications & Allergies - Medications Allergies/Adverse Reactions: Allergies tetanus and diphtheria toxoids [tetanus & diphtheria toxoids] Allergy (Verified 07/12/18 13:31) Anaphylaxis Home Medications: Home Medications Medication Instructions Recorded Confirmed Last Taken Type Potassium Chloride 20 meq PO QDAY #10 packet 06/03/18 07/12/18 Unknown Rx Ascorbic Acid [Vitamin C] 500 mg PO DAILY 07/12/18 07/12/18 Unknown History Magnesium Oxide 400 mg PO DAILY 07/12/18 07/12/18 Unknown History Active Medications: Generic Name Dose Route Start Last Admin Trade Name Freq PRN Reason Stop Dose Admin Acetaminophen 650 mg 07/12/18 17:08 07/17/18 23:12 Tylenol PO 650 mg Q4H PRN Administration Pain MILD(1-3)/Fever >100.5/LLANES Albuterol 2.5 mg 07/12/18 17:08 Proventil IH Q4HRT PRN Shortness Of Breath Amiodarone HCl 200 mg 07/14/18 15:00 07/18/18 09:51 Cordarone PO 200 mg BID NANETTE Administration Ascorbic Acid 500 mg 07/13/18 10:00 07/18/18 09:50 Vitamin C PO 500 mg QDAY NANETTE Administration Sodium Chloride 1,000 mls @ 125 mls/hr 07/12/18 18:00 07/13/18 02:57 Nacl 0.45% 1000 Ml IV 42 mls/hr DIRECT NANETTE Administration Cefepime HCl 1 gm in 100 mls @ 200 mls/hr 07/13/18 16:00 07/18/18 05:06 Maxipime/Ns 1 Gm/100 Ml IV 200 mls/hr Q8HR NANETTE Administration Protocol Magnesium Oxide 400 mg 07/13/18 10:00 07/18/18 09:51 Mag-Ox PO 400 mg QDAY NANETTE Administration Metoprolol Tartrate 5 mg 07/14/18 11:43 Lopressor IV Q4H PRN sustained HR >130 Metoprolol Tartrate 12.5 mg 07/14/18 12:00 07/18/18 09:50 Lopressor PO 12.5 mg BID NANETTE Administration Ondansetron HCl 4 mg 07/12/18 17:08 Zofran IV Q8H PRN Nausea And Vomiting Oxycodone/Acetaminophen 1 tab 07/12/18 17:08 Percocet 5/325 PO Q6H PRN Pain, Moderate (4-6) Potassium Chloride 20 meq 07/13/18 10:00 07/18/18 09:51 K-Dur PO 20 meq QDAY NANETTE Administration Sodium Chloride 10 ml 07/12/18 22:00 07/18/18 09:51 Sodium Chloride Flush Syringe 10 Ml IV 10 ml BID NANETTE Administration Sodium Chloride 10 ml 07/12/18 17:08 Sodium Chloride Flush Syringe 10 Ml IV PRN PRN LINE FLUSH
--- NOTE | 2018-07-18 11:04 | Progress Note ---
Assessment and Plan Currently stable cardiac status. Cont current cardiac regimen. Pt is not currently a candidate for systemic AC in regards to AFib/AFlutter due to severe anemia and thrombocytopenia. Will follow on as needed basis. The patient has been seen in conjunction with Dr. Stephanie Liz who agrees with the assessment and plan of care. - Patient Problems (1) Paroxysmal atrial flutter Current Visit: Yes Status: Chronic (2) Symptomatic anemia Current Visit: Yes Status: Acute (3) Pancytopenia Current Visit: Yes Status: Acute (4) Pneumonia Current Visit: Yes Status: Suspected (5) Fever Current Visit: Yes Status: Acute Qualifiers: Fever type: unspecified Qualified Code(s): R50.9 - Fever, unspecified (6) Abdominal pain Current Visit: Yes Status: Acute Qualifiers: Abdominal location: generalized Qualified Code(s): R10.84 - Generalized abdominal pain (7) COPD (chronic obstructive pulmonary disease) Current Visit: Yes Status: Acute (8) History of GI bleed Current Visit: Yes Status: Chronic (9) FAWAD (acute kidney injury) Current Visit: Yes Status: Acute (10) HTN (hypertension) Current Visit: Yes Status: Chronic Qualifiers: Hypertension type: essential hypertension Qualified Code(s): I10 - Essential (primary) hypertension (11) History of myocardial infarction Current Visit: Yes Status: Suspected (12) Myelodysplasia (myelodysplastic syndrome) Current Visit: Yes Status: Chronic Subjective Date of service: 07/18/18 Principal diagnosis: MDS Interval history: pt resting in bed, no current cardiac complaints. Objective Last Vital Signs Temp 98.8 F 07/18/18 07:36 Pulse 70 07/18/18 08:41 Resp 18 07/18/18 07:36 BP 132/61 07/18/18 07:36 Pulse Ox 97 07/18/18 07:36 - Physical Examination General: No Apparent Distress HEENT: Positive: PERRL, Normocephaly, Mucus Membranes Moist Neck: Positive: neck supple, trachea midline Cardiac: Positive: Reg Rate and Rhythm, S1/S2 Lungs: Positive: Decreased Breath Sounds Neuro: Positive: Grossly Intact Abdomen: Negative: Tender Skin: Negative: Wound Musculoskeletal: No Pain Extremities: Absent: edema - Labs and Meds CBC 07/18/18 Range/Units 09:39 WBC 1.3 L* (4.5-11.0) K/mm3 RBC 2.45 L (3.65-5.03) M/mm3 Hgb 7.8 L (11.8-15.2) gm/dl Hct 22.5 L (35.5-45.6) % Plt Count 18 L* (140-440) K/mm3 Comprehensive Metabolic Panel 07/18/18 Range/Units 09:34 Sodium 139 (137-145) mmol/L Potassium 4.0 (3.6-5.0) mmol/L Chloride 107.3 H (98-107) mmol/L Carbon Dioxide 20 L (22-30) mmol/L BUN 37 H (9-20) mg/dL Creatinine 0.8 (0.8-1.5) mg/dL Glucose 137 H (75-100) mg/dL Calcium 8.2 L (8.4-10.2) mg/dL - Imaging and Cardiology EKG: report reviewed, image reviewed Echo: report reviewed (normal lv function, no signficant regurtitations )
[2018-07-18 11:05] LABS: Band Neutrophils # (Manual) 0.1 K/mm3; Basophils % (Manual) 0 % (0.0-1.8); Total Cells Counted 100
[2018-07-18 11:06] LABS: Dohle Bodies Few
[2018-07-18 11:07] LABS: Hypochromasia Few; Macrocytosis 1+; Ovalocytes Few
[2018-07-18 11:08] LABS: Anisocytosis 1+; Burr Cells Few; Platelet Estimate Appears Decreased
[2018-07-18] MEDS ORDERED: NACL 0.9% 500 ML 500 ML IV ONE (15:51)
--- NOTE | 2018-07-18 16:04 | Progress Note ---
Assessment and Plan Assessment and plan: 73-year-old woman who presented to the hospital with fever and weakness plus abdominal pain 4 days. She also complained of diarrhea, Previously been in hospital for platelet and PRBC infusion. Past medical history chronic GI bleed, chronic anemia, transfusion dependence, CAD, myelodysplastic syndrome Ultrasound abdomen and pelvis shows moderate sludge in the gallbladder, medical renal disease and simple left renal cyst. There is also a small right pleural effusion. CT abdomen and pelvis shows small to moderate size right pleural effusion, increased density in the lung bases suggestive of atelectasis. Cholelithiasis, but no obvious cholecystitis. Chest x-ray positive for right upper lobe pneumonia Diagnoses Neutropenic fever sepsis Acute bacterial pneumonia last sepsis Anemia of chronic disease due to mild dysplastic syndrome, Thrombocytopenia Acute kidney injury likely due to vasomotor nephropathy Hypokalemia Abdominal pain Transaminitis Diarrhea Aflutter ER course The family requested to be transferred to [facility] in the ER, ER physician called. He spoke to the hospitalist, and the patient was not accepted there. Therefore the patient was admitted to our hospital. The patient received IV antibiotics, IV fluids, and hospitalist was called for admission Plan cont neupogen Continue potassium supplements continue to tranfuse rbc and plts Continue antibiotics GI consult appreciated, no further workup is needed. "etiology-likely 2/2 cholestasis due to ineffective hemopoiesis from MDS " Patient has been seen by hematology/oncology and nephrology ID input appreciated, continue empiric antibiotics for pneumonia DVT prophylaxis will be mechanical given thrombocytopenia Aflutter; Metoprol ordered, echo shows preserved EF, cardiology input appreciated History Interval history: Review of systems Constitutional: No fevers, no malaise, no joint pains CVS: No chest pain, no orthopnea, no dyspnea on exertion, no pedal edema GI: Abdominal pain has now resolved, no diarrhea, no vomiting, no constipation Respiratory:c/o sob, no wheezing, having dry cough Hospitalist Physical - Physical exam Narrative exam: General.: Appears chronically ill, multiple cystic lesions on his skin HEENT: Moist mucous membranes, extraocular muscles intact, no lymphadenopathy Neck: supple Cardiac: S1-S2 heard Lungs: crackles on R lung, decreased air entry Abdomen: soft , nontender, nondistended, bowel sounds positive Extremities: no edema clubbing or cyanosis Skin: no rash Neurologic: no gross focal deficits Psych: calm, and cooperative - Constitutional Vitals: Temp Pulse Resp BP Pulse Ox 98.7 F 68 18 130/59 96 07/18/18 14:47 07/18/18 14:47 07/18/18 14:47 07/18/18 14:47 07/18/18 14:47 General appearance: Present: mild distress, cachectic Results - Labs CBC & Chem 7: 07/19/18 06:50 07/19/18 06:50 Labs: Laboratory Last Values WBC 1.3 K/mm3 (4.5-11.0) L* 07/18/18 09:39 RBC 2.45 M/mm3 (3.65-5.03) L 07/18/18 09:39 Hgb 7.8 gm/dl (11.8-15.2) L 07/18/18 09:39 Hct 22.5 % (35.5-45.6) L 07/18/18 09:39 MCV 92 fl (84-94) 07/18/18 09:39 MCH 32 pg (28-32) 07/18/18 09:39 MCHC 34 % (32-34) 07/18/18 09:39 RDW 18.1 % (13.2-15.2) H 07/18/18 09:39 Plt Count 18 K/mm3 (140-440) L* 07/18/18 09:39 Lymph % (Auto) Telemedicine Physician 07/15/18 07:50 Add Manual Diff Complete 07/18/18 09:39 Total Counted 100 07/18/18 09:39 Seg Neutrophils % Telemedicine Physician 07/16/18 11:47 Seg Neuts % (Manual) 60.0 % (40.0-70.0) 07/18/18 09:39 Band Neutrophils % 4.0 % 07/18/18 09:39 Lymphocytes % (Manual) 26.0 % (13.4-35.0) 07/18/18 09:39 Reactive Lymphs % (Man) 1.0 % 07/18/18 09:39 Monocytes % (Manual) 5.0 % (0.0-7.3) 07/18/18 09:39 Eosinophils % (Manual) 4.0 % (0.0-4.3) 07/18/18 09:39 Basophils % (Manual) 0 % (0.0-1.8) 07/18/18 09:39 Metamyelocytes % 0 % 07/18/18 09:39 Myelocytes % 0 % 07/18/18 09:39 Promyelocytes % 0 % 07/18/18 09:39 Blast Cells % 0 % 07/18/18 09:39 Nucleated RBC % Not Reportable 07/18/18 09:39 Seg Neutrophils # Man 0.8 K/mm3 (1.8-7.7) L 07/18/18 09:39 Band Neutrophils # 0.1 K/mm3 07/18/18 09:39 Lymphocytes # (Manual) 0.3 K/mm3 (1.2-5.4) L 07/18/18 09:39 Abs React Lymphs (Man) 0.0 K/mm3 07/18/18 09:39 Monocytes # (Manual) 0.1 K/mm3 (0.0-0.8) 07/18/18 09:39 Eosinophils # (Manual) 0.1 K/mm3 (0.0-0.4) 07/18/18 09:39 Basophils # (Manual) 0.0 K/mm3 (0.0-0.1) 07/18/18 09:39 Metamyelocytes # 0.0 K/mm3 07/18/18 09:39 Myelocytes # 0.0 K/mm3 07/18/18 09:39 Promyelocytes # 0.0 K/mm3 07/18/18 09:39 Blast Cells # 0.0 K/mm3 07/18/18 09:39 WBC Morphology Not Reportable 07/18/18 09:39 Hypersegmented Neuts Not Reportable 07/18/18 09:39 Hyposegmented Neuts Not Reportable 07/18/18 09:39 Hypogranular Neuts Not Reportable 07/18/18 09:39 Smudge Cells Not Reportable 07/18/18 09:39 Toxic Granulation Not Reportable 07/18/18 09:39 Toxic Vacuolation Not Reportable 07/18/18 09:39 Dohle Bodies Few 07/18/18 09:39 Pelger-Huet Anomaly Not Reportable 07/18/18 09:39 Andra Rods Not Reportable 07/18/18 09:39 Platelet Estimate Appears decreased 07/18/18 09:39 Clumped Platelets Not Reportable 07/18/18 09:39 Plt Clumps, EDTA Not Reportable 07/18/18 09:39 Large Platelets Not Reportable 07/18/18 09:39 Giant Platelets Not Reportable 07/18/18 09:39 Platelet Satelliting Not Reportable 07/18/18 09:39 Plt Morphology Comment Not Reportable 07/18/18 09:39 RBC Morphology Not Reportable 07/18/18 09:39 Dimorphic RBCs Not Reportable 07/18/18 09:39 Polychromasia Few 07/18/18 09:39 Hypochromasia Few 07/18/18 09:39 Poikilocytosis Not Reportable 07/18/18 09:39 Anisocytosis 1+ 07/18/18 09:39 Microcytosis Not Reportable 07/18/18 09:39 Macrocytosis 1+ 07/18/18 09:39 Spherocytes Not Reportable 07/18/18 09:39 Pappenheimer Bodies Not Reportable 07/18/18 09:39 Sickle Cells Not Reportable 07/18/18 09:39 Target Cells Not Reportable 07/18/18 09:39 Tear Drop Cells Not Reportable 07/18/18 09:39 Ovalocytes Few 07/18/18 09:39 Helmet Cells Not Reportable 07/18/18 09:39 [place] Bodies Not Reportable 07/18/18 09:39 [place] Rings Not Reportable 07/18/18 09:39 [place] Cells Few 07/18/18 09:39 Bite Cells Not Reportable 07/18/18 09:39 Crenated Cell Not Reportable 07/18/18 09:39 Elliptocytes Not Reportable 07/18/18 09:39 Acanthocytes (Spur) Not Reportable 07/18/18 09:39 Rouleaux Not Reportable 07/18/18 09:39 Hemoglobin C Crystals Not Reportable 07/18/18 09:39 Schistocytes Not Reportable 07/18/18 09:39 Malaria parasites Not Reportable 07/18/18 09:39 Donta Bodies Not Reportable 07/18/18 09:39 Hem Pathologist Commnt No 07/18/18 09:39 Sodium 139 mmol/L (137-145) 07/18/18 09:34 Potassium 4.0 mmol/L (3.6-5.0) 07/18/18 09:34 Chloride 107.3 mmol/L (98-107) H 07/18/18 09:34 Carbon Dioxide 20 mmol/L (22-30) L 07/18/18 09:34 Anion Gap 16 mmol/L 07/18/18 09:34 BUN 37 mg/dL (9-20) H 07/18/18 09:34 Creatinine 0.8 mg/dL (0.8-1.5) 07/18/18 09:34 Estimated GFR > 60 ml/min 07/18/18 09:34 BUN/Creatinine Ratio 46 % 07/18/18 09:34 Glucose 137 mg/dL (75-100) H 07/18/18 09:34 Calcium 8.2 mg/dL (8.4-10.2) L 07/18/18 09:34 Phosphorus 2.80 mg/dL (2.5-4.5) 07/17/18 07:33 Magnesium 1.80 mg/dL (1.7-2.3) 07/17/18 07:33 Total Bilirubin 2.00 mg/dL (0.1-1.2) H 07/12/18 14:02 AST 26 units/L (5-40) 07/12/18 14:02 ALT 24 units/L (7-56) 07/12/18 14:02 Alkaline Phosphatase 33 units/L (35-129) L 07/12/18 14:02 Troponin T < 0.010 ng/mL (0.00-0.029) 07/12/18 14:02 Total Protein 6.9 g/dL (6.3-8.2) 07/12/18 14:02 Albumin 3.3 g/dL (3.9-5) L 07/12/18 14:02 Albumin/Globulin Ratio 0.9 % 07/12/18 14:02 TSH 2.990 mlU/mL (0.270-4.200) 07/14/18 16:35 Free T4 0.64 ng/dL (0.76-1.46) L 07/14/18 16:25 Thyroxine (T4) 3.4 ug/dL (4.0-12.0) L 07/15/18 07:50 Urine Color Felicia (Yellow) 07/12/18 23:15 Urine Turbidity Cloudy (Clear) 07/12/18 23:15 Urine pH 5.0 (5.0-7.0) 07/12/18 23:15 Ur Specific [place] 1.021 (1.003-1.030) 07/12/18 23:15 Urine Protein 100 mg/dl mg/dL (Negative) 07/12/18 23:15 Urine Glucose (UA) Neg mg/dL (Negative) 07/12/18 23:15 Urine Ketones Tr mg/dL (Negative) 07/12/18 23:15 Urine Blood Neg (Negative) 07/12/18 23:15 Urine Nitrite Neg (Negative) 07/12/18 23:15 Urine Bilirubin Neg (Negative) 07/12/18 23:15 Urine Urobilinogen < 2.0 mg/dL (<2.0) 07/12/18 23:15 Ur Leukocyte Esterase Neg (Negative) 07/12/18 23:15 Urine WBC (Auto) 6.0 /HPF (0.0-6.0) 07/12/18 23:15 Urine RBC (Auto) 1.0 /HPF (0.0-6.0) 07/12/18 23:15 U Epithel Cells (Auto) 1.0 /HPF (0-13.0) 07/12/18 23:15 Amorphous Crystals 1+ 07/12/18 23:15 Hyaline Casts 39 /LPF 07/12/18 23:15 Granular Casts 28 /LPF 07/12/18 23:15 Urine Mucus Few /HPF 07/12/18 23:15 Urine Creatinine 87.6 mg/dL (0.1-20.0) H 07/14/18 06:06 Urine Sodium 10 mmol/L 07/14/18 06:06 Miscellaneous Test Flexitest 1 07/14/18 06:48 Blood Type A POSITIVE 07/17/18 10:45 Antibody Screen Negative 07/17/18 10:45 Crossmatch See Detail 07/17/18 10:45 Active Medications - Current Medications Current Medications: Generic Name Dose Route Start Last Admin Trade Name Freq PRN Reason Stop Dose Admin Acetaminophen 650 mg 07/12/18 17:08 07/17/18 23:12 Tylenol PO 650 mg Q4H PRN Administration Pain MILD(1-3)/Fever >100.5/LLANES Albuterol 2.5 mg 07/12/18 17:08 Proventil IH Q4HRT PRN Shortness Of Breath Amiodarone HCl 200 mg 07/19/18 10:00 Cordarone PO DAILY NANETTE Ascorbic Acid 500 mg 07/13/18 10:00 07/18/18 09:50 Vitamin C PO 500 mg QDAY NANETTE Administration Sodium Chloride 1,000 mls @ 125 mls/hr 07/12/18 18:00 07/13/18 02:57 Nacl 0.45% 1000 Ml IV 42 mls/hr DIRECT NANETTE Administration Cefepime HCl 1 gm in 100 mls @ 200 mls/hr 07/13/18 16:00 07/18/18 14:05 Maxipime/Ns 1 Gm/100 Ml IV 200 mls/hr Q8HR NANETTE Administration Protocol Sodium Chloride 500 mls @ 0 mls/hr 07/18/18 10:16 Nacl 0.9% 500 Ml IV 07/18/18 23:00 ONCE NANETTE As Directed Magnesium Oxide 400 mg 07/13/18 10:00 07/18/18 09:51 Mag-Ox PO 400 mg QDAY NANETTE Administration Metoprolol Tartrate 5 mg 07/14/18 11:43 Lopressor IV Q4H PRN sustained HR >130 Metoprolol Tartrate 12.5 mg 07/14/18 12:00 07/18/18 09:50 Lopressor PO 12.5 mg BID NANETTE Administration Ondansetron HCl 4 mg 07/12/18 17:08 Zofran IV Q8H PRN Nausea And Vomiting Oxycodone/Acetaminophen 1 tab 07/12/18 17:08 Percocet 5/325 PO Q6H PRN Pain, Moderate (4-6) Potassium Chloride 20 meq 07/13/18 10:00 07/18/18 09:51 K-Dur PO 20 meq QDAY NANETTE Administration Sodium Chloride 10 ml 07/12/18 22:00 07/18/18 09:51 Sodium Chloride Flush Syringe 10 Ml IV 10 ml BID NANETTE Administration Sodium Chloride 10 ml 07/12/18 17:08 Sodium Chloride Flush Syringe 10 Ml IV PRN PRN LINE FLUSH Nutrition/Malnutrition Assess - Dietary Evaluation Nutrition/Malnutrition Findings: Nutrition Notes Start: 07/13/18 15:36 Freq: Status: Active Protocol: Document 07/17/18 15:01 RM (Rec: 07/17/18 15:05 RM [id number]) Nutrition Notes Initial or Follow up Reassessment Current Diagnosis Acute Kidney Injury, Hypertension Other Pertinent Diagnosis Acute CO, arthritis, cancer, acidosis, MDS, hyponatremia Current Diet Regular w/Ensure Clear BID Labs/Tests Reviewed Pertinent Medications Reviewed Height 5 ft 10 in Weight 79.5 kg [place] Body Weight (kg) 75.45 BMI 25.1 Subjective/Other Information Pt stated that he eats bites of his meals and drinks only the apple flavor Ensure Clear. Noted preferences. Burn Absent Trauma Absent #1 Nutrition Diagnosis Inadequate oral intake Diagnosis Progress(for reassessment Continues documentation) Is patient on ventilator? No Is Patient Ambulatory and/or Out of Bed Yes REE-([facility]-ambulatory/OOB) [ 1997.125 [id number]] Calculation Used for Recommendations [facility] Additional Notes Protein needs: (1-1.5 g/kg) 80 -120g/day Fluid needs: 1mL/kcal Nutrition Intervention Change Diet Order: Continue Regular Diet Add Supplement/Snack (indicate name/kcal Ensure Clear Apple BID /protein ) Provides kCal: 480 Provides Protein (gm) 16 Goal #1 Meet at least 75% of nutrient needs via ONS and PO intake Anticipated Discharge Needs: Unable to determine at this time Follow-Up By: 07/19/18 Additional Comments Follow for PO and ONS intakes
[2018-07-18] MEDS: NACL 0.45% 1000 ML 1,000 ML IV SCH (21:44)
[2018-07-19 07:03] LABS: Hematocrit 25.8 % (35.5-45.6); Hemoglobin 8.8 gm/dl (11.8-15.2); Mean Corpuscular HGB Conc 34 % (32-34); Mean Corpuscular Volume 90 fl (84-94); Red Blood Count 2.88 M/mm3 (3.65-5.03); Red Cell Distribution Width 17.1 % (13.2-15.2)
[2018-07-19 07:06] LABS: Platelet Count 16 K/mm3 (140-440)
[2018-07-19 07:17] LABS: BUN/Creatinine Ratio 37; Blood Urea Nitrogen 26 mg/dL (9-20); Hemolysis Index 6
--- NOTE | 2018-07-19 07:40 | Hem/Onc Progress Note ---
Assessment and Plan 1. Anemia secondary to myelodysplastic syndrome. 2. Leukopenia. Dr. Rojas told me that his white cell count had been low most of the time. 3. Thrombocytopenia secondary to myelodysplastic syndrome. 4. For his myelodysplastic syndrome, the patient has received 2 cycles of Dacogen regimen. He was on Procrit before. He was due to third cycle, but did not go to the [facility] for same. 5. Renal impairment. Nephrology consultation. 6. History of hypertension. 7. History of coronary artery disease. 8. History of renal issues. I will follow the patient during inpatient stay and then in the clinic setting. We will look into Neupogen support for now. Nephrology consult GCSF PRBC as per his admissions recruiter - pt's counts have been low for some time 07/15 - hb better - post transfusion gcsf - wbc better 07/16 - plt 13 - plan for transfusion support as per RN OP follow up with pts oncologist at [place] - as per the pt's onc - pt's count have been low most of the time 07/17 - plt 15k not sure if the plt will rise a lot if no bleeding - and he can get an apt with his onc for next day labs - OP follow up an option 07/18 - dw hospitalist - I am not sure if the plt count will rise a lot - he would need OP follow up by his hem onc pneumonia Rx as per ID 07/19 - wbc better no bleeding OP f/u with his admissions recruiter an option - Patient Problems (1) Anemia Current Visit: Yes Status: Acute Qualifiers: Anemia type: unspecified type Qualified Code(s): D64.9 - Anemia, unspecified Subjective Date of service: 07/19/18 Principal diagnosis: MDS Interval history: pts wbc better pt says he is doing ojk no bleeding Objective - Constitutional Vitals: Last Vital Signs Temp 98.2 F 07/19/18 03:30 Pulse 66 07/19/18 03:30 Resp 20 07/19/18 03:30 BP 140/69 07/19/18 03:30 Pulse Ox 97 07/19/18 03:30 Pain Intensity (0-10): denies any pain General appearance: no acute distress Performance status: 3-limited selfcare - EENT Eyes: EOM intact ENT: clear oral mucosa Lymph node exam: negative cervical - Neck Neck: normal ROM - Respiratory Respiratory effort: Positive: normal Respiratory: bilateral: CTA - Cardiovascular Heart Sounds: Present: S1 & S2 Extremities: No edema - Gastrointestinal General gastrointestinal: Present: soft, non-tender Rectal Exam: deferred - Genitourinary Male genitourinary: Present: deferred - Integumentary Integumentary: warm - Musculoskeletal Musculoskeletal: strength equal bilaterally - Neurologic Neurologic: moves all extremities - Psychiatric Psychiatric: appropriate mood/affect - Labs Lab Results: Laboratory Results - last 24 hr 07/17/18 07/18/18 07/18/18 10:45 09:34 09:39 WBC 1.3 L* RBC 2.45 L Hgb 7.8 L Hct 22.5 L MCV 92 MCH 32 MCHC 34 RDW 18.1 H Plt Count 18 L* Add Manual Diff Complete Total Counted 100 Seg Neuts % (Manual) 60.0 Band Neutrophils % 4.0 Lymphocytes % (Manual) 26.0 Reactive Lymphs % (Man) 1.0 Monocytes % (Manual) 5.0 Eosinophils % (Manual) 4.0 Basophils % (Manual) 0 Metamyelocytes % 0 Myelocytes % 0 Promyelocytes % 0 Blast Cells % 0 Nucleated RBC % Not Reportable Seg Neutrophils # Man 0.8 L Band Neutrophils # 0.1 Lymphocytes # (Manual) 0.3 L Abs React Lymphs (Man) 0.0 Monocytes # (Manual) 0.1 Eosinophils # (Manual) 0.1 Basophils # (Manual) 0.0 Metamyelocytes # 0.0 Myelocytes # 0.0 Promyelocytes # 0.0 Blast Cells # 0.0 WBC Morphology Not Reportable Hypersegmented Neuts Not Reportable Hyposegmented Neuts Not Reportable Hypogranular Neuts Not Reportable Smudge Cells Not Reportable Toxic Granulation Not Reportable Toxic Vacuolation Not Reportable Dohle Bodies Few Pelger-Huet Anomaly Not Reportable Andra Rods Not Reportable Platelet Estimate Appears decreased Clumped Platelets Not Reportable Plt Clumps, EDTA Not Reportable Large Platelets Not Reportable Giant Platelets Not Reportable Platelet Satelliting Not Reportable Plt Morphology Comment Not Reportable RBC Morphology Not Reportable Dimorphic RBCs Not Reportable Polychromasia Few Hypochromasia Few Poikilocytosis Not Reportable Anisocytosis 1+ Microcytosis Not Reportable Macrocytosis 1+ Spherocytes Not Reportable Pappenheimer Bodies Not Reportable Sickle Cells Not Reportable Target Cells Not Reportable Tear Drop Cells Not Reportable Ovalocytes Few Helmet Cells Not Reportable Joseph[place] Bodies Not Reportable [place] Rings Not Reportable Corona Cells Few Bite Cells Not Reportable Crenated Cell Not Reportable Elliptocytes Not Reportable Acanthocytes (Spur) Not Reportable Rouleaux Not Reportable Hemoglobin C Crystals Not Reportable Schistocytes Not Reportable Malaria parasites Not Reportable Donta Bodies Not Reportable Hem Pathologist Commnt No Sodium 139 Potassium 4.0 Chloride 107.3 H Carbon Dioxide 20 L Anion Gap 16 BUN 37 H Creatinine 0.8 Estimated GFR > 60 BUN/Creatinine Ratio 46 Glucose 137 H Calcium 8.2 L Blood Type A POSITIVE Antibody Screen Negative Crossmatch See Detail 07/19/18 07/19/18 06:50 06:50 WBC 1.9 L* RBC 2.88 L Hgb 8.8 L Hct 25.8 L MCV 90 MCH 31 MCHC 34 RDW 17.1 H Plt Count 16 L* Add Manual Diff Total Counted Seg Neuts % (Manual) Band Neutrophils % Lymphocytes % (Manual) Reactive Lymphs % (Man) Monocytes % (Manual) Eosinophils % (Manual) Basophils % (Manual) Metamyelocytes % Myelocytes % Promyelocytes % Blast Cells % Nucleated RBC % Seg Neutrophils # Man Band Neutrophils # Lymphocytes # (Manual) Abs React Lymphs (Man) Monocytes # (Manual) Eosinophils # (Manual) Basophils # (Manual) Metamyelocytes # Myelocytes # Promyelocytes # Blast Cells # WBC Morphology Hypersegmented Neuts Hyposegmented Neuts Hypogranular Neuts Smudge Cells Toxic Granulation Toxic Vacuolation Dohle Bodies Pelger-Huet Anomaly Andra Rods Platelet Estimate Clumped Platelets Plt Clumps, EDTA Large Platelets Giant Platelets Platelet Satelliting Plt Morphology Comment RBC Morphology Dimorphic RBCs Polychromasia Hypochromasia Poikilocytosis Anisocytosis Microcytosis Macrocytosis Spherocytes Pappenheimer Bodies Sickle Cells Target Cells Tear Drop Cells Ovalocytes Helmet Cells Joseph[place] Bodies [place] Rings Spencer Cells Bite Cells Crenated Cell Elliptocytes Acanthocytes (Spur) Rouleaux Hemoglobin C Crystals Schistocytes Malaria parasites Donta Bodies Hem Pathologist Commnt Sodium 137 Potassium 3.9 Chloride 106.8 Carbon Dioxide 23 Anion Gap 11 BUN 26 H Creatinine 0.7 L Estimated GFR > 60 BUN/Creatinine Ratio 37 Glucose 107 H Calcium 8.0 L Blood Type Antibody Screen Crossmatch Medications & Allergies - Medications Allergies/Adverse Reactions: Allergies tetanus and diphtheria toxoids [tetanus & diphtheria toxoids] Allergy (Verified 07/12/18 13:31) Anaphylaxis Home Medications: Home Medications Medication Instructions Recorded Confirmed Last Taken Type Potassium Chloride 20 meq PO QDAY #10 packet 06/03/18 07/12/18 Unknown Rx Ascorbic Acid [Vitamin C] 500 mg PO DAILY 07/12/18 07/12/18 Unknown History Magnesium Oxide 400 mg PO DAILY 07/12/18 07/12/18 Unknown History Active Medications: Generic Name Dose Route Start Last Admin Trade Name Freq PRN Reason Stop Dose Admin Acetaminophen 650 mg 07/12/18 17:08 07/17/18 23:12 Tylenol PO 650 mg Q4H PRN Administration Pain MILD(1-3)/Fever >100.5/LLANES Albuterol 2.5 mg 07/12/18 17:08 Proventil IH Q4HRT PRN Shortness Of Breath Amiodarone HCl 200 mg 07/19/18 10:00 Cordarone PO DAILY NANETTE Ascorbic Acid 500 mg 07/13/18 10:00 07/18/18 09:50 Vitamin C PO 500 mg QDAY NANETTE Administration Sodium Chloride 1,000 mls @ 125 mls/hr 07/12/18 18:00 07/18/18 21:44 Nacl 0.45% 1000 Ml IV 42 mls/hr DIRECT NANETTE Administration Cefepime HCl 1 gm in 100 mls @ 200 mls/hr 07/13/18 16:00 07/18/18 21:41 Maxipime/Ns 1 Gm/100 Ml IV 200 mls/hr Q8HR NANETTE Administration Protocol Magnesium Oxide 400 mg 07/13/18 10:00 07/18/18 09:51 Mag-Ox PO 400 mg QDAY NANETTE Administration Metoprolol Tartrate 5 mg 07/14/18 11:43 Lopressor IV Q4H PRN sustained HR >130 Metoprolol Tartrate 12.5 mg 07/14/18 12:00 07/18/18 21:40 Lopressor PO 12.5 mg BID NANETTE Administration Ondansetron HCl 4 mg 07/12/18 17:08 Zofran IV Q8H PRN Nausea And Vomiting Oxycodone/Acetaminophen 1 tab 07/12/18 17:08 Percocet 5/325 PO Q6H PRN Pain, Moderate (4-6) Potassium Chloride 20 meq 07/13/18 10:00 07/18/18 09:51 K-Dur PO 20 meq QDAY NANETTE Administration Sodium Chloride 10 ml 07/12/18 22:00 07/18/18 21:53 Sodium Chloride Flush Syringe 10 Ml IV 10 ml BID NANETTE Administration Sodium Chloride 10 ml 07/12/18 17:08 Sodium Chloride Flush Syringe 10 Ml IV PRN PRN LINE FLUSH
[2018-07-19] MEDS: MAXIPIME/NS 1 GM/100 ML 1 GM/100 ML BAG IV SCH ×2 (08:04→15:47)
--- NOTE | 2018-07-19 08:46 | Progress Note ---
Assessment and Plan Assessment and Plan Cultures: 07/12/2018 blood culture: No growth 07/12/2018 MRSA: negative 07/17/2018 Sputum: rare Gram positive rods A/P: 73/M with MDS, admitted with: 1) Febrile neutropenia: Remains afebrile inpatient. Apparently was febrile at home. He has chronic neutropenia that is unchanged. ANC here is low but slowly improving. Etiology likely R sided pneumonia. Abdominal imaging thus far has been unremarkable. Last dose of IV cefepime today. Has indwelling PORT, blood cultures show no growth. 2) Right sided pneumonia: large upper lobe pneumonia in immunocompromised patient. CT chest: Large area of consolidation in the right upper lobe consistent with pneumonia Cholelithiasis Bilateral pleural effusions right more than left Centrilobular emphysema 1,3 [id number] - negative Aspergillus Antigen- Negative 3) Acute diarrhea: Resolved. Multiple recent hospitalizations. Abdomen is non tender on exam, low suspicion for typhlitis. No stool sample sent. 4) Pancytopenia: WBC improving, remains pancytopenic not responding to transfusions. 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 Quiroga following. Dr. Rojas oncologist from [facility], previous admission ordered prophylaxis acyclovir 200mg PO BID. 5) FAWAD: Nephrology consulted. Renally dose antibiotics. Recs: Continue Cefepime, 1 gm IV every 8 hours, D7- last dose today Ok to discharge home from ID standpoint, close f/u with his Hem. For prophylaxis per Dr. Rojas keep patient on Acyclovir 20 mg PO BID , will write a prescription for 30 days. d/w Dr. Cirilo Nash, ROBERT [facility] M: [phone] O:[phone] Subjective Date of service: 07/19/18 Principal diagnosis: MDS Interval history: Patient seen and examined. States that he is feeling better today, no acute distress, conversant. No fevers. Objective - Exam Narrative Exam: Constitutional: Alert, awake. conversant. No acute distress Head, Ears, Nose: Normocephalic, atraumatic. External ears, nose normal Eyes: Conjunctivae/corneas clear. No icterus. No ptosis. Neck: Supple, no meningeal signs Oral: dentition poor, no thrush Cardiovascular: S1, S2 normal. Respiratory: scattered rhonci GI: Soft, non-tender; bowel sounds normal. No peritoneal signs Musculoskeletal: No pedal edema, no cyanosis. Right upper chest PORT + Skin: No rash or abscess Hem/Lymphatic: No palpable cervical or supraclavicular nodes. No lymphangitis Psych: Mood ok. Affect normal Neurological: Awake, alert, oriented. No gross abnormality - Constitutional Vitals: Vital Signs Temp Pulse Resp BP Pulse Ox 98.2 F 69 18 139/65 94 07/19/18 07:34 07/19/18 07:34 07/19/18 07:34 07/19/18 07:34 07/19/18 07:34 Temperature -Last 24 Hours Temperature 98.2 F Temperature 98.2 F Temperature 98.3 F Temperature 98.1 F Temperature 98.3 F Temperature 99.0 F Temperature 99.0 F Temperature 98.5 F Temperature 98.6 F Temperature 98.8 F Temperature 98.1 F Temperature 98.7 F Temperature 98.7 F Temperature 98.3 F Temperature 99 F Temperature 98.7 F - Labs CBC & Chem 7: 07/19/18 06:50 07/19/18 06:50 Labs: Abnormal lab results 07/17/18 07/18/18 07/18/18 Range/Units 10:45 09:34 09:39 WBC 1.3 L* (4.5-11.0) K/mm3 RBC 2.45 L (3.65-5.03) M/mm3 Hgb 7.8 L (11.8-15.2) gm/dl Hct 22.5 L (35.5-45.6) % RDW 18.1 H (13.2-15.2) % Plt Count 18 L* (140-440) K/mm3 Seg Neutrophils # Man 0.8 L (1.8-7.7) K/mm3 Lymphocytes # (Manual) 0.3 L (1.2-5.4) K/mm3 Chloride 107.3 H (98-107) mmol/L Carbon Dioxide 20 L (22-30) mmol/L BUN 37 H (9-20) mg/dL Creatinine (0.8-1.5) mg/dL Glucose 137 H (75-100) mg/dL Calcium 8.2 L (8.4-10.2) mg/dL Crossmatch See Detail 07/19/18 07/19/18 Range/Units 06:50 06:50 WBC 1.9 L* (4.5-11.0) K/mm3 RBC 2.88 L (3.65-5.03) M/mm3 Hgb 8.8 L (11.8-15.2) gm/dl Hct 25.8 L (35.5-45.6) % RDW 17.1 H (13.2-15.2) % Plt Count 16 L* (140-440) K/mm3 Seg Neutrophils # Man (1.8-7.7) K/mm3 Lymphocytes # (Manual) (1.2-5.4) K/mm3 Chloride (98-107) mmol/L Carbon Dioxide (22-30) mmol/L BUN 26 H (9-20) mg/dL Creatinine 0.7 L (0.8-1.5) mg/dL Glucose 107 H (75-100) mg/dL Calcium 8.0 L (8.4-10.2) mg/dL Crossmatch
[2018-07-19] MEDS ORDERED: CORDARONE PO SCH (10:00)
[2018-07-19 10:13] LABS: Basophils % (Manual) 0 % (0.0-1.8); Total Cells Counted 100
[2018-07-19 10:14] LABS: Anisocytosis 1+; Burr Cells Rare; Hypochromasia Few; Macrocytosis 1+; Ovalocytes Few; Platelet Estimate Consistent w Auto
[2018-07-19] MEDS: LOPRESSOR PO SCH (10:45)
[2018-07-19] MEDS: K-DUR PO SCH (10:45)
[2018-07-19] MEDS: MAG-OX PO SCH (10:45)
[2018-07-19] MEDS: SODIUM CHLORIDE FLUSH SYRINGE 10 ML IV SCH (10:46)
[2018-07-19] MEDS: VITAMIN C PO SCH (10:47)
[2018-07-19] MEDS: NACL 0.45% 1000 ML 1,000 ML IV SCH (10:50)
--- NOTE | 2018-07-19 11:15 | Discharge Summary ---
Providers - Providers Date of Admission: 07/12/18 17:08 Attending physician: JOHN CORONEL MD 07/12/18 19:29 Consult to Physician [CONS] Routine Comment: called answering serv./ delaney Consulting Provider: MONIQUE BRODY Physician Instructions: Reason For Exam: pancytopenia 07/13/18 08:42 Consult to Physician [CONS] Routine Comment: spoke to dr. serrano/delaney Consulting Provider: DANILO SERRANO Physician Instructions: timber bucker 2.2 Reason For Exam: timber bucker 2.2 07/13/18 09:35 Physical Therapy Evaluation and Treat [CONS] Routine Comment: Reason For Exam: ataxia 07/13/18 09:38 Consult to Physician [CONS] Routine Comment: called office/ delaney Consulting Provider: MARGARITA ANTONIO Physician Instructions: Reason For Exam: Abdo pain, transaminitis Consult to Physician [CONS] Routine Comment: spoke to prateek [employer] SALESPERSON/delaney Consulting Provider: MINDA RUBALCAVA Physician Instructions: Reason For Exam: neutropenic fever 07/14/18 11:42 Consult to Physician [CONS] Routine Comment: BABS Consulting Provider: SHANTA GRANGER Physician Instructions: Addis was notified Reason For Exam: MAT Hospitalization Condition: Critical Hospital course: 73-year-old woman who presented to the hospital with fever and weakness plus abdominal pain 4 days. She also complained of diarrhea, Previously been in hospital for platelet and PRBC infusion. Past medical history chronic GI bleed, chronic anemia, transfusion dependence, CAD, myelodysplastic syndrome Ultrasound abdomen and pelvis shows moderate sludge in the gallbladder, medical renal disease and simple left renal cyst. There is also a small right pleural effusion. CT abdomen and pelvis shows small to moderate size right pleural effusion, increased density in the lung bases suggestive of atelectasis. Cholelithiasis, but no obvious cholecystitis. Chest x-ray positive for right upper lobe pneumonia Diagnoses Neutropenic fever sepsis Acute bacterial pneumonia last sepsis Anemia of chronic disease due to mild dysplastic syndrome, Thrombocytopenia Acute kidney injury likely due to vasomotor nephropathy Hypokalemia Abdominal pain Transaminitis Diarrhea Aflutter ER course The family requested to be transferred to [facility] in the ER, ER physician called. He spoke to the hospitalist, and the patient was not accepted there. Therefore the patient was admitted to our hospital. The patient received IV antibiotics, IV fluids, and hospitalist was called for admission Plan He was treated with Neupogen, he is transfusion dependent, he received a total of 6 units of packed red blood cells, and 4 units of platelets. -He was continued on his potassium supplements, he was treated with antibiotics for pneumonia. GI consult appreciated, no further workup is needed. "etiology-likely 2/2 cholestasis due to ineffective hemopoiesis from MDS " His kidney function improved with IV fluids, Patient has been seen by hematology/oncology and nephrology He suffered Aflutter; he was started on a beta ronni, echo shows preserved EF, cardiology input appreciated -The patient has communicated with his oncologist, and our in-house oncologist also spoke to his personal oncologist. The patient will follow-up with his oncologist tomorrow in clinic Disposition: [id number] HOME UNDER HOME [facility] Time spent for discharge: 35 minutes Core Measure Documentation - Palliative Care Palliative Care/ Comfort Measures: Not Applicable - Core Measures Any of the following diagnoses?: none Exam - Physical Exam Narrative exam: General.: Appears chronically ill, multiple cystic lesions on his skin HEENT: Moist mucous membranes, extraocular muscles intact, no lymphadenopathy Neck: supple Cardiac: S1-S2 heard Lungs: crackles on R lung, decreased air entry Abdomen: soft , nontender, nondistended, bowel sounds positive Extremities: no edema clubbing or cyanosis Skin: no rash Neurologic: no gross focal deficits Psych: calm, and cooperative - Constitutional Vitals: Temp Pulse Resp BP Pulse Ox 98.2 F 69 18 139/65 94 07/19/18 07:34 07/19/18 10:45 07/19/18 07:34 07/19/18 10:45 07/19/18 07:34 Plan Follow up with: MYA HUMMEL [Other] - 3-5 Days Prescriptions: Amiodarone [Cordarone 200 MG TAB] 200 mg PO DAILY #30 tablet Metoprolol [Lopressor TAB] 12.5 mg PO BID #60 tablet oxyCODONE /ACETAMINOPHEN [Percocet 5/325 mg] 1 tab PO Q6H PRN #30 tablet PRN Reason: Pain, Moderate (4-6) Acyclovir [Zovirax Cap] 200 mg PO BID 30 Days #60 capsule
[2018-07-19] MEDS ORDERED: ZOVIRAX PO SCH ×2 (13:00→14:00)
[2018-07-19 14:52] VITALS: BP 142/62
--- NOTE | 2018-07-19 23:38 | Progress Note ---
Assessment and Plan 1. Acute kidney injury: Vasomotor / hemodynamic FAWAD in the setting of volume depletion and hypotension. Renal function is better. Monitor renal function. Avoid nephrotoxic agents. Meds dosage based on GFR. 2. FEN: Hypokalemia, K level is better. Metabolic acidosis, monitor. 3. Pancytopenia: PRBC and Platelet transfusion. 4. Pneumonia: Followed by ID. Joel Brennan Subjective Date of service: 07/19/18 Principal diagnosis: MDS Interval history: Patient was seen and examined at the bedside. Doing ok. Objective - Vital Signs Vital signs: Vital Signs - 12hr 07/19/18 13:20 Temperature 97.7 F Pulse Rate 62 Respiratory 18 Rate Blood Pressure 142/62 O2 Sat by Pulse 95 Oximetry - General Appearance General appearance: well-developed, appears stated age, other (not in distress) EENT: ATNC, PERRL, hearing intact, vision intact Neck: supple Respiratory: Present: Clear to Ascultation Cardiology: S1S2, no murmurs Gastrointestinal: normoactive bowel sounds, no tenderness, no distended Integumentary: warm and dry Neurologic: no focal deficit, no asterixis Musculoskeletal: other (no edema) - Lab 07/19/18 06:50 07/19/18 06:50 Most recent lab results Calcium 8.0 mg/dL (8.4-10.2) L 07/19/18 06:50 Phosphorus 2.80 mg/dL (2.5-4.5) 07/17/18 07:33 Magnesium 1.80 mg/dL (1.7-2.3) 07/17/18 07:33 Urine Creatinine 87.6 mg/dL (0.1-20.0) H 07/14/18 06:06 Urine Sodium 10 mmol/L 07/14/18 06:06 Medications & Allergies - Medications Allergies/Adverse Reactions: Allergies tetanus and diphtheria toxoids [tetanus & diphtheria toxoids] Allergy (Verified 07/12/18 13:31) Anaphylaxis Home Medications: Home Medications Medication Instructions Recorded Confirmed Last Taken Type Potassium Chloride 20 meq PO QDAY #10 packet 06/03/18 07/12/18 Unknown Rx Ascorbic Acid [Vitamin C] 500 mg PO DAILY 07/12/18 07/12/18 Unknown History Magnesium Oxide 400 mg PO DAILY 07/12/18 07/12/18 Unknown History Acyclovir [Zovirax Cap] 200 mg PO BID 30 Days #60 capsule 07/19/18 Unknown Rx Amiodarone [Cordarone 200 MG TAB] 200 mg PO DAILY #30 tablet 07/19/18 Unknown Rx Metoprolol [Lopressor TAB] 12.5 mg PO BID #60 tablet 07/19/18 Unknown Rx oxyCODONE /ACETAMINOPHEN [Percocet 1 tab PO Q6H PRN #30 tablet 07/19/18 Unknown Rx 5/325 mg]
== END 2018-07-19 17:53 | disposition home health service (06) | DRG 871 ==
LOC: ED 13:20 → 2B-ACE 17:08
PROVIDERS: ADMIT Internal Medicine; ATTEND Internal Medicine
PROC: 30233N1 Transfusion of Nonautologous Red Blood Cells into Peripheral Vein, Percutaneous Approach (ICD-10-PCS; 2018-07-14)
PROC: 30233R1 Transfusion of Nonautologous Platelets into Peripheral Vein, Percutaneous Approach (ICD-10-PCS; principal; 2018-07-15)
DX: A41.9 Sepsis, unspecified organism (principal); N17.0 Acute kidney failure with tubular necrosis; J15.9 Unspecified bacterial pneumonia; D61.818 Other pancytopenia; K92.2 Gastrointestinal hemorrhage, unspecified; J90 Pleural effusion, not elsewhere classified; I48.92 Unspecified atrial flutter; J98.11 Atelectasis; D46.9 Myelodysplastic syndrome, unspecified; E87.6 Hypokalemia; I10 Essential (primary) hypertension; M19.90 Unspecified osteoarthritis, unspecified site; J45.909 Unspecified asthma, uncomplicated; I25.10 Atherosclerotic heart disease of native coronary artery without angina pectoris; E86.0 Dehydration; R19.7 Diarrhea, unspecified; N28.1 Cyst of kidney, acquired; K80.20 Calculus of gallbladder without cholecystitis without obstruction; D63.8 Anemia in other chronic diseases classified elsewhere; D89.9 Disorder involving the immune mechanism, unspecified; J43.2 Centrilobular emphysema; I25.2 Old myocardial infarction; Z87.891 Personal history of nicotine dependence; Z88.7 Allergy status to serum and vaccine
CPT/HCPCS: 36415; 71046; 71250; 74176; 76700; 80048; 80053; 81001; 82570; 83735; 84100; 84300; 84436; 84439; 84443; 84484; 85007; 85025; 86850; 86900; 86901; 86920; 87040; 87070; 87116; 87205; 93005; 93010; 93306; 94760; 96365; G0378; J0692; J1447; J2543; J3480; J7030; J7040; P9016; P9035

== ENCOUNTER 2019-03-09 01:42 | Inpatient (IN) | payer MEDICARE ==
[2019-03-09] MEDS ORDERED: SODIUM CHLORIDE 0.9% 500 ML 500 ML IV ONE (01:57)
--- NOTE | 2019-03-09 02:27 | Emergency Department Report ---
ED General Adult HPI - General Chief complaint: Altered Mental Status Stated complaint: DAINA Time Seen by Provider: 03/09/19 01:55 Source: patient, EMS Mode of arrival: Stretcher Limitations: No Limitations - History of Present Illness Initial comments: The patient presents to the emergency department with a chief complaint of syncopal episode. Patient arrived to the emergency department via EMS and states that he was here earlier today with flulike symptoms but left before being seen. Patient states while home and while taking a shower tonight he passed out. Patient has a chest pain, shortness of breath, or abdominal pain. -: Sudden Location: head Radiation: non-radiation Severity scale (0 -10): 1 Quality: aching Consistency: constant Improves with: none Worsens with: none Associated Symptoms: denies other symptoms Treatments Prior to Arrival: none - Related Data Home Medications Medication Instructions Recorded Confirmed Last Taken Ascorbic Acid [Vitamin C] 500 mg PO DAILY 07/12/18 07/12/18 Unknown Magnesium Oxide 400 mg PO DAILY 07/12/18 07/12/18 Unknown Previous Rx's Medication Instructions Recorded Last Taken Type Potassium Chloride 20 meq PO QDAY #10 packet 06/03/18 Unknown Rx Acyclovir [Zovirax Cap] 200 mg PO BID 30 Days #60 capsule 07/19/18 Unknown Rx Amiodarone [Cordarone 200 MG TAB] 200 mg PO DAILY #30 tablet 07/19/18 Unknown Rx Metoprolol [Lopressor TAB] 12.5 mg PO BID #60 tablet 07/19/18 Unknown Rx oxyCODONE /ACETAMINOPHEN [Percocet 1 tab PO Q6H PRN #30 tablet 07/19/18 Unknown Rx 5/325 mg] Allergies Allergy/AdvReac Type Severity Reaction Status Date / Time tetanus and diphtheria Allergy Anaphylaxis Verified 07/12/18 13:31 toxoids [tetanus & diphtheria toxoids] ED Review of Systems ROS: Stated complaint: DAINA Other details as noted in HPI Constitutional: chills, fever, malaise Eyes: denies: eye pain, eye discharge, vision change ENT: denies: ear pain, throat pain Respiratory: denies: cough, shortness of breath, wheezing Cardiovascular: denies: chest pain, palpitations Endocrine: no symptoms reported Gastrointestinal: denies: abdominal pain, nausea, diarrhea Genitourinary: denies: urgency, dysuria Musculoskeletal: denies: back pain, joint swelling, arthralgia Skin: denies: rash, lesions Neurological: other (syncope). denies: headache, weakness, paresthesias Psychiatric: denies: anxiety, depression Hematological/Lymphatic: denies: easy bleeding, easy bruising ED Past Medical Hx - Past Medical History Hx Hypertension: Yes Hx Heart Attack/AMI: Yes Hx Congestive Heart Failure: No Hx Diabetes: No Hx Renal Disease: No Hx Arthritis: Yes Hx Seizures: No Hx Asthma: Yes Hx COPD: No Additional medical history: GI bleeds, CAD, Anemia, Multiple blood transfusions 21 units since September 2017, recently diagnosed with Blood Cancer myelodysplastic syndrome - Surgical History Additional Surgical History: hemorrhoid surgery, port upper right chest - Social History Smoking Status: Never Smoker - Medications Home Medications: Home Medications Medication Instructions Recorded Confirmed Last Taken Type Potassium Chloride 20 meq PO QDAY #10 packet 06/03/18 07/12/18 Unknown Rx Ascorbic Acid [Vitamin C] 500 mg PO DAILY 07/12/18 07/12/18 Unknown History Magnesium Oxide 400 mg PO DAILY 07/12/18 07/12/18 Unknown History Acyclovir [Zovirax Cap] 200 mg PO BID 30 Days #60 capsule 07/19/18 Unknown Rx Amiodarone [Cordarone 200 MG TAB] 200 mg PO DAILY #30 tablet 07/19/18 Unknown Rx Metoprolol [Lopressor TAB] 12.5 mg PO BID #60 tablet 07/19/18 Unknown Rx oxyCODONE /ACETAMINOPHEN [Percocet 1 tab PO Q6H PRN #30 tablet 07/19/18 Unknown Rx 5/325 mg] ED Physical Exam - General Limitations: No Limitations General appearance: alert, in no apparent distress, other (patient has multiple molelike lesions of the face) - Head Head exam: Present: normocephalic, other (abrasion to scalp) - Eye Eye exam: Present: normal appearance - ENT ENT exam: Present: mucous membranes moist - Neck Neck exam: Present: normal inspection - Respiratory Respiratory exam: Present: normal lung sounds bilaterally. Absent: respiratory distress - Cardiovascular Cardiovascular Exam: Present: normal rhythm, tachycardia. Absent: systolic murmur, diastolic murmur, rubs, gallop - GI/Abdominal GI/Abdominal exam: Present: soft, normal bowel sounds. Absent: distended, tende rness - Rectal Rectal exam: Present: deferred - Extremities Exam Extremities exam: Present: normal inspection - Back Exam Back exam: Present: normal inspection - Neurological Exam Neurological exam: Present: alert, oriented X3, CN II-XII intact. Absent: motor sensory deficit - Psychiatric Psychiatric exam: Present: normal affect, normal mood - Skin Skin exam: Present: warm, dry, intact, normal color. Absent: rash ED Course Vital Signs 03/09/19 03/09/19 03/09/19 01:57 02:00 02:45 Temperature 99.8 F H Pulse Rate 105 H Respiratory 18 20 Rate Blood Pressure 116/63 116/63 O2 Sat by Pulse 97 95 Oximetry 03/09/19 02:46 Temperature Pulse Rate 122 H Respiratory 21 Rate Blood Pressure 156/70 O2 Sat by Pulse 95 Oximetry ED Medical Decision Making - Lab Data Result diagrams: 03/09/19 02:16 03/09/19 02:16 Lab Results 03/09/19 03/09/19 03/09/19 Range/Units 02:16 02:16 02:16 WBC 0.4 L* (4.5-11.0) K/mm3 RBC 2.53 L (3.65-5.03) M/mm3 Hgb 7.5 L (11.8-15.2) gm/dl Hct 21.9 L (35.5-45.6) % MCV 87 (84-94) fl MCH 30 (28-32) pg MCHC 34 (32-34) % RDW 13.4 (13.2-15.2) % Plt Count 6 L* (140-440) K/mm3 Lymph % (Auto) [employer] Operator Seg Neutrophils % Con[employer] Pile Driver Operator APTT 41.5 H (24.2-36.6) Sec. Sodium 139 (137-145) mmol/L Potassium 3.3 L (3.6-5.0) mmol/L Chloride 101.8 (98-107) mmol/L Carbon Dioxide 21 L (22-30) mmol/L Anion Gap 20 mmol/L BUN 38 H (9-20) mg/dL Creatinine 1.8 H (0.8-1.5) mg/dL Estimated GFR 37 ml/min BUN/Creatinine Ratio 21 % Glucose 190 H (75-100) mg/dL Lactic Acid (0.7-2.0) mmol/L Calcium 8.9 (8.4-10.2) mg/dL Total Bilirubin 1.10 (0.1-1.2) mg/dL AST 20 (5-40) units/L ALT 18 (7-56) units/L Alkaline Phosphatase 58 (35-129) units/L Troponin T 0.042 H (0.00-0.029) ng/mL NT-Pro-B Natriuret Pep (0-900) pg/mL Total Protein 6.9 (6.3-8.2) g/dL Albumin 3.5 L (3.9-5) g/dL Albumin/Globulin Ratio 1.0 % 03/09/19 03/09/19 03/09/19 Range/Units 02:16 02:16 02:16 WBC (4.5-11.0) K/mm3 RBC (3.65-5.03) M/mm3 Hgb (11.8-15.2) gm/dl Hct (35.5-45.6) % MCV (84-94) fl MCH (28-32) pg MCHC (32-34) % RDW (13.2-15.2) % Plt Count (140-440) K/mm3 Lymph % (Auto) Seg Neutrophils % APTT (24.2-36.6) Sec. Sodium (137-145) mmol/L Potassium (3.6-5.0) mmol/L Chloride (98-107) mmol/L Carbon Dioxide (22-30) mmol/L Anion Gap mmol/L BUN (9-20) mg/dL Creatinine (0.8-1.5) mg/dL Estimated GFR ml/min BUN/Creatinine Ratio % Glucose (75-100) mg/dL Lactic Acid 3.50 H* (0.7-2.0) mmol/L Calcium (8.4-10.2) mg/dL Total Bilirubin (0.1-1.2) mg/dL AST (5-40) units/L ALT (7-56) units/L Alkaline Phosphatase (35-129) units/L Troponin T 0.043 H (0.00-0.029) ng/mL NT-Pro-B Natriuret Pep 3715 H (0-900) pg/mL Total Protein (6.3-8.2) g/dL Albumin (3.9-5) g/dL Albumin/Globulin Ratio % - EKG Data -: EKG Interpreted by Me EKG shows normal: sinus rhythm Rate: tachycardia - Radiology Data Radiology results: report reviewed - Medical Decision Making Results discussed with patient Critical Care Time: Yes Critical care time in (mins) excluding proc time.: 45 Critical care attestation.: If time is entered above; I have spent that time in minutes in the direct care of this critically ill patient, excluding procedure time. ED Disposition Clinical Impression: Sepsis, Thrombocytopenia, Syncope and collapse Disposition: DC-09 OP ADMIT IP TO THIS HOSP Is pt being admited?: Yes Does the pt Need Aspirin: No Condition: Fair Instructions: Syncope (ED) Referrals: PRIMARY CARE, [Primary Care Provider] - 3-5 Days
--- NOTE | 2019-03-09 02:42 | Cat Scan Report ---
CT head/brain wo con INDICATION / CLINICAL INFORMATION: syncope. TECHNIQUE: Axial CT imaging of the brain was obtained without contrast. Coronal and sagittal reformatted imaging obtained and reviewed. All CT scans at this location are performed using CT dose reduction for ALAR A by means of automated exposure control. COMPARISON: 06/03/[address] FINDINGS: No intracranial hemorrhage, mass, or midline shift. No extra-axial fluid collection or suggestion of acute territorial infarct. Ventricular system and basilar cisterns are unremarkable. Mild/moderate ce rebral/cerebellar atrophy. A few of the ethmoid air cells are partially opacified, not significantly changed compared with prior CT. The remainder of the paranasal sinuses are well aerated and clear. No air-fluid levels. Mastoid air cells remain well aerated. No calvarial abnormality. No soft tissue abnormality. IMPRESSION: 1. No acute intracranial abnormality. No interval change from prior CT of 06/03/2018 2. A few of the ethmoid air cells are opacified, unchanged from prior study. Signer Name: Maryan Pérez MD Signed: 03/09/2019 2:37 AM Workstation Name: [id number]
[2019-03-09 02:55] LABS: Hematocrit 21.9 % (35.5-45.6); Hemoglobin 7.5 gm/dl (11.8-15.2); Mean Corpuscular HGB Conc 34 % (32-34); Mean Corpuscular Volume 87 fl (84-94); Red Blood Count 2.53 M/mm3 (3.65-5.03); Red Cell Distribution Width 13.4 % (13.2-15.2)
--- NOTE | 2019-03-09 02:56 | XRay Report ---
CHEST 1 VIEW INDICATION / CLINICAL INFORMATION: syncope. COMPARISON: 07/13/2018 FINDINGS: SUPPORT DEVICES: Port-A-Cath is in stable and satisfactory position. HEART / MEDIASTINUM: No significant abnormality. LUNGS / PLEURA: Abnormal parenchymal disease is identified within the right lung, probably mostly thr oughout the right lower lobe. Similar area was seen on prior chest radiograph of 07/13/2018. There is a very small right pleural effusion. Left lung is grossly clear. No interstitial pulmonary edema. No pneumothorax. ADDITIONAL FINDINGS: No significant additional findings. IMPRESSION: 1. Nonspecific parenchymal disease is identified within the right mid and lower lung. The appearance is most suggestive of pneumonia. Similar but more severe findings were seen on the prior chest radiog raph of 07/13/2018. This raises concern for the possibility of recurrent pneumonia due to aspiration. Please correlate clinically. Signer Name: Maryan Pérez MD Signed: 03/09/2019 2:51 AM Workstation Name: [id number]
[2019-03-09 03:00] LABS: Albumin 3.5 g/dL (3.9-5); Calcium 8.9 mg/dL (8.4-10.2)
[2019-03-09 03:01] LABS: Platelet Count 6 K/mm3 (140-440)
[2019-03-09] MEDS ORDERED: CEFEPIME/NS 1 GM/100 ML 1 GM/100 ML BAG IV ONE (03:03)
[2019-03-09] MEDS ORDERED: SODIUM CHLORIDE 0.9% 1000 ML 1,500 ML IV ONE (03:23)
[2019-03-09 03:50] LABS: Chol/HDL Ratio 2.34 %
[2019-03-09] MEDS ORDERED: ONDANSETRON 4 MG/2 ML INJ IV PRN (04:22)
[2019-03-09] MEDS ORDERED: MAGNESIUM HYDROXIDE (MOM) ORAL LIQD UDC PO PRN (04:22)
[2019-03-09 05:23] LABS: Anisocytosis 1+; Basophils % (Manual) 0 % (0.0-1.8); Eosinophils % (Manual) 0 % (0.0-4.3); Monocytes % (Manual) 0 % (0.0-7.3); Total Cells Counted 25
[2019-03-09 05:24] LABS: Platelet Estimate Consistent w Auto
--- NOTE | 2019-03-09 05:54 | History and Physical Report ---
History of Present Illness Date of examination: 03/09/19 Date of admission: 03/09/19 Chief complaint: Syncope History of present illness: 74-year-old male with known history of myelodysplastic disorder presented to the emergency room today complaining of syncopal episode. Was noted to have presented a few days ago with flulike symptoms but decided to leave AMA. He said he had a syncopal episode today. He denies any chest pain or shortness of breath. No nausea vomiting. Upon arrival in the emergency room his work-up was significant for anemia with hemoglobin of 7.5, he had a white count of 0.4 and elevated lactic acid. Was found to be tachycardic. He was given IV fluid and started on empiric IV antibiotics for possible sepsis Past History Past Medical History: hypertension, other (Myelodysplastic disorder) Social history: smoking (Quit tobacco use about 3 years ago after smoking about 2 and half packs by day for about 54 years), alcohol abuse (With alcohol abuse about 3 years ago) Family history: no significant family history Medications and Allergies Allergies Allergy/AdvReac Type Severity Reaction Status Date / Time tetanus and diphtheria Allergy Anaphylaxis Verified 07/12/18 13:31 toxoids [tetanus & diphtheria toxoids] Home Medications Medication Instructions Recorded Confirmed Last Taken Type Potassium Chloride 20 meq PO QDAY #10 packet 06/03/18 07/12/18 Unknown Rx Ascorbic Acid [Vitamin C] 500 mg PO DAILY 07/12/18 07/12/18 Unknown History Magnesium Oxide 400 mg PO DAILY 07/12/18 07/12/18 Unknown History Acyclovir [Zovirax Cap] 200 mg PO BID 30 Days #60 capsule 07/19/18 Unknown Rx Amiodarone [Cordarone 200 MG TAB] 200 mg PO DAILY #30 tablet 07/19/18 Unknown Rx Metoprolol [Lopressor TAB] 12.5 mg PO BID #60 tablet 07/19/18 Unknown Rx oxyCODONE /ACETAMINOPHEN [Percocet 1 tab PO Q6H PRN #30 tablet 07/19/18 Unknown Rx 5/325 mg] Active Meds: Active Medications Acetaminophen (Tylenol) 650 mg PO Q4H PRN PRN Reason: Pain MILD(1-3)/Fever >100.5/LLANES Cefepime HCl (Cefepime/Ns 1 Gm/100 Ml) 1 gm in 100 mls @ 200 mls/hr IV Q12HR NANETTE; Protocol Magnesium Hydroxide (Milk Of Magnesia) 30 ml PO Q4H PRN PRN Reason: Constipation Ondansetron HCl (Zofran) 4 mg IV Q8H PRN PRN Reason: Nausea And Vomiting Sodium Chloride (Sodium Chloride Flush Syringe 10 Ml) 10 ml IV BID NANETTE Sodium Chloride (Sodium Chloride Flush Syringe 10 Ml) 10 ml IV PRN PRN PRN Reason: LINE FLUSH Review of Systems Neurological: syncope Exam - Constitutional Vitals: Temp Pulse Resp BP Pulse Ox 99.8 F H 104 H 24 126/54 87 03/09/19 01:57 03/09/19 05:30 03/09/19 05:30 03/09/19 05:30 03/09/19 05:30 General appearance: Present: no acute distress - EENT Eyes: Present: PERRL, EOM intact ENT: hearing intact, clear oral mucosa, dentition normal - Neck Neck: Present: supple, normal ROM - Respiratory Respiratory effort: normal Respiratory: bilateral: CTA - Cardiovascular Rhythm: regular Heart Sounds: Present: S1 & S2 - Extremities Extremities: no ischemia, pulses intact, No edema Peripheral Pulses: within normal limits - Abdominal General gastrointestinal: Present: soft, non-tender, non-distended, normal bowel sounds - Integumentary Integumentary: Present: clear, warm, dry, pale - Musculoskeletal Musculoskeletal: strength equal bilaterally - Psychiatric Psychiatric: appropriate mood/affect, intact judgment & insight, cooperative - Neurologic Neurologic: CNII-XII intact, moves all extremities Results - Labs CBC & Chem 7: 03/09/19 02:16 03/09/19 02:16 Labs: Abnormal lab results 03/09/19 03/09/19 03/09/19 Range/Units 02:16 02:16 02:16 WBC 0.4 L* (4.5-11.0) K/mm3 RBC 2.53 L (3.65-5.03) M/mm3 Hgb 7.5 L (11.8-15.2) gm/dl Hct 21.9 L (35.5-45.6) % Plt Count 6 L* (140-440) K/mm3 Seg Neuts % (Manual) 8.0 L (40.0-70.0) % Lymphocytes % (Manual) 92.0 H (13.4-35.0) % Seg Neutrophils # Man 0.0 L (1.8-7.7) K/mm3 Lymphocytes # (Manual) 0.4 L (1.2-5.4) K/mm3 APTT 41.5 H (24.2-36.6) Sec. Potassium 3.3 L (3.6-5.0) mmol/L Carbon Dioxide 21 L (22-30) mmol/L BUN 38 H (9-20) mg/dL Creatinine 1.8 H (0.8-1.5) mg/dL Glucose 190 H (75-100) mg/dL Lactic Acid (0.7-2.0) mmol/L Troponin T 0.042 H (0.00-0.029) ng/mL NT-Pro-B Natriuret Pep (0-900) pg/mL Albumin 3.5 L (3.9-5) g/dL LDL Cholesterol Direct 35 L (50-130) mg/dL HDL Cholesterol 26 L (40-59) mg/dL 03/09/19 03/09/19 03/09/19 Range/Units 02:16 02:16 02:16 WBC (4.5-11.0) K/mm3 RBC (3.65-5.03) M/mm3 Hgb (11.8-15.2) gm/dl Hct (35.5-45.6) % Plt Count (140-440) K/mm3 Seg Neuts % (Manual) (40.0-70.0) % Lymphocytes % (Manual) (13.4-35.0) % Seg Neutrophils # Man (1.8-7.7) K/mm3 Lymphocytes # (Manual) (1.2-5.4) K/mm3 APTT (24.2-36.6) Sec. Potassium (3.6-5.0) mmol/L Carbon Dioxide (22-30) mmol/L BUN (9-20) mg/dL Creatinine (0.8-1.5) mg/dL Glucose (75-100) mg/dL Lactic Acid 3.50 H* (0.7-2.0) mmol/L Troponin T 0.043 H (0.00-0.029) ng/mL NT-Pro-B Natriuret Pep 3715 H (0-900) pg/mL Albumin (3.9-5) g/dL LDL Cholesterol Direct (50-130) mg/dL HDL Cholesterol (40-59) mg/dL Assessment and Plan - Patient Problems (1) Syncope and collapse Current Visit: Yes Status: Acute Plan to address problem: Probably secondary to symptomatic anemia. However we will schedule patient for echocardiogram and carotid Doppler. (2) Hypokalemia Current Visit: Yes Status: Acute Plan to address problem: Potassium will be repleted and will monitor chemistry. (3) Myelodysplasia (myelodysplastic syndrome) Current Visit: No Status: Chronic Plan to address problem: Patient is pancytopenic. Patient has required multiple blood transfusions in the past. Will monitor CBC we will transfuse patient with packed red blood cells as needed. (4) DVT prophylaxis Current Visit: No Status: Acute (5) Full code status Current Visit: Yes Status: Acute
[2019-03-09] MEDS ORDERED: POTASSIUM CHLORIDE ER 20 MEQ TAB PO ONE (06:08)
--- NOTE | 2019-03-09 12:00 | Vascular Lab Report ---
BILATERAL CAROTID DOPPLER ULTRASOUND INDICATION : syncope TECHNIQUE: Grayscale and color Doppler imaging performed through the neck. COMPARISON: None FINDINGS: Right: There is moderate shadowing irregular calcified plaque in the carotid bulb extending to the proximal ICA. Peak systolic velocity in the CCA is 76 cm/s with end-diastolic velocity of 11 cm/s. Pe ak systolic velocity in the proximal ICA is 134 cm/s with end-diastolic velocity of 52 cm/s. ICA to C CA ratio is less than 2. There is antegrade flow in the ECA and the vertebral artery. Left: There is moderate irregular shadowing plaque in the proximal and mid ICA. Peak systolic velocit y in the CCA is 75 cm/s with end-diastolic velocity of 17 cm/s. Peak systolic velocity in the proxima l ICA is 181 cm/s with end-diastolic velocity of 42 cm/s. ICA to CCA ratio is 2.4. There is antegrade flow in the ECA and the vertebral artery. IMPRESSION: Moderate irregular plaques are identified at both carotid bifurcations extending to the p roximal ICAs. Doppler velocities indicate 50-79% stenosis in both internal carotid arteries.. Signer Name: Alen Grove Jr, MD Signed: 03/09/2019 11:56 AM Workstation Name: [id number]
[2019-03-09] MEDS: CEFEPIME/NS 1 GM/100 ML 1 GM/100 ML BAG IV SCH ×2 (15:01→23:09)
--- NOTE | 2019-03-09 15:08 | Consultation ---
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 He also has asthma/COPD, hypertension. He is known to us from his previous hospitalizations. He has an indwelling PORT. He came into the emergency room yesterday with complaints of feeling weak for the last 2 days, more so over the last 1 day. He apparently left from the waiting room but then almost passed out and hence returned to the hospital. He denies any fever. He was noted to have low-grade temperature. He had a low white count, was found to be anemic with thrombocytopenia, tachycardic and with an elevated lactic acid. Due to concerns for sepsis, infectious diseases was consulted. He is on empiric antibiotics. He denies any complaints. Review of Systems: General: no fevers,chills or rigors. Weakness HEENT: no new visual disturbance Respiratory: No cough, sputum, hemoptysis or shortness of breath Cardiovascular: No chest pain, syncope Gastrointestinal: No nausea, vomiting or diarrhea Genitourinary: No dysuria or hematuria Musculoskeletal: No new or worsening neck pain or back pain Neurologic: No headaches, seizures Hematologic: No easy bruising or bleeding Endocrine: No night sweats or acute weight loss Skin: negative for rash, jaundice Psychiatric: No suicidal or homicidal ideation Past History Past Medical History: hypertension, other (Myelodysplastic disorder) Social history: smoking (Quit tobacco use about 3 years ago after smoking about 2 and half packs by day for about 54 years), alcohol abuse (With alcohol abuse about 3 years ago) Family history: no significant family history Medications and Allergies Allergies Allergy/AdvReac Type Severity Reaction Status Date / Time tetanus and diphtheria Allergy Anaphylaxis Verified 07/12/18 13:31 toxoids [tetanus & diphtheria toxoids] Home Medications Medication Instructions Recorded Confirmed Last Taken Type Potassium Chloride 20 meq PO QDAY #10 packet 06/03/18 03/09/19 Unknown Rx Ascorbic Acid [Vitamin C] 500 mg PO DAILY 07/12/18 03/09/19 Unknown History Magnesium Oxide 400 mg PO DAILY 07/12/18 03/09/19 Unknown History Acyclovir [Zovirax Cap] 200 mg PO BID 30 Days #60 capsule 07/19/18 03/09/19 U nknown Rx Amiodarone [Cordarone 200 MG TAB] 200 mg PO DAILY #30 tablet 07/19/18 03/09/19 Unknown Rx Metoprolol [Lopressor TAB] 12.5 mg PO BID #60 tablet 07/19/18 03/09/19 Unknown Rx oxyCODONE /ACETAMINOPHEN [Percocet 1 tab PO Q6H PRN #30 tablet 07/19/18 03/09/19 Unknown Rx 5/325 mg] Active Meds: Active Medications Acetaminophen (Tylenol) 650 mg PO Q4H PRN PRN Reason: Pain MILD(1-3)/Fever >100.5/LLANES Cefepime HCl (Cefepime/Ns 1 Gm/100 Ml) 1 gm in 100 mls @ 200 mls/hr IV Q12HR [facility]; Protocol Last Admin: 03/09/19 15:01 Dose: 200 mls/hr Documented by: Sodium Chloride (Nacl 0.9% 1000 Ml) 1,000 mls @ 125 mls/hr IV DIRECT NANETTE Magnesium Hydroxide (Milk Of Magnesia) 30 ml PO Q4H PRN PRN Reason: Constipation Ondansetron HCl (Zofran) 4 mg IV Q8H PRN PRN Reason: Nausea And Vomiting Sodium Chloride (Sodium Chloride Flush Syringe 10 Ml) 10 ml IV BID [facility] Last Admin: 03/09/19 15:02 Dose: 10 ml Documented by: Sodium Chloride (Sodium Chloride Flush Syringe 10 Ml) 10 ml IV PRN PRN PRN Reason: LINE FLUSH Physical Examination - Physical Exam Narrative exam: Physical Exam: Constitutional: Alert, cooperative. No acute distress Head, Ears, Nose: Normocephalic, atraumatic. External ears, nose normal Eyes: Conjunctivae/corneas clear. No icterus. No ptosis. Neck: Supple, no meningeal signs Oral: dentition poor, no thrush Cardiovascular: S1, S2 normal. Respiratory: bilateral basal crackles GI: Soft, non-tender; bowel sounds normal. No peritoneal signs Musculoskeletal: No pedal edema, no cyanosis. Left great toe with hematoma. Right upper chest PORT + site is non tender Skin: No rash or abscess Hem/Lymphatic: No palpable cervical or supraclavicular nodes. No lymphangitis Psych: Mood ok. Affect normal Neurological: Awake, alert, oriented. No gross abnormality - Constitutional Vitals: Vital Signs Temp Pulse Resp BP Pulse Ox 98.9 F 84 20 133/69 90 03/09/19 13:33 03/09/19 13:33 03/09/19 13:33 03/09/19 13:33 03/09/19 13:33 Temperature -Last 24 Hours Temperature 98.9 F Temperature 98.6 F Temperature 99.8 F Results - Labs CBC & Chem 7: 03/09/19 02:16 03/09/19 02:16 Labs: Abnormal lab results 03/09/19 03/09/19 03/09/19 Range/Units 02:16 02:16 02:16 WBC 0.4 L* (4.5-11.0) K/mm3 RBC 2.53 L (3.65-5.03) M/mm3 Hgb 7.5 L (11.8-15.2) gm/dl Hct 21.9 L (35.5-45.6) % Plt Count 6 L* (140-440) K/mm3 Seg Neuts % (Manual) 8.0 L (40.0-70.0) % Lymphocytes % (Manual) 92.0 H (13.4-35.0) % Seg Neutrophils # Man 0.0 L (1.8-7.7) K/mm3 Lymphocytes # (Manual) 0.4 L (1.2-5.4) K/mm3 APTT 41.5 H (24.2-36.6) Sec. Potassium 3.3 L (3.6-5.0) mmol/L Carbon Dioxide 21 L (22-30) mmol/L BUN 38 H (9-20) mg/dL Creatinine 1.8 H (0.8-1.5) mg/dL Glucose 190 H (75-100) mg/dL Lactic Acid (0.7-2.0) mmol/L Troponin T 0.042 H (0.00-0.029) ng/mL NT-Pro-B Natriuret Pep (0-900) pg/mL Albumin 3.5 L (3.9-5) g/dL LDL Cholesterol Direct 35 L (50-130) mg/dL HDL Cholesterol 26 L (40-59) mg/dL 11/15/19 11/15/19 11/15/19 Range/Units 02:16 02:16 02:16 WBC (4.5-11.0) K/mm3 RBC (3.65-5.03) M/mm3 Hgb (11.8-15.2) gm/dl Hct (35.5-45.6) % Plt Count (140-440) K/mm3 Seg Neuts % (Manual) (40.0-70.0) % Lymphocytes % (Manual) (13.4-35.0) % Seg Neutrophils # Man (1.8-7.7) K/mm3 Lymphocytes # (Manual) (1.2-5.4) K/mm3 APTT (24.2-36.6) Sec. Potassium (3.6-5.0) mmol/L Carbon Dioxide (22-30) mmol/L BUN (9-20) mg/dL Creatinine (0.8-1.5) mg/dL Glucose (75-100) mg/dL Lactic Acid 3.50 H* (0.7-2.0) mmol/L Troponin T 0.043 H (0.00-0.029) ng/mL NT-Pro-B Natriuret Pep 3715 H (0-900) pg/mL Albumin (3.9-5) g/dL LDL Cholesterol Direct (50-130) mg/dL HDL Cholesterol (40-59) mg/dL - Imaging and Cardiology Chest x-ray: report reviewed, image reviewed (CXR shows chronic changes in R lung, similar to prior CXR from 06/2018. 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 He also has asthma/COPD, hypertension. He is known to us from his previous hospitalizations. He has an indwelling PORT. Came in with weakness. #SIRS v/s sepsis: tachycardic, lactic acidosis, immunocompromised host from chronic neutropenia. As pretty status is stable. Has no other complaints. Does have an indwelling port, so rule out bacteremia. He has no fever at this time. He is at risk of several opportunistic infections, will work up if febrile or change in clinical status. CXR shows chronic changes in R lung, similar to prior CXR from 06/2018. PORT + #Severe pancytopenia, MDS, immunocompromised host #Lactic acidosis #Acute kidney injury: Renally dose antibiotics Recs: continue empiric IV cefepime for now If he remains afebrile and bacteremia is ruled out, would DC antibiotics at [address] Kerr covering the weekend. No Flores MD, FACP [facility], [place] [facility] ([facility]) C: [phone] O: [phone] F: [phone]
[2019-03-09] MEDS: ACETAMINOPHEN 325 MG TAB PO PRN ×2 (15:29→21:42)
--- NOTE | 2019-03-09 18:44 | Event Note ---
Date: 03/09/19 Patient seen and examined, DAUGHTER at bedside states that patient has had gradual decline in the past few weeks. Will start the patient on IV fluids, PT EVAL AND Treat. ID consult.
[2019-03-10] LABS: Bacteria,Urine 1+ /HPF (Negative); Bilirubin,Urine NEG (Negative); Blood,Urine LG (Negative); Color,Urine Yellow (Yellow); Mucus,Urine FEW /HPF; Urobilinogen,Urine < 2.0 mg/dL (<2.0)
[2019-03-10 00:07] LABS: Amphetamine Screen,Urine PRESUMPTIVE NEGATIVE; Benzodiazepines Screen,Urine PRESUMPTIVE NEGATIVE; Cannabinoid Screen,Urine PRESUMPTIVE NEGATIVE; Cocaine Screen,Urine PRESUMPTIVE NEGATIVE; Methadone Screen,Urine PRESUMPTIVE NEGATIVE; Opiate Screen,Urine PRESUMPTIVE NEGATIVE
[2019-03-10] MEDS: ACETAMINOPHEN 325 MG TAB PO PRN ×2 (02:56→20:15)
[2019-03-10 05:05] LABS: Partial Thromboplastin Time 40.4 Sec. (24.2-36.6)
[2019-03-10 05:07] LABS: INR 1.57 (0.87-1.13)
[2019-03-10 05:12] LABS: Calcium 8.5 mg/dL (8.4-10.2); Hemoglobin 6.4 gm/dl (11.8-15.2); Mean Corpuscular HGB Conc 35 % (32-34); Mean Corpuscular Volume 87 fl (84-94); Red Blood Count 2.13 M/mm3 (3.65-5.03); Red Cell Distribution Width 13.7 % (13.2-15.2)
[2019-03-10 05:17] LABS: Hematocrit 18.5 % (35.5-45.6)
[2019-03-10 05:18] LABS: Platelet Count 4 K/mm3 (140-440)
[2019-03-10 06:19] LABS: Basophils % (Manual) 0 % (0.0-1.8); Eosinophils % (Manual) 0 % (0.0-4.3); Monocytes % (Manual) 0 % (0.0-7.3); Total Cells Counted 15
[2019-03-10] MEDS ORDERED: SODIUM CHLORIDE 0.9% 500 ML 500 ML IV ONE ×2 (06:21→18:16)
[2019-03-10 06:22] LABS: Anisocytosis 1+; Ovalocytes Few; Platelet Estimate Consistent w Auto
[2019-03-10] MEDS: CEFEPIME/NS 1 GM/100 ML 1 GM/100 ML BAG IV SCH ×2 (09:49→21:30)
[2019-03-10] MEDS: SODIUM CHLORIDE 0.9% 1000 ML 1,000 ML IV SCH ×2 (10:00→21:36)
--- NOTE | 2019-03-10 15:47 | Progress Note ---
Assessment and Plan - Patient Problems (1) Syncope and collapse Current Visit: Yes Status: Acute Plan to address problem: Patient syncope secondary to anemia and dehydration. Echocardiogram pending. Her workup unremarkable. (2) FAWAD (acute kidney injury) Current Visit: No Status: Acute Plan to address problem: Acute kidney injury secondary to prerenal azotemia. Continue intravascular volume replacement (3) COPD (chronic obstructive pulmonary disease) Current Visit: No Status: Acute Plan to address problem: COPD goal stage B. Patient is stable with nebulizers. Add addition of lobular. Patient doing well most of his shortness of breath secondary to weakness and debility. 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 Patient was last in 7 today actively being transfused at present. She has a port stable no pain in the area. (5) HTN (hypertension) Current Visit: No Status: Chronic Qualifiers: Hypertension type: essential hypertension Qualified Code(s): I10 - Essential (primary) hypertension Plan to address problem: Patient has excellent control of blood pressure. (6) Myelodysplasia (myelodysplastic syndrome) Current Visit: No Status: Chronic Plan to address problem: Myelodysplasia patient with pancytopenia and thrombocytopenia overall prognosis seems to be poor at this time. Oncology following. No evidence of infection at this time. History Interval history: 74-year-old transfusion dependent, chronic neutropenia also has history of asthma COPD hypertension comes in for progressive weakness. Patient found to be neutropenic and anemic and thrombocytopenic. Patient now appears very weak difficulty with strength to answer questions. Appears chronically ill. Hospitalist Physical - Constitutional Vitals: Temp Pulse Resp BP Pulse Ox 97.8 F 102 H 18 123/68 95 03/10/19 07:36 03/10/19 07:36 03/10/19 07:36 03/10/19 07:36 03/10/19 07:36 General appearance: Present: no acute distress - EENT Eyes: Present: PERRL, EOM intact ENT: hearing intact, dentition normal, poor dentition, no thrush - Neck Neck: Present: supple, normal ROM - Respiratory Respiratory effort: normal Respiratory: bilateral: diminished, negative: rales (anteriorly) - Cardiovascular Rhythm: regular - Extremities Extremities: no ischemia, pulses intact, pulses symmetrical, No edema Extremity abnormal: other (onychomycosis) Peripheral Pulses: within normal limits - Abdominal General gastrointestinal: soft, non-tender, non-distended - Integumentary Integumentary: Present: clear, warm, dry - Neurologic Neurologic: other (cognitive impairment generalized weakness) Results - Labs CBC & Chem 7: 03/10/19 04:05 03/10/19 04:05 Labs: Laboratory Last Values WBC 0.2 K/mm3 (4.5-11.0) L* 03/10/19 04:05 RBC 2.13 M/mm3 (3.65-5.03) L 03/10/19 04:05 Hgb 6.4 gm/dl (11.8-15.2) L 03/10/19 04:05 Hct 18.5 % (35.5-45.6) L* 03/10/19 04:05 MCV 87 fl (84-94) 03/10/19 04:05 MCH 30 pg (28-32) 03/10/19 04:05 MCHC 35 % (32-34) H 03/10/19 04:05 RDW 13.7 % (13.2-15.2) 03/10/19 04:05 Plt Count 4 K/mm3 (140-440) L* 03/10/19 04:05 Lymph % (Auto) [employer]ilities And Grounds Director 03/10/19 04:05 Add Manual Diff Complete 03/10/19 04:05 Total Counted 15 03/10/19 04:05 Seg Neutrophils % Facilities And Grounds Director 03/10/19 04:05 Seg Neuts % (Manual) 13.3 % (40.0-70.0) L 03/10/19 04:05 Band Neutrophils % 0 % 03/10/19 04:05 Lymphocytes % (Manual) 86.7 % (13.4-35.0) H 03/10/19 04:05 Reactive Lymphs % (Man) 0 % 03/10/19 04:05 Monocytes % (Manual) 0 % (0.0-7.3) 03/10/19 04:05 Eosinophils % (Manual) 0 % (0.0-4.3) 03/10/19 04:05 Basophils % (Manual) 0 % (0.0-1.8) 03/10/19 04:05 Metamyelocytes % 0 % 03/10/19 04:05 Myelocytes % 0 % 03/10/19 04:05 Promyelocytes % 0 % 03/10/19 04:05 Blast Cells % 0 % 03/10/19 04:05 Nucleated RBC % Not Reportable 03/10/19 04:05 Seg Neutrophils # Man 0.0 K/mm3 (1.8-7.7) L 03/10/19 04:05 Band Neutrophils # 0.0 K/mm3 03/10/19 04:05 Lymphocytes # (Manual) 0.2 K/mm3 (1.2-5.4) L 03/10/19 04:05 Abs React Lymphs (Man) 0.0 K/mm3 03/10/19 04:05 Monocytes # (Manual) 0.0 K/mm3 (0.0-0.8) 03/10/19 04:05 Eosinophils # (Manual) 0.0 K/mm3 (0.0-0.4) 03/10/19 04:05 Basophils # (Manual) 0.0 K/mm3 (0.0-0.1) 03/10/19 04:05 Metamyelocytes # 0.0 K/mm3 03/10/19 04:05 Myelocytes # 0.0 K/mm3 03/10/19 04:05 Promyelocytes # 0.0 K/mm3 03/10/19 04:05 Blast Cells # 0.0 K/mm3 03/10/19 04:05 WBC Morphology Not Reportable 03/10/19 04:05 Hypersegmented Neuts Not Reportable 03/10/19 04:05 Hyposegmented Neuts Not Reportable 03/10/19 04:05 Hypogranular Neuts Not Reportable 03/10/19 04:05 Smudge Cells Not Reportable 03/10/19 04:05 Toxic Granulation Not Reportable 03/10/19 04:05 Toxic Vacuolation Not Reportable 03/10/19 04:05 Dohle Bodies Not Reportable 03/10/19 04:05 Pelger-Huet Anomaly Not Reportable 03/10/19 04:05 Andra Rods Not Reportable 03/10/19 04:05 Platelet Estimate Consistent w auto 03/10/19 04:05 Clumped Platelets Not Reportable 03/10/19 04:05 Plt Clumps, EDTA Not Reportable 03/10/19 04:05 Large Platelets Not Reportable 03/10/19 04:05 Giant Platelets Not Reportable 03/10/19 04:05 Platelet Satelliting Not Reportable 03/10/19 04:05 Plt Morphology Comment Not Reportable 03/10/19 04:05 RBC Morphology Not Reportable 03/10/19 04:05 Dimorphic RBCs Not Reportable 03/10/19 04:05 Polychromasia Not Reportable 03/10/19 04:05 Hypochromasia Not Reportable 03/10/19 04:05 Poikilocytosis Not Reportable 03/10/19 04:05 Anisocytosis 1+ 03/10/19 04:05 Microcytosis Not Reportable 03/10/19 04:05 Macrocytosis Not Reportable 03/10/19 04:05 Spherocytes Not Reportable 03/10/19 04:05 Pappenheimer Bodies Not Reportable 03/10/19 04:05 Sickle Cells Not Reportable 03/10/19 04:05 Target Cells Not Reportable 03/10/19 04:05 Tear Drop Cells Not Reportable 03/10/19 04:05 Ovalocytes Few 03/10/19 04:05 Helmet Cells Not Reportable 03/10/19 04:05 [place] Bodies Not Reportable 03/10/19 04:05 [place] Rings Not Reportable 03/10/19 04:05 Irene Cells Not Reportable 03/10/19 04:05 Bite Cells Not Reportable 03/10/19 04:05 Crenated Cell Not Reportable 03/10/19 04:05 Elliptocytes Not Reportable 03/10/19 04:05 Acanthocytes (Spur) Not Reportable 03/10/19 04:05 Rouleaux Not Reportable 03/10/19 04:05 Hemoglobin C Crystals Not Reportable 03/10/19 04:05 Schistocytes Not Reportable 03/10/19 04:05 Malaria parasites Not Reportable 03/10/19 04:05 Donta Bodies Not Reportable 03/10/19 04:05 Hem Pathologist Commnt No 03/10/19 04:05 PT 18.5 Sec. (12.2-14.9) H 03/10/19 04:05 INR 1.57 (0.87-1.13) H 03/10/19 04:05 APTT 40.4 Sec. (24.2-36.6) H 03/10/19 04:05 Sodium 141 mmol/L (137-145) 03/10/19 04:05 Potassium 3.4 mmol/L (3.6-5.0) L 03/10/19 04:05 Chloride 107.0 mmol/L (98-107) 03/10/19 04:05 Carbon Dioxide 21 mmol/L (22-30) L 03/10/19 04:05 Anion Gap 16 mmol/L 03/10/19 04:05 BUN 37 mg/dL (9-20) H 03/10/19 04:05 Creatinine 1.5 mg/dL (0.8-1.5) 03/10/19 04:05 Estimated GFR 46 ml/min 03/10/19 04:05 BUN/Creatinine Ratio 25 % 03/10/19 04:05 Glucose 128 mg/dL (75-100) H 03/10/19 04:05 Lactic Acid 0.80 mmol/L (0.7-2.0) 03/09/19 04:57 Calcium 8.5 mg/dL (8.4-10.2) 03/10/19 04:05 Total Bilirubin 1.10 mg/dL (0.1-1.2) 03/09/19 02:16 AST 20 units/L (5-40) 03/09/19 02:16 ALT 18 units/L (7-56) 03/09/19 02:16 Alkaline Phosphatase 58 units/L (35-129) 03/09/19 02:16 Troponin T 0.042 ng/mL (0.00-0.029) H 03/09/19 02:16 Troponin T 0.043 ng/mL (0.00-0.029) H 03/09/19 02:16 NT-Pro-B Natriuret Pep 3715 pg/mL (0-900) H 03/09/19 02:16 Total Protein 6.9 g/dL (6.3-8.2) 03/09/19 02:16 Albumin 3.5 g/dL (3.9-5) L 03/09/19 02:16 Albumin/Globulin Ratio 1.0 % 03/09/19 02:16 Triglycerides 50 mg/dL (2-149) 03/09/19 02:16 Cholesterol 61 mg/dL (50-199) 03/09/19 02:16 LDL Cholesterol Direct 35 mg/dL (50-130) L 03/09/19 02:16 HDL Cholesterol 26 mg/dL (40-59) L 03/09/19 02:16 Cholesterol/HDL Ratio 2.34 % 03/09/19 02:16 Urine Color Yellow (Yellow) 03/09/19 22:15 Urine Turbidity Slightly-cloudy (Clear) 03/09/19 22:15 Urine pH 5.0 (5.0-7.0) 03/09/19 22:15 Ur Specific [place] 1.019 (1.003-1.030) 03/09/19 22:15 Urine Protein 100 mg/dl mg/dL (Negative) 03/09/19 22:15 Urine Glucose (UA) Neg mg/dL (Negative) 03/09/19 22:15 Urine Ketones Neg mg/dL (Negative) 03/09/19 22:15 Urine Blood Lg (Negative) 03/09/19 22:15 Urine Nitrite Neg (Negative) 03/09/19 22:15 Urine Bilirubin Neg (Negative) 03/09/19 22:15 Urine Urobilinogen < 2.0 mg/dL (<2.0) 03/09/19 22:15 Ur Leukocyte Esterase Neg (Negative) 03/09/19 22:15 Urine WBC (Auto) 5.0 /HPF (0.0-6.0) 03/09/19 22:15 Urine RBC (Auto) 2.0 /HPF (0.0-6.0) 03/09/19 22:15 U Epithel Cells (Auto) 1.0 /HPF (0-13.0) 03/09/19 22:15 Urine Bacteria (Auto) 1+ /HPF (Negative) 03/09/19 22:15 Urine Mucus Few /HPF 03/09/19 22:15 Urine Opiates Screen Presumptive negative 03/09/19 22:15 Urine Methadone Screen Presumptive negative 03/09/19 22:15 Ur Barbiturates Screen Presumptive negative 03/09/19 22:15 Ur Phencyclidine Scrn Presumptive negative 03/09/19 22:15 Ur Amphetamines Screen Presumptive negative 03/09/19 22:15 U Benzodiazepines Scrn Presumptive negative 03/09/19 22:15 Urine Cocaine Screen Presumptive negative 03/09/19 22:15 U Marijuana (THC) Screen Presumptive negative 03/09/19 22:15 Drugs of Abuse Note Disclamer 03/09/19 22:15 Influenza A (Rapid) Negative (Negative) 03/09/19 Unknown Influenza B (Rapid) Negative (Negative) 03/09/19 Unknown Blood Type A POSITIVE 03/09/19 03:13 Antibody Screen Negative 03/09/19 03:13 Crossmatch See Detail 03/09/19 03:13 Active Medications - Current Medications Current Medications: Generic Name Dose Route Start Last Admin Trade Name Freq PRN Reason Stop Dose Admin Acetaminophen 650 mg 03/09/19 04:22 03/10/19 02:56 Tylenol PO 650 mg Q4H PRN Administration Pain MILD(1-3)/Fever >100.5/LLANES Cefepime HCl 1 gm in 100 mls @ 200 mls/hr 03/09/19 10:00 03/10/19 09:49 Cefepime/Ns 1 Gm/100 Ml IV 200 mls/hr Q12HR NANETTE Administration Protocol Sodium Chloride 1,000 mls @ 125 mls/hr 03/09/19 11:00 03/10/19 10:00 Nacl 0.9% 1000 Ml IV 125 mls/hr DIRECT NANETTE Administration Magnesium Hydroxide 30 ml 03/09/19 04:22 Milk Of Magnesia PO Q4H PRN Constipation Ondansetron HCl 4 mg 03/09/19 04:22 Zofran IV Q8H PRN Nausea And Vomiting Sodium Chloride 10 ml 03/09/19 10:00 03/10/19 09:52 Sodium Chloride Flush Syringe 10 Ml IV 10 ml BID NANETTE Administration Sodium Chloride 10 ml 03/09/19 04:22 Sodium Chloride Flush Syringe 10 Ml IV PRN PRN LINE FLUSH Nutrition/Malnutrition Assess - Dietary Evaluation Nutrition/Malnutrition Findings: Nutrition Notes Start: 03/10/19 10:52 Freq: Status: Active Protocol: Document 03/10/19 10:52 LP (Rec: 03/10/19 11:00 LP [email or web address]) Nutrition Notes 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 Pt states just and not able to eat much . Pt has had nausea. Would like to have fruit on every tray. Pt states clothes are fitting differently. 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 Is patient on ventilator? No Is Patient Ambulatory and/or Out of Bed No REE-([facility]-confined to bed) 1581.180 Kcal/Kg value to use for calculation 35 Approximate Energy Requirements Using 1960 kcal/Kg Calculation Used for Recommendations Kcal/kg Additional Notes Protein needs are 67-84g (1.2- 1.5g/kg) Fluid needs are 1ml/kcal Nutrition Intervention Change Diet Order: Continue Cardiac diet Add Supplement/Snack (indicate name/kcal Ensure Clear BID /protein ) Provides kCal: 480 Provides Protein (gm) 16 Goal #1 Meet at least 80% of kcal and protein needs via meals and ONS Goal #2 Wt maintenance Anticipated Discharge Needs: Cardiac diet and ONS as needed Follow-Up By: 03/12/19 Additional Comments Follow for intakes and ONS tolerance
[2019-03-10] MEDS: TBO-FILGRASTIM 300 MCG/0.5 ML SUB-Q ONE ×2 (20:44→20:46)
[2019-03-11] MEDS: ACETAMINOPHEN 325 MG TAB PO PRN ×2 (03:33→23:20)
[2019-03-11] MEDS: SODIUM CHLORIDE 0.9% 1000 ML 1,000 ML IV SCH (10:46)
--- NOTE | 2019-03-11 11:40 | Event Note ---
Date: 03/11/19 [id number]
--- NOTE | 2019-03-11 12:46 | Progress Note ---
Assessment and Plan - Patient Problems (1) Syncope and collapse Current Visit: Yes Status: Acute Plan to address problem: Patient syncope secondary to anemia and dehydration. Echocardiogram pending. Her workup unremarkable. Patient with marked debility. At present very weak unable to work repair. All this time. (2) FAWAD (acute kidney injury) Current Visit: No Status: Acute Plan to address problem: Resolving secondary to pulmonary no azotemia. Improving but slowly creatinine is at baseline now. Continue blood in iV volume hydration. (3) COPD (chronic obstructive pulmonary disease) Current Visit: No Status: Acute Plan to address problem: COPD goal stage B. Patient is stable with nebulizers. Add addition of lobular. Patient doing well most of his shortness of breath secondary to weakness and debility. Patient not requiring nebulizers. 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 Patient was last in 7 today actively being transfused at present. She has a port stable no pain in the area. We'll continue to transfuse accordingly. Transfusions additional packed red blood cell. (5) HTN (hypertension) Current Visit: No Status: Chronic Qualifiers: Hypertension type: essential hypertension Qualified Code(s): I10 - Essential (primary) hypertension Plan to address problem: Patient not requiring any blood pressure medications at this particular time. Somewhat probably hypertensive at times but risk of starting blood pressure medications with blood disorder outweigh risk. Continue observation. (6) Myelodysplasia (myelodysplastic syndrome) Current Visit: No Status: Chronic Plan to address problem: Myelodysplasia patient with pancytopenia and thrombocytopenia overall prognosis seems to be poor at this time. Oncology following. No evidence of infection at this time. (7) Sepsis Current Visit: Yes Status: Acute Plan to address problem: At present patient does not give any evidence of sepsis we'll continue to observe. Patient is being treated with cefepime and giving immunocompromise state. Patient with gram-negative products continue cefepime. History Interval history: No untoward events reported over the per year. Patient hospital course complicated by heart thrombocytopenia received 1 unit platelet . Patient remains very weak with debility and cachexia Hospitalist Physical - Constitutional Vitals: Temp Pulse Resp BP Pulse Ox 99.4 F 106 H 18 149/73 97 03/11/19 02:52 03/11/19 02:52 03/10/19 20:08 03/11/19 02:52 03/11/19 02:32 General appearance: Present: no acute distress - EENT Eyes: Present: PERRL, EOM intact ENT: other (as: 6 week responsive.) - Neck Neck: Present: supple, normal ROM - Respiratory Respiratory: bilateral: diminished (poor respiratory effort) - Cardiovascular Rhythm: regular - Extremities Extremities: no ischemia, pulses intact, pulses symmetrical, No edema - Abdominal General gastrointestinal: soft, non-tender, non-distended, normal bowel sounds, no hepatomegaly, no splenomegaly - Integumentary Integumentary: Present: clear, warm, dry - Psychiatric Psychiatric: appropriate mood/affect - Neurologic Neurologic: CNII-XII intact Results - Labs CBC & Chem 7: 03/11/19 02:49 03/10/19 04:05 Labs: Laboratory Last Values WBC 0.2 K/mm3 (4.5-11.0) L* 03/10/19 04:05 RBC 2.13 M/mm3 (3.65-5.03) L 03/10/19 04:05 Hgb 6.4 gm/dl (11.8-15.2) L 03/10/19 04:05 Hct 18.5 % (35.5-45.6) L* 03/10/19 04:05 MCV 87 fl (84-94) 03/10/19 04:05 MCH 30 pg (28-32) 03/10/19 04:05 MCHC 35 % (32-34) H 03/10/19 04:05 RDW 13.7 % (13.2-15.2) 03/10/19 04:05 Plt Count 18 K/mm3 (140-440) L* D 03/11/19 02:49 Lymph % (Auto) Bedspread Cutter Hand 03/10/19 04:05 Add Manual Diff Complete 03/10/19 04:05 Total Counted 15 03/10/19 04:05 Seg Neutrophils % Bedspread Cutter Hand 03/10/19 04:05 Seg Neuts % (Manual) 13.3 % (40.0-70.0) L 03/10/19 04:05 Band Neutrophils % 0 % 03/10/19 04:05 Lymphocytes % (Manual) 86.7 % (13.4-35.0) H 03/10/19 04:05 Reactive Lymphs % (Man) 0 % 03/10/19 04:05 Monocytes % (Manual) 0 % (0.0-7.3) 03/10/19 04:05 Eosinophils % (Manual) 0 % (0.0-4.3) 03/10/19 04:05 Basophils % (Manual) 0 % (0.0-1.8) 03/10/19 04:05 Metamyelocytes % 0 % 03/10/19 04:05 Myelocytes % 0 % 03/10/19 04:05 Promyelocytes % 0 % 03/10/19 04:05 Blast Cells % 0 % 03/10/19 04:05 Nucleated RBC % Not Reportable 03/10/19 04:05 Seg Neutrophils # Man 0.0 K/mm3 (1.8-7.7) L 03/10/19 04:05 Band Neutrophils # 0.0 K/mm3 03/10/19 04:05 Lymphocytes # (Manual) 0.2 K/mm3 (1.2-5.4) L 03/10/19 04:05 Abs React Lymphs (Man) 0.0 K/mm3 03/10/19 04:05 Monocytes # (Manual) 0.0 K/mm3 (0.0-0.8) 03/10/19 04:05 Eosinophils # (Manual) 0.0 K/mm3 (0.0-0.4) 03/10/19 04:05 Basophils # (Manual) 0.0 K/mm3 (0.0-0.1) 03/10/19 04:05 Metamyelocytes # 0.0 K/mm3 03/10/19 04:05 Myelocytes # 0.0 K/mm3 03/10/19 04:05 Promyelocytes # 0.0 K/mm3 03/10/19 04:05 Blast Cells # 0.0 K/mm3 03/10/19 04:05 WBC Morphology Not Reportable 03/10/19 04:05 Hypersegmented Neuts Not Reportable 03/10/19 04:05 Hyposegmented Neuts Not Reportable 03/10/19 04:05 Hypogranular Neuts Not Reportable 03/10/19 04:05 Smudge Cells Not Reportable 03/10/19 04:05 Toxic Granulation Not Reportable 03/10/19 04:05 Toxic Vacuolation Not Reportable 03/10/19 04:05 Dohle Bodies Not Reportable 03/10/19 04:05 Pelger-Huet Anomaly Not Reportable 03/10/19 04:05 Andra Rods Not Reportable 03/10/19 04:05 Platelet Estimate Consistent w auto 03/10/19 04:05 Clumped Platelets Not Reportable 03/10/19 04:05 Plt Clumps, EDTA Not Reportable 03/10/19 04:05 Large Platelets Not Reportable 03/10/19 04:05 Giant Platelets Not Reportable 03/10/19 04:05 Platelet Satelliting Not Reportable 03/10/19 04:05 Plt Morphology Comment Not Reportable 03/10/19 04:05 RBC Morphology Not Reportable 03/10/19 04:05 Dimorphic RBCs Not Reportable 03/10/19 04:05 Polychromasia Not Reportable 03/10/19 04:05 Hypochromasia Not Reportable 03/10/19 04:05 Poikilocytosis Not Reportable 03/10/19 04:05 Anisocytosis 1+ 03/10/19 04:05 Microcytosis Not Reportable 03/10/19 04:05 Macrocytosis Not Reportable 03/10/19 04:05 Spherocytes Not Reportable 03/10/19 04:05 Pappenheimer Bodies Not Reportable 03/10/19 04:05 Sickle Cells Not Reportable 03/10/19 04:05 Target Cells Not Reportable 03/10/19 04:05 Tear Drop Cells Not Reportable 03/10/19 04:05 Ovalocytes Few 03/10/19 04:05 Helmet Cells Not Reportable 03/10/19 04:05 Joseph-Obetz Bodies Not Reportable 03/10/19 04:05 [place] Rings Not Reportable 03/10/19 04:05 [place] Cells Not Reportable 03/10/19 04:05 Bite Cells Not Reportable 03/10/19 04:05 Crenated Cell Not Reportable 03/10/19 04:05 Elliptocytes Not Reportable 03/10/19 04:05 Acanthocytes (Spur) Not Reportable 03/10/19 04:05 Rouleaux Not Reportable 03/10/19 04:05 Hemoglobin C Crystals Not Reportable 03/10/19 04:05 Schistocytes Not Reportable 03/10/19 04:05 Malaria parasites Not Reportable 03/10/19 04:05 Donta Bodies Not Reportable 03/10/19 04:05 Hem Pathologist Commnt No 03/10/19 04:05 PT 18.5 Sec. (12.2-14.9) H 03/10/19 04:05 INR 1.57 (0.87-1.13) H 03/10/19 04:05 APTT 40.4 Sec. (24.2-36.6) H 03/10/19 04:05 Sodium 141 mmol/L (137-145) 03/10/19 04:05 Potassium 3.4 mmol/L (3.6-5.0) L 03/10/19 04:05 Chloride 107.0 mmol/L (98-107) 03/10/19 04:05 Carbon Dioxide 21 mmol/L (22-30) L 03/10/19 04:05 Anion Gap 16 mmol/L 03/10/19 04:05 BUN 37 mg/dL (9-20) H 03/10/19 04:05 Creatinine 1.5 mg/dL (0.8-1.5) 03/10/19 04:05 Estimated GFR 46 ml/min 03/10/19 04:05 BUN/Creatinine Ratio 25 % 03/10/19 04:05 Glucose 128 mg/dL (75-100) H 03/10/19 04:05 Lactic Acid 0.80 mmol/L (0.7-2.0) 03/09/19 04:57 Calcium 8.5 mg/dL (8.4-10.2) 03/10/19 04:05 Total Bilirubin 1.10 mg/dL (0.1-1.2) 03/09/19 02:16 AST 20 units/L (5-40) 03/09/19 02:16 ALT 18 units/L (7-56) 03/09/19 02:16 Alkaline Phosphatase 58 units/L (35-129) 03/09/19 02:16 Troponin T 0.042 ng/mL (0.00-0.029) H 03/09/19 02:16 Troponin T 0.043 ng/mL (0.00-0.029) H 03/09/19 02:16 NT-Pro-B Natriuret Pep 3715 pg/mL (0-900) H 03/09/19 02:16 Total Protein 6.9 g/dL (6.3-8.2) 03/09/19 02:16 Albumin 3.5 g/dL (3.9-5) L 03/09/19 02:16 Albumin/Globulin Ratio 1.0 % 03/09/19 02:16 Triglycerides 50 mg/dL (2-149) 03/09/19 02:16 Cholesterol 61 mg/dL (50-199) 03/09/19 02:16 LDL Cholesterol Direct 35 mg/dL (50-130) L 03/09/19 02:16 HDL Cholesterol 26 mg/dL (40-59) L 03/09/19 02:16 Cholesterol/HDL Ratio 2.34 % 03/09/19 02:16 Urine Color Yellow (Yellow) 03/09/19 22:15 Urine Turbidity Slightly-cloudy (Clear) 03/09/19 22:15 Urine pH 5.0 (5.0-7.0) 03/09/19 22:15 Ur Specific Tiff 1.019 (1.003-1.030) 03/09/19 22:15 Urine Protein 100 mg/dl mg/dL (Negative) 03/09/19 22:15 Urine Glucose (UA) Neg mg/dL (Negative) 03/09/19 22:15 Urine Ketones Neg mg/dL (Negative) 03/09/19 22:15 Urine Blood Lg (Negative) 03/09/19 22:15 Urine Nitrite Neg (Negative) 03/09/19 22:15 Urine Bilirubin Neg (Negative) 03/09/19 22:15 Urine Urobilinogen < 2.0 mg/dL (<2.0) 03/09/19 22:15 Ur Leukocyte Esterase Neg (Negative) 03/09/19 22:15 Urine WBC (Auto) 5.0 /HPF (0.0-6.0) 03/09/19 22:15 Urine RBC (Auto) 2.0 /HPF (0.0-6.0) 03/09/19 22:15 U Epithel Cells (Auto) 1.0 /HPF (0-13.0) 03/09/19 22:15 Urine Bacteria (Auto) 1+ /HPF (Negative) 03/09/19 22:15 Urine Mucus Few /HPF 03/09/19 22:15 Urine Opiates Screen Presumptive negative 03/09/19 22:15 Urine Methadone Screen Presumptive negative 03/09/19 22:15 Ur Barbiturates Screen Presumptive negative 03/09/19 22:15 Ur Phencyclidine Scrn Presumptive negative 03/09/19 22:15 Ur Amphetamines Screen Presumptive negative 03/09/19 22:15 U Benzodiazepines Scrn Presumptive negative 03/09/19 22:15 Urine Cocaine Screen Presumptive negative 03/09/19 22:15 U Marijuana (THC) Screen Presumptive negative 03/09/19 22:15 Drugs of Abuse Note Disclamer 03/09/19 22:15 Influenza A (Rapid) Negative (Negative) 03/09/19 Unknown Influenza B (Rapid) Negative (Negative) 03/09/19 Unknown Blood Type A POSITIVE 03/09/19 03:13 Antibody Screen Negative 03/09/19 03:13 Crossmatch See Detail 03/09/19 03:13 Active Medications - Current Medications Current Medications: Generic Name Dose Route Start Last Admin Trade Name Freq PRN Reason Stop Dose Admin Acetaminophen 650 mg 03/09/19 04:22 03/11/19 03:33 Tylenol PO 650 mg Q4H PRN Administration Pain MILD(1-3)/Fever >100.5/LLANES Sodium Chloride 1,000 mls @ 125 mls/hr 03/09/19 11:00 03/11/19 10:46 Nacl 0.9% 1000 Ml IV 125 mls/hr DIRECT NANETTE Administration Cefepime HCl 2 gm in 100 mls @ 200 mls/hr 03/11/19 10:00 Cefepime/Ns 2 Gm/100 Ml IV Q12HR NANETTE Magnesium Hydroxide 30 ml 03/09/19 04:22 Milk Of Magnesia PO Q4H PRN Constipation Ondansetron HCl 4 mg 03/09/19 04:22 Zofran IV Q8H PRN Nausea And Vomiting Sodium Chloride 10 ml 03/09/19 10:00 03/11/19 10:47 Sodium Chloride Flush Syringe 10 Ml IV 10 ml BID NANETTE Administration Sodium Chloride 10 ml 03/09/19 04:22 Sodium Chloride Flush Syringe 10 Ml IV PRN PRN LINE FLUSH Nutrition/Malnutrition Assess - Dietary Evaluation Nutrition/Malnutrition Findings: Nutrition Notes Start: 03/10/19 10:52 Freq: Status: Active Protocol: Document 03/10/19 10:52 LP (Rec: 03/10/19 11:00 LP [id number]) Nutrition Notes 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 Pt states just and not able to eat much . Pt has had nausea. Would like to have fruit on every tray. Pt states clothes are fitting differently. Burn Absent Trauma Absent GI Symptoms Nausea Food Allergy No Current % PO Poor (25-49%) Minimum of two criteria Yes Energy Intake (severe) < or equal to 50% Estimated Energy Requirement > or equal to 5 days Interpretation of Weight Loss (severe) >5% in 1 month Body Fat Depletion Mild depletion (non-severe) Muscle Mass Mild Depletion (non-severe) #1 Nutrition Diagnosis Malnutrition Etiology poor appetite As Evidenced by Signs and Symptoms Pt states not eating well FREEZER PERSON and observed less than 30% consumed, 27% wt loss in 2-3 weeks, and muscle and fat loss . Is patient on ventilator? No Is Patient Ambulatory and/or Out of Bed No REE-([facility]-confined to bed) 1581.180 Kcal/Kg value to use for calculation 35 Approximate Energy Requirements Using 1960 kcal/Kg Calculation Used for Recommendations Kcal/kg Additional Notes Protein needs are 67-84g (1.2- 1.5g/kg) Fluid needs are 1ml/kcal Nutrition Intervention Change Diet Order: Continue Cardiac diet Add Supplement/Snack (indicate name/kcal Ensure Clear BID /protein ) Provides kCal: 480 Provides Protein (gm) 16 Goal #1 Meet at least 80% of kcal and protein needs via meals and ONS Goal #2 Wt maintenance Anticipated Discharge Needs: Cardiac diet and ONS as needed Follow-Up By: 03/12/19 Additional Comments Follow for intakes and ONS tolerance
[2019-03-11] MEDS ORDERED: SODIUM CHLORIDE 0.9% 500 ML 500 ML IV ONE (12:49)
[2019-03-11] MEDS: CEFEPIME/NS 2 GM/100 ML 2 GM/100 ML BAG IV SCH ×2 (13:01→21:03)
[2019-03-11] MEDS ORDERED: VANCOMYCIN/NS 1 GM/250 ML 1 GM/250 ML BAG IV SCH (14:00)
--- NOTE | 2019-03-11 15:02 | Progress Note ---
Assessment and Plan Cultures: 03/09/2019 blood culture: Diphteroids 2 of 4 bottles A/P: 74-year-old male with MDS who is transfusion dependent and has chronic neutropenia, recurrent pneumonia, requiring multiple admssions, asthma/COPD, hypertension. He is known to us from his previous hospitalizations. He has an indwelling PORT. Came in with weakness. #Sepsis: still fever, immunocompromised host from chronic neutropenia. Etiology likely Diphtheroids bacteremia. #Diphtheroids bacteremia: 2 of 4 bottles, Diphteroids is usually a contaminant but given immunocompromised state, port in place and isolate growing on 2 differ ent sets will consider as a real pathogen. #Severe pancytopenia, MDS, immunocompromised host #Lactic acidosis #Acute kidney injury: Renally dose antibiotics #Recurrent right sided pneumonia: in Apr 2018 at [facility], June 2018 at [facility] and Jan 2019 PF, full worked up for invasive fungal infection negative. Recs: continue empiric IV cefepime for now add vancomycin IV ask micro to fully identify diphtheroids repeat blood cultures obtain TTE Will follow. Sandrita Valdivia MD Infectious Diseases Geriatric Nurse Assistant [facility] ([facility]) M [phone] O [phone] Subjective Date of service: 03/11/19 Principal diagnosis: SIRS Interval history: Feels better, no complaints. fever 100.7 Objective - Exam Narrative Exam: Constitutional: Alert, cooperative. No acute distress Head, Ears, Nose: Normocephalic, atraumatic. External ears, nose normal Eyes: Conjunctivae/corneas clear. No icterus. No ptosis. Neck: Supple, no meningeal signs Oral: dentition fair, no thrush Cardiovascular: S1, S2 normal. Respiratory: Good air entry, clear to auscultation bilaterally GI: Soft, non-tender; bowel sounds normal. No peritoneal signs. Musculoskeletal: No pedal edema, no cyanosis. b/l leg wounds Skin: No rash or abscess Hem/Lymphatic: No palpable cervical or supraclavicular nodes. No lymphangitis Psych: Mood ok. Affect normal Neurological: Awake, alert, oriented. No gross abnormality right port clean - Constitutional Vitals: Vital Signs Temp Pulse Resp BP Pulse Ox 98.6 F 107 H 18 122/67 92 03/11/19 14:07 03/11/19 14:07 03/11/19 14:07 03/11/19 14:07 03/11/19 14:07 Temperature -Last 24 Hours Temperature 98.6 F Temperature 97.8 F Temperature 99.4 F Temperature 100.9 F - Labs CBC & Chem 7: 03/11/19 14:51 03/10/19 04:05 Labs: Abnormal lab results 03/09/19 03/11/19 Range/Units 03:13 02:49 Plt Count 18 L* D (140-440) K/mm3 Crossmatch See Detail
[2019-03-11 15:30] LABS: Hemoglobin 7.2 gm/dl (11.8-15.2); Mean Corpuscular HGB Conc 34 % (32-34); Mean Corpuscular Volume 87 fl (84-94); Red Cell Distribution Width 13.3 % (13.2-15.2)
[2019-03-11 15:34] LABS: Platelet Count 16 K/mm3 (140-440)
[2019-03-12 05:57] LABS: Hemoglobin 6.3 gm/dl (11.8-15.2); Mean Corpuscular HGB Conc 34 % (32-34); Mean Corpuscular Volume 88 fl (84-94); Red Blood Count 2.09 M/mm3 (3.65-5.03); Red Cell Distribution Width 13.6 % (13.2-15.2)
[2019-03-12 06:01] LABS: Hematocrit 18.4 % (35.5-45.6); Platelet Count 11 K/mm3 (140-440)
[2019-03-12] MEDS ORDERED: SODIUM CHLORIDE 0.9% 500 ML 500 ML IV ONE ×2 (06:20→06:32)
[2019-03-12 07:23] LABS: Basophils % (Manual) 0 % (0.0-1.8); Eosinophils % (Manual) 0 % (0.0-4.3); Monocytes % (Manual) 0 % (0.0-7.3); Total Cells Counted 10
[2019-03-12 07:25] LABS: Anisocytosis 1+; Platelet Estimate Consistent w Auto
--- NOTE | 2019-03-12 07:44 | Progress Note ---
Assessment and Plan Assessment and plan: 74-year-old male with known history of COPD, HTN, myelodysplastic disorder presented to the emergency room today complaining of syncopal episode. Was noted to have presented a few days ago with flulike symptoms but decided to leave AMA. He said he had a syncopal episode. He denies any chest pain or sh ortness of breath. No nausea vomiting. Upon arrival in the emergency room his work-up was significant for anemia with hemoglobin of 7.5, he had a white count of 0.4 and elevated lactic acid. Was found to be tachycardic. He was given IV fluid and started on empiric IV antibiotics for possible sepsis * Blood cultures showing Diphteroids, Full confirmation pending * Currently on Emperic IV cefepime, Vancomycin add- ID following * TTE shows No vegetation * Still persistent Neutropenia although slightly improved (Known hx of Recurrent Pneumonia requiring multiple admissions * Patient with indwelling PORT * Recurrent right sided pneumonia: in Apr [address] 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 The appearance is most suggestive of pneumonia. Similar but more severe findings were seen on the prior chest radiograph of 07/13/2018. This raises concern for the possibility of recurrent pneumonia due to aspiration. Sepsis: Continue antibiotics Per ID Neutropenic Fever: As noted above, Isolation precautions Diptheroids Bactermia: Abx per ID Syncope: Likely secondary to Debility. No clear evidence from [facility]ho of valvular disease. Anemia of chronic disease due to mild dysplastic syndrome,: Medical Practice Assistant following Thrombocytopenia: Some improvement noted, will monitor Hypokalemia: Replace Metabolic Encephalopathy: Per EMS documentation, Patient was confused, covered in feaces on their arrival, Had flulike symptom ealier in the day Metabolic Acidosis: Monitor, will give fluids and some Bicarb Acute kidney injury likely due to vasomotor nephropathy: improving, Renally dose Abx COPD: Stable Aflutter: Continue to hold anticoagulation DVT/GI Prophy Anticipate discharge in a day or two when ok with ID. Poor Prognosis History Interval history: Patient seen and examined, although improving some from previous evaluation but still with generalized lethargy Hospitalist Physical - Constitutional Vitals: Temp Pulse Resp BP Pulse Ox 97.7 F 81 18 119/57 96 03/12/19 02:28 03/12/19 02:28 03/12/19 02:28 03/12/19 02:28 03/12/19 02:28 General appearance: Present: no acute distress, cachectic, other (lathergic) - EENT Eyes: Present: PERRL ENT: clear oral mucosa - Neck Neck: Present: supple, normal ROM - Respiratory Respiratory effort: normal Respiratory: bilateral: diminished - Cardiovascular Rhythm: regular Heart Sounds: Present: S1 & S2, systolic murmur (2/6). Absent: diastolic murmur - Extremities Extremities: no ischemia, pulses intact, pulses symmetrical, No edema, normal temperature, normal color, Full ROM Peripheral Pulses: within normal limits - Abdominal General gastrointestinal: soft, non-tender, non-distended, normal bowel sounds - Integumentary Integumentary: Present: clear, warm, dry, decreased turgor - Psychiatric Psychiatric: appropriate mood/affect, intact judgment & insight, memory intact, cooperative - Neurologic Neurologic: CNII-XII intact, moves all extremities - Allied Health Allied health notes reviewed: nursing Results - Labs CBC & Chem 7: 03/12/19 05:20 03/10/19 04:05 Labs: Laboratory Last Values WBC 0.2 K/mm3 (4.5-11.0) L* 03/12/19 05:20 RBC 2.09 M/mm3 (3.65-5.03) L 03/12/19 05:20 Hgb 6.3 gm/dl (11.8-15.2) L 03/12/19 05:20 Hct 18.4 % (35.5-45.6) L* 03/12/19 05:20 MCV 88 fl (84-94) 03/12/19 05:20 MCH 30 pg (28-32) 03/12/19 05:20 MCHC 34 % (32-34) 03/12/19 05:20 RDW 13.6 % (13.2-15.2) 03/12/19 05:20 Plt Count 11 K/mm3 (140-440) L* 03/12/19 05:20 Lymph % (Auto) Crm Developer 03/12/19 05:20 Add Manual Diff Complete 03/12/19 05:20 Total Counted 10 03/12/19 05:20 Seg Neutrophils % Crm Developer 03/12/19 05:20 Seg Neuts % (Manual) 0 % (40.0-70.0) L 03/12/19 05:20 Band Neutrophils % 0 % 03/12/19 05:20 Lymphocytes % (Manual) 100.0 % (13.4-35.0) H 03/12/19 05:20 Reactive Lymphs % (Man) 0 % 03/12/19 05:20 Monocytes % (Manual) 0 % (0.0-7.3) 03/12/19 05:20 Eosinophils % (Manual) 0 % (0.0-4.3) 03/12/19 05:20 Basophils % (Manual) 0 % (0.0-1.8) 03/12/19 05:20 Metamyelocytes % 0 % 03/12/19 05:20 Myelocytes % 0 % 03/12/19 05:20 Promyelocytes % 0 % 03/12/19 05:20 Blast Cells % 0 % 03/12/19 05:20 Nucleated RBC % Not Reportable 03/12/19 05:20 Seg Neutrophils # Man 0.0 K/mm3 (1.8-7.7) L 03/12/19 05:20 Band Neutrophils # 0.0 K/mm3 03/12/19 05:20 Lymphocytes # (Manual) 0.2 K/mm3 (1.2-5.4) L 03/12/19 05:20 Abs React Lymphs (Man) 0.0 K/mm3 03/12/19 05:20 Monocytes # (Manual) 0.0 K/mm3 (0.0-0.8) 03/12/19 05:20 Eosinophils # (Manual) 0.0 K/mm3 (0.0-0.4) 03/12/19 05:20 Basophils # (Manual) 0.0 K/mm3 (0.0-0.1) 03/12/19 05:20 Metamyelocytes # 0.0 K/mm3 03/12/19 05:20 Myelocytes # 0.0 K/mm3 03/12/19 05:20 Promyelocytes # 0.0 K/mm3 03/12/19 05:20 Blast Cells # 0.0 K/mm3 03/12/19 05:20 WBC Morphology Not Reportable 03/12/19 05:20 Hypersegmented Neuts Not Reportable 03/12/19 05:20 Hyposegmented Neuts Not Reportable 03/12/19 05:20 Hypogranular Neuts Not Reportable 03/12/19 05:20 Smudge Cells Not Reportable 03/12/19 05:20 Toxic Granulation Not Reportable 03/12/19 05:20 Toxic Vacuolation Not Reportable 03/12/19 05:20 Dohle Bodies Not Reportable 03/12/19 05:20 Pelger-Huet Anomaly Not Reportable 03/12/19 05:20 Andra Rods Not Reportable 03/12/19 05:20 Platelet Estimate Consistent w auto 03/12/19 05:20 Clumped Platelets Not Reportable 03/12/19 05:20 Plt Clumps, EDTA Not Reportable 03/12/19 05:20 Large Platelets Not Reportable 03/12/19 05:20 Giant Platelets Not Reportable 03/12/19 05:20 Platelet Satelliting Not Reportable 03/12/19 05:20 Plt Morphology Comment Not Reportable 03/12/19 05:20 RBC Morphology Not Reportable 03/12/19 05:20 Dimorphic RBCs Not Reportable 03/12/19 05:20 Polychromasia Not Reportable 03/12/19 05:20 Hypochromasia Not Reportable 03/12/19 05:20 Poikilocytosis Not Reportable 03/12/19 05:20 Anisocytosis 1+ 03/12/19 05:20 Microcytosis Not Reportable 03/12/19 05:20 Macrocytosis Not Reportable 03/12/19 05:20 Spherocytes Not Reportable 03/12/19 05:20 Pappenheimer Bodies Not Reportable 03/12/19 05:20 Sickle Cells Not Reportable 03/12/19 05:20 Target Cells Not Reportable 03/12/19 05:20 Tear Drop Cells Not Reportable 03/12/19 05:20 Ovalocytes Not Reportable 03/12/19 05:20 Helmet Cells Not Reportable 03/12/19 05:20 Joseph-[place] Bodies Not Reportable 03/12/19 05:20 Elkin Rings Not Reportable 03/12/19 05:20 Corona Cells Not Reportable 03/12/19 05:20 Bite Cells Not Reportable 03/12/19 05:20 Crenated Cell Not Reportable 03/12/19 05:20 Elliptocytes Not Reportable 03/12/19 05:20 Acanthocytes (Spur) Not Reportable 03/12/19 05:20 Rouleaux Not Reportable 03/12/19 05:20 Hemoglobin C Crystals Not Reportable 03/12/19 05:20 Schistocytes Not Reportable 03/12/19 05:20 Malaria parasites Not Reportable 03/12/19 05:20 Donta Bodies Not Reportable 03/12/19 05:20 Hem Pathologist Commnt No 03/12/19 05:20 PT 18.5 Sec. (12.2-14.9) H 03/10/19 04:05 INR 1.57 (0.87-1.13) H 03/10/19 04:05 APTT 40.4 Sec. (24.2-36.6) H 03/10/19 04:05 Sodium 141 mmol/L (137-145) 03/10/19 04:05 Potassium 3.4 mmol/L (3.6-5.0) L 03/10/19 04:05 Chloride 107.0 mmol/L (98-107) 03/10/19 04:05 Carbon Dioxide 21 mmol/L (22-30) L 03/10/19 04:05 Anion Gap 16 mmol/L 03/10/19 04:05 BUN 37 mg/dL (9-20) H 03/10/19 04:05 Creatinine 1.5 mg/dL (0.8-1.5) 03/10/19 04:05 Estimated GFR 46 ml/min 03/10/19 04:05 BUN/Creatinine Ratio 25 % 03/10/19 04:05 Glucose 128 mg/dL (75-100) H 03/10/19 04:05 Lactic Acid 0.80 mmol/L (0.7-2.0) 03/09/19 04:57 Calcium 8.5 mg/dL (8.4-10.2) 03/10/19 04:05 Total Bilirubin 1.10 mg/dL (0.1-1.2) 03/09/19 02:16 AST 20 units/L (5-40) 03/09/19 02:16 ALT 18 units/L (7-56) 03/09/19 02:16 Alkaline Phosphatase 58 units/L (35-129) 03/09/19 02:16 Troponin T 0.042 ng/mL (0.00-0.029) H 03/09/19 02:16 Troponin T 0.043 ng/mL (0.00-0.029) H 03/09/19 02:16 NT-Pro-B Natriuret Pep 3715 pg/mL (0-900) H 03/09/19 02:16 Total Protein 6.9 g/dL (6.3-8.2) 03/09/19 02:16 Albumin 3.5 g/dL (3.9-5) L 03/09/19 02:16 Albumin/Globulin Ratio 1.0 % 03/09/19 02:16 Triglycerides 50 mg/dL (2-149) 03/09/19 02:16 Cholesterol 61 mg/dL (50-199) 03/09/19 02:16 LDL Cholesterol Direct 35 mg/dL (50-130) L 03/09/19 02:16 HDL Cholesterol 26 mg/dL (40-59) L 03/09/19 02:16 Cholesterol/HDL Ratio 2.34 % 03/09/19 02:16 Urine Color Yellow (Yellow) 03/09/19 22:15 Urine Turbidity Slightly-cloudy (Clear) 03/09/19 22:15 Urine pH 5.0 (5.0-7.0) 03/09/19 22:15 Ur Specific [place] 1.019 (1.003-1.030) 03/09/19 22:15 Urine Protein 100 mg/dl mg/dL (Negative) 03/09/19 22:15 Urine Glucose (UA) Neg mg/dL (Negative) 03/09/19 22:15 Urine Ketones Neg mg/dL (Negative) 03/09/19 22:15 Urine Blood Lg (Negative) 03/09/19 22:15 Urine Nitrite Neg (Negative) 03/09/19 22:15 Urine Bilirubin Neg (Negative) 03/09/19 22:15 Urine Urobilinogen < 2.0 mg/dL (<2.0) 03/09/19 22:15 Ur Leukocyte Esterase Neg (Negative) 03/09/19 22:15 Urine WBC (Auto) 5.0 /HPF (0.0-6.0) 03/09/19 22:15 Urine RBC (Auto) 2.0 /HPF (0.0-6.0) 03/09/19 22:15 U Epithel Cells (Auto) 1.0 /HPF (0-13.0) 03/09/19 22:15 Urine Bacteria (Auto) 1+ /HPF (Negative) 03/09/19 22:15 Urine Mucus Few /HPF 03/09/19 22:15 Urine Opiates Screen Presumptive negative 03/09/19 22:15 Urine Methadone Screen Presumptive negative 03/09/19 22:15 Ur Barbiturates Screen Presumptive negative 03/09/19 22:15 Ur Phencyclidine Scrn Presumptive negative 03/09/19 22:15 Ur Amphetamines Screen Presumptive negative 03/09/19 22:15 U Benzodiazepines Scrn Presumptive negative 03/09/19 22:15 Urine Cocaine Screen Presumptive negative 03/09/19 22:15 U Marijuana (THC) Screen Presumptive negative 03/09/19 22:15 Drugs of Abuse Note Disclamer 03/09/19 22:15 Influenza A (Rapid) Negative (Negative) 03/09/19 Unknown Influenza B (Rapid) Negative (Negative) 03/09/19 Unknown Blood Type A POSITIVE 03/09/19 03:13 Antibody Screen Negative 03/09/19 03:13 Crossmatch See Detail 03/09/19 03:13 Active Medications - Current Medications Current Medications: Generic Name Dose Route Start Last Admin Trade Name Freq PRN Reason Stop Dose Admin Acetaminophen 650 mg 03/09/19 04:22 03/11/19 23:20 Tylenol PO 650 mg Q4H PRN Administration Pain MILD(1-3)/Fever >100.5/LLANES Sodium Chloride 1,000 mls @ 125 mls/hr 03/09/19 11:00 03/11/19 10:46 Nacl 0.9% 1000 Ml IV 125 mls/hr DIRECT NANETTE Administration Cefepime HCl 2 gm in 100 mls @ 200 mls/hr 03/11/19 10:00 03/11/19 21:03 Cefepime/Ns 2 Gm/100 Ml IV 200 mls/hr Q12HR NANETTE Administration Vancomycin HCl 1 gm in 250 mls @ 166.667 mls/hr 03/11/19 14:00 03/11/19 17:35 Vancomycin/Ns 1 Gm/250 Ml IV 166.667 mls/hr Q48H NANETTE Administration Protocol Magnesium Hydroxide 30 ml 03/09/19 04:22 Milk Of Magnesia PO Q4H PRN Constipation Ondansetron HCl 4 mg 03/09/19 04:22 Zofran IV Q8H PRN Nausea And Vomiting Sodium Chloride 10 ml 03/09/19 10:00 03/11/19 23:25 Sodium Chloride Flush Syringe 10 Ml IV 10 ml BID NANETTE Administration Sodium Chloride 10 ml 03/09/19 04:22 Sodium Chloride Flush Syringe 10 Ml IV PRN PRN LINE FLUSH Nutrition/Malnutrition Assess - Dietary Evaluation Nutrition/Malnutrition Findings: Nutrition Notes Start: 03/10/19 10:52 Freq: Status: Active Protocol: Document 03/10/19 10:52 LP (Rec: 03/10/19 11:00 LP [id number]) Nutrition Notes Need for Assessment generated from: first leveler Initial or Follow up Assessment Current Diagnosis Sepsis,Hypertension Other Pertinent Diagnosis AMI, AMS, Syncope Current Diet Cardiac Labs/Tests K 3.4 BUN 37 Pertinent Medications NS at 125ml/hr Height 5 ft 11 in Weight 56 kg Usual Body Weight 77 kg [place] Body Weight (kg) 78.18 BMI 17.2 Weight change and time frame 27% in 2-3 weeks (significant) Subjective/Other Information Screen for MST. Pt states not eating well PHOTOGRAPH TINTER and not eating well now. Pt states just and not able to eat much . Pt has had nausea. Would like to have fruit on every tray. Pt states clothes are fitting differently. Burn Absent Trauma Absent GI Symptoms Nausea Food Allergy No Current % PO Poor (25-49%) Minimum of two criteria Yes Energy Intake (severe) < or equal to 50% Estimated Energy Requirement > or equal to 5 days Interpretation of Weight Loss (severe) >5% in 1 month Body Fat Depletion Mild depletion (non-severe) Muscle Mass Mild Depletion (non-severe) #1 Nutrition Diagnosis Malnutrition Etiology poor appetite As Evidenced by Signs and Symptoms Pt states not eating well PHOTOGRAPH TINTER and observed less than 30% consumed, 27% wt loss in 2-3 weeks, and muscle and fat loss . Is patient on ventilator? No Is Patient Ambulatory and/or Out of Bed No REE-([facility]-confined to bed) 1581.180 Kcal/Kg value to use for calculation 35 Approximate Energy Requirements Using 1960 kcal/Kg Calculation Used for Recommendations Kcal/kg Additional Notes Protein needs are 67-84g (1.2- 1.5g/kg) Fluid needs are 1ml/kcal Nutrition Intervention Change Diet Order: Continue Cardiac diet Add Supplement/Snack (indicate name/kcal Ensure Clear BID /protein ) Provides kCal: 480 Provides Protein (gm) 16 Goal #1 Meet at least 80% of kcal and protein needs via meals and ONS Goal #2 Wt maintenance Anticipated Discharge Needs: Cardiac diet and ONS as needed Follow-Up By: 03/12/19 Additional Comments Follow for intakes and ONS tolerance - Malnutrition Assessment Minimum of two criteria: Yes - Attestation Statement I have reviewed and agreed w/ Malnutrition eval & tx plan: Yes
[2019-03-12] MEDS ORDERED: POTASSIUM CHLORIDE ER 20 MEQ TAB PO NR (07:57)
--- NOTE | 2019-03-12 08:24 | Hem/Onc Progress Note ---
Assessment and Plan 1. Anemia, leukopenia, thrombocytopenia in a patient with history of myelodysplastic syndrome. He follows Dr. Rojas. In the past, the patient has received Dacogen. He was also getting Procrit. During this admission, he received platelet transfusion and G-CSF support. 2. History of hypertension. 3. History of coronary artery disease. 4. History of renal issues. 5. Carotid artery stenosis. 6. The patient has been having cytopenia for some time. We will do transfusion support while in the hospital and then he will follow with his oncologist, Dr. Rojas. ID team following for Infection and Abx - Patient Problems (1) Myelodysplastic syndrome, unspecified Current Visit: Yes Status: Chronic Subjective Date of service: 03/12/19 Principal diagnosis: MDS Interval history: Infection - ID following Objective - Exam Narrative Exam: Pain - none General appearance - arousable Performance status complete dependence Eyes - no icterus ENT - on o2 LNs cervical not palpable Neck - no LN Respiratory Normal Breath sounds - CTA anteriorly CVS S1 S2 + Extremities no edema General GI Soft Rectal deferred male - deferred Skin warm Musculoskeletal - moving limbs Neurologically arousable - Constitutional Vitals: Last Vital Signs Temp 97.7 F 03/12/19 02:28 Pulse 81 03/12/19 02:28 Resp 18 03/12/19 02:28 BP 119/57 03/12/19 02:28 Pulse Ox 96 03/12/19 02:28 - Labs Lab Results: Laboratory Results - last 24 hr 03/09/19 03/11/19 03/12/19 03:13 14:51 05:20 WBC 0.4 L* 0.2 L* RBC 2.40 L 2.09 L Hgb 7.2 L 6.3 L Hct 21.0 L 18.4 L* MCV 87 88 MCH 30 30 MCHC 34 34 RDW 13.3 13.6 Plt Count 16 L* 11 L* Lymph % (Auto) Communications Supervisor Add Manual Diff Complete Total Counted 10 Seg Neutrophils % Communications Supervisor Seg Neuts % (Manual) 0 L Band Neutrophils % 0 Lymphocytes % (Manual) 100.0 H Reactive Lymphs % (Man) 0 Monocytes % (Manual) 0 Eosinophils % (Manual) 0 Basophils % (Manual) 0 Metamyelocytes % 0 Myelocytes % 0 Promyelocytes % 0 Blast Cells % 0 Nucleated RBC % Not Reportable Seg Neutrophils # Man 0.0 L Band Neutrophils # 0.0 Lymphocytes # (Manual) 0.2 L Abs React Lymphs (Man) 0.0 Monocytes # (Manual) 0.0 Eosinophils # (Manual) 0.0 Basophils # (Manual) 0.0 Metamyelocytes # 0.0 Myelocytes # 0.0 Promyelocytes # 0.0 Blast Cells # 0.0 WBC Morphology Not Reportable Hypersegmented Neuts Not Reportable Hyposegmented Neuts Not Reportable Hypogranular Neuts Not Reportable Smudge Cells Not Reportable Toxic Granulation Not Reportable Toxic Vacuolation Not Reportable Dohle Bodies Not Reportable Pelger-Huet Anomaly Not Reportable Andra Rods Not Reportable Platelet Estimate Consistent w auto Clumped Platelets Not Reportable Plt Clumps, EDTA Not Reportable Large Platelets Not Reportable Giant Platelets Not Reportable Platelet Satelliting Not Reportable Plt Morphology Comment Not Reportable RBC Morphology Not Reportable Dimorphic RBCs Not Reportable Polychromasia Not Reportable Hypochromasia Not Reportable Poikilocytosis Not Reportable Anisocytosis 1+ Microcytosis Not Reportable Macrocytosis Not Reportable Spherocytes Not Reportable Pappenheimer Bodies Not Reportable Sickle Cells Not Reportable Target Cells Not Reportable Tear Drop Cells Not Reportable Ovalocytes Not Reportable Helmet Cells Not Reportable Joseph-[place] Bodies Not Reportable Jackson Rings Not Reportable Corona Cells Not Reportable Bite Cells Not Reportable Crenated Cell Not Reportable Elliptocytes Not Reportable Acanthocytes (Spur) Not Reportable Rouleaux Not Reportable Hemoglobin C Crystals Not Reportable Schistocytes Not Reportable Malaria parasites Not Reportable Donta Bodies Not Reportable Hem Pathologist Commnt No Blood Type A POSITIVE Antibody Screen Negative Crossmatch See Detail Medications & Allergies - Medications Allergies/Adverse Reactions: Allergies tetanus and diphtheria toxoids [tetanus & diphtheria toxoids] Allergy (Verified 07/12/18 13:31) Anaphylaxis Home Medications: Home Medications Medication Instructions Recorded Confirmed Last Taken Type Potassium Chloride 20 meq PO QDAY #10 packet 06/03/18 03/09/19 Unknown Rx Ascorbic Acid [Vitamin C] 500 mg PO DAILY 07/12/18 03/09/19 Unknown History Magnesium Oxide 400 mg PO DAILY 07/12/18 03/09/19 Unknown History Acyclovir [Zovirax Cap] 200 mg PO BID 30 Days #60 capsule 07/19/18 03/09/19 Unknown Rx Amiodarone [Cordarone 200 MG TAB] 200 mg PO DAILY #30 tablet 07/19/18 03/09/19 Unknown Rx Metoprolol [Lopressor TAB] 12.5 mg PO BID #60 tablet 07/19/18 03/09/19 Unknown Rx oxyCODONE /ACETAMINOPHEN [Percocet 1 tab PO Q6H PRN #30 tablet 07/19/18 03/09/19 Unknown Rx 5/325 mg] Active Medications: Generic Name Dose Route Start Last Admin Trade Name Freq PRN Reason Stop Dose Admin Acetaminophen 650 mg 03/09/19 04:22 03/11/19 23:20 Tylenol PO 650 mg Q4H PRN Administration Pain MILD(1-3)/Fever >100.5/LLANES Sodium Chloride 1,000 mls @ 125 mls/hr 03/09/19 11:00 03/11/19 10:46 Nacl 0.9% 1000 Ml IV 125 mls/hr DIRECT NANETTE Administration Cefepime HCl 2 gm in 100 mls @ 200 mls/hr 03/11/19 10:00 03/11/19 21:03 Cefepime/Ns 2 Gm/100 Ml IV 200 mls/hr Q12HR NANETTE Administration Vancomycin HCl 1 gm in 250 mls @ 166.667 mls/hr 03/11/19 14:00 03/11/19 17:35 Vancomycin/Ns 1 Gm/250 Ml IV 166.667 mls/hr Q48H NANETTE Administration Protocol Magnesium Hydroxide 30 ml 03/09/19 04:22 Milk Of Magnesia PO Q4H PRN Constipation Ondansetron HCl 4 mg 03/09/19 04:22 Zofran IV Q8H PRN Nausea And Vomiting Potassium Chloride 40 meq 03/12/19 07:57 K-Dur PO 03/12/19 10:00 ONCE NR Sodium Chloride 10 ml 03/09/19 10:00 03/11/19 23:25 Sodium Chloride Flush Syringe 10 Ml IV 10 ml BID NANETTE Administration Sodium Chloride 10 ml 03/09/19 04:22 Sodium Chloride Flush Syringe 10 Ml IV PRN PRN LINE FLUSH
--- NOTE | 2019-03-12 08:48 | Consultation ---
REFERRED BY: Dr. Lamb. REASON FOR CONSULTATION: Anemia, thrombocytopenia, leukopenia. History of MDS. HISTORY OF PRESENT ILLNESS: I saw the patient, a 74-year-old male, in the Medical Floor. I had seen him in the past. The patient has been going to Dr. Rojas for his MDS. The patient has received Dacogen in the past. He came to the hospital because of syncopal episode. No chest pain, no shortness of breath. He was found to have hemoglobin of 7.5, white cell 0.4, elevated lactic acid, tachycardic. He was given IV fluids and antibiotics. I have been asked to evaluate the patient because of cytopenia. Transfusion support has been ordered. One dose of G-CSF was given. The patient answers some questions appropriately, but others not. He told me that when he walks the surface moves. It was not clear if he was talking at the hospital or at home. PAST MEDICAL HISTORY: Hypertension, MDS. Past history of heme renal impairment, coronary artery disease. SOCIAL HISTORY: Ex-smoker, ex-alcohol usage. FAMILY HISTORY: Noncontributory. ALLERGIES: TETANUS AND DIPHTHERIA. In the past, the patient has received Procrit. I spoke to ID team regarding the patient. PHYSICAL EXAMINATION: VITAL SIGNS: Temperature 98, pulse 107, respirations 18, BP 122/67. HEENT: Pallor present. No icterus. NECK: No neck lymph nodes. HEART: S1, S2. LUNGS: Clear to auscultation anteriorly. ABDOMEN: Soft. EXTREMITIES: No calf tenderness. LABORATORY DATA: White cell 0.4, hemoglobin 7.2, MCV 87, platelets 16. At one time, platelet was 4. Potassium 3.4, creatinine 1.5, calcium 8.5. RADIOLOGY DATA: Carotid Doppler and head CT was done. Carotid Doppler shows a 50%-79% stenosis in both internal carotid arteries. ASSESSMENT: 1. Anemia, leukopenia, thrombocytopenia in a patient with history of myelodysplastic syndrome. He follows Dr. Rojas. In the past, the patient has received Dacogen. He was also getting Procrit. During this admission, he received platelet transfusion and G-CSF support. 2. History of hypertension. 3. History of coronary artery disease. 4. History of renal issues. 5. Carotid artery stenosis. 6. The patient has been having cytopenia for some time. We will do transfusion support while in the hospital and then he will follow with his oncologist, Dr. Rojas. JOB# [id number] SHAHNAZ/NTS
[2019-03-12] MEDS ORDERED: VANCOMYCIN PHARMACY TO DOSE IV SCH (09:00)
[2019-03-12] MEDS: CEFEPIME/NS 2 GM/100 ML 2 GM/100 ML BAG IV SCH ×2 (14:08→22:52)
--- NOTE | 2019-03-12 17:30 | Progress Note ---
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 He is known to us from his previous hospitalizations. He has an indwelling PORT. Came in with weakness. #Sepsis: better, immunocompromised host from chronic neutropenia. Etiology likely Diphtheroids bacteremia. #Diphtheroids bacteremia: 2 of 4 bottles, Diphteroids is usually a contaminant but given immunocompromised state, port in place and isolate growing on 2 different sets is considered as a real pathogen. TTE no vegetations. #Severe pancytopenia, MDS, immunocompromised host, not better #Lactic acidosis #Acute kidney injury: Renally dose antibiotics #Recurrent right sided pneumonia: in Apr 2018 at [facility], June 2018 at [facility] and Jan 2019 PF, full worked up for invasive fungal infection negative. Recs: continue empiric IV cefepime for now continue vancomycin IV 1gm IV q 24h for now asked micro to fully identify diphtheroids - isolate sent out for quest ID repeat blood cultures monitor fever will set up IV vancomycin 1 gm IV q 24h total 14 days with goal 10-15 mcg/mL till 03/25/2019 Will follow. Sandrita Valdivia MD Infectious Diseases [employer] Former [facility] ([facility]) M [phone] O [phone] Subjective Date of service: 03/12/19 Principal diagnosis: SIRS Interval history: Feels better, no fever for 24h, +cough Objective - Exam Narrative Exam: Constitutional: Alert, cooperative. No acute distress Head, Ears, Nose: Normocephalic, atraumatic. External ears, nose normal Eyes: Conjunctivae/corneas clear. No icterus. No ptosis. Neck: Supple, no meningeal signs Oral: dentition fair, no thrush Cardiovascular: S1, S2 normal. Respiratory: RLL rhonchi GI: Soft, non-tender; bowel sounds normal. No peritoneal signs. Musculoskeletal: No pedal edema, no cyanosis. b/l leg wounds Skin: No rash or abscess Hem/Lymphatic: No palpable cervical or supraclavicular nodes. No lymphangitis Psych: Mood ok. Affect normal Neurological: Awake, alert, oriented. No gross abnormality right port clean - Constitutional Vitals: Vital Signs Temp Pulse Resp BP Pulse Ox 98.4 F 103 H 20 135/77 96 03/12/19 13:20 03/12/19 13:20 03/12/19 13:20 03/12/19 13:20 03/12/19 02:28 Temperature -Last 24 Hours Temperature 98.4 F Temperature 98.2 F Temperature 98.9 F Temperature 97.9 F Temperature 98.3 F Temperature 97.6 F Temperature 97.7 F Temperature 99.9 F - Labs CBC & Chem 7: 03/12/19 05:20 03/10/19 04:05 Labs: Abnormal lab results 03/09/19 03/12/19 03/12/19 Range/Units 03:13 05:20 09:00 WBC 0.2 L* (4.5-11.0) K/mm3 RBC 2.09 L (3.65-5.03) M/mm3 Hgb 6.3 L (11.8-15.2) gm/dl Hct 18.4 L* (35.5-45.6) % Plt Count 11 L* (140-440) K/mm3 Seg Neuts % (Manual) 0 L (40.0-70.0) % Lymphocytes % (Manual) 100.0 H (13.4-35.0) % Seg Neutrophils # Man 0.0 L (1.8-7.7) K/mm3 Lymphocytes # (Manual) 0.2 L (1.2-5.4) K/mm3 Crossmatch See Detail See Detail
[2019-03-12] MEDS: VANCOMYCIN/NS 1 GM/250 ML 1 GM/250 ML BAG IV SCH (20:00)
[2019-03-12] MEDS: SODIUM CHLORIDE 0.9% 1000 ML 1,000 ML IV SCH (22:53)
--- NOTE | 2019-03-13 05:02 | Hem/Onc Progress Note ---
Assessment and Plan 1. Anemia, leukopenia, thrombocytopenia in a patient with history of myelodysplastic syndrome. He follows Dr. Rojas. In the past, the patient has received Dacogen. He was also getting Procrit. During this admission, he received platelet transfusion and G-CSF support. 2. History of hypertension. 3. History of coronary artery disease. 4. History of renal issues. 5. Carotid artery stenosis. 6. The patient has been having cytopenia for some time. We will do transfusion support while in the hospital and then he will follow with his oncologist, Dr. Rojas. ID team following for Infection and Abx some of his answers are not appropriate his counts are chronically low - Patient Problems (1) Myelodysplastic syndrome, unspecified Current Visit: Yes Status: Chronic Subjective Date of service: 03/13/19 Principal diagnosis: MDS Interval history: says doing ok Objective - Exam Narrative Exam: Pain - none General appearance - arousable Performance status complete dependence Eyes - no icterus ENT - on o2 LNs cervical not palpable Neck - no LN Respiratory Normal Breath sounds - CTA anteriorly CVS S1 S2 + Extremities no edema General GI Soft Rectal deferred male - deferred Skin warm Musculoskeletal - moving limbs Neurologically arousable - Constitutional Vitals: Last Vital Signs Temp 99.9 F H 03/13/19 01:45 Pulse 107 H 03/13/19 01:45 Resp 20 03/13/19 01:45 BP 135/72 03/13/19 01:45 Pulse Ox 88 03/13/19 01:45 - Labs Lab Results: Laboratory Results - last 24 hr 03/09/19 03/12/19 03/12/19 03:13 05:20 09:00 WBC 0.2 L* RBC 2.09 L Hgb 6.3 L Hct 18.4 L* MCV 88 MCH 30 MCHC 34 RDW 13.6 Plt Count 11 L* Lymph % (Auto) Grain Handler Add Manual Diff Complete Total Counted 10 Seg Neutrophils % Grain Handler Seg Neuts % (Manual) 0 L Band Neutrophils % 0 Lymphocytes % (Manual) 100.0 H Reactive Lymphs % (Man) 0 Monocytes % (Manual) 0 Eosinophils % (Manual) 0 Basophils % (Manual) 0 Metamyelocytes % 0 Myelocytes % 0 Promyelocytes % 0 Blast Cells % 0 Nucleated RBC % Not Reportable Seg Neutrophils # Man 0.0 L Band Neutrophils # 0.0 Lymphocytes # (Manual) 0.2 L Abs React Lymphs (Man) 0.0 Monocytes # (Manual) 0.0 Eosinophils # (Manual) 0.0 Basophils # (Manual) 0.0 Metamyelocytes # 0.0 Myelocytes # 0.0 Promyelocytes # 0.0 Blast Cells # 0.0 WBC Morphology Not Reportable Hypersegmented Neuts Not Reportable Hyposegmented Neuts Not Reportable Hypogranular Neuts Not Reportable Smudge Cells Not Reportable Toxic Granulation Not Reportable Toxic Vacuolation Not Reportable Dohle Bodies Not Reportable Pelger-Huet Anomaly Not Reportable Andra Rods Not Reportable Platelet Estimate Consistent w auto Clumped Platelets Not Reportable Plt Clumps, EDTA Not Reportable Large Platelets Not Reportable Giant Platelets Not Reportable Platelet Satelliting Not Reportable Plt Morphology Comment Not Reportable RBC Morphology Not Reportable Dimorphic RBCs Not Reportable Polychromasia Not Reportable Hypochromasia Not Reportable Poikilocytosis Not Reportable Anisocytosis 1+ Microcytosis Not Reportable Macrocytosis Not Reportable Spherocytes Not Reportable Pappenheimer Bodies Not Reportable Sickle Cells Not Reportable Target Cells Not Reportable Tear Drop Cells Not Reportable Ovalocytes Not Reportable Helmet Cells Not Reportable [place] Bodies Not Reportable [place] Rings Not Reportable [place] Cells Not Reportable Bite Cells Not Reportable Crenated Cell Not Reportable Elliptocytes Not Reportable Acanthocytes (Spur) Not Reportable Rouleaux Not Reportable Hemoglobin C Crystals Not Reportable Schistocytes Not Reportable Malaria parasites Not Reportable Donta Bodies Not Reportable Hem Pathologist Commnt No Blood Type A POSITIVE Antibody Screen Negative Crossmatch See Detail See Detail Medications & Allergies - Medications Allergies/Adverse Reactions: Allergies tetanus and diphtheria toxoids [tetanus & diphtheria toxoids] Allergy (Verified 07/12/18 13:31) Anaphylaxis Home Medications: Home Medications Medication Instructions Recorded Confirmed Last Taken Type Potassium Chloride 20 meq PO QDAY #10 packet 06/03/18 03/09/19 Unknown Rx Ascorbic Acid [Vitamin C] 500 mg PO DAILY 07/12/18 03/09/19 Unknown History Magnesium Oxide 400 mg PO DAILY 07/12/18 03/09/19 Unknown History Acyclovir [Zovirax Cap] 200 mg PO BID 30 Days #60 capsule 07/19/18 03/09/19 Unknown Rx Amiodarone [Cordarone 200 MG TAB] 200 mg PO DAILY #30 tablet 07/19/18 03/09/19 Unknown Rx Metoprolol [Lopressor TAB] 12.5 mg PO BID #60 tablet 07/19/18 03/09/19 Unknown Rx oxyCODONE /ACETAMINOPHEN [Percocet 1 tab PO Q6H PRN #30 tablet 07/19/18 03/09/19 Unknown Rx 5/325 mg] Active Medications: Generic Name Dose Route Start Last Admin Trade Name Freq PRN Reason Stop Dose Admin Acetaminophen 650 mg 03/09/19 04:22 03/11/19 23:20 Tylenol PO 650 mg Q4H PRN Administration Pain MILD(1-3)/Fever >100.5/LLANES Sodium Chloride 1,000 mls @ 125 mls/hr 03/09/19 11:00 03/12/19 22:53 Nacl 0.9% 1000 Ml IV 125 mls/hr DIRECT NANETTE Administration Cefepime HCl 2 gm in 100 mls @ 200 mls/hr 03/11/19 10:00 03/12/19 22:52 Cefepime/Ns 2 Gm/100 Ml IV 200 mls/hr Q12HR NANETTE Administration Vancomycin HCl 1 gm in 250 mls @ 167.007 mls/hr 03/12/19 18:00 03/12/19 20:00 Vancomycin/Ns 1 Gm/250 Ml IV 167.007 mls/hr Q24H NANETTE Administration Magnesium Hydroxide 30 ml 03/09/19 04:22 Milk Of Magnesia PO Q4H PRN Constipation Ondansetron HCl 4 mg 03/09/19 04:22 Zofran IV Q8H PRN Nausea And Vomiting Sodium Chloride 10 ml 03/09/19 10:00 03/12/19 22:52 Sodium Chloride Flush Syringe 10 Ml IV 10 ml BID NANETTE Administration Sodium Chloride 10 ml 03/09/19 04:22 Sodium Chloride Flush Syringe 10 Ml IV PRN PRN LINE FLUSH
[2019-03-13] MEDS: SODIUM CHLORIDE 0.9% 1000 ML 1,000 ML IV SCH (06:18)
[2019-03-13 07:58] LABS: Hemoglobin 6.6 gm/dl (11.8-15.2); Mean Corpuscular HGB Conc 34 % (32-34); Mean Corpuscular Volume 89 fl (84-94); Red Blood Count 2.17 M/mm3 (3.65-5.03); Red Cell Distribution Width 13.6 % (13.2-15.2)
[2019-03-13 08:12] LABS: Hematocrit 19.4 % (35.5-45.6)
[2019-03-13 08:13] LABS: Platelet Count 6 K/mm3 (140-440)
[2019-03-13 08:27] LABS: BUN/Creatinine Ratio 28; Blood Urea Nitrogen 25 mg/dL (9-20); Calcium 8.4 mg/dL (8.4-10.2); Hemolysis Index 6
[2019-03-13] MEDS ORDERED: SODIUM CHLORIDE 0.9% 500 ML 500 ML IV NR (08:30)
[2019-03-13] MEDS ORDERED: SODIUM CHLORIDE 0.9% 500 ML 500 ML IV ONE (09:00)
[2019-03-13] MEDS: CEFEPIME/NS 2 GM/100 ML 2 GM/100 ML BAG IV SCH ×2 (09:48→22:23)
--- NOTE | 2019-03-13 11:45 | Progress Note ---
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 He is known to us from his previous hospitalizations. He has an indwelling PORT. Came in with weakness. #Sepsis: better, immunocompromised host from chronic neutropenia. Etiology likely Diphtheroids bacteremia. #Diphtheroids bacteremia: 2 of 4 bottles, Diphteroids is usually a contaminant but given immunocompromised state, port in place and isolate growing on 2 different sets is considered as a real pathogen. TTE no vegetations. #Severe pancytopenia, MDS, immunocompromised host, not better #Lactic acidosis #Acute kidney injury: Renally dose antibiotics #Recurrent right sided pneumonia: in Apr 2018 at [facility], June 2018 at [facility] and Jan 2019 PF, full worked up for invasive fungal infection negative. Recs: patient seems more sleepy/confused today, monitor mentation if not better consider head CT stop IV cefepime continue vancomycin IV 1gm IV q 24h for now asked micro to fully identify diphtheroids - isolate sent out for quest ID at discharge will treat with vancomycin 1 gm IV q 24h total 14 days with goal 10-15 mcg/mL till 03/25/2019. order sent to manager case poor prognosis Will follow. Sandrita Valdivia MD Infectious Diseases Instrument Shop Supervisor [facility] ([facility]) M [phone] O [phone] Subjective Date of service: 03/13/19 Principal diagnosis: MDS Interval history: Feels better, no fever for 48h, +cough, +sleepy/confused Objective - Exam Narrative Exam: Constitutional: Alert, cooperative. No acute distress Head, Ears, Nose: Normocephalic, atraumatic. External ears, nose normal Eyes: Conjunctivae/corneas clear. No icterus. No ptosis. Neck: Supple, no meningeal signs Oral: dentition fair, no thrush Cardiovascular: S1, S2 normal. Respiratory: RLL rhonchi GI: Soft, non-tender; bowel sounds normal. No peritoneal signs. Musculoskeletal: No pedal edema, no cyanosis. b/l leg wounds Skin: No rash or abscess Hem/Lymphatic: No palpable cervical or supraclavicular nodes. No lymphangitis Psych: Mood ok. Affect normal Neurological: Awake, alert, oriented. No gross abnormality right port clean - Constitutional Vitals: Vital Signs Temp Pulse Resp BP Pulse Ox 99.4 F 80 20 114/95 79 L 03/13/19 07:45 03/13/19 07:45 03/13/19 07:45 03/13/19 07:45 03/13/19 07:45 Temperature -Last 24 Hours Temperature 99.4 F Temperature 99.9 F Temperature 98.4 F Temperature 98.2 F Temperature 99.9 F Temperature 98.9 F Temperature 97.9 F - Labs CBC & Chem 7: 03/13/19 07:24 03/13/19 07:24 Labs: Abnormal lab results 03/12/19 03/13/19 03/13/19 Range/Units 09:00 07:24 07:24 WBC 0.2 L* (4.5-11.0) K/mm3 RBC 2.17 L (3.65-5.03) M/mm3 Hgb 6.6 L (11.8-15.2) gm/dl Hct 19.4 L* (35.5-45.6) % Plt Count 6 L* (140-440) K/mm3 Potassium 3.2 L (3.6-5.0) mmol/L Chloride 110.9 H (98-107) mmol/L Carbon Dioxide 19 L (22-30) mmol/L BUN 25 H (9-20) mg/dL Glucose 136 H (75-100) mg/dL POC Glucose (70-105) Crossmatch See Detail 03/13/19 Range/Units 07:38 WBC (4.5-11.0) K/mm3 RBC (3.65-5.03) M/mm3 Hgb (11.8-15.2) gm/dl Hct (35.5-45.6) % Plt Count (140-440) K/mm3 Potassium (3.6-5.0) mmol/L Chloride (98-107) mmol/L Carbon Dioxide (22-30) mmol/L BUN (9-20) mg/dL Glucose (75-100) mg/dL POC Glucose 155 H (70-105) Crossmatch
--- NOTE | 2019-03-13 14:42 | Progress Note ---
Assessment and Plan Assessment and plan: Severe sepsis 2/2 PNA with Diptheroids Bacteremia -CXR showed findings suggestive of PNA -continue IV Vanc and Cefepime per ID -per ID, at discharge will treat with vancomycin 1 gm IV q 24h total 14 days with goal 10-15 mcg/mL till 03/25/2019. Neutropenic Fever -cont abx and neutropenic precautions Syncope -Likely secondary to bilateral carotid artery stenosis v debility -carotid uplex showed 50-79% stenosis in bilateral ICA -echo showed EF 50-55% with normal diastolic dysf Pancytopenia due to MDS -s/p 1u of plt and 2u of prbcs -will receive additional 1u of plt to keep plt>10k and 1u of prbc to keep hb>7 -will monitor levels -Hematology following Hypokalemia -on repletion, will monitor level Metabolic Encephalopathy -resolved -CT head neg Metabolic Acidosis -will start oral Na bicarbonate and monitor level Acute kidney injury likely due to vasomotor nephropathy -resolved COPD -no acute exacerbation -PRN neb tx H/o Aflutter -HR uncontrolled -home metoprolol and amiodarone resumed -tele monitor Debility -PT/OT consulted DVT/GI Prophy: SCD due to anemia and thrombocytopenia Discussed with the pt's daughter about his father's condition and she verbalized understanding Disp: very poor prognsosi. D/c per clinical course History Interval history: Patient reports generalized weakness and cough. He denies bleeding from any orifice Hospitalist Physical - Constitutional Vitals: Temp Pulse Resp BP Pulse Ox 99.0 F 105 H 20 144/65 92 03/13/19 13:48 03/13/19 13:48 03/13/19 13:48 03/13/19 13:48 03/13/19 13:48 General appearance: Present: no acute distress, cachectic - EENT Eyes: Present: PERRL, EOM intact ENT: hearing intact, clear oral mucosa - Neck Neck: Present: supple - Respiratory Respiratory effort: normal Respiratory: bilateral: CTA - Cardiovascular Rhythm: regular (with tachycardia) Heart Sounds: Present: S1 & S2 - Extremities Extremities: No edema - Abdominal General gastrointestinal: soft, non-tender, normal bowel sounds - Integumentary Integumentary: Present: pale - Psychiatric Psychiatric: cooperative - Neurologic Neurologic: moves all extremities Results - Labs CBC & Chem 7: 03/13/19 07:24 03/13/19 07:24 Labs: Laboratory Last Values WBC 0.2 K/mm3 (4.5-11.0) L* 03/13/19 07:24 RBC 2.17 M/mm3 (3.65-5.03) L 03/13/19 07:24 Hgb 6.6 gm/dl (11.8-15.2) L 03/13/19 07:24 Hct 19.4 % (35.5-45.6) L* 03/13/19 07:24 MCV 89 fl (84-94) 03/13/19 07:24 MCH 30 pg (28-32) 03/13/19 07:24 MCHC 34 % (32-34) 03/13/19 07:24 RDW 13.6 % (13.2-15.2) 03/13/19 07:24 Plt Count 6 K/mm3 (140-440) L* 03/13/19 07:24 Lymph % (Auto) Ultrasound Tech 03/12/19 05:20 Add Manual Diff Complete 03/12/19 05:20 Total Counted 10 03/12/19 05:20 Seg Neutrophils % Ultrasound Tech 03/12/19 05:20 Seg Neuts % (Manual) 0 % (40.0-70.0) L 03/12/19 05:20 Band Neutrophils % 0 % 03/12/19 05:20 Lymphocytes % (Manual) 100.0 % (13.4-35.0) H 03/12/19 05:20 Reactive Lymphs % (Man) 0 % 03/12/19 05:20 Monocytes % (Manual) 0 % (0.0-7.3) 03/12/19 05:20 Eosinophils % (Manual) 0 % (0.0-4.3) 03/12/19 05:20 Basophils % (Manual) 0 % (0.0-1.8) 03/12/19 05:20 Metamyelocytes % 0 % 03/12/19 05:20 Myelocytes % 0 % 03/12/19 05:20 Promyelocytes % 0 % 03/12/19 05:20 Blast Cells % 0 % 03/12/19 05:20 Nucleated RBC % Not Reportable 03/12/19 05:20 Seg Neutrophils # Man 0.0 K/mm3 (1.8-7.7) L 03/12/19 05:20 Band Neutrophils # 0.0 K/mm3 03/12/19 05:20 Lymphocytes # (Manual) 0.2 K/mm3 (1.2-5.4) L 03/12/19 05:20 Abs React Lymphs (Man) 0.0 K/mm3 03/12/19 05:20 Monocytes # (Manual) 0.0 K/mm3 (0.0-0.8) 03/12/19 05:20 Eosinophils # (Manual) 0.0 K/mm3 (0.0-0.4) 03/12/19 05:20 Basophils # (Manual) 0.0 K/mm3 (0.0-0.1) 03/12/19 05:20 Metamyelocytes # 0.0 K/mm3 03/12/19 05:20 Myelocytes # 0.0 K/mm3 03/12/19 05:20 Promyelocytes # 0.0 K/mm3 03/12/19 05:20 Blast Cells # 0.0 K/mm3 03/12/19 05:20 WBC Morphology Not Reportable 03/12/19 05:20 Hypersegmented Neuts Not Reportable 03/12/19 05:20 Hyposegmented Neuts Not Reportable 03/12/19 05:20 Hypogranular Neuts Not Reportable 03/12/19 05:20 Smudge Cells Not Reportable 03/12/19 05:20 Toxic Granulation Not Reportable 03/12/19 05:20 Toxic Vacuolation Not Reportable 03/12/19 05:20 Dohle Bodies Not Reportable 03/12/19 05:20 Pelger-Huet Anomaly Not Reportable 03/12/19 05:20 Andra Rods Not Reportable 03/12/19 05:20 Platelet Estimate Consistent w auto 03/12/19 05:20 Clumped Platelets Not Reportable 03/12/19 05:20 Plt Clumps, EDTA Not Reportable 03/12/19 05:20 Large Platelets Not Reportable 03/12/19 05:20 Giant Platelets Not Reportable 03/12/19 05:20 Platelet Satelliting Not Reportable 03/12/19 05:20 Plt Morphology Comment Not Reportable 03/12/19 05:20 RBC Morphology Not Reportable 03/12/19 05:20 Dimorphic RBCs Not Reportable 03/12/19 05:20 Polychromasia Not Reportable 03/12/19 05:20 Hypochromasia Not Reportable 03/12/19 05:20 Poikilocytosis Not Reportable 03/12/19 05:20 Anisocytosis 1+ 03/12/19 05:20 Microcytosis Not Reportable 03/12/19 05:20 Macrocytosis Not Reportable 03/12/19 05:20 Spherocytes Not Reportable 03/12/19 05:20 Pappenheimer Bodies Not Reportable 03/12/19 05:20 Sickle Cells Not Reportable 03/12/19 05:20 Target Cells Not Reportable 03/12/19 05:20 Tear Drop Cells Not Reportable 03/12/19 05:20 Ovalocytes Not Reportable 03/12/19 05:20 Helmet Cells Not Reportable 03/12/19 05:20 Joseph-Arrey Bodies Not Reportable 03/12/19 05:20 [place] Rings Not Reportable 03/12/19 05:20 [place] Cells Not Reportable 03/12/19 05:20 Bite Cells Not Reportable 03/12/19 05:20 Crenated Cell Not Reportable 03/12/19 05:20 Elliptocytes Not Reportable 03/12/19 05:20 Acanthocytes (Spur) Not Reportable 03/12/19 05:20 Rouleaux Not Reportable 03/12/19 05:20 Hemoglobin C Crystals Not Reportable 03/12/19 05:20 Schistocytes Not Reportable 03/12/19 05:20 Malaria parasites Not Reportable 03/12/19 05:20 Donta Bodies Not Reportable 03/12/19 05:20 Hem Pathologist Commnt No 03/12/19 05:20 PT 18.5 Sec. (12.2-14.9) H 03/10/19 04:05 INR 1.57 (0.87-1.13) H 03/10/19 04:05 APTT 40.4 Sec. (24.2-36.6) H 03/10/19 04:05 Sodium 143 mmol/L (137-145) 03/13/19 07:24 Potassium 3.2 mmol/L (3.6-5.0) L 03/13/19 07:24 Chloride 110.9 mmol/L (98-107) H 03/13/19 07:24 Carbon Dioxide 19 mmol/L (22-30) L 03/13/19 07:24 Anion Gap 16 mmol/L 03/13/19 07:24 BUN 25 mg/dL (9-20) H 03/13/19 07:24 Creatinine 0.9 mg/dL (0.8-1.5) 03/13/19 07:24 Estimated GFR > 60 ml/min 03/13/19 07:24 BUN/Creatinine Ratio 28 % 03/13/19 07:24 Glucose 136 mg/dL (75-100) H 03/13/19 07:24 POC Glucose 155 (70-105) H 03/13/19 07:38 Lactic Acid 0.80 mmol/L (0.7-2.0) 03/09/19 04:57 Calcium 8.4 mg/dL (8.4-10.2) 03/13/19 07:24 Magnesium 1.70 mg/dL (1.7-2.3) 03/13/19 07:24 Total Bilirubin 1.10 mg/dL (0.1-1.2) 03/09/19 02:16 AST 20 units/L (5-40) 03/09/19 02:16 ALT 18 units/L (7-56) 03/09/19 02:16 Alkaline Phosphatase 58 units/L (35-129) 03/09/19 02:16 Troponin T 0.042 ng/mL (0.00-0.029) H 03/09/19 02:16 Troponin T 0.043 ng/mL (0.00-0.029) H 03/09/19 02:16 NT-Pro-B Natriuret Pep 3715 pg/mL (0-900) H 03/09/19 02:16 Total Protein 6.9 g/dL (6.3-8.2) 03/09/19 02:16 Albumin 3.5 g/dL (3.9-5) L 03/09/19 02:16 Albumin/Globulin Ratio 1.0 % 03/09/19 02:16 Triglycerides 50 mg/dL (2-149) 03/09/19 02:16 Cholesterol 61 mg/dL (50-199) 03/09/19 02:16 LDL Cholesterol Direct 35 mg/dL (50-130) L 03/09/19 02:16 HDL Cholesterol 26 mg/dL (40-59) L 03/09/19 02:16 Cholesterol/HDL Ratio 2.34 % 03/09/19 02:16 Urine Color Yellow (Yellow) 03/09/19 22:15 Urine Turbidity Slightly-cloudy (Clear) 03/09/19 22:15 Urine pH 5.0 (5.0-7.0) 03/09/19 22:15 Ur Specific [place] 1.019 (1.003-1.030) 03/09/19 22:15 Urine Protein 100 mg/dl mg/dL (Negative) 03/09/19 22:15 Urine Glucose (UA) Neg mg/dL (Negative) 03/09/19 22:15 Urine Ketones Neg mg/dL (Negative) 03/09/19 22:15 Urine Blood Lg (Negative) 03/09/19 22:15 Urine Nitrite Neg (Negative) 03/09/19 22:15 Urine Bilirubin Neg (Negative) 03/09/19 22:15 Urine Urobilinogen < 2.0 mg/dL (<2.0) 03/09/19 22:15 Ur Leukocyte Esterase Neg (Negative) 03/09/19 22:15 Urine WBC (Auto) 5.0 /HPF (0.0-6.0) 03/09/19 22:15 Urine RBC (Auto) 2.0 /HPF (0.0-6.0) 03/09/19 22:15 U Epithel Cells (Auto) 1.0 /HPF (0-13.0) 03/09/19 22:15 Urine Bacteria (Auto) 1+ /HPF (Negative) 03/09/19 22:15 Urine Mucus Few /HPF 03/09/19 22:15 Urine Opiates Screen Presumptive negative 03/09/19 22:15 Urine Methadone Screen Presumptive negative 03/09/19 22:15 Ur Barbiturates Screen Presumptive negative 03/09/19 22:15 Ur Phencyclidine Scrn Presumptive negative 03/09/19 22:15 Ur Amphetamines Screen Presumptive negative 03/09/19 22:15 U Benzodiazepines Scrn Presumptive negative 03/09/19 22:15 Urine Cocaine Screen Presumptive negative 03/09/19 22:15 U Marijuana (THC) Screen Presumptive negative 03/09/19 22:15 Drugs of Abuse Note Disclamer 03/09/19 22:15 Influenza A (Rapid) Negative (Negative) 03/09/19 Unknown Influenza B (Rapid) Negative (Negative) 03/09/19 Unknown Blood Type A POSITIVE 03/12/19 09:00 Antibody Screen Negative 03/12/19 09:00 Crossmatch See Detail 03/12/19 09:00 Active Medications - Current Medications Current Medications: Generic Name Dose Route Start Last Admin Trade Name Freq PRN Reason Stop Dose Admin Acetaminophen 650 mg 03/09/19 04:22 03/11/19 23:20 Tylenol PO 650 mg Q4H PRN Administration Pain MILD(1-3)/Fever >100.5/LLANES Sodium Chloride 1,000 mls @ 125 mls/hr 03/09/19 11:00 03/13/19 06:18 Nacl 0.9% 1000 Ml IV 125 mls/hr DIRECT NANETTE Administration Cefepime HCl 2 gm in 100 mls @ 200 mls/hr 03/11/19 10:00 03/13/19 09:48 Cefepime/Ns 2 Gm/100 Ml IV 200 mls/hr Q12HR NANETTE Administration Vancomycin HCl 1 gm in 250 mls @ 167.007 mls/hr 03/12/19 18:00 03/12/19 20:00 Vancomycin/Ns 1 Gm/250 Ml IV 167.007 mls/hr Q24H NANETTE Administration Sodium Chloride 500 mls @ 0 mls/hr 03/13/19 08:30 Nacl 0.9% 500 Ml IV 03/13/19 17:00 ONCE NR As Directed Magnesium Hydroxide 30 ml 03/09/19 04:22 Milk Of Magnesia PO Q4H PRN Constipation Ondansetron HCl 4 mg 03/09/19 04:22 Zofran IV Q8H PRN Nausea And Vomiting Sodium Chloride 10 ml 03/09/19 10:00 03/13/19 09:48 Sodium Chloride Flush Syringe 10 Ml IV 10 ml BID NANETTE Administration Sodium Chloride 10 ml 03/09/19 04:22 Sodium Chloride Flush Syringe 10 Ml IV PRN PRN LINE FLUSH Nutrition/Malnutrition Assess - Dietary Evaluation Nutrition/Malnutrition Findings: Nutrition Notes Start: 03/10/19 10:5 2 Freq: Status: Active Protocol: Document 03/12/19 17:43 RM (Rec: 03/12/19 17:48 RM [id number]) Nutrition Notes Initial or Follow up Reassessment Current Diagnosis COPD,Sepsis,Hypertension Other Pertinent Diagnosis AMI, AMS, Syncope Current Diet Cardiac w/Ensure Clear BID Labs/Tests Reviewed Pertinent Medications Reviewed Height 5 ft 11 in Weight 56 kg Swan Body Weight (kg) 78.18 BMI 17.2 Subjective/Other Information Pt initially alseep at time of visit. Pt stated that he eats bites of his meals and drinks 25% of the Ensure Clear. Noted uneaten lunch and dinner at bedside. Noted unopened Ensure Clear at bedside. Per nurse pt has been sleeping a lot and may need someone to feed him. Stated that she would try to feed him. Percent of energy/protein needs met: 6%/6% Burn Absent Trauma Absent Minimum of two criteria Yes Energy Intake (severe) < or equal to 50% Estimated Energy Requirement > or equal to 5 days Interpretation of Weight Loss (severe) >5% in 1 month Body Fat Depletion Mild depletion (non-severe) Muscle Mass Mild Depletion (non-severe) #1 Nutrition Diagnosis Malnutrition Diagnosis Progress(for reassessment Continues documentation) Is patient on ventilator? No Is Patient Ambulatory and/or Out of Bed No REE-([facility]-confined to bed) [phone] Kcal/Kg value to use for calculation 35 Approximate Energy Requirements Using 1960 kcal/Kg Calculation Used for Recommendations Kcal/kg Additional Notes Protein needs are 67-84g (1.2- 1.5g/kg) Fluid needs are 1ml/kcal Nutrition Intervention Change Diet Order: Continue Cardiac diet Add Supplement/Snack (indicate name/kcal Ensure Clear BID /protein ) Provides kCal: 480 Provides Protein (gm) 16 Goal #1 Meet at least 75% of kcal and protein needs via meals and ONS Goal #2 Wt gain/maintenance Anticipated Discharge Needs: Cardiac diet and ONS as needed Follow-Up By: 03/14/19 Additional Comments Follow for PO and ONS intakes
[2019-03-13] MEDS ORDERED: MAGNESIUM OXIDE 400 MG PO SCH (15:00)
[2019-03-13] MEDS ORDERED: NON-FORMULARY EACH (Ascorbic Acid [Vitamin C] 500 MG) PO SCH (15:00)
[2019-03-13] MEDS: POTASSIUM CHLORIDE ER 20 MEQ TAB PO SCH ×2 (15:54→23:11)
[2019-03-13] MEDS: AMIODARONE 200 MG TAB PO SCH (15:54)
[2019-03-13] MEDS: ASCORBIC ACID 500 MG TAB PO SCH (18:00)
[2019-03-13] MEDS: MAGNESIUM OXIDE 400 MG TAB PO SCH (18:00)
[2019-03-13] MEDS: METOPROLOL TARTRATE 25 MG TAB PO SCH (22:20)
[2019-03-13] MEDS: SODIUM BICARBONATE 650 MG TAB PO SCH (22:22)
[2019-03-13] MEDS ORDERED: POTASSIUM CHLORIDE ER 20 MEQ TAB PO SCH (23:00)
[2019-03-14] MEDS: VANCOMYCIN/NS 1 GM/250 ML 1 GM/250 ML BAG IV SCH ×2 (02:57→18:21)
[2019-03-14 04:39] LABS: BUN/Creatinine Ratio 23; Blood Urea Nitrogen 23 mg/dL (9-20); Calcium 8.5 mg/dL (8.4-10.2); Hemolysis Index 1
[2019-03-14 04:42] LABS: Hematocrit 23.3 % (35.5-45.6); Hemoglobin 8.1 gm/dl (11.8-15.2)
[2019-03-14 04:44] LABS: Mean Corpuscular HGB Conc 35 % (32-34); Mean Corpuscular Volume 90 fl (84-94); Red Blood Count 2.61 M/mm3 (3.65-5.03); Red Cell Distribution Width 13.6 % (13.2-15.2)
[2019-03-14 04:47] LABS: Mean Platelet Volume 8.7 fl (6-12); Platelet Count 11 K/mm3 (140-440)
--- NOTE | 2019-03-14 07:54 | Hem/Onc Progress Note ---
Assessment and Plan 1. Anemia, leukopenia, thrombocytopenia in a patient with history of myelodysplastic syndrome. He follows Dr. Rojas. In the past, the patient has received Dacogen. He was also getting Procrit. During this admission, he received platelet transfusion and G-CSF support. 2. History of hypertension. 3. History of coronary artery disease. 4. History of renal issues. 5. Carotid artery stenosis. 6. The patient has been having cytopenia for some time. We will do transfusion support while in the hospital and then he will follow with his oncologist, Dr. Rojas. ID team following for Infection and Abx some of his answers are not appropriate his counts are chronically low d/w ID - ? port removal d/w Dr Rojas - pt has not been seen for a few months - he has been going to [facility] for [facility] social issues if port a suspect for infection - removal an option overall prognosis guarded - Patient Problems (1) Myelodysplastic syndrome, unspecified Current Visit: Yes Status: Chronic Subjective Date of service: 03/14/19 Principal diagnosis: MDS Interval history: pt has fluctuating memory and answers to questions varies Objective - Exam Narrative Exam: Pain - none General appearance - arousable Performance status complete dependence Eyes - no icterus ENT - on o2 LNs cervical not palpable Neck - no LN Respiratory Normal Breath sounds - CTA anteriorly CVS S1 S2 + Extremities no edema General GI Soft Rectal deferred male - deferred Skin warm Musculoskeletal - moving limbs Neurologically arousable - Constitutional Vitals: Last Vital Signs Temp 98.8 F 03/14/19 02:49 Pulse 101 H 03/14/19 02:49 Resp 22 03/14/19 02:49 BP 146/79 03/13/19 22:20 Pulse Ox 90 03/14/19 02:49 - Labs Lab Results: Laboratory Results - last 24 hr 03/12/19 03/13/19 03/13/19 09:00 07:24 07:24 WBC 0.2 L* RBC 2.17 L Hgb 6.6 L Hct 19.4 L* MCV 89 MCH 30 MCHC 34 RDW 13.6 Plt Count 6 L* Lymph % (Auto) [place] % (Auto) Eos % (Auto) Baso % (Auto) Lymph # [place] # Eos # Baso # Seg Neutrophils % Seg Neutrophils # Sodium 143 Potassium 3.2 L Chloride 110.9 H Carbon Dioxide 19 L Anion Gap 16 BUN 25 H Creatinine 0.9 Estimated GFR > 60 BUN/Creatinine Ratio 28 Glucose 136 H Calcium 8.4 Magnesium Vancomycin Trough Blood Type A POSITIVE Antibody Screen Negative Crossmatch See Detail 03/13/19 03/13/19 03/14/19 07:24 20:10 04:00 WBC 0.3 L* RBC 2.61 L Hgb 8.1 L Hct 23.3 L MCV 90 MCH 31 MCHC 35 H RDW 13.6 Plt Count 11 L* Lymph % (Auto) Patient Relations Manager [place] % (Auto) Patient Relations Manager Eos % (Auto) Patient Relations Manager Baso % (Auto) Patient Relations Manager Lymph # Patient Relations Manager [place] # Patient Relations Manager Eos # Patient Relations Manager Baso # Patient Relations Manager Seg Neutrophils % Patient Relations Manager Seg Neutrophils # Patient Relations Manager Sodium Potassium Chloride Carbon Dioxide Anion Gap BUN Creatinine Estimated GFR BUN/Creatinine Ratio Glucose Calcium Magnesium 1.70 Vancomycin Trough 5.2 Blood Type Antibody Screen Crossmatch 03/14/19 04:00 WBC RBC Hgb Hct MCV MCH MCHC RDW Plt Count Lymph % (Auto) [place] % (Auto) Eos % (Auto) Baso % (Auto) Lymph # [place] # Eos # Baso # Seg Neutrophils % Seg Neutrophils # Sodium 146 H Potassium 3.9 D Chloride 113.8 H Carbon Dioxide 22 Anion Gap 14 BUN 23 H Creatinine 1.0 Estimated GFR > 60 BUN/Creatinine Ratio 23 Glucose 158 H Calcium 8.5 Magnesium Vancomycin Trough Blood Type Antibody Screen Crossmatch Medications & Allergies - Medications Allergies/Adverse Reactions: Allergies tetanus and diphtheria toxoids [tetanus & diphtheria toxoids] Allergy (Verified 07/12/18 13:31) Anaphylaxis Home Medications: Home Medications Medication Instructions Recorded Confirmed Last Taken Type Potassium Chloride 20 meq PO QDAY #10 packet 06/03/18 03/09/19 Unknown Rx Ascorbic Acid [Vitamin C] 500 mg PO DAILY 07/12/18 03/09/19 Unknown History Magnesium Oxide 400 mg PO DAILY 07/12/18 03/09/19 Unknown History Acyclovir [Zovirax Cap] 200 mg PO BID 30 Days #60 capsule 07/19/18 03/09/19 Unknown Rx Amiodarone [Cordarone 200 MG TAB] 200 mg PO DAILY #30 tablet 07/19/18 03/09/19 Unknown Rx Metoprolol [Lopressor TAB] 12.5 mg PO BID #60 tablet 07/19/18 03/09/19 Unknown Rx oxyCODONE /ACETAMINOPHEN [Percocet 1 tab PO Q6H PRN #30 tablet 07/19/18 03/09/19 Unknown Rx 5/325 mg] Active Medications: Generic Name Dose Route Start Last Admin Trade Name Freq PRN Reason Stop Dose Admin Acetaminophen 650 mg 03/09/19 04:22 03/11/19 23:20 Tylenol PO 650 mg Q4H PRN Administration Pain MILD(1-3)/Fever >100.5/LLANES Albuterol 2.5 mg 03/13/19 15:03 Proventil IH Q4HRT PRN Shortness Of Breath Amiodarone HCl 200 mg 03/13/19 16:00 03/13/19 15:54 Cordarone PO 200 mg DAILY NANETTE Administration Ascorbic Acid 500 mg 03/13/19 18:00 03/13/19 18:00 Vitamin C PO 500 mg QDAY NANETTE Administration Atorvastatin Calcium 40 mg 03/13/19 22:00 03/13/19 22:58 Lipitor PO 40 mg QHS NANETTE Administration Cefepime HCl 2 gm in 100 mls @ 200 mls/hr 03/11/19 10:00 03/13/19 22:23 Cefepime/Ns 2 Gm/100 Ml IV 200 mls/hr Q12HR NANETTE Administration Vancomycin HCl 1 gm in 250 mls @ 167.007 mls/hr 03/12/19 18:00 03/14/19 02:57 Vancomycin/Ns 1 Gm/250 Ml IV 167.007 mls/hr Q24H NANETTE Administration Magnesium Hydroxide 30 ml 03/09/19 04:22 Milk Of Magnesia PO Q4H PRN Constipation Magnesium Oxide 400 mg 03/13/19 18:00 03/13/19 18:00 Mag-Ox PO 400 mg QDAY NANETTE Administration Metoprolol Tartrate 12.5 mg 03/13/19 22:00 03/13/19 22:20 Metoprolol PO 12.5 mg BID NANETTE Administration Ondansetron HCl 4 mg 03/09/19 04:22 Zofran IV Q8H PRN Nausea And Vomiting Sodium Bicarbonate 650 mg 03/13/19 20:00 03/13/19 22:22 Sodium Bicarbonate PO 03/16/19 19:59 650 mg TID NANETTE Administration Sodium Chloride 10 ml 03/09/19 10:00 03/13/19 22:24 Sodium Chloride Flush Syringe 10 Ml IV 10 ml BID NANETTE Administration Sodium Chloride 10 ml 03/09/19 04:22 Sodium Chloride Flush Syringe 10 Ml IV PRN PRN LINE FLUSH
[2019-03-14] MEDS: SODIUM BICARBONATE 650 MG TAB PO SCH ×3 (08:35→21:05)
[2019-03-14] MEDS: ALBUTEROL 2.5 MG/3 ML NEBU IH PRN (09:03)
[2019-03-14] MEDS: ASCORBIC ACID 500 MG TAB PO SCH (10:20)
[2019-03-14] MEDS: MAGNESIUM OXIDE 400 MG TAB PO SCH (10:20)
[2019-03-14] MEDS: METOPROLOL TARTRATE 25 MG TAB PO SCH ×2 (10:20→21:06)
[2019-03-14] MEDS: AMIODARONE 200 MG TAB PO SCH (10:20)
--- NOTE | 2019-03-14 11:54 | Progress Note ---
Assessment and Plan Assessment and plan: Severe sepsis 2/2 PNA with Diptheroids Bacteremia -CXR showed findings suggestive of PNA -continue IV Vanc and Cefepime per ID -per ID, at discharge will treat with vancomycin 1 gm IV q 24h total 14 days with goal 10-15 mcg/mL till 03/25/2019. Neutropenic Fever -cont abx and neutropenic precautions Syncope -Likely secondary to bilateral carotid artery stenosis v debility -carotid duplex showed 50-79% stenosis in bilateral ICA -echo showed EF 50-55% with normal diastolic dysf -Continue statin. Not on aspirin due to high risk for bleed Pancytopenia due to MDS -s/p 2u of plt and 3u of prbcs, levels improved -keep plt>10k and hb>7 -will monitor levels -Hematology following Hypokalemia -Improving on repletion, will monitor level Metabolic Encephalopathy -resolved -CT head neg Metabolic Acidosis -improving on oral Na bicarbonate -will monitor level Acute kidney injury likely due to vasomotor nephropathy -resolved Hyponatremia -IVF restarted, we'll monitor level COPD -no acute exacerbation -cont PRN neb tx H/o Aflutter -HR fairly controlled -cont home metoprolol and amiodarone -tele monitor Debility -PT/OT consulted DVT/GI Prophy: SCD due to anemia and thrombocytopenia Discussed with the pt's daughter about his father's condition and she verbalized understanding Disp: very poor prognsosi. D/c per clinical course. Patient will need placement, correctional casework specialist following History Interval history: Patient is confused today and unable to communicate appropriately. No reported issues overnight. Hospitalist Physical - Constitutional Vitals: Temp Pulse Resp BP Pulse Ox 99.3 F 104 H 20 130/70 94 03/14/19 07:11 03/14/19 10:20 03/14/19 07:11 03/14/19 10:20 03/14/19 07:11 General appearance: Present: no acute distress, cachectic - EENT Eyes: Present: PERRL, EOM intact ENT: clear oral mucosa - Neck Neck: Present: supple - Respiratory Respiratory effort: normal Respiratory: bilateral: CTA - Cardiovascular Rhythm: regular (with tachycardia) Heart Sounds: Present: S1 & S2 - Extremities Extremities: No edema - Abdominal General gastrointestinal: soft, non-tender, normal bowel sounds - Integumentary Integumentary: Present: pale - Neurologic Neurologic: moves all extremities Results - Labs CBC & Chem 7: 03/14/19 04:00 03/14/19 04:00 Labs: Laboratory Last Values WBC 0.3 K/mm3 (4.5-11.0) L* 03/14/19 04:00 RBC 2.61 M/mm3 (3.65-5.03) L 03/14/19 04:00 Hgb 8.1 gm/dl (11.8-15.2) L 03/14/19 04:00 Hct 23.3 % (35.5-45.6) L 03/14/19 04:00 MCV 90 fl (84-94) 03/14/19 04:00 MCH 31 pg (28-32) 03/14/19 04:00 MCHC 35 % (32-34) H 03/14/19 04:00 RDW 13.6 % (13.2-15.2) 03/14/19 04:00 Plt Count 11 K/mm3 (140-440) L* 03/14/19 04:00 Lymph % (Auto) [employer] 03/14/19 04:00 Maries % (Auto) [employer] 03/14/19 04:00 Eos % (Auto) [employer] 03/14/19 04:00 Baso % (Auto) [employer] 03/14/19 04:00 Lymph # [employer] 03/14/19 04:00 Maries # [employer] 03/14/19 04:00 Eos # [employer] 03/14/19 04:00 Baso # [employer] 03/14/19 04:00 Add Manual Diff Complete 03/12/19 05:20 Total Counted 10 03/12/19 05:20 Seg Neutrophils % [employer] 03/14/19 04:00 Seg Neuts % (Manual) 0 % (40.0-70.0) L 03/12/19 05:20 Band Neutrophils % 0 % 03/12/19 05:20 Lymphocytes % (Manual) 100.0 % (13.4-35.0) H 03/12/19 05:20 Reactive Lymphs % (Man) 0 % 03/12/19 05:20 Monocytes % (Manual) 0 % (0.0-7.3) 03/12/19 05:20 Eosinophils % (Manual) 0 % (0.0-4.3) 03/12/19 05:20 Basophils % (Manual) 0 % (0.0-1.8) 03/12/19 05:20 Metamyelocytes % 0 % 03/12/19 05:20 Myelocytes % 0 % 03/12/19 05:20 Promyelocytes % 0 % 03/12/19 05:20 Blast Cells % 0 % 03/12/19 05:20 Nucleated RBC % Not Reportable 03/12/19 05:20 Seg Neutrophils # [employer] 03/14/19 04:00 Seg Neutrophils # Man 0.0 K/mm3 (1.8-7.7) L 03/12/19 05:20 Band Neutrophils # 0.0 K/mm3 03/12/19 05:20 Lymphocytes # (Manual) 0.2 K/mm3 (1.2-5.4) L 03/12/19 05:20 Abs React Lymphs (Man) 0.0 K/mm3 03/12/19 05:20 Monocytes # (Manual) 0.0 K/mm3 (0.0-0.8) 03/12/19 05:20 Eosinophils # (Manual) 0.0 K/mm3 (0.0-0.4) 03/12/19 05:20 Basophils # (Manual) 0.0 K/mm3 (0.0-0.1) 03/12/19 05:20 Metamyelocytes # 0.0 K/mm3 03/12/19 05:20 Myelocytes # 0.0 K/mm3 03/12/19 05:20 Promyelocytes # 0.0 K/mm3 03/12/19 05:20 Blast Cells # 0.0 K/mm3 03/12/19 05:20 WBC Morphology Not Reportable 03/12/19 05:20 Hypersegmented Neuts Not Reportable 03/12/19 05:20 Hyposegmented Neuts Not Reportable 03/12/19 05:20 Hypogranular Neuts Not Reportable 03/12/19 05:20 Smudge Cells Not Reportable 03/12/19 05:20 Toxic Granulation Not Reportable 03/12/19 05:20 Toxic Vacuolation Not Reportable 03/12/19 05:20 Dohle Bodies Not Reportable 03/12/19 05:20 Pelger-Huet Anomaly Not Reportable 03/12/19 05:20 Andra Rods Not Reportable 03/12/19 05:20 Platelet Estimate Consistent w auto 03/12/19 05:20 Clumped Platelets Not Reportable 03/12/19 05:20 Plt Clumps, EDTA Not Reportable 03/12/19 05:20 Large Platelets Not Reportable 03/12/19 05:20 Giant Platelets Not Reportable 03/12/19 05:20 Platelet Satelliting Not Reportable 03/12/19 05:20 Plt Morphology Comment Not Reportable 03/12/19 05:20 RBC Morphology Not Reportable 03/12/19 05:20 Dimorphic RBCs Not Reportable 03/12/19 05:20 Polychromasia Not Reportable 03/12/19 05:20 Hypochromasia Not Reportable 03/12/19 05:20 Poikilocytosis Not Reportable 03/12/19 05:20 Anisocytosis 1+ 03/12/19 05:20 Microcytosis Not Reportable 03/12/19 05:20 Macrocytosis Not Reportable 03/12/19 05:20 Spherocytes Not Reportable 03/12/19 05:20 Pappenheimer Bodies Not Reportable 03/12/19 05:20 Sickle Cells Not Reportable 03/12/19 05:20 Target Cells Not Reportable 03/12/19 05:20 Tear Drop Cells Not Reportable 03/12/19 05:20 Ovalocytes Not Reportable 03/12/19 05:20 Helmet Cells Not Reportable 03/12/19 05:20 Joseph-Chical Bodies Not Reportable 03/12/19 05:20 [place] Rings Not Reportable 03/12/19 05:20 Corona Cells Not Reportable 03/12/19 05:20 Bite Cells Not Reportable 03/12/19 05:20 Crenated Cell Not Reportable 03/12/19 05:20 Elliptocytes Not Reportable 03/12/19 05:20 Acanthocytes (Spur) Not Reportable 03/12/19 05:20 Rouleaux Not Reportable 03/12/19 05:20 Hemoglobin C Crystals Not Reportable 03/12/19 05:20 Schistocytes Not Reportable 03/12/19 05:20 Malaria parasites Not Reportable 03/12/19 05:20 Donta Bodies Not Reportable 03/12/19 05:20 Hem Pathologist Commnt No 03/12/19 05:20 PT 18.5 Sec. (12.2-14.9) H 03/10/19 04:05 INR 1.57 (0.87-1.13) H 03/10/19 04:05 APTT 40.4 Sec. (24.2-36.6) H 03/10/19 04:05 Sodium 146 mmol/L (137-145) H 03/14/19 04:00 Potassium 3.9 mmol/L (3.6-5.0) D 03/14/19 04:00 Chloride 113.8 mmol/L (98-107) H 03/14/19 04:00 Carbon Dioxide 22 mmol/L (22-30) 03/14/19 04:00 Anion Gap 14 mmol/L 03/14/19 04:00 BUN 23 mg/dL (9-20) H 03/14/19 04:00 Creatinine 1.0 mg/dL (0.8-1.5) 03/14/19 04:00 Estimated GFR > 60 ml/min 03/14/19 04:00 BUN/Creatinine Ratio 23 % 03/14/19 04:00 Glucose 158 mg/dL (75-100) H 03/14/19 04:00 POC Glucose 155 (70-105) H 03/13/19 07:38 Lactic Acid 0.80 mmol/L (0.7-2.0) 03/09/19 04:57 Calcium 8.5 mg/dL (8.4-10.2) 03/14/19 04:00 Magnesium 1.70 mg/dL (1.7-2.3) 03/13/19 07:24 Total Bilirubin 1.10 mg/dL (0.1-1.2) 03/09/19 02:16 AST 20 units/L (5-40) 03/09/19 02:16 ALT 18 units/L (7-56) 03/09/19 02:16 Alkaline Phosphatase 58 units/L (35-129) 03/09/19 02:16 Troponin T 0.042 ng/mL (0.00-0.029) H 03/09/19 02:16 Troponin T 0.043 ng/mL (0.00-0.029) H 03/09/19 02:16 NT-Pro-B Natriuret Pep 3715 pg/mL (0-900) H 03/09/19 02:16 Total Protein 6.9 g/dL (6.3-8.2) 03/09/19 02:16 Albumin 3.5 g/dL (3.9-5) L 03/09/19 02:16 Albumin/Globulin Ratio 1.0 % 03/09/19 02:16 Triglycerides 50 mg/dL (2-149) 03/09/19 02:16 Cholesterol 61 mg/dL (50-199) 03/09/19 02:16 LDL Cholesterol Direct 35 mg/dL (50-130) L 03/09/19 02:16 HDL Cholesterol 26 mg/dL (40-59) L 03/09/19 02:16 Cholesterol/HDL Ratio 2.34 % 03/09/19 02:16 Urine Color Yellow (Yellow) 03/09/19 22:15 Urine Turbidity Slightly-cloudy (Clear) 03/09/19 22:15 Urine pH 5.0 (5.0-7.0) 03/09/19 22:15 Ur Specific [place] 1.019 (1.003-1.030) 03/09/19 22:15 Urine Protein 100 mg/dl mg/dL (Negative) 03/09/19 22:15 Urine Glucose (UA) Neg mg/dL (Negative) 03/09/19 22:15 Urine Ketones Neg mg/dL (Negative) 03/09/19 22:15 Urine Blood Lg (Negative) 03/09/19 22:15 Urine Nitrite Neg (Negative) 03/09/19 22:15 Urine Bilirubin Neg (Negative) 03/09/19 22:15 Urine Urobilinogen < 2.0 mg/dL (<2.0) 03/09/19 22:15 Ur Leukocyte Esterase Neg (Negative) 03/09/19 22:15 Urine WBC (Auto) 5.0 /HPF (0.0-6.0) 03/09/19 22:15 Urine RBC (Auto) 2.0 /HPF (0.0-6.0) 03/09/19 22:15 U Epithel Cells (Auto) 1.0 /HPF (0-13.0) 03/09/19 22:15 Urine Bacteria (Auto) 1+ /HPF (Negative) 03/09/19 22:15 Urine Mucus Few /HPF 03/09/19 22:15 Vancomycin Trough 5.2 ug/mL (5.0-20.0) 03/13/19 20:10 Urine Opiates Screen Presumptive negative 03/09/19 22:15 Urine Methadone Screen Presumptive negative 03/09/19 22:15 Ur Barbiturates Screen Presumptive negative 03/09/19 22:15 Ur Phencyclidine Scrn Presumptive negative 03/09/19 22:15 Ur Amphetamines Screen Presumptive negative 03/09/19 22:15 U Benzodiazepines Scrn Presumptive negative 03/09/19 22:15 Urine Cocaine Screen Presumptive negative 03/09/19 22:15 U Marijuana (THC) Screen Presumptive negative 03/09/19 22:15 Drugs of Abuse Note Disclamer 03/09/19 22:15 Influenza A (Rapid) Negative (Negative) 03/09/19 Unknown Influenza B (Rapid) Negative (Negative) 03/09/19 Unknown Blood Type A POSITIVE 03/12/19 09:00 Antibody Screen Negative 03/12/19 09:00 Crossmatch See Detail 03/12/19 09:00 Active Medications - Current Medications Current Medications: Generic Name Dose Route Start Last Admin Trade Name Freq PRN Reason Stop Dose Admin Acetaminophen 650 mg 03/09/19 04:22 03/11/19 23:20 Tylenol PO 650 mg Q4H PRN Administration Pain MILD(1-3)/Fever >100.5/LLANES Albuterol 2.5 mg 03/13/19 15:03 03/14/19 09:03 Proventil IH 2.5 mg Q4HRT PRN Administration Shortness Of Breath Amiodarone HCl 200 mg 03/13/19 16:00 03/14/19 10:20 Cordarone PO 200 mg DAILY NANETTE Administration Ascorbic Acid 500 mg 03/13/19 18:00 03/14/19 10:20 Vitamin C PO 500 mg QDAY NANETTE Administration Atorvastatin Calcium 40 mg 03/13/19 22:00 03/13/19 22:58 Lipitor PO 40 mg QHS NANETTE Administration Vancomycin HCl 1 gm in 250 mls @ 167.007 mls/hr 03/14/19 18:00 Vancomycin/Ns 1 Gm/250 Ml IV Q12H ANNETTE Magnesium Hydroxide 30 ml 03/09/19 04:22 Milk Of Magnesia PO Q4H PRN Constipation Magnesium Oxide 400 mg 03/13/19 18:00 03/14/19 10:20 Mag-Ox PO 400 mg QDAY NANETTE Administration Metoprolol Tartrate 12.5 mg 03/13/19 22:00 03/14/19 10:20 Metoprolol PO 12.5 mg BID NANETTE Administration Ondansetron HCl 4 mg 03/09/19 04:22 Zofran IV Q8H PRN Nausea And Vomiting Sodium Bicarbonate 650 mg 03/13/19 20:00 03/14/19 08:35 Sodium Bicarbonate PO 03/16/19 19:59 650 mg TID NANETTE Administration Sodium Chloride 10 ml 03/09/19 10:00 03/14/19 10:25 Sodium Chloride Flush Syringe 10 Ml IV 10 ml BID NANETTE Administration Sodium Chloride 10 ml 03/09/19 04:22 Sodium Chloride Flush Syringe 10 Ml IV PRN PRN LINE FLUSH Nutrition/Malnutrition Assess - Dietary Evaluation Nutrition/Malnutrition Findings: Nutrition Notes Start: 03/10/19 10:52 Freq: Status: Active Protocol: Document 03/14/19 10:55 CT (Rec: 03/14/19 11:16 CT [id number]) Co-Sign 03/14/19 10:55 LM Nutrition Notes Initial or Follow up Reassessment Current Diagnosis COPD,Sepsis,Hypertension Other Pertinent Diagnosis AMI, AMS, Syncope Current Diet Cardiac w/Ensure Clear BID Labs/Tests Na 146 BUN 23 Glu 158 Pertinent Medications Lipitor Height 5 ft 11 in Weight 56 kg [place] Body Weight (kg) 78.18 BMI 17.2 Subjective/Other Information Pt was nonverbal and was hard to understand at time of visit . Noted that pt only ate a couple bites of his breakfast, and there was no Ensure on the tray. Burn Absent Trauma Absent Current % PO Negligible Minimum of two criteria Yes Energy Intake (severe) < or equal to 50% Estimated Energy Requirement > or equal to 5 days Interpretation of Weight Loss (severe) >5% in 1 month Body Fat Depletion Mild depletion (non-severe) Muscle Mass Mild Depletion (non-severe) #1 Nutrition Diagnosis Malnutrition Diagnosis Progress(for reassessment Continues documentation) Is patient on ventilator? No Is Patient Ambulatory and/or Out of Bed No REE-([facility]-confined to bed) 1581.180 Kcal/Kg value to use for calculation 35 Approximate Energy Requirements Using 1960 kcal/Kg Calculation Used for Recommendations Kcal/kg Additional Notes Protein needs are 67-84g (1.2- 1.5g/kg) Fluid needs are 1ml/kcal Nutrition Intervention Change Diet Order: Continue Cardiac diet Add Supplement/Snack (indicate name/kcal Ensure Clear BID /protein ) Provides kCal: 480 Provides Protein (gm) 16 Goal #1 Meet at least 75% of kcal and protein needs via meals and ONS Goal #2 Wt gain/maintenance Anticipated Discharge Needs: Cardiac diet and ONS as needed Follow-Up By: 03/16/19 Additional Comments Follow for PO and ONS intakes
--- NOTE | 2019-03-14 12:55 | Progress Note ---
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 He is known to us from his previous hospitalizations. He has an indwelling PORT. Came in with weakness. #Sepsis: still low grade fever, immunocompromised host from chronic neutropenia. Etiology likely Diphtheroids bacteremia. #Diphtheroids bacteremia: 2 of 4 bottles, Diphteroids is usually a contaminant but given immunocompromised state, port in place and isolate growing on 2 different sets is considered as a real pathogen. TTE no vegetations. #Severe pancytopenia, MDS, immunocompromised host, not better #Lactic acidosis #Acute kidney injury: Renally dose antibiotics #Recurrent right sided pneumonia: in Apr 2018 at [facility], June 2018 at [facility] and Jan 2019 PF, full worked up for invasive fungal infection negative. Recs: patient continues to be sleepy/confused today, monitor mentation if not better consider head CT discussed with Dr Quiroga ? goal of therapy - patient deteriorating more. He kindly would discuss with patient's primary onc continue vancomycin IV 1gm IV q 24h for now asked micro to fully identify diphtheroids - isolate sent out for quest ID at discharge will treat with vancomycin 1 gm IV q 24h total 14 days with goal 10-15 mcg/mL till 03/25/2019. order sent to case briefer needs surveillance blood culture a week after IV abx infusion completed poor prognosis Will follow. Sandrita Valdivia MD Infectious Diseases Soft Work [employer] Machine Operator [facility] ([facility]) M [phone] O [phone] Subjective Date of service: 03/14/19 Principal diagnosis: MDS Interval history: Feels better, new fever 100.1, +cough, +sleepy/confused Objective - Exam Narrative Exam: Constitutional: Alert, cooperative. No acute distress Head, Ears, Nose: Normocephalic, atraumatic. External ears, nose normal Eyes: Conjunctivae/corneas clear. No icterus. No ptosis. Neck: Supple, no meningeal signs Oral: dentition fair, no thrush Cardiovascular: S1, S2 normal. Respiratory: RLL rhonchi GI: Soft, non-tender; bowel sounds normal. No peritoneal signs. Musculoskeletal: No pedal edema, no cyanosis. b/l leg wounds Skin: No rash or abscess Hem/Lymphatic: No palpable cervical or supraclavicular nodes. No lymphangitis Psych: Mood ok. Affect normal Neurological: Awake, alert, oriented. No gross abnormality right port clean - Constitutional Vitals: Vital Signs Temp Pulse Resp BP Pulse Ox 99.3 F 104 H 20 130/70 91 03/14/19 07:11 03/14/19 10:20 03/14/19 07:11 03/14/19 10:20 03/14/19 12:01 Temperature -Last 24 Hours Temperature 99.3 F Temperature 98.8 F Temperature 99.2 F Temperature 98.9 F Temperature 98.9 F Temperature 99.4 F Temperature 100.1 F Temperature 99.3 F Temperature 99.2 F Temperature 98.5 F Temperature 99.8 F Temperature 99.0 F Temperature 100.4 F Temperature 99 F Temperature 98.8 F Temperature 98.8 F - Labs CBC & Chem 7: 03/14/19 04:00 03/14/19 04:00 Labs: Abnormal lab results 03/12/19 03/14/19 03/14/19 Range/Units 09:00 04:00 04:00 WBC 0.3 L* (4.5-11.0) K/mm3 RBC 2.61 L (3.65-5.03) M/mm3 Hgb 8.1 L (11.8-15.2) gm/dl Hct 23.3 L (35.5-45.6) % MCHC 35 H (32-34) % Plt Count 11 L* (140-440) K/mm3 Sodium 146 H (137-145) mmol/L Chloride 113.8 H (98-107) mmol/L BUN 23 H (9-20) mg/dL Glucose 158 H (75-100) mg/dL Crossmatch See Detail
[2019-03-14] MEDS: IPRATROPIUM/ALBUTEROL SULFATE 3 ML AMPUL.NEB IH SCH ×2 (13:55→20:28)
[2019-03-14] MEDS: POTASSIUM CHLORIDE 10 MEQ in SODIUM CHLORIDE 0.45% 1000 ML 1,000 ML IV SCH ×2 (18:21→20:04)
[2019-03-14] MEDS: ACETAMINOPHEN 325 MG TAB PO PRN (21:05)
[2019-03-15 04:42] LABS: Hemoglobin 6.3 gm/dl (11.8-15.2); Mean Corpuscular HGB Conc 34 % (32-34); Mean Corpuscular Volume 90 fl (84-94); Red Blood Count 2.05 M/mm3 (3.65-5.03); Red Cell Distribution Width 13.5 % (13.2-15.2)
[2019-03-15 04:52] LABS: BUN/Creatinine Ratio 22; Blood Urea Nitrogen 22 mg/dL (9-20); Calcium 8.6 mg/dL (8.4-10.2); Hemolysis Index 1
[2019-03-15 05:01] LABS: Hematocrit 18.5 % (35.5-45.6)
[2019-03-15 05:02] LABS: Platelet Count 9 K/mm3 (140-440)
[2019-03-15] MEDS ORDERED: SODIUM CHLORIDE 0.9% 500 ML 500 ML IV ONE ×2 (05:30→18:22)
--- NOTE | 2019-03-15 05:32 | Event Note ---
Date: 03/15/19 Hgb this am 6.3 (down from 8.1) ordered 1U PRBC. Follow up post transfusion labs
[2019-03-15 05:59] LABS: Basophils % (Manual) 0 % (0.0-1.8); Eosinophils % (Manual) 0 % (0.0-4.3); Monocytes % (Manual) 5.3 % (0.0-7.3); Total Cells Counted 19
[2019-03-15 06:00] LABS: Anisocytosis 1+; Platelet Estimate Consistent w Auto
--- NOTE | 2019-03-15 07:38 | Hem/Onc Progress Note ---
Assessment and Plan 1. Anemia, leukopenia, thrombocytopenia in a patient with history of myelodysplastic syndrome. He follows Dr. Rojas. In the past, the patient has received Dacogen. He was also getting Procrit. During this admission, he received platelet transfusion and G-CSF support. 2. History of hypertension. 3. History of coronary artery disease. 4. History of renal issues. 5. Carotid artery stenosis. 6. The patient has been having cytopenia for some time. We will do transfusion support while in the hospital and then he will follow with his oncologist, Dr. Rojas. ID team following for Infection and Abx some of his answers are not appropriate his counts are chronically low d/w ID - ? port removal 03/14 - d/w Dr Rojas - pt has not been seen for a few months - he has been going to [facility] for PRBC social issues if port a suspect for infection - removal an option overall prognosis guarded d/w dr Kerr on 03/14 hospice is an option d/w dr Bess on 03/15 - Patient Problems (1) Myelodysplastic syndrome, unspecified Current Visit: Yes Status: Chronic Subjective Date of service: 03/15/19 Principal diagnosis: MDS Interval history: pt says doing ok Objective - Exam Narrative Exam: Pain - none General appearance - arousable Performance status complete dependence Eyes - no icterus ENT - on o2 LNs cervical not palpable Neck - no LN Respiratory Normal Breath sounds - CTA anteriorly CVS S1 S2 + Extremities no edema General GI Soft Rectal deferred male - deferred Skin warm Musculoskeletal - moving limbs Neurologically arousable - Constitutional Vitals: Last Vital Signs Temp 99.2 F 03/15/19 07:32 Pulse 93 H 03/15/19 07:32 Resp 18 03/15/19 07:32 BP 122/72 03/15/19 07:32 Pulse Ox 93 03/15/19 07:32 - Labs Lab Results: Laboratory Results - last 24 hr 03/12/19 03/15/19 03/15/19 09:00 04:30 04:30 WBC 0.4 L* RBC 2.05 L Hgb 6.3 L Hct 18.5 L* MCV 90 MCH 31 MCHC 34 RDW 13.5 Plt Count 9 L* Lymph % (Auto) [employer] Add Manual Diff Complete Total Counted 19 Seg Neutrophils % Nonprofit Manager Seg Neuts % (Manual) 5.3 L Band Neutrophils % 0 Lymphocytes % (Manual) 89.5 H Reactive Lymphs % (Man) 0 Monocytes % (Manual) 5.3 Eosinophils % (Manual) 0 Basophils % (Manual) 0 Metamyelocytes % 0 Myelocytes % 0 Promyelocytes % 0 Blast Cells % 0 Nucleated RBC % Not Reportable Seg Neutrophils # Man 0.0 L Band Neutrophils # 0.0 Lymphocytes # (Manual) 0.4 L Abs React Lymphs (Man) 0.0 Monocytes # (Manual) 0.0 Eosinophils # (Manual) 0.0 Basophils # (Manual) 0.0 Metamyelocytes # 0.0 Myelocytes # 0.0 Promyelocytes # 0.0 Blast Cells # 0.0 WBC Morphology Not Reportable Hypersegmented Neuts Not Reportable Hyposegmented Neuts Not Reportable Hypogranular Neuts Not Reportable Smudge Cells Not Reportable Toxic Granulation Not Reportable Toxic Vacuolation Not Reportable Dohle Bodies Not Reportable Pelger-Huet Anomaly Not Reportable Andra Rods Not Reportable Platelet Estimate Consistent w auto Clumped Platelets Not Reportable Plt Clumps, EDTA Not Reportable Large Platelets Not Reportable Giant Platelets Not Reportable Platelet Satelliting Not Reportable Plt Morphology Comment Not Reportable RBC Morphology Not Reportable Dimorphic RBCs Not Reportable Polychromasia Not Reportable Hypochromasia Not Reportable Poikilocytosis Not Reportable Anisocytosis 1+ Microcytosis Not Reportable Macrocytosis Not Reportable Spherocytes Not Reportable Pappenheimer Bodies Not Reportable Sickle Cells Not Reportable Target Cells Not Reportable Tear Drop Cells Not Reportable Ovalocytes Not Reportable Helmet Cells Not Reportable Joseph-[place] Bodies Not Reportable [place] Rings Not Reportable [place] Cells Not Reportable Bite Cells Not Reportable Crenated Cell Not Reportable Elliptocytes Not Reportable Acanthocytes (Spur) Not Reportable Rouleaux Not Reportable Hemoglobin C Crystals Not Reportable Schistocytes Not Reportable Malaria parasites Not Reportable Donta Bodies Not Reportable Hem Pathologist Commnt No Sodium 146 H Potassium 3.7 Chloride 113.2 H Carbon Dioxide 24 Anion Gap 13 BUN 22 H Creatinine 1.0 Estimated GFR > 60 BUN/Creatinine Ratio 22 Glucose 134 H Calcium 8.6 Blood Type A POSITIVE Antibody Screen Negative Crossmatch See Detail Medications & Allergies - Medications Allergies/Adverse Reactions: Allergies tetanus and diphtheria toxoids [tetanus & diphtheria toxoids] Allergy (Verified 07/12/18 13:31) Anaphylaxis Home Medications: Home Medications Medication Instructions Recorded Confirmed Last Taken Type Potassium Chloride 20 meq PO QDAY #10 packet 06/03/18 03/09/19 Unknown Rx Ascorbic Acid [Vitamin C] 500 mg PO DAILY 07/12/18 03/09/19 Unknown History Magnesium Oxide 400 mg PO DAILY 07/12/18 03/09/19 Unknown History Acyclovir [Zovirax Cap] 200 mg PO BID 30 Days #60 capsule 07/19/18 03/09/19 Unknown Rx Amiodarone [Cordarone 200 MG TAB] 200 mg PO DAILY #30 tablet 07/19/18 03/09/19 Unknown Rx Metoprolol [Lopressor TAB] 12.5 mg PO BID #60 tablet 07/19/18 03/09/19 Unknown Rx oxyCODONE /ACETAMINOPHEN [Percocet 1 tab PO Q6H PRN #30 tablet 07/19/18 03/09/19 Unknown Rx 5/325 mg] Active Medications: Generic Name Dose Route Start Last Admin Trade Name Freq PRN Reason Stop Dose Admin Acetaminophen 650 mg 03/09/19 04:22 03/14/19 21:05 Tylenol PO 650 mg Q4H PRN Administration Pain MILD(1-3)/Fever >100.5/LLANES Albuterol 2.5 mg 03/13/19 15:03 03/14/19 09:03 Proventil IH 2.5 mg Q4HRT PRN Administration Shortness Of Breath Albuterol/Ipratropium 1 ampul 03/14/19 14:00 03/14/19 20:28 Duoneb *Not For Prn Use* IH 1 ampul TIDRT NANETTE Administration Amiodarone HCl 200 mg 03/13/19 16:00 03/14/19 10:20 Cordarone PO 200 mg DAILY NANETTE Administration Ascorbic Acid 500 mg 03/13/19 18:00 03/14/19 10:20 Vitamin C PO 500 mg QDAY NANETTE Administration Atorvastatin Calcium 40 mg 03/13/19 22:00 03/14/19 21:05 Lipitor PO 40 mg QHS NANETTE Administration Vancomycin HCl 1 gm in 250 mls @ 167.007 mls/hr 03/14/19 18:00 03/14/19 18:21 Vancomycin/Ns 1 Gm/250 Ml IV 167.007 mls/hr Q12H NANETTE Administration Potassium Chloride 10 meq/ 1,005 mls @ 75 mls/hr 03/14/19 12:00 03/14/19 20:04 Sodium Chloride IV 75 mls/hr DIRECT NANETTE Administration Magnesium Hydroxide 30 ml 03/09/19 04:22 Milk Of Magnesia PO Q4H PRN Constipation Magnesium Oxide 400 mg 03/13/19 18:00 03/14/19 10:20 Mag-Ox PO 400 mg QDAY NANETTE Administration Metoprolol Tartrate 12.5 mg 03/13/19 22:00 03/14/19 21:06 Metoprolol PO 12.5 mg BID NANETTE Administration Ondansetron HCl 4 mg 03/09/19 04:22 Zofran IV Q8H PRN Nausea And Vomiting Sodium Bicarbonate 650 mg 03/13/19 20:00 03/14/19 21:05 Sodium Bicarbonate PO 03/16/19 19:59 650 mg TID NANETTE Administration Sodium Chloride 10 ml 03/09/19 10:00 03/14/19 21:05 Sodium Chloride Flush Syringe 10 Ml IV 10 ml BID NANETTE Administration Sodium Chloride 10 ml 03/09/19 04:22 Sodium Chloride Flush Syringe 10 Ml IV PRN PRN LINE FLUSH
[2019-03-15] MEDS: IPRATROPIUM/ALBUTEROL SULFATE 3 ML AMPUL.NEB IH SCH ×3 (09:23→22:26)
[2019-03-15] MEDS: SODIUM BICARBONATE 650 MG TAB PO SCH (09:27)
[2019-03-15] MEDS: ASCORBIC ACID 500 MG TAB PO SCH (09:27)
[2019-03-15] MEDS: MAGNESIUM OXIDE 400 MG TAB PO SCH (09:27)
[2019-03-15] MEDS: AMIODARONE 200 MG TAB PO SCH (09:27)
[2019-03-15] MEDS: METOPROLOL TARTRATE 25 MG TAB PO SCH ×2 (09:27→23:14)
[2019-03-15] MEDS: TBO-FILGRASTIM 300 MCG/0.5 ML SUB-Q SCH (10:06)
--- NOTE | 2019-03-15 12:23 | Progress Note ---
Assessment and Plan Assessment and plan: Severe sepsis 2/2 PNA with Diptheroids Bacteremia -CXR showed findings suggestive of PNA -continue IV Vanc and Cefepime per ID -per ID, at discharge will treat with vancomycin 1 gm IV q 24h total 14 days with goal 10-15 mcg/mL till 03/25/2019. Neutropenic Fever -cont abx and neutropenic precautions Syncope -Likely secondary to bilateral carotid artery stenosis v debility -carotid duplex showed 50-79% stenosis in bilateral ICA -echo showed EF 50-55% with normal diastolic dysf -Continue statin. Not on aspirin due to high risk for bleed Pancytopenia due to MDS -s/p 3u of plt and 3u of prbcs, will monitor -keep plt>10k and hb>7 -very poor prognosis -Hematology following: recommended hospice care Hypokalemia -Improved, will monitor level Metabolic Encephalopathy -pt still confused intermittently -CT head neg Metabolic Acidosis -improving on oral Na bicarbonate -will monitor level Acute kidney injury likely due to vasomotor nephropathy -resolved Hypernatremia, not hyponatremia -cont IVF, will monitor level COPD -no acute exacerbation -cont PRN neb tx H/o A.fib/A.flutter -HR controlled -cont home metoprolol and amiodarone -tele monitor Debility -PT/OT consulted DVT/GI Prophy: SCD due to anemia and thrombocytopenia Discussed with the pt's daughter about his father's condition and she verbalized understanding Disp: very poor prognsosi. Discussed with the pt's daughter and she consented to DNR/DNI. I also gave her the option of hospice care which she's considering. CM to f/u. History Interval history: Patient continues to have intermittent confusion. No reported issues overnight. Hospitalist Physical - Constitutional Vitals: Temp Pulse Resp BP Pulse Ox 99.9 F H 82 20 123/63 92 03/15/19 11:20 03/15/19 11:20 03/15/19 11:20 03/15/19 11:20 03/15/19 11:17 General appearance: Present: no acute distress, cachectic, other (ill-looking) - EENT Eyes: Present: PERRL, EOM intact ENT: hearing intact, clear oral mucosa - Neck Neck: Present: supple - Respiratory Respiratory effort: normal Respiratory: bilateral: diminished - Cardiovascular Rhythm: irregularly irregular Heart Sounds: Present: S1 & S2 - Extremities Extremities: No edema - Abdominal General gastrointestinal: soft, non-tender, normal bowel sounds - Integumentary Integumentary: Present: pale - Psychiatric Psychiatric: cooperative - Neurologic Neurologic: moves all extremities Results - Labs CBC & Chem 7: 03/15/19 04:30 03/15/19 04:30 Labs: Laboratory Last Values WBC 0.4 K/mm3 (4.5-11.0) L* 03/15/19 04:30 RBC 2.05 M/mm3 (3.65-5.03) L 03/15/19 04:30 Hgb 6.3 gm/dl (11.8-15.2) L 03/15/19 04:30 Hct 18.5 % (35.5-45.6) L* 03/15/19 04:30 MCV 90 fl (84-94) 03/15/19 04:30 MCH 31 pg (28-32) 03/15/19 04:30 MCHC 34 % (32-34) 03/15/19 04:30 RDW 13.5 % (13.2-15.2) 03/15/19 04:30 Plt Count 9 K/mm3 (140-440) L* 03/15/19 04:30 Lymph % (Auto) [employer] 03/15/19 04:30 [place] % (Auto) [employer] Maker 03/14/19 04:00 Eos % (Auto) [employer] Maker 03/14/19 04:00 Baso % (Auto) [employer] 03/14/19 04:00 Lymph # [employer] 03/14/19 04:00 [place] # Wire [employer] Maker 03/14/19 04:00 Eos # Wire [employer]amp [employer]ade Maker 03/14/19 04:00 Baso # [employer] Maker 03/14/19 04:00 Add Manual Diff Complete 03/15/19 04:30 Total Counted 19 03/15/19 04:30 Seg Neutrophils % [employer] 03/15/19 04:30 Seg Neuts % (Manual) 5.3 % (40.0-70.0) L 03/15/19 04:30 Band Neutrophils % 0 % 03/15/19 04:30 Lymphocytes % (Manual) 89.5 % (13.4-35.0) H 03/15/19 04:30 Reactive Lymphs % (Man) 0 % 03/15/19 04:30 Monocytes % (Manual) 5.3 % (0.0-7.3) 03/15/19 04:30 Eosinophils % (Manual) 0 % (0.0-4.3) 03/15/19 04:30 Basophils % (Manual) 0 % (0.0-1.8) 03/15/19 04:30 Metamyelocytes % 0 % 03/15/19 04:30 Myelocytes % 0 % 03/15/19 04:30 Promyelocytes % 0 % 03/15/19 04:30 Blast Cells % 0 % 03/15/19 04:30 Nucleated RBC % Not Reportable 03/15/19 04:30 Seg Neutrophils # [employer] Maker 03/14/19 04:00 Seg Neutrophils # Man 0.0 K/mm3 (1.8-7.7) L 03/15/19 04:30 Band Neutrophils # 0.0 K/mm3 03/15/19 04:30 Lymphocytes # (Manual) 0.4 K/mm3 (1.2-5.4) L 03/15/19 04:30 Abs React Lymphs (Man) 0.0 K/mm3 03/15/19 04:30 Monocytes # (Manual) 0.0 K/mm3 (0.0-0.8) 03/15/19 04:30 Eosinophils # (Manual) 0.0 K/mm3 (0.0-0.4) 03/15/19 04:30 Basophils # (Manual) 0.0 K/mm3 (0.0-0.1) 03/15/19 04:30 Metamyelocytes # 0.0 K/mm3 03/15/19 04:30 Myelocytes # 0.0 K/mm3 03/15/19 04:30 Promyelocytes # 0.0 K/mm3 03/15/19 04:30 Blast Cells # 0.0 K/mm3 03/15/19 04:30 WBC Morphology Not Reportable 03/15/19 04:30 Hypersegmented Neuts Not Reportable 03/15/19 04:30 Hyposegmented Neuts Not Reportable 03/15/19 04:30 Hypogranular Neuts Not Reportable 03/15/19 04:30 Smudge Cells Not Reportable 03/15/19 04:30 Toxic Granulation Not Reportable 03/15/19 04:30 Toxic Vacuolation Not Reportable 03/15/19 04:30 Dohle Bodies Not Reportable 03/15/19 04:30 Pelger-Huet Anomaly Not Reportable 03/15/19 04:30 Andra Rods Not Reportable 03/15/19 04:30 Platelet Estimate Consistent w auto 03/15/19 04:30 Clumped Platelets Not Reportable 03/15/19 04:30 Plt Clumps, EDTA Not Reportable 03/15/19 04:30 Large Platelets Not Reportable 03/15/19 04:30 Giant Platelets Not Reportable 03/15/19 04:30 Platelet Satelliting Not Reportable 03/15/19 04:30 Plt Morphology Comment Not Reportable 03/15/19 04:30 RBC Morphology Not Reportable 03/15/19 04:30 Dimorphic RBCs Not Reportable 03/15/19 04:30 Polychromasia Not Reportable 03/15/19 04:30 Hypochromasia Not Reportable 03/15/19 04:30 Poikilocytosis Not Reportable 03/15/19 04:30 Anisocytosis 1+ 03/15/19 04:30 Microcytosis Not Reportable 03/15/19 04:30 Macrocytosis Not Reportable 03/15/19 04:30 Spherocytes Not Reportable 03/15/19 04:30 Pappenheimer Bodies Not Reportable 03/15/19 04:30 Sickle Cells Not Reportable 03/15/19 04:30 Target Cells Not Reportable 03/15/19 04:30 Tear Drop Cells Not Reportable 03/15/19 04:30 Ovalocytes Not Reportable 03/15/19 04:30 Helmet Cells Not Reportable 03/15/19 04:30 Joseph-[place] Bodies Not Reportable 03/15/19 04:30 [place] Rings Not Reportable 03/15/19 04:30 [place] Cells Not Reportable 03/15/19 04:30 Bite Cells Not Reportable 03/15/19 04:30 Crenated Cell Not Reportable 03/15/19 04:30 Elliptocytes Not Reportable 03/15/19 04:30 Acanthocytes (Spur) Not Reportable 03/15/19 04:30 Rouleaux Not Reportable 03/15/19 04:30 Hemoglobin C Crystals Not Reportable 03/15/19 04:30 Schistocytes Not Reportable 03/15/19 04:30 Malaria parasites Not Reportable 03/15/19 04:30 Donta Bodies Not Reportable 03/15/19 04:30 Hem Pathologist Commnt No 03/15/19 04:30 PT 18.5 Sec. (12.2-14.9) H 03/10/19 04:05 INR 1.57 (0.87-1.13) H 03/10/19 04:05 APTT 40.4 Sec. (24.2-36.6) H 03/10/19 04:05 Sodium 146 mmol/L (137-145) H 03/15/19 04:30 Potassium 3.7 mmol/L (3.6-5.0) 03/15/19 04:30 Chloride 113.2 mmol/L (98-107) H 03/15/19 04:30 Carbon Dioxide 24 mmol/L (22-30) 03/15/19 04:30 Anion Gap 13 mmol/L 03/15/19 04:30 BUN 22 mg/dL (9-20) H 03/15/19 04:30 Creatinine 1.0 mg/dL (0.8-1.5) 03/15/19 04:30 Estimated GFR > 60 ml/min 03/15/19 04:30 BUN/Creatinine Ratio 22 % 03/15/19 04:30 Glucose 134 mg/dL (75-100) H 03/15/19 04:30 POC Glucose 155 (70-105) H 03/13/19 07:38 Lactic Acid 0.80 mmol/L (0.7-2.0) 03/09/19 04:57 Calcium 8.6 mg/dL (8.4-10.2) 03/15/19 04:30 Magnesium 1.70 mg/dL (1.7-2.3) 03/13/19 07:24 Total Bilirubin 1.10 mg/dL (0.1-1.2) 03/09/19 02:16 AST 20 units/L (5-40) 03/09/19 02:16 ALT 18 units/L (7-56) 03/09/19 02:16 Alkaline Phosphatase 58 units/L (35-129) 03/09/19 02:16 Troponin T 0.042 ng/mL (0.00-0.029) H 03/09/19 02:16 Troponin T 0.043 ng/mL (0.00-0.029) H 03/09/19 02:16 NT-Pro-B Natriuret Pep 3715 pg/mL (0-900) H 03/09/19 02:16 Total Protein 6.9 g/dL (6.3-8.2) 03/09/19 02:16 Albumin 3.5 g/dL (3.9-5) L 03/09/19 02:16 Albumin/Globulin Ratio 1.0 % 03/09/19 02:16 Triglycerides 50 mg/dL (2-149) 03/09/19 02:16 Cholesterol 61 mg/dL (50-199) 03/09/19 02:16 LDL Cholesterol Direct 35 mg/dL (50-130) L 03/09/19 02:16 HDL Cholesterol 26 mg/dL (40-59) L 03/09/19 02:16 Cholesterol/HDL Ratio 2.34 % 03/09/19 02:16 Urine Color Yellow (Yellow) 03/09/19 22:15 Urine Turbidity Slightly-cloudy (Clear) 03/09/19 22:15 Urine pH 5.0 (5.0-7.0) 03/09/19 22:15 Ur Specific [place] 1.019 (1.003-1.030) 03/09/19 22:15 Urine Protein 100 mg/dl mg/dL (Negative) 03/09/19 22:15 Urine Glucose (UA) Neg mg/dL (Negative) 03/09/19 22:15 Urine Ketones Neg mg/dL (Negative) 03/09/19 22:15 Urine Blood Lg (Negative) 03/09/19 22:15 Urine Nitrite Neg (Negative) 03/09/19 22:15 Urine Bilirubin Neg (Negative) 03/09/19 22:15 Urine Urobilinogen < 2.0 mg/dL (<2.0) 03/09/19 22:15 Ur Leukocyte Esterase Neg (Negative) 03/09/19 22:15 Urine WBC (Auto) 5.0 /HPF (0.0-6.0) 03/09/19 22:15 Urine RBC (Auto) 2.0 /HPF (0.0-6.0) 03/09/19 22:15 U Epithel Cells (Auto) 1.0 /HPF (0-13.0) 03/09/19 22:15 Urine Bacteria (Auto) 1+ /HPF (Negative) 03/09/19 22:15 Urine Mucus Few /HPF 03/09/19 22:15 Vancomycin Trough 5.2 ug/mL (5.0-20.0) 03/13/19 20:10 Urine Opiates Screen Presumptive negative 03/09/19 22:15 Urine Methadone Screen Presumptive negative 03/09/19 22:15 Ur Barbiturates Screen Presumptive negative 03/09/19 22:15 Ur Phencyclidine Scrn Presumptive negative 03/09/19 22:15 Ur Amphetamines Screen Presumptive negative 03/09/19 22:15 U Benzodiazepines Scrn Presumptive negative 03/09/19 22:15 Urine Cocaine Screen Presumptive negative 03/09/19 22:15 U Marijuana (THC) Screen Presumptive negative 03/09/19 22:15 Drugs of Abuse Note Disclamer 03/09/19 22:15 Influenza A (Rapid) Negative (Negative) 03/09/19 Unknown Influenza B (Rapid) Negative (Negative) 03/09/19 Unknown Blood Type A POSITIVE 03/12/19 09:00 Antibody Screen Negative 03/12/19 09:00 Crossmatch See Detail 03/12/19 09:00 Active Medications - Current Medications Current Medications: Generic Name Dose Route Start Last Admin Trade Name Krishq PRN Reason Stop Dose Admin Acetaminophen 650 mg 03/09/19 04:22 03/14/19 21:05 Tylenol PO 650 mg Q4H PRN Administration Pain MILD(1-3)/Fever >100.5/LLANES Albuterol 2.5 mg 03/13/19 15:03 03/14/19 09:03 Proventil IH 2.5 mg Q4HRT PRN Administration Shortness Of Breath Albuterol/Ipratropium 1 ampul 03/14/19 14:00 03/15/19 09:23 Duoneb *Not For Prn Use* IH 1 ampul TIDRT NANETTE Administration Amiodarone HCl 200 mg 03/13/19 16:00 03/15/19 09:27 Cordarone PO 200 mg DAILY NANETTE Administration Ascorbic Acid 500 mg 03/13/19 18:00 03/15/19 09:27 Vitamin C PO 500 mg QDAY NANETTE Administration Atorvastatin Calcium 40 mg 03/13/19 22:00 03/14/19 21:05 Lipitor PO 40 mg QHS NANETTE Administration Vancomycin HCl 1 gm in 250 mls @ 167.007 mls/hr 03/14/19 18:00 03/14/19 18:21 Vancomycin/Ns 1 Gm/250 Ml IV 167.007 mls/hr Q12H NANETTE Administration Potassium Chloride 10 meq/ 1,005 mls @ 100 mls/hr 03/14/19 12:00 03/14/19 20:04 Sodium Chloride IV 75 mls/hr DIRECT NANETTE Administration Magnesium Hydroxide 30 ml 03/09/19 04:22 Milk Of Magnesia PO Q4H PRN Constipation Magnesium Oxide 400 mg 03/13/19 18:00 03/15/19 09:27 Mag-Ox PO 400 mg QDAY NANETTE Administration Metoprolol Tartrate 12.5 mg 03/13/19 22:00 03/15/19 09:27 Metoprolol PO 12.5 mg BID NANETTE Administration Ondansetron HCl 4 mg 03/09/19 04:22 Zofran IV Q8H PRN Nausea And Vomiting Sodium Bicarbonate 650 mg 03/13/19 20:00 03/15/19 09:27 Sodium Bicarbonate PO 03/16/19 19:59 650 mg TID NANETTE Administration Sodium Chloride 10 ml 03/09/19 10:00 03/15/19 10:06 Sodium Chloride Flush Syringe 10 Ml IV 10 ml BID NANETTE Administration Sodium Chloride 10 ml 03/09/19 04:22 Sodium Chloride Flush Syringe 10 Ml IV PRN PRN LINE FLUSH Tbo-Filgrastim 300 mcg 03/15/19 10:00 03/15/19 10:06 Granix SUB-Q 03/18/19 09:59 300 mcg DAILY NANETTE Administration Nutrition/Malnutrition Assess - Dietary Evaluation Nutrition/Malnutrition Findings: Nutrition Notes Start: 03/10/19 10:52 Freq: Status: Active Protocol: Document 03/14/19 10:55 CT (Rec: 03/14/19 11:16 CT [id number]) Co-Sign 03/14/19 10:55 LM Nutrition Notes Initial or Follow up Reassessment Current Diagnosis COPD,Sepsis,Hypertension Other Pertinent Diagnosis AMI, AMS, Syncope Current Diet Cardiac w/Ensure Clear BID Labs/Tests Na 146 BUN 23 Glu 158 Pertinent Medications Lipitor Height 5 ft 11 in Weight 56 kg [place] Body Weight (kg) 78.18 BMI 17.2 Subjective/Other Information Pt was nonverbal and was hard to understand at time of visit . Noted that pt only ate a couple bites of his breakfast, and there was no Ensure on the tray. Burn Absent Trauma Absent Current % PO Negligible Minimum of two criteria Yes Energy Intake (severe) < or equal to 50% Estimated Energy Requirement > or equal to 5 days Interpretation of Weight Loss (severe) >5% in 1 month Body Fat Depletion Mild depletion (non-severe) Muscle Mass Mild Depletion (non-severe) #1 Nutrition Diagnosis Malnutrition Diagnosis Progress(for reassessment Continues documentation) Is patient on ventilator? No Is Patient Ambulatory and/or Out of Bed No REE-([facility]-confined to bed) [phone] Kcal/Kg value to use for calculation 35 Approximate Energy Requirements Using 1960 kcal/Kg Calculation Used for Recommendations Kcal/kg Additional Notes Protein needs are 67-84g (1.2- 1.5g/kg) Fluid needs are 1ml/kcal Nutrition Intervention Change Diet Order: Continue Cardiac diet Add Supplement/Snack (indicate name/kcal Ensure Clear BID /protein ) Provides kCal: 480 Provides Protein (gm) 16 Goal #1 Meet at least 75% of kcal and protein needs via meals and ONS Goal #2 Wt gain/maintenance Anticipated Discharge Needs: Cardiac diet and ONS as needed Follow-Up By: 03/16/19 Additional Comments Follow for PO and ONS intakes
[2019-03-15] MEDS: VANCOMYCIN/NS 1 GM/250 ML 1 GM/250 ML BAG IV SCH ×2 (14:29→19:48)
--- NOTE | 2019-03-15 15:51 | Progress Note ---
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 He is known to us from his previous hospitalizations. He has an indwelling PORT. Came in with weakness. #Sepsis: still low grade fever, immunocompromised host from chronic neutropenia. Etiology likely Diphtheroids bacteremia. #Diphtheroids bacteremia: 2 of 4 bottles, Diphteroids is usually a contaminant but given immunocompromised state, port in place and isolate growing on 2 different sets is considered as a real pathogen. TTE no vegetations. #Severe pancytopenia, MDS, immunocompromised host, not better #Lactic acidosis #Acute kidney injury: Renally dose antibiotics #Recurrent right sided pneumonia: in Apr 2018 at [facility], June 2018 at [facility] and Jan 2019 PF, full worked up for invasive fungal infection negative. Recs: check CT head due to sleeping and LUE jerking movements ? seizures consider palliative care consult - progressive deterioration of overall condition, multiple readmissions for transfusion continue vancomycin IV 1gm IV q 24h for now asked micro to fully identify diphtheroids - isolate sent out for quest ID at discharge will treat with vancomycin 1 gm IV q 24h total 14 days with goal 10-15 mcg/mL till 03/25/2019. order sent to welfare case worker needs surveillance blood culture a week after IV abx infusion completed poor prognosis Will follow. Sandrita Valdivia MD Infectious Diseases Materials Engineer [facility] ([facility]) M [phone] O [phone] Subjective Date of service: 03/15/19 Principal diagnosis: MDS Interval history: Feels better, new fever 99.9, +sleepy/confused Objective - Exam Narrative Exam: Constitutional: Alert, cooperative. No acute distress Head, Ears, Nose: Normocephalic, atraumatic. External ears, nose normal Eyes: Conjunctivae/corneas clear. No icterus. No ptosis. Neck: Supple, no meningeal signs Oral: dentition fair, no thrush Cardiovascular: S1, S2 normal. Respiratory: RLL rhonchi GI: Soft, non-tender; bowel sounds normal. No peritoneal signs. Musculoskeletal: No pedal edema, no cyanosis. b/l leg wounds Skin: No rash or abscess Hem/Lymphatic: No palpable cervical or supraclavicular nodes. No lymphangitis Psych: sleepy Neurological: sleepy right port clean - Constitutional Vitals: Vital Signs Temp Pulse Resp BP Pulse Ox 99.9 F H 82 20 123/63 92 03/15/19 11:20 03/15/19 11:20 03/15/19 11:20 03/15/19 11:20 03/15/19 11:17 Temperature -Last 24 Hours Temperature 99.9 F Temperature 99.9 F Temperature 98.4 F Temperature 99.6 F Temperature 99.6 F Temperature 99.1 F Temperature 100 F Temperature 99.2 F Temperature 101.4 F Temperature 101.7 F Temperature 99.2 F Temperature 99.7 F Temperature 97.9 F Temperature 100.1 F - Labs CBC & Chem 7: 03/15/19 04:30 03/15/19 04:30 Labs: Abnormal lab results 03/12/19 03/15/19 03/15/19 Range/Units 09:00 04:30 04:30 WBC 0.4 L* (4.5-11.0) K/mm3 RBC 2.05 L (3.65-5.03) M/mm3 Hgb 6.3 L (11.8-15.2) gm/dl Hct 18.5 L* (35.5-45.6) % Plt Count 9 L* (140-440) K/mm3 Seg Neuts % (Manual) 5.3 L (40.0-70.0) % Lymphocytes % (Manual) 89.5 H (13.4-35.0) % Seg Neutrophils # Man 0.0 L (1.8-7.7) K/mm3 Lymphocytes # (Manual) 0.4 L (1.2-5.4) K/mm3 Sodium 146 H (137-145) mmol/L Chloride 113.2 H (98-107) mmol/L BUN 22 H (9-20) mg/dL Glucose 134 H (75-100) mg/dL Crossmatch See Detail
[2019-03-16] MEDS ORDERED: SODIUM CHLORIDE 0.9% 500 ML IVPB IV SCH (02:00)
--- NOTE | 2019-03-16 07:44 | Hem/Onc Progress Note ---
Assessment and Plan 1. Anemia, leukopenia, thrombocytopenia in a patient with history of myelodysplastic syndrome. He follows Dr. Rojas. In the past, the patient has received Dacogen. He was also getting Procrit. During this admission, he received platelet transfusion and G-CSF support. 2. History of hypertension. 3. History of coronary artery disease. 4. History of renal issues. 5. Carotid artery stenosis. 6. The patient has been having cytopenia for some time. We will do transfusion support while in the hospital and then he will follow with his oncologist, Dr. Rojas. ID team following for Infection and Abx some of his answers are not appropriate his counts are chronically low d/w ID - ? port removal 03/14 - d/w Dr Rojas - pt has not been seen for a few months - he has been going to [place] for PRBC social issues if port a suspect for infection - removal an option overall prognosis guarded d/w dr Kerr on 03/14 hospice is an option d/w dr Bess on 03/15 spoke to daughter - she will call [facility] to update them that hospice is being looked into it appears - pt has been getting chemo at [facility] - Patient Problems (1) Myelodysplastic syndrome, unspecified Current Visit: Yes Status: Chronic Subjective Date of service: 03/16/19 Principal diagnosis: MDS Interval history: spoke to daughter - pt was going to [facility] for treatment Objective - Exam Narrative Exam: Pain - none General appearance - arousable Performance status complete dependence Eyes - no icterus ENT - on o2 LNs cervical not palpable Neck - no LN Respiratory Normal Breath sounds - CTA anteriorly CVS S1 S2 + Extremities no edema General GI Soft Rectal deferred male - deferred Skin warm Musculoskeletal - moving limbs Neurologically arousable - Constitutional Vitals: Last Vital Signs Temp 98.1 F 03/16/19 05:38 Pulse 121 H 03/16/19 05:38 Resp 24 03/16/19 05:38 BP 119/73 03/16/19 05:38 Pulse Ox 100 03/16/19 05:38 - Labs Lab Results: Laboratory Results - last 24 hr 03/12/19 03/15/19 09:00 22:00 Blood Type A POSITIVE Antibody Screen Negative Crossmatch See Detail See Detail Medications & Allergies - Medications Allergies/Adverse Reactions: Allergies tetanus and diphtheria toxoids [tetanus & diphtheria toxoids] Allergy (Verified 07/12/18 13:31) Anaphylaxis Home Medications: Home Medications Medication Instructions Recorded Confirmed Last Taken Type Potassium Chloride 20 meq PO QDAY #10 packet 06/03/18 03/09/19 Unknown Rx Ascorbic Acid [Vitamin C] 500 mg PO DAILY 07/12/18 03/09/19 Unknown History Magnesium Oxide 400 mg PO DAILY 07/12/18 03/09/19 Unknown History Acyclovir [Zovirax Cap] 200 mg PO BID 30 Days #60 capsule 07/19/18 03/09/19 Unk nown Rx Amiodarone [Cordarone 200 MG TAB] 200 mg PO DAILY #30 tablet 07/19/18 03/09/19 Unknown Rx Metoprolol [Lopressor TAB] 12.5 mg PO BID #60 tablet 07/19/18 03/09/19 Unknown Rx oxyCODONE /ACETAMINOPHEN [Percocet 1 tab PO Q6H PRN #30 tablet 07/19/18 03/09/19 Unknown Rx 5/325 mg] Active Medications: Generic Name Dose Route Start Last Admin Trade Name Freq PRN Reason Stop Dose Admin Acetaminophen 650 mg 03/09/19 04:22 03/14/19 21:05 Tylenol PO 650 mg Q4H PRN Administration Pain MILD(1-3)/Fever >100.5/LLANES Albuterol 2.5 mg 03/13/19 15:03 03/14/19 09:03 Proventil IH 2.5 mg Q4HRT PRN Administration Shortness Of Breath Albuterol/Ipratropium 1 ampul 03/14/19 14:00 03/15/19 22:26 Duoneb *Not For Prn Use* IH 1 ampul TIDRT NANETTE Administration Amiodarone HCl 200 mg 03/13/19 16:00 03/15/19 09:27 Cordarone PO 200 mg DAILY NANETTE Administration Ascorbic Acid 500 mg 03/13/19 18:00 03/15/19 09:27 Vitamin C PO 500 mg QDAY NANETTE Administration Atorvastatin Calcium 40 mg 03/13/19 22:00 03/15/19 23:14 Lipitor PO 40 mg QHS NANETTE Administration Vancomycin HCl 1 gm in 250 mls @ 167.007 mls/hr 03/14/19 18:00 03/15/19 19:48 Vancomycin/Ns 1 Gm/250 Ml IV 167.007 mls/hr Q12H NANETTE Administration Potassium Chloride 10 meq/ 1,005 mls @ 100 mls/hr 03/14/19 12:00 03/14/19 20:04 Sodium Chloride IV 75 mls/hr DIRECT NANETTE Administration Magnesium Hydroxide 30 ml 03/09/19 04:22 Milk Of Magnesia PO Q4H PRN Constipation Magnesium Oxide 400 mg 03/13/19 18:00 03/15/19 09:27 Mag-Ox PO 400 mg QDAY NANETTE Administration Metoprolol Tartrate 12.5 mg 03/13/19 22:00 03/15/19 23:14 Metoprolol PO 12.5 mg BID NANETTE Administration Ondansetron HCl 4 mg 03/09/19 04:22 Zofran IV Q8H PRN Nausea And Vomiting Sodium Chloride 10 ml 03/09/19 10:00 03/15/19 23:15 Sodium Chloride Flush Syringe 10 Ml IV 10 ml BID NANETTE Administration Sodium Chloride 10 ml 03/09/19 04:22 Sodium Chloride Flush Syringe 10 Ml IV PRN PRN LINE FLUSH Tbo-Filgrastim 300 mcg 03/15/19 10:00 03/15/19 10:06 Granix SUB-Q 03/18/19 09:59 300 mcg DAILY NANETTE Administration
[2019-03-16] MEDS: MAGNESIUM OXIDE 400 MG TAB PO SCH (10:29)
[2019-03-16] MEDS: ASCORBIC ACID 500 MG TAB PO SCH (10:30)
[2019-03-16] MEDS: AMIODARONE 200 MG TAB PO SCH (10:30)
[2019-03-16] MEDS: METOPROLOL TARTRATE 25 MG TAB PO SCH ×2 (10:30→22:57)
[2019-03-16 10:34] LABS: Hematocrit 20.5 % (35.5-45.6); Hemoglobin 6.9 gm/dl (11.8-15.2); Mean Corpuscular HGB Conc 34 % (32-34); Mean Corpuscular Volume 91 fl (84-94); Red Blood Count 2.24 M/mm3 (3.65-5.03); Red Cell Distribution Width 14.3 % (13.2-15.2)
[2019-03-16 10:39] LABS: Hematocrit 20.3 % (35.5-45.6); Hemoglobin 6.9 gm/dl (11.8-15.2); Platelet Count 15 K/mm3 (140-440)
[2019-03-16] MEDS: IPRATROPIUM/ALBUTEROL SULFATE 3 ML AMPUL.NEB IH SCH ×3 (10:40→21:06)
[2019-03-16 10:49] LABS: Calcium 8.7 mg/dL (8.4-10.2)
[2019-03-16] MEDS: TBO-FILGRASTIM 300 MCG/0.5 ML SUB-Q SCH (10:55)
[2019-03-16 11:39] LABS: Basophils % (Manual) 0 % (0.0-1.8); Eosinophils % (Manual) 0 % (0.0-4.3); Monocytes % (Manual) 7.5 % (0.0-7.3); Total Cells Counted 40
[2019-03-16 11:40] LABS: Anisocytosis 1+; Large Platelets Rare; Platelet Estimate Consistent w Auto
--- NOTE | 2019-03-16 12:31 | Progress Note ---
Assessment and Plan Assessment and plan: Severe sepsis 2/2 PNA with Diptheroids Bacteremia -CXR showed findings suggestive of PNA -continue IV Vanc and Cefepime per ID -per ID, at discharge will treat with vancomycin 1 gm IV q 24h total 14 days with goal 10-15 mcg/mL till 03/25/2019. Neutropenic Fever -cont abx and neutropenic precautions Syncope -Likely secondary to bilateral carotid artery stenosis v debility -carotid duplex showed 50-79% stenosis in bilateral ICA -echo showed EF 50-55% with normal diastolic dysf -Continue statin. Not on aspirin due to high risk for bleed Pancytopenia due to MDS -s/p 3u of plt and 4u of prbcs, will monitor -keep plt>10k and hb>7 -very poor prognosis -Hematology following: recommended hospice care Hypokalemia -Improved Metabolic Encephalopathy -pt less responsive today -CT head neg Metabolic Acidosis -improved Acute kidney injury likely due to vasomotor nephropathy -resolved Hypernatremia, likely 2/2 dehydration -improved FAWAD, likely vasomotor nephropathy -due to dehydration COPD -no acute exacerbation -cont PRN neb tx H/o A.fib/A.flutter -HR uncontrolled -cont home metoprolol and amiodarone Debility -PT/OT consulted DVT/GI Prophy: SCD due to anemia and thrombocytopenia Discussed with the pt's daughter about his father's condition and she verbalized understanding Disp: very poor prognosis. Awaiting d/c to inpt hospice, CM following History Interval history: Pt is less responsive with poor oral intake. He's unable to communicate. Hospitalist Physical - Constitutional Vitals: Temp Pulse Resp BP Pulse Ox 98.1 F 76 22 123/72 95 03/16/19 05:38 03/16/19 10:55 03/16/19 10:55 03/16/19 10:30 03/16/19 11:05 General appearance: Present: mild distress, cachectic, other (ill-looking and less responsive ) - EENT Eyes: Present: EOM intact ENT: clear oral mucosa - Neck Neck: Present: supple - Respiratory Respiratory effort: labored Respiratory: bilateral: rhonchi - Cardiovascular Rhythm: regular (with tachycardia) Heart Sounds: Present: S1 & S2 - Extremities Extremities: No edema - Abdominal General gastrointestinal: soft, non-tender, normal bowel sounds - Integumentary Integumentary: Present: warm, dry - Psychiatric Psychiatric: other (unable to assess) - Neurologic Neurologic: other (pt is less responsive) Results - Labs CBC & Chem 7: 03/16/19 09:56 03/16/19 09:56 Labs: Laboratory Last Values WBC 0.5 K/mm3 (4.5-11.0) L* 03/16/19 09:56 RBC 2.24 M/mm3 (3.65-5.03) L 03/16/19 09:56 Hgb 6.9 gm/dl (11.8-15.2) L 03/16/19 09:56 Hgb 6.9 gm/dl (11.8-15.2) L 03/16/19 09:56 Hct 20.3 % (35.5-45.6) L 03/16/19 09:56 Hct 20.5 % (35.5-45.6) L 03/16/19 09:56 MCV 91 fl (84-94) 03/16/19 09:56 MCH 31 pg (28-32) 03/16/19 09:56 MCHC 34 % (32-34) 03/16/19 09:56 RDW 14.3 % (13.2-15.2) 03/16/19 09:56 Plt Count 15 K/mm3 (140-440) L* 03/16/19 09:56 Lymph % (Auto) Operations Consultant 03/16/19 09:56 [place] % (Auto) Operations Consultant 03/16/19 09:56 Eos % (Auto) Operations Consultant 03/14/19 04:00 Baso % (Auto) Operations Consultant 03/14/19 04:00 Lymph # Operations Consultant 03/14/19 04:00 [place] # Operations Consultant 03/14/19 04:00 Eos # Operations Consultant 03/14/19 04:00 Baso # Operations Consultant 03/14/19 04:00 Add Manual Diff Complete 03/16/19 09:56 Total Counted 40 03/16/19 09:56 Seg Neutrophils % Operations Consultant 03/16/19 09:56 Seg Neuts % (Manual) 2.5 % (40.0-70.0) L 03/16/19 09:56 Band Neutrophils % 0 % 03/16/19 09:56 Lymphocytes % (Manual) 90.0 % (13.4-35.0) H 03/16/19 09:56 Reactive Lymphs % (Man) 0 % 03/16/19 09:56 Monocytes % (Manual) 7.5 % (0.0-7.3) H 03/16/19 09:56 Eosinophils % (Manual) 0 % (0.0-4.3) 03/16/19 09:56 Basophils % (Manual) 0 % (0.0-1.8) 03/16/19 09:56 Metamyelocytes % 0 % 03/16/19 09:56 Myelocytes % 0 % 03/16/19 09:56 Promyelocytes % 0 % 03/16/19 09:56 Blast Cells % 0 % 03/16/19 09:56 Nucleated RBC % Not Reportable 03/16/19 09:56 Seg Neutrophils # Operations Consultant 03/14/19 04:00 Seg Neutrophils # Man 0.0 K/mm3 (1.8-7.7) L 03/16/19 09:56 Band Neutrophils # 0.0 K/mm3 03/16/19 09:56 Lymphocytes # (Manual) 0.5 K/mm3 (1.2-5.4) L 03/16/19 09:56 Abs React Lymphs (Man) 0.0 K/mm3 03/16/19 09:56 Monocytes # (Manual) 0.0 K/mm3 (0.0-0.8) 03/16/19 09:56 Eosinophils # (Manual) 0.0 K/mm3 (0.0-0.4) 03/16/19 09:56 Basophils # (Manual) 0.0 K/mm3 (0.0-0.1) 03/16/19 09:56 Metamyelocytes # 0.0 K/mm3 03/16/19 09:56 Myelocytes # 0.0 K/mm3 03/16/19 09:56 Promyelocytes # 0.0 K/mm3 03/16/19 09:56 Blast Cells # 0.0 K/mm3 03/16/19 09:56 WBC Morphology Not Reportable 03/16/19 09:56 Hypersegmented Neuts Not Reportable 03/16/19 09:56 Hyposegmented Neuts Not Reportable 03/16/19 09:56 Hypogranular Neuts Not Reportable 03/16/19 09:56 Smudge Cells Not Reportable 03/16/19 09:56 Toxic Granulation Not Reportable 03/16/19 09:56 Toxic Vacuolation Not Reportable 03/16/19 09:56 Dohle Bodies Not Reportable 03/16/19 09:56 Pelger-Huet Anomaly Not Reportable 03/16/19 09:56 Andra Rods Not Reportable 03/16/19 09:56 Platelet Estimate Consistent w auto 03/16/19 09:56 Clumped Platelets Not Reportable 03/16/19 09:56 Plt Clumps, EDTA Not Reportable 03/16/19 09:56 Large Platelets Rare 03/16/19 09:56 Giant Platelets Not Reportable 03/16/19 09:56 Platelet Satelliting Not Reportable 03/16/19 09:56 Plt Morphology Comment Not Reportable 03/16/19 09:56 RBC Morphology Not Reportable 03/16/19 09:56 Dimorphic RBCs Not Reportable 03/16/19 09:56 Polychromasia Not Reportable 03/16/19 09:56 Hypochromasia Not Reportable 03/16/19 09:56 Poikilocytosis Not Reportable 03/16/19 09:56 Anisocytosis 1+ 03/16/19 09:56 Microcytosis Not Reportable 03/16/19 09:56 Macrocytosis Not Reportable 03/16/19 09:56 Spherocytes Not Reportable 03/16/19 09:56 Pappenheimer Bodies Not Reportable 03/16/19 09:56 Sickle Cells Not Reportable 03/16/19 09:56 Target Cells Not Reportable 03/16/19 09:56 Tear Drop Cells Not Reportable 03/16/19 09:56 Ovalocytes Not Reportable 03/16/19 09:56 Helmet Cells Not Reportable 03/16/19 09:56 [place] Bodies Not Reportable 03/16/19 09:56 [place] Rings Not Reportable 03/16/19 09:56 [place] Cells Not Reportable 03/16/19 09:56 Bite Cells Not Reportable 03/16/19 09:56 Crenated Cell Not Reportable 03/16/19 09:56 Elliptocytes Not Reportable 03/16/19 09:56 Acanthocytes (Spur) Not Reportable 03/16/19 09:56 Rouleaux Not Reportable 03/16/19 09:56 Hemoglobin C Crystals Not Reportable 03/16/19 09:56 Schistocytes Not Reportable 03/16/19 09:56 Malaria parasites Not Reportable 03/16/19 09:56 [place] Bodies Not Reportable 03/16/19 09:56 Hem Pathologist Commnt No 03/16/19 09:56 PT 18.5 Sec. (12.2-14.9) H 03/10/19 04:05 INR 1.57 (0.87-1.13) H 03/10/19 04:05 APTT 40.4 Sec. (24.2-36.6) H 03/10/19 04:05 Sodium 145 mmol/L (137-145) 03/16/19 09:56 Potassium 4.5 mmol/L (3.6-5.0) D 03/16/19 09:56 Chloride 110.2 mmol/L (98-107) H 03/16/19 09:56 Carbon Dioxide 21 mmol/L (22-30) L 03/16/19 09:56 Anion Gap 18 mmol/L 03/16/19 09:56 BUN 33 mg/dL (9-20) H 03/16/19 09:56 Creatinine 1.7 mg/dL (0.8-1.5) H D 03/16/19 09:56 Estimated GFR 39 ml/min 03/16/19 09:56 BUN/Creatinine Ratio 19 % 03/16/19 09:56 Glucose 147 mg/dL (75-100) H 03/16/19 09:56 POC Glucose 155 (70-105) H 03/13/19 07:38 Lactic Acid 0.80 mmol/L (0.7-2.0) 03/09/19 04:57 Calcium 8.7 mg/dL (8.4-10.2) 03/16/19 09:56 Magnesium 1.70 mg/dL (1.7-2.3) 03/13/19 07:24 Total Bilirubin 1.10 mg/dL (0.1-1.2) 03/09/19 02:16 AST 20 units/L (5-40) 03/09/19 02:16 ALT 18 units/L (7-56) 03/09/19 02:16 Alkaline Phosphatase 58 units/L (35-129) 03/09/19 02:16 Troponin T 0.042 ng/mL (0.00-0.029) H 03/09/19 02:16 Troponin T 0.043 ng/mL (0.00-0.029) H 03/09/19 02:16 NT-Pro-B Natriuret Pep 3715 pg/mL (0-900) H 03/09/19 02:16 Total Protein 6.9 g/dL (6.3-8.2) 03/09/19 02:16 Albumin 3.5 g/dL (3.9-5) L 03/09/19 02:16 Albumin/Globulin Ratio 1.0 % 03/09/19 02:16 Triglycerides 50 mg/dL (2-149) 03/09/19 02:16 Cholesterol 61 mg/dL (50-199) 03/09/19 02:16 LDL Cholesterol Direct 35 mg/dL (50-130) L 03/09/19 02:16 HDL Cholesterol 26 mg/dL (40-59) L 03/09/19 02:16 Cholesterol/HDL Ratio 2.34 % 03/09/19 02:16 Urine Color Yellow (Yellow) 03/09/19 22:15 Urine Turbidity Slightly-cloudy (Clear) 03/09/19 22:15 Urine pH 5.0 (5.0-7.0) 03/09/19 22:15 Ur Specific [place] 1.019 (1.003-1.030) 03/09/19 22:15 Urine Protein 100 mg/dl mg/dL (Negative) 03/09/19 22:15 Urine Glucose (UA) Neg mg/dL (Negative) 03/09/19 22:15 Urine Ketones Neg mg/dL (Negative) 03/09/19 22:15 Urine Blood Lg (Negative) 03/09/19 22:15 Urine Nitrite Neg (Negative) 03/09/19 22:15 Urine Bilirubin Neg (Negative) 03/09/19 22:15 Urine Urobilinogen < 2.0 mg/dL (<2.0) 03/09/19 22:15 Ur Leukocyte Esterase Neg (Negative) 03/09/19 22:15 Urine WBC (Auto) 5.0 /HPF (0.0-6.0) 03/09/19 22:15 Urine RBC (Auto) 2.0 /HPF (0.0-6.0) 03/09/19 22:15 U Epithel Cells (Auto) 1.0 /HPF (0-13.0) 03/09/19 22:15 Urine Bacteria (Auto) 1+ /HPF (Negative) 03/09/19 22:15 Urine Mucus Few /HPF 03/09/19 22:15 Vancomycin Trough 5.2 ug/mL (5.0-20.0) 03/13/19 20:10 Urine Opiates Screen Presumptive negative 03/09/19 22:15 Urine Methadone Screen Presumptive negative 03/09/19 22:15 Ur Barbiturates Screen Presumptive negative 03/09/19 22:15 Ur Phencyclidine Scrn Presumptive negative 03/09/19 22:15 Ur Amphetamines Screen Presumptive negative 03/09/19 22:15 U Benzodiazepines Scrn Presumptive negative 03/09/19 22:15 Urine Cocaine Screen Presumptive negative 03/09/19 22:15 U Marijuana (THC) Screen Presumptive negative 03/09/19 22:15 Drugs of Abuse Note Disclamer 03/09/19 22:15 Influenza A (Rapid) Negative (Negative) 03/09/19 Unknown Influenza B (Rapid) Negative (Negative) 03/09/19 Unknown Blood Type A POSITIVE 03/15/19 22:00 Antibody Screen Negative 03/15/19 22:00 Crossmatch See Detail 03/15/19 22:00 Active Medications - Current Medications Current Medications: Generic Name Dose Route Start Last Admin Trade Name Freq PRN Reason Stop Dose Admin Acetaminophen 650 mg 03/09/19 04:22 03/14/19 21:05 Tylenol PO 650 mg Q4H PRN Administration Pain MILD(1-3)/Fever >100.5/LLANES Albuterol 2.5 mg 03/13/19 15:03 03/14/19 09:03 Proventil IH 2.5 mg Q4HRT PRN Administration Shortness Of Breath Albuterol/Ipratropium 1 ampul 03/14/19 14:00 03/16/19 10:40 Duoneb *Not For Prn Use* IH 1 ampul TIDRT NANETTE Administration Amiodarone HCl 200 mg 03/13/19 16:00 03/16/19 10:30 Cordarone PO 200 mg DAILY NANETTE Administration Ascorbic Acid 500 mg 03/13/19 18:00 03/16/19 10:30 Vitamin C PO 500 mg QDAY NANETTE Administration Atorvastatin Calcium 40 mg 03/13/19 22:00 03/15/19 23:14 Lipitor PO 40 mg QHS NANETTE Administration Vancomycin HCl 1 gm in 250 mls @ 167.007 mls/hr 03/14/19 18:00 03/15/19 19:48 Vancomycin/Ns 1 Gm/250 Ml IV 167.007 mls/hr Q12H NANETTE Administration Potassium Chloride 10 meq/ 1,005 mls @ 100 mls/hr 03/14/19 12:00 03/14/19 20:04 Sodium Chloride IV 75 mls/hr DIRECT NANETTE Administration Magnesium Hydroxide 30 ml 03/09/19 04:22 Milk Of Magnesia PO Q4H PRN Constipation Magnesium Oxide 400 mg 03/13/19 18:00 03/16/19 10:29 Mag-Ox PO 400 mg QDAY NANETTE Administration Metoprolol Tartrate 12.5 mg 03/13/19 22:00 03/16/19 10:30 Metoprolol PO 12.5 mg BID NANETTE Administration Ondansetron HCl 4 mg 03/09/19 04:22 Zofran IV Q8H PRN Nausea And Vomiting Sodium Chloride 10 ml 03/09/19 10:00 03/16/19 10:37 Sodium Chloride Flush Syringe 10 Ml IV 10 ml BID NANETTE Administration Sodium Chloride 10 ml 03/09/19 04:22 Sodium Chloride Flush Syringe 10 Ml IV PRN PRN LINE FLUSH Tbo-Filgrastim 300 mcg 03/15/19 10:00 03/16/19 10:55 Granix SUB-Q 03/18/19 09:59 300 mcg DAILY NANETTE Administration Nutrition/Malnutrition Assess - Dietary Evaluation Nutrition/Malnutrition Findings: Nutrition Notes Start: 03/10/19 10:52 Freq: Status: Active Protocol: Document 03/16/19 10:41 CT (Rec: 03/16/19 11:19 CT [id number]) Co-Sign 03/16/19 10:41 LP Nutrition Notes Initial or Follow up Reassessment Current Diagnosis Acute Kidney Injury,COPD, Sepsis,Hypertension Other Pertinent Diagnosis AMI, AMS, Syncope Current Diet Cardiac w/Ensure Clear BID Labs/Tests Na 146 BUN 22 Glu 134 Pertinent Medications Lipitor Mag ox Vitamin C Height 5 ft 11 in Weight 56.3 kg [place] Body Weight (kg) 78.18 BMI 17.3 Subjective/Other Information Pt was sleeping at time of visit. Noted that he ate 5% of his breakfast. Noted unopen Ensure on table. Fruit is piling up on table. Spoke with RN and Pt Tyra, both stated he has not been eating anything. Burn Absent Trauma Absent GI Symptoms None Current % PO Negligible Minimum of two criteria Yes Energy Intake (severe) < or equal to 50% Estimated Energy Requirement > or equal to 5 days Interpretation of Weight Loss (severe) >5% in 1 month Body Fat Depletion Mild depletion (non-severe) Muscle Mass Mild Depletion (non-severe) #1 Nutrition Diagnosis Malnutrition Diagnosis Progress(for reassessment Continues documentation) Is patient on ventilator? No Is Patient Ambulatory and/or Out of Bed No REE-([facility]-confined to bed) 1584.768 Kcal/Kg value to use for calculation 35 Approximate Energy Requirements Using 1971 kcal/Kg Calculation Used for Recommendations Kcal/kg Additional Notes Protein needs are 67-84g (1.2- 1.5g/kg) Fluid needs are 1ml/kcal Nutrition Intervention Change Diet Order: Recommend TF if pt continues to consume >50% of meals/ONS Nutrition Support: Osmolite 1.5 55 ml/hr goal rate 160 ml free water flushes Q4h Kcal 1,980 Protein (gm) 83 Fluid (mL) 1,005 Add Supplement/Snack (indicate name/kcal d/c Ensure Clear BID if TF is /protein ) initiated Provides kCal: 480 Provides Protein (gm) 16 Goal #1 Meet at least 75% of kcal and protein needs via meals and ONS Goal #2 Wt gain/maintenance Anticipated Discharge Needs: unable to determine at this time Follow-Up By: 03/19/19 Additional Comments Follow for PO and ONS intakes/ need for TF
--- NOTE | 2019-03-16 15:22 | Event Note ---
Date: 03/16/19 Patient with worsening AMS, increased work of breathing, currently DNR, family transitioning to hospice. Will sign off. Please call us with questions.
[2019-03-16] MEDS: VANCOMYCIN/NS 1 GM/250 ML 1 GM/250 ML BAG IV SCH ×2 (22:59)
[2019-03-17] MEDS: VANCOMYCIN/NS 1 GM/250 ML 1 GM/250 ML BAG IV SCH ×2 (05:41→17:00)
[2019-03-17 06:43] LABS: Hemoglobin 6.3 gm/dl (11.8-15.2); Mean Corpuscular HGB Conc 34 % (32-34); Mean Corpuscular Volume 91 fl (84-94); Red Blood Count 2.04 M/mm3 (3.65-5.03); Red Cell Distribution Width 14.1 % (13.2-15.2)
[2019-03-17 06:55] LABS: Hematocrit 18.6 % (35.5-45.6); Platelet Count 14 K/mm3 (140-440)
[2019-03-17 07:09] LABS: Calcium 8.6 mg/dL (8.4-10.2)
[2019-03-17] MEDS ORDERED: SODIUM CHLORIDE 0.9% 500 ML 500 ML IV ONE ×2 (09:27→14:00)
--- NOTE | 2019-03-17 09:33 | Hem/Onc Progress Note ---
Assessment and Plan 1. Anemia, leukopenia, thrombocytopenia in a patient with history of myelodysplastic syndrome. He follows Dr. Rojas. In the past, the patient has received Dacogen. He was also getting Procrit. During this admission, he received platelet transfusion and G-CSF support. 2. History of hypertension. 3. History of coronary artery disease. 4. History of renal issues. 5. Carotid artery stenosis. 6. The patient has been having cytopenia for some time. We will do transfusion support while in the hospital and then he will follow with his oncologist, Dr. Rojas. ID team following for Infection and Abx some of his answers are not appropriate his counts are chronically low d/w ID - ? port removal On 03/14 - d/w Dr Rojas - pt has not been seen for a few months - he has been going to [place] for PRBC social issues if port a suspect for infection - removal an option overall prognosis guarded 03/17 - [place] had spoken to me - pt got chemo at [place] as per daughter - pt was good before admission. I spoke to dr Bess and Dr Kerr - ct Supportive care - family not keen for hospice at this time. confusion - Patient Problems (1) Myelodysplastic syndrome, unspecified Current Visit: Yes Status: Chronic Subjective Date of service: 03/17/19 Principal diagnosis: MDS Interval history: MDS - s/p chemo at [place] Objective - Exam Narrative Exam: Pain - none General appearance - arousable Performance status complete dependence Eyes - no icterus ENT - on o2 LNs cervical not palpable Neck - no LN Respiratory Normal Breath sounds - CTA anteriorly CVS S1 S2 + Extremities no edema General GI Soft Rectal deferred male - deferred Skin warm Musculoskeletal - moving limbs Neurologically arousable - Constitutional Vitals: Last Vital Signs Temp 98.3 F 03/17/19 07:45 Pulse 96 H 03/17/19 07:45 Resp 22 03/17/19 07:45 BP 126/73 03/17/19 07:45 Pulse Ox 96 03/17/19 07:45 - Labs Lab Results: Laboratory Results - last 24 hr 03/15/19 03/16/19 03/16/19 22:00 09:56 09:56 WBC 0.5 L* RBC 2.24 L Hgb 6.9 L Hct 20.5 L MCV 91 MCH 31 MCHC 34 RDW 14.3 Plt Count 15 L* Lymph % (Auto) Fish Net Maker [place] % (Auto) Fish Net Maker Add Manual Diff Complete Total Counted 40 Seg Neutrophils % Fish Net Maker Seg Neuts % (Manual) 2.5 L Band Neutrophils % 0 Lymphocytes % (Manual) 90.0 H Reactive Lymphs % (Man) 0 Monocytes % (Manual) 7.5 H Eosinophils % (Manual) 0 Basophils % (Manual) 0 Metamyelocytes % 0 Myelocytes % 0 Promyelocytes % 0 Blast Cells % 0 Nucleated RBC % Not Reportable Seg Neutrophils # Man 0.0 L Band Neutrophils # 0.0 Lymphocytes # (Manual) 0.5 L Abs React Lymphs (Man) 0.0 Monocytes # (Manual) 0.0 Eosinophils # (Manual) 0.0 Basophils # (Manual) 0.0 Metamyelocytes # 0.0 Myelocytes # 0.0 Promyelocytes # 0.0 Blast Cells # 0.0 WBC Morphology Not Reportable Hypersegmented Neuts Not Reportable Hyposegmented Neuts Not Reportable Hypogranular Neuts Not Reportable Smudge Cells Not Reportable Toxic Granulation Not Reportable Toxic Vacuolation Not Reportable Dohle Bodies Not Reportable Pelger-Huet Anomaly Not Reportable Andra Rods Not Reportable Platelet Estimate Consistent w auto Clumped Platelets Not Reportable Plt Clumps, EDTA Not Reportable Large Platelets Rare Giant Platelets Not Reportable Platelet Satelliting Not Reportable Plt Morphology Comment Not Reportable RBC Morphology Not Reportable Dimorphic RBCs Not Reportable Polychromasia Not Reportable Hypochromasia Not Reportable Poikilocytosis Not Reportable Anisocytosis 1+ Microcytosis Not Reportable Macrocytosis Not Reportable Spherocytes Not Reportable Pappenheimer Bodies Not Reportable Sickle Cells Not Reportable Target Cells Not Reportable Tear Drop Cells Not Reportable Ovalocytes Not Reportable Helmet Cells Not Reportable [place] Bodies Not Reportable [place] Rings Not Reportable [place] Cells Not Reportable Bite Cells Not Reportable Crenated Cell Not Reportable Elliptocytes Not Reportable Acanthocytes (Spur) Not Reportable Rouleaux Not Reportable Hemoglobin C Crystals Not Reportable Schistocytes Not Reportable Malaria parasites Not Reportable Donta Bodies Not Reportable Hem Pathologist Commnt No Sodium 145 Potassium 4.5 D Chloride 110.2 H Carbon Dioxide 21 L Anion Gap 18 BUN 33 H Creatinine 1.7 H D Estimated GFR 39 BUN/Creatinine Ratio 19 Glucose 147 H Calcium 8.7 Vancomycin Trough Crossmatch See Detail 03/16/19 03/16/19 03/17/19 09:56 15:55 05:30 WBC 0.5 L* RBC 2.04 L Hgb 6.9 L 6.3 L Hct 20.3 L 18.6 L* MCV 91 MCH 31 MCHC 34 RDW 14.1 Plt Count 14 L* Lymph % (Auto) [place] % (Auto) Fish Net Maker Add Manual Diff Total Counted Seg Neutrophils % Fish Net Maker Seg Neuts % (Manual) Band Neutrophils % Lymphocytes % (Manual) Reactive Lymphs % (Man) Monocytes % (Manual) Eosinophils % (Manual) Basophils % (Manual) Metamyelocytes % Myelocytes % Promyelocytes % Blast Cells % Nucleated RBC % Seg Neutrophils # Man Band Neutrophils # Lymphocytes # (Manual) Abs React Lymphs (Man) Monocytes # (Manual) Eosinophils # (Manual) Basophils # (Manual) Metamyelocytes # Myelocytes # Promyelocytes # Blast Cells # WBC Morphology Hypersegmented Neuts Hyposegmented Neuts Hypogranular Neuts Smudge Cells Toxic Granulation Toxic Vacuolation Dohle Bodies Pelger-Huet Anomaly Andra Rods Platelet Estimate Clumped Platelets Plt Clumps, EDTA Large Platelets Giant Platelets Platelet Satelliting Plt Morphology Comment RBC Morphology Dimorphic RBCs Polychromasia Hypochromasia Poikilocytosis Anisocytosis Microcytosis Macrocytosis Spherocytes Pappenheimer Bodies Sickle Cells Target Cells Tear Drop Cells Ovalocytes Helmet Cells [place] Bodies [place] Rings [place] Cells Bite Cells Crenated Cell Elliptocytes Acanthocytes (Spur) Rouleaux Hemoglobin C Crystals Schistocytes Malaria parasites Donta Bodies Hem Pathologist Commnt Sodium Potassium Chloride Carbon Dioxide Anion Gap BUN Creatinine Estimated GFR BUN/Creatinine Ratio Glucose Calcium Vancomycin Trough 16.6 Crossmatch 03/17/19 05:30 WBC RBC Hgb Hct MCV MCH MCHC RDW Plt Count Lymph % (Auto) [place] % (Auto) Add Manual Diff Total Counted Seg Neutrophils % Seg Neuts % (Manual) Band Neutrophils % Lymphocytes % (Manual) Reactive Lymphs % (Man) Monocytes % (Manual) Eosinophils % (Manual) Basophils % (Manual) Metamyelocytes % Myelocytes % Promyelocytes % Blast Cells % Nucleated RBC % Seg Neutrophils # Man Band Neutrophils # Lymphocytes # (Manual) Abs React Lymphs (Man) Monocytes # (Manual) Eosinophils # (Manual) Basophils # (Manual) Metamyelocytes # Myelocytes # Promyelocytes # Blast Cells # WBC Morphology Hypersegmented Neuts Hyposegmented Neuts Hypogranular Neuts Smudge Cells Toxic Granulation Toxic Vacuolation Dohle Bodies Pelger-Huet Anomaly Andra Rods Platelet Estimate Clumped Platelets Plt Clumps, EDTA Large Platelets Giant Platelets Platelet Satelliting Plt Morphology Comment RBC Morphology Dimorphic RBCs Polychromasia Hypochromasia Poikilocytosis Anisocytosis Microcytosis Macrocytosis Spherocytes Pappenheimer Bodies Sickle Cells Target Cells Tear Drop Cells Ovalocytes Helmet Cells [place] Bodies [place] Rings [place] Cells Bite Cells Crenated Cell Elliptocytes Acanthocytes (Spur) Rouleaux Hemoglobin C Crystals Schistocytes Malaria parasites Donta Bodies Hem Pathologist Commnt Sodium 146 H Potassium 4.2 Chloride 111.5 H Carbon Dioxide 21 L Anion Gap 18 BUN 50 H Creatinine 2.6 H D Estimated GFR 24 BUN/Creatinine Ratio 19 Glucose 135 H Calcium 8.6 Vancomycin Trough Crossmatch Medications & Allergies - Medications Allergies/Adverse Reactions: Allergies tetanus and diphtheria toxoids [tetanus & diphtheria toxoids] Allergy (Verified 07/12/18 13:31) Anaphylaxis Home Medications: Home Medications Medication Instructions Recorded Confirmed Last Taken Type Potassium Chloride 20 meq PO QDAY #10 packet 06/03/18 03/09/19 Unknown Rx Ascorbic Acid [Vitamin C] 500 mg PO DAILY 07/12/18 03/09/19 Unknown History Magnesium Oxide 400 mg PO DAILY 07/12/18 03/09/19 Unknown History Acyclovir [Zovirax Cap] 200 mg PO BID 30 Days #60 capsule 07/19/18 03/09/19 Unknown Rx Amiodarone [Cordarone 200 MG TAB] 200 mg PO DAILY #30 tablet 07/19/18 03/09/19 Unknown Rx Metoprolol [Lopressor TAB] 12.5 mg PO BID #60 tablet 07/19/18 03/09/19 Unknown Rx oxyCODONE /ACETAMINOPHEN [Percocet 1 tab PO Q6H PRN #30 tablet 07/19/18 03/09/19 Unknown Rx 5/325 mg] Active Medications: Generic Name Dose Route Start Last Admin Trade Name Freq PRN Reason Stop Dose Admin Acetaminophen 650 mg 03/09/19 04:22 03/14/19 21:05 Tylenol PO 650 mg Q4H PRN Administration Pain MILD(1-3)/Fever >100.5/LLANES Albuterol 2.5 mg 03/13/19 15:03 03/14/19 09:03 Proventil IH 2.5 mg Q4HRT PRN Administration Shortness Of Breath Albuterol/Ipratropium 1 ampul 03/14/19 14:00 03/16/19 21:06 Duoneb *Not For Prn Use* IH 1 ampul TIDRT NANETTE Administration Amiodarone HCl 200 mg 03/13/19 16:00 03/16/19 10:30 Cordarone PO 200 mg DAILY NANETTE Administration Ascorbic Acid 500 mg 03/13/19 18:00 03/16/19 10:30 Vitamin C PO 500 mg QDAY NANETTE Administration Atorvastatin Calcium 40 mg 03/13/19 22:00 03/16/19 22:58 Lipitor PO 40 mg QHS NANETTE Administration Vancomycin HCl 1 gm in 250 mls @ 167.007 mls/hr 03/14/19 18:00 03/17/19 05:41 Vancomycin/Ns 1 Gm/250 Ml IV 167.007 mls/hr Q12H NANETTE Administration Potassium Chloride 10 meq/ 1,005 mls @ 100 mls/hr 03/14/19 12:00 03/14/19 20:04 Sodium Chloride IV 75 mls/hr DIRECT NANETTE Administration Magnesium Hydroxide 30 ml 03/09/19 04:22 Milk Of Magnesia PO Q4H PRN Constipation Magnesium Oxide 400 mg 03/13/19 18:00 03/16/19 10:29 Mag-Ox PO 400 mg QDAY NANETTE Administration Metoprolol Tartrate 12.5 mg 03/13/19 22:00 03/16/19 22:57 Metoprolol PO 12.5 mg BID NANETTE Administration Ondansetron HCl 4 mg 03/09/19 04:22 Zofran IV Q8H PRN Nausea And Vomiting Sodium Chloride 10 ml 03/09/19 10:00 03/16/19 23:00 Sodium Chloride Flush Syringe 10 Ml IV 10 ml BID NANETTE Administration Sodium Chloride 10 ml 03/09/19 04:22 Sodium Chloride Flush Syringe 10 Ml IV PRN PRN LINE FLUSH Tbo-Filgrastim 300 mcg 03/15/19 10:00 03/16/19 10:55 Granix SUB-Q 03/18/19 09:59 300 mcg DAILY NANETTE Administration
[2019-03-17 10:33] LABS: Basophils % (Manual) 0 % (0.0-1.8); Eosinophils % (Manual) 0 % (0.0-4.3); Hypochromasia 1+; Platelet Estimate Consistent w Auto; Total Cells Counted 100
[2019-03-17] MEDS: METOPROLOL TARTRATE 25 MG TAB PO SCH ×2 (11:30→21:37)
[2019-03-17] MEDS: ASCORBIC ACID 500 MG TAB PO SCH (11:30)
[2019-03-17] MEDS: AMIODARONE 200 MG TAB PO SCH (11:30)
[2019-03-17] MEDS: MAGNESIUM OXIDE 400 MG TAB PO SCH (11:30)
--- NOTE | 2019-03-17 13:16 | Progress Note ---
Assessment and Plan Assessment and plan: Severe sepsis 2/2 PNA with Diptheroids Bacteremia -CXR showed findings suggestive of PNA -continue IV Vanc and Cefepime per ID -per ID, at discharge will treat with vancomycin 1 gm IV q 24h total 14 days with goal 10-15 mcg/mL till 03/25/2019. Neutropenic Fever -cont abx and neutropenic precautions Syncope -Likely secondary to bilateral carotid artery stenosis v debility -carotid duplex showed 50-79% stenosis in bilateral ICA -echo showed EF 50-55% with normal diastolic dysf -Continue statin. Not on aspirin due to high risk for bleed Pancytopenia due to MDS -s/p 3u of plt and 4u of prbcs -hb:6.3 today, will transfuse additional 1u of PRBC today -will monitor levels -keep plt>10k and hb>7 -very poor prognosis -Hematology following: recommended hospice care Hypokalemia -resolved Metabolic Encephalopathy -pt continues to be confuse -CT head on 03/09 neg -repeat head CT scan today pending Metabolic Acidosis -improved Acute kidney injury likely due to vasomotor nephropathy -resolved Hypernatremia, likely 2/2 dehydration -improved FAWAD, likely vasomotor nephropathy -due to dehydration -on IVF COPD -no acute exacerbation -cont PRN neb tx H/o A.fib/A.flutter -HR fairly controlled -cont home metoprolol and amiodarone Debility -PT/OT consulted DVT/GI Prophy: SCD due to anemia and thrombocytopenia Discussed with the pt's daughter about his father's condition and she verbalized understanding Disp: very poor prognosis. Awaiting d/c to in hospice, following History Interval history: Pt is confused. No significant change overnight Hospitalist Physical - Constitutional Vitals: Temp Pulse Resp BP Pulse Ox 98.3 F 96 H 22 126/73 96 03/17/19 07:45 03/17/19 07:45 03/17/19 07:45 03/17/19 07:45 03/17/19 07:45 General appearance: Present: mild distress, cachectic, other (ill-looking and less responsive ) - EENT Eyes: Present: PERRL, EOM intact ENT: hearing intact, clear oral mucosa - Neck Neck: Present: supple - Respiratory Respiratory effort: normal Respiratory: bilateral: rales - Cardiovascular Rhythm: irregularly irregular Heart Sounds: Present: S1 & S2 - Extremities Extremities: No edema - Abdominal General gastrointestinal: soft, non-tender, normal bowel sounds - Integumentary Integumentary: Present: pale - Psychiatric Psychiatric: other (unable to assess due to AMS) - Neurologic Neurologic: other (pt is confused) Results - Labs CBC & Chem 7: 03/17/19 05:30 03/17/19 05:30 Labs: Laboratory Last Values WBC 0.5 K/mm3 (4.5-11.0) L* 03/17/19 05:30 RBC 2.04 M/mm3 (3.65-5.03) L 03/17/19 05:30 Hgb 6.3 gm/dl (11.8-15.2) L 03/17/19 05:30 Hct 18.6 % (35.5-45.6) L* 03/17/19 05:30 MCV 91 fl (84-94) 03/17/19 05:30 MCH 31 pg (28-32) 03/17/19 05:30 MCHC 34 % (32-34) 03/17/19 05:30 RDW 14.1 % (13.2-15.2) 03/17/19 05:30 Plt Count 14 K/mm3 (140-440) L* 03/17/19 05:30 Lymph % (Auto) [employer] 03/16/19 09:56 [place] % (Auto) [employer] 03/17/19 05:30 Eos % (Auto) [employer] 03/14/19 04:00 Baso % (Auto) [employer] Installer 03/14/19 04:00 Lymph # [employer]er 03/14/19 04:00 [place] # [employer] Installer 03/14/19 04:00 Eos # [employer] Installer 03/14/19 04:00 Baso # [employer] Installer 03/14/19 04:00 Add Manual Diff Complete 03/17/19 05:30 Total Counted 100 03/17/19 05:30 Seg Neutrophils % [employer]er 03/17/19 05:30 Seg Neuts % (Manual) 18.0 % (40.0-70.0) L 03/17/19 05:30 Band Neutrophils % 1.0 % 03/17/19 05:30 Lymphocytes % (Manual) 67.0 % (13.4-35.0) H 03/17/19 05:30 Reactive Lymphs % (Man) 9.0 % 03/17/19 05:30 Monocytes % (Manual) 5.0 % (0.0-7.3) 03/17/19 05:30 Eosinophils % (Manual) 0 % (0.0-4.3) 03/17/19 05:30 Basophils % (Manual) 0 % (0.0-1.8) 03/17/19 05:30 Metamyelocytes % 0 % 03/17/19 05:30 Myelocytes % 0 % 03/17/19 05:30 Promyelocytes % 0 % 03/17/19 05:30 Blast Cells % 0 % 03/17/19 05:30 Nucleated RBC % Not Reportable 03/17/19 05:30 Seg Neutrophils # [employer] Installer 03/14/19 04:00 Seg Neutrophils # Man 0.1 K/mm3 (1.8-7.7) L 03/17/19 05:30 Band Neutrophils # 0.0 K/mm3 03/17/19 05:30 Lymphocytes # (Manual) 0.3 K/mm3 (1.2-5.4) L 03/17/19 05:30 Abs React Lymphs (Man) 0.0 K/mm3 03/17/19 05:30 Monocytes # (Manual) 0.0 K/mm3 (0.0-0.8) 03/17/19 05:30 Eosinophils # (Manual) 0.0 K/mm3 (0.0-0.4) 03/17/19 05:30 Basophils # (Manual) 0.0 K/mm3 (0.0-0.1) 03/17/19 05:30 Metamyelocytes # 0.0 K/mm3 03/17/19 05:30 Myelocytes # 0.0 K/mm3 03/17/19 05:30 Promyelocytes # 0.0 K/mm3 03/17/19 05:30 Blast Cells # 0.0 K/mm3 03/17/19 05:30 WBC Morphology Not Reportable 03/17/19 05:30 Hypersegmented Neuts Not Reportable 03/17/19 05:30 Hyposegmented Neuts Not Reportable 03/17/19 05:30 Hypogranular Neuts Not Reportable 03/17/19 05:30 Smudge Cells Not Reportable 03/17/19 05:30 Toxic Granulation Not Reportable 03/17/19 05:30 Toxic Vacuolation Not Reportable 03/17/19 05:30 Dohle Bodies Not Reportable 03/17/19 05:30 Pelger-Huet Anomaly Not Reportable 03/17/19 05:30 Andra Rods Not Reportable 03/17/19 05:30 Platelet Estimate Consistent w auto 03/17/19 05:30 Clumped Platelets Not Reportable 03/17/19 05:30 Plt Clumps, EDTA Not Reportable 03/17/19 05:30 Large Platelets Not Reportable 03/17/19 05:30 Giant Platelets Not Reportable 03/17/19 05:30 Platelet Satelliting Not Reportable 03/17/19 05:30 Plt Morphology Comment Not Reportable 03/17/19 05:30 RBC Morphology Not Reportable 03/17/19 05:30 Dimorphic RBCs Not Reportable 03/17/19 05:30 Polychromasia Not Reportable 03/17/19 05:30 Hypochromasia 1+ 03/17/19 05:30 Poikilocytosis Not Reportable 03/17/19 05:30 Anisocytosis Not Reportable 03/17/19 05:30 Microcytosis Not Reportable 03/17/19 05:30 Macrocytosis Not Reportable 03/17/19 05:30 Spherocytes Not Reportable 03/17/19 05:30 Pappenheimer Bodies Not Reportable 03/17/19 05:30 Sickle Cells Not Reportable 03/17/19 05:30 Target Cells Not Reportable 03/17/19 05:30 Tear Drop Cells Not Reportable 03/17/19 05:30 Ovalocytes Not Reportable 03/17/19 05:30 Helmet Cells Not Reportable 03/17/19 05:30 [place] Bodies Not Reportable 03/17/19 05:30 [place] Rings Not Reportable 03/17/19 05:30 [place] Cells Not Reportable 03/17/19 05:30 Bite Cells Not Reportable 03/17/19 05:30 Crenated Cell Not Reportable 03/17/19 05:30 Elliptocytes Not Reportable 03/17/19 05:30 Acanthocytes (Spur) Not Reportable 03/17/19 05:30 Rouleaux Not Reportable 03/17/19 05:30 Hemoglobin C Crystals Not Reportable 03/17/19 05:30 Schistocytes Not Reportable 03/17/19 05:30 Malaria parasites Not Reportable 03/17/19 05:30 Donta Bodies Not Reportable 03/17/19 05:30 Hem Pathologist Commnt No 03/17/19 05:30 PT 18.5 Sec. (12.2-14.9) H 03/10/19 04:05 INR 1.57 (0.87-1.13) H 03/10/19 04:05 APTT 40.4 Sec. (24.2-36.6) H 03/10/19 04:05 Sodium 146 mmol/L (137-145) H 03/17/19 05:30 Potassium 4.2 mmol/L (3.6-5.0) 03/17/19 05:30 Chloride 111.5 mmol/L (98-107) H 03/17/19 05:30 Carbon Dioxide 21 mmol/L (22-30) L 03/17/19 05:30 Anion Gap 18 mmol/L 03/17/19 05:30 BUN 50 mg/dL (9-20) H 03/17/19 05:30 Creatinine 2.6 mg/dL (0.8-1.5) H D 03/17/19 05:30 Estimated GFR 24 ml/min 03/17/19 05:30 BUN/Creatinine Ratio 19 % 03/17/19 05:30 Glucose 135 mg/dL (75-100) H 03/17/19 05:30 POC Glucose 155 (70-105) H 03/13/19 07:38 Lactic Acid 0.80 mmol/L (0.7-2.0) 03/09/19 04:57 Calcium 8.6 mg/dL (8.4-10.2) 03/17/19 05:30 Magnesium 1.70 mg/dL (1.7-2.3) 03/13/19 07:24 Total Bilirubin 1.10 mg/dL (0.1-1.2) 03/09/19 02:16 AST 20 units/L (5-40) 03/09/19 02:16 ALT 18 units/L (7-56) 03/09/19 02:16 Alkaline Phosphatase 58 units/L (35-129) 03/09/19 02:16 Troponin T 0.042 ng/mL (0.00-0.029) H 03/09/19 02:16 Troponin T 0.043 ng/mL (0.00-0.029) H 03/09/19 02:16 NT-Pro-B Natriuret Pep 3715 pg/mL (0-900) H 03/09/19 02:16 Total Protein 6.9 g/dL (6.3-8.2) 03/09/19 02:16 Albumin 3.5 g/dL (3.9-5) L 03/09/19 02:16 Albumin/Globulin Ratio 1.0 % 03/09/19 02:16 Triglycerides 50 mg/dL (2-149) 03/09/19 02:16 Cholesterol 61 mg/dL (50-199) 03/09/19 02:16 LDL Cholesterol Direct 35 mg/dL (50-130) L 03/09/19 02:16 HDL Cholesterol 26 mg/dL (40-59) L 03/09/19 02:16 Cholesterol/HDL Ratio 2.34 % 03/09/19 02:16 Urine Color Yellow (Yellow) 03/09/19 22:15 Urine Turbidity Slightly-cloudy (Clear) 03/09/19 22:15 Urine pH 5.0 (5.0-7.0) 03/09/19 22:15 Ur Specific [place] 1.019 (1.003-1.030) 03/09/19 22:15 Urine Protein 100 mg/dl mg/dL (Negative) 03/09/19 22:15 Urine Glucose (UA) Neg mg/dL (Negative) 03/09/19 22:15 Urine Ketones Neg mg/dL (Negative) 03/09/19 22:15 Urine Blood Lg (Negative) 03/09/19 22:15 Urine Nitrite Neg (Negative) 03/09/19 22:15 Urine Bilirubin Neg (Negative) 03/09/19 22:15 Urine Urobilinogen < 2.0 mg/dL (<2.0) 03/09/19 22:15 Ur Leukocyte Esterase Neg (Negative) 03/09/19 22:15 Urine WBC (Auto) 5.0 /HPF (0.0-6.0) 03/09/19 22:15 Urine RBC (Auto) 2.0 /HPF (0.0-6.0) 03/09/19 22:15 U Epithel Cells (Auto) 1.0 /HPF (0-13.0) 03/09/19 22:15 Urine Bacteria (Auto) 1+ /HPF (Negative) 03/09/19 22:15 Urine Mucus Few /HPF 03/09/19 22:15 Vancomycin Trough 16.6 ug/mL (5.0-20.0) 03/16/19 15:55 Urine Opiates Screen Presumptive negative 03/09/19 22:15 Urine Methadone Screen Presumptive negative 03/09/19 22:15 Ur Barbiturates Screen Presumptive negative 03/09/19 22:15 Ur Phencyclidine Scrn Presumptive negative 03/09/19 22:15 Ur Amphetamines Screen Presumptive negative 03/09/19 22:15 U Benzodiazepines Scrn Presumptive negative 03/09/19 22:15 Urine Cocaine Screen Presumptive negative 03/09/19 22:15 U Marijuana (THC) Screen Presumptive negative 03/09/19 22:15 Drugs of Abuse Note Disclamer 03/09/19 22:15 Influenza A (Rapid) Negative (Negative) 03/09/19 Unknown Influenza B (Rapid) Negative (Negative) 03/09/19 Unknown Blood Type A POSITIVE 03/15/19 22:00 Antibody Screen Negative 03/15/19 22:00 Crossmatch See Detail 03/15/19 22:00 Active Medications - Current Medications Current Medications: Generic Name Dose Route Start Last Admin Trade Name Freq PRN Reason Stop Dose Admin Acetaminophen 650 mg 03/09/19 04:22 03/14/19 21:05 Tylenol PO 650 mg Q4H PRN Administration Pain MILD(1-3)/Fever >100.5/LLANES Albuterol 2.5 mg 03/13/19 15:03 03/14/19 09:03 Proventil IH 2.5 mg Q4HRT PRN Administration Shortness Of Breath Albuterol/Ipratropium 1 ampul 03/14/19 14:00 03/16/19 21:06 Duoneb *Not For Prn Use* IH 1 ampul TIDRT NANETTE Administration Amiodarone HCl 200 mg 03/13/19 16:00 03/17/19 11:30 Cordarone PO 200 mg DAILY NANETTE Administration Ascorbic Acid 500 mg 03/13/19 18:00 03/17/19 11:30 Vitamin C PO 500 mg QDAY NANETTE Administration Atorvastatin Calcium 40 mg 03/13/19 22:00 03/16/19 22:58 Lipitor PO 40 mg QHS NANETTE Administration Vancomycin HCl 1 gm in 250 mls @ 167.007 mls/hr 03/14/19 18:00 03/17/19 05:41 Vancomycin/Ns 1 Gm/250 Ml IV 167.007 mls/hr Q12H NANETTE Administration Potassium Chloride 10 meq/ 1,005 mls @ 100 mls/hr 03/14/19 12:00 03/14/19 20:04 Sodium Chloride IV 75 mls/hr DIRECT NANETTE Administration Magnesium Hydroxide 30 ml 03/09/19 04:22 Milk Of Magnesia PO Q4H PRN Constipation Magnesium Oxide 400 mg 03/13/19 18:00 03/17/19 11:30 Mag-Ox PO 400 mg QDAY NANETTE Administration Metoprolol Tartrate 12.5 mg 03/13/19 22:00 03/17/19 11:30 Metoprolol PO 12.5 mg BID NANETTE Administration Ondansetron HCl 4 mg 03/09/19 04:22 Zofran IV Q8H PRN Nausea And Vomiting Sodium Chloride 10 ml 03/09/19 10:00 03/17/19 11:51 Sodium Chloride Flush Syringe 10 Ml IV 10 ml BID NANETTE Administration Sodium Chloride 10 ml 03/09/19 04:22 Sodium Chloride Flush Syringe 10 Ml IV PRN PRN LINE FLUSH Tbo-Filgrastim 300 mcg 03/15/19 10:00 03/16/19 10:55 Granix SUB-Q 03/18/19 09:59 300 mcg DAILY NANETTE Administration Nutrition/Malnutrition Assess - Dietary Evaluation Nutrition/Malnutrition Findings: Nutrition Notes Start: 03/10/19 10:52 Freq: Status: Active Protocol: Document 03/16/19 10:41 CT (Rec: 03/16/19 11:19 CT [id number]) Co-Sign 03/16/19 10:41 LP Nutrition Notes Initial or Follow up Reassessment Current Diagnosis Acute Kidney Injury,COPD, Sepsis,Hypertension Other Pertinent Diagnosis AMI, AMS, Syncope Current Diet Cardiac w/Ensure Clear BID Labs/Tests Na 146 BUN 22 Glu 134 Pertinent Medications Lipitor Mag ox Vitamin C Height 5 ft 11 in Weight 56.3 kg [place] Body Weight (kg) 78.18 BMI 17.3 Subjective/Other Information Pt was sleeping at time of visit. Noted that he ate 5% of his breakfast. Noted unopen Ensure on table. Fruit is piling up on table. Spoke with RN and Pt Tyra, both stated he has not been eating anything. Burn Absent Trauma Absent GI Symptoms None Current % PO Negligible Minimum of two criteria Yes Energy Intake (severe) < or equal to 50% Estimated Energy Requirement > or equal to 5 days Interpretation of Weight Loss (severe) >5% in 1 month Body Fat Depletion Mild depletion (non-severe) Muscle Mass Mild Depletion (non-severe) #1 Nutrition Diagnosis Malnutrition Diagnosis Progress(for reassessment Continues documentation) Is patient on ventilator? No Is Patient Ambulatory and/or Out of Bed No REE-([facility]-confined to bed) 1584.768 Kcal/Kg value to use for calculation 35 Approximate Energy Requirements Using 1971 kcal/Kg Calculation Used for Recommendations Kcal/kg Additional Notes Protein needs are 67-84g (1.2- 1.5g/kg) Fluid needs are 1ml/kcal Nutrition Intervention Change Diet Order: Recommend TF if pt continues to consume >50% of meals/ONS Nutrition Support: Osmolite 1.5 55 ml/hr goal rate 160 ml free water flushes Q4h Kcal 1,980 Protein (gm) 83 Fluid (mL) 1,005 Add Supplement/Snack (indicate name/kcal d/c Ensure Clear BID if TF is /protein ) initiated Provides kCal: 480 Provides Protein (gm) 16 Goal #1 Meet at least 75% of kcal and protein needs via meals and ONS Goal #2 Wt gain/maintenance Anticipated Discharge Needs: unable to determine at this time Follow-Up By: 03/19/19 Additional Comments Follow for PO and ONS intakes/ need for TF
--- NOTE | 2019-03-17 14:01 | Cat Scan Report ---
CT head/brain wo con INDICATION: jerking left arm movements severely low platelets. TECHNIQUE: Routine CT head without contrast. All CT scans at this location are performed using CT dos e reduction for ALARA by means of automated exposure control. COMPARISON: Noncontrast brain CT 03/09/2019 FINDINGS: BRAIN / INTRACRANIAL CONTENTS: No acute hemorrhage, mass effect, midline shift, or hydrocephalus. No appreciable acute large territorial or lacunar infarct. No chronic infarct. Age-commensurate ventricu lar and cisternal/sulcal prominence. ORBITS: No significant abnormality of visualized orbits. Previous right ocular lens replacement. SINUSES / MASTOIDS: No significant change. IMPRESSION: 1. No acute intracranial abnormality. No significant change. Signer Name: James Mendiola MD Signed: 03/17/2019 1:56 PM Workstation Name: [id number]
[2019-03-17] MEDS: ACETAMINOPHEN 325 MG TAB PO PRN ×2 (15:16→21:37)
[2019-03-17] MEDS: SODIUM CHLORIDE 0.9% 1000 ML 1,000 ML IV SCH ×3 (15:53→18:40)
[2019-03-17] MEDS: TBO-FILGRASTIM 300 MCG/0.5 ML SUB-Q SCH (15:54)
[2019-03-17] MEDS: IPRATROPIUM/ALBUTEROL SULFATE 3 ML AMPUL.NEB IH SCH ×3 (16:51→20:02)
[2019-03-17] MEDS ORDERED: FUROSEMIDE 20 MG/2 ML INJ IV ONE (18:00)
[2019-03-18] MEDS: VANCOMYCIN/NS 1 GM/250 ML 1 GM/250 ML BAG IV SCH ×2 (06:41→19:48)
[2019-03-18 07:07] LABS: Hemoglobin 6.9 gm/dl (11.8-15.2); Mean Corpuscular HGB Conc 33 % (32-34); Mean Corpuscular Volume 91 fl (84-94); Red Blood Count 2.32 M/mm3 (3.65-5.03); Red Cell Distribution Width 16.1 % (13.2-15.2)
[2019-03-18 07:12] LABS: Platelet Count 11 K/mm3 (140-440)
[2019-03-18 07:28] LABS: Calcium 8.4 mg/dL (8.4-10.2)
[2019-03-18] MEDS: IPRATROPIUM/ALBUTEROL SULFATE 3 ML AMPUL.NEB IH SCH ×3 (07:59→20:35)
--- NOTE | 2019-03-18 09:45 | Consultation ---
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 He left AMA but then almost passed out and hence returned to the hospital. Patient was not able to provide any history and information was obtained from previous documentation. Currently he is being treated for sepsis, R sided PNA and Pancytopenia. His creatinine has been progressively increasing. Nephrology was consulted for further evaluation. Past History Past Medical History: COPD, hypertension, other (Myelodysplastic disorder) Social history: smoking (Quit tobacco use about 3 years ago after smoking about 2 and half packs by day for about 54 years), alcohol abuse (With alcohol abuse about 3 years ago) Family history: no significant family history Medications and Allergies Allergies Allergy/AdvReac Type Severity Reaction Status Date / Time tetanus and diphtheria Allergy Anaphylaxis Verified 07/12/18 13:31 toxoids [tetanus & diphtheria toxoids] Home Medications Medication Instructions Recorded Confirmed Last Taken Type Potassium Chloride 20 meq PO QDAY #10 packet 06/03/18 03/09/19 Unknown Rx Ascorbic Acid [Vitamin C] 500 mg PO DAILY 07/12/18 03/09/19 Unknown History Magnesium Oxide 400 mg PO DAILY 07/12/18 03/09/19 Unknown History Acyclovir [Zovirax Cap] 200 mg PO BID 30 Days #60 capsule 07/19/18 03/09/19 Unknown Rx Amiodarone [Cordarone 200 MG TAB] 200 mg PO DAILY #30 tablet 07/19/18 03/09/19 Unknown Rx Metoprolol [Lopressor TAB] 12.5 mg PO BID #60 tablet 07/19/18 03/09/19 Unknown Rx oxyCODONE /ACETAMINOPHEN [Percocet 1 tab PO Q6H PRN #30 tablet 07/19/18 03/09/19 Unknown Rx 5/325 mg] Active Meds: Active Medications Acetaminophen (Tylenol) 650 mg PO Q4H PRN PRN Reason: Pain MILD(1-3)/Fever >100.5/LLANES Last Admin: 03/17/19 21:37 Dose: 650 mg Documented by: Albuterol (Proventil) 2.5 mg IH Q4HRT PRN PRN Reason: Shortness Of Breath Last Admin: 03/14/19 09:03 Dose: 2.5 mg Documented by: Albuterol/Ipratropium (Duoneb *Not For Prn Use*) 1 ampul IH TIDRT [facility] Last Admin: 03/18/19 07:59 Dose: 1 ampul Documented by: Amiodarone HCl (Cordarone) 200 mg PO DAILY [facility] Last Admin: 03/17/19 11:30 Dose: 200 mg Documented by: Ascorbic Acid (Vitamin C) 500 mg PO QDAY [facility] Last Admin: 03/17/19 11:30 Dose: 500 mg Documented by: Atorvastatin Calcium (Lipitor) 40 mg PO QHS [facility] Last Admin: 03/17/19 21:37 Dose: 40 mg Documented by: Vancomycin HCl (Vancomycin/Ns 1 Gm/250 Ml) 1 gm in 250 mls @ 167.007 mls/hr IV Q12H [facility] Last Admin: 03/18/19 06:41 Dose: 167.007 mls/hr Documented by: Sodium Chloride (Nacl 0.9% 1000 Ml) 1,000 mls @ 100 mls/hr IV DIRECT [facility] Last Admin: 03/17/19 18:40 Dose: 100 mls/hr Documented by: Magnesium Hydroxide (Milk Of Magnesia) 30 ml PO Q4H PRN PRN Reason: Constipation Magnesium Oxide (Mag-Ox) 400 mg PO QDAY [facility] Last Admin: 03/17/19 11:30 Dose: 400 mg Documented by: Metoprolol Tartrate (Metoprolol) 12.5 mg PO BID [facility] Last Admin: 03/17/19 21:37 Dose: 12.5 mg Documented by: Ondansetron HCl (Zofran) 4 mg IV Q8H PRN PRN Reason: Nausea And Vomiting Sodium Chloride (Sodium Chloride Flush Syringe 10 Ml) 10 ml IV BID [facility] Last Admin: 03/17/19 21:50 Dose: 10 ml Documented by: Sodium Chloride (Sodium Chloride Flush Syringe 10 Ml) 10 ml IV PRN PRN PRN Reason: LINE FLUSH Tbo-Filgrastim (Granix) 300 mcg SUB-Q DAILY [facility] Stop: 03/18/19 09:59 Last Admin: 03/17/19 15:54 Dose: 300 mcg Documented by: Review of Systems ROS unobtainable: due to mental status Exam - Vital Signs Vital signs: Vital Signs Temp Pulse Resp BP Pulse Ox 99.8 F H 105 H 18 116/63 97 03/09/19 01:57 03/09/19 01:57 03/09/19 01:57 03/09/19 01:57 03/09/19 01:57 - General Appearance General appearance: well-developed, appears stated age, chronically ill, frail, anxious EENT: ATNC, PERRL, mucous membranes dry Neck: Present: trachea midline Respiratory: Clear to Ascultation Heart: regular, S1S2, no murmurs Gastrointestinal: Present: normoactive bowel sounds. Absent: tenderness, distended Integumentary: other (multiple seborrheic keratosis) Neurologic: confused, disoriented, other (barely talking and following any command) Musculoskeletal: Present: other (no edema) Results - Lab Results 03/18/19 06:40 03/18/19 06:40 Most recent lab results Calcium 8.4 mg/dL (8.4-10.2) 03/18/19 06:40 Magnesium 1.70 mg/dL (1.7-2.3) 03/13/19 07:24 - Image Kidney/bladder ultrasound: report reviewed Assessment and Plan 1. Acute kidney injury: Likely vasomotor FAWAD in the setting of volume depletion. Renal US was negative for hydro. Urine studies ordered. Continue IV fluids. Monitor renal function. Renal prognosis is guarded. Avoid nephrotoxic agents. Meds dosage based on GFR. 2. FEN: Metabolic acidosis, monitor. Monitor lytes. 3. Sepsis: Continue Abx. 4. Pneumonia. 5. Pancytopenia: Followed by Heme-Onc. 6. Encephalopathy. 7. HTN. Care plan d/w his daughter at the bedside.
[2019-03-18] MEDS: MAGNESIUM OXIDE 400 MG TAB PO SCH (11:05)
[2019-03-18] MEDS: METOPROLOL TARTRATE 25 MG TAB PO SCH ×2 (11:06→22:25)
[2019-03-18] MEDS: ASCORBIC ACID 500 MG TAB PO SCH (11:06)
[2019-03-18] MEDS: AMIODARONE 200 MG TAB PO SCH (11:06)
--- NOTE | 2019-03-18 12:32 | Progress Note ---
Assessment and Plan Assessment and plan: Severe sepsis 2/2 PNA with Diptheroids Bacteremia -CXR showed findings suggestive of PNA -continue IV Vanc and Cefepime per ID -per ID, at discharge will treat with vancomycin 1 gm IV q 24h total 14 days with goal 10-15 mcg/mL till 03/25/2019. Neutropenic Fever -cont abx and neutropenic precautions -Hem/onco, Dr. Quiroga following, appreciate Syncope -Likely secondary to bilateral carotid artery stenosis v debility -carotid duplex showed 50-79% stenosis in bilateral ICA -echo showed EF 50-55% with normal diastolic dysf -Continue statin. Not on aspirin due to high risk for bleed Pancytopenia due to MDS -s/p 3u of plt and 5u of prbcs -hb:6.9 today, will transfuse additional 1u of PRBC today -will monitor levels -keep plt>10k and hb>7 -very poor prognosis -Hem/onco following: recommended hospice care but daughter declined Hypokalemia -resolved Metabolic Encephalopathy -pt continues to have intermittent confusion -CT head on 03/09 neg -repeat head CT scan on 03/17 neg Acute kidney injury likely vasomotor nephropathy -Due to dehydration -Creatinine level worsening, will monitor -Continue IV fluid -Nephrology consulted Metabolic Acidosis -Likely secondary to FAWAD -We'll monitor level Hypernatremia, likely 2/2 dehydration -improving, will monitor level COPD -no acute exacerbation -cont PRN neb tx H/o A.fib/A.flutter -HR controlled -cont home metoprolol and amiodarone Severe malnutrition -Nutrition consulted Debility -PT/OT consulted DVT/GI Prophy: SCD due to anemia and thrombocytopenia Discussed with the pt's daughter about his father's condition and she verbalized understanding Disp: very poor prognosis. Inpatient hospice care recommended but daughter declined History Interval history: No significant change. Patient continues to be confused with very poor oral intake Hospitalist Physical - Constitutional Vitals: Temp Pulse Resp BP Pulse Ox 98.5 F 94 H 20 137/74 90 03/18/19 08:55 03/18/19 08:55 03/18/19 08:55 03/18/19 08:55 03/18/19 08:55 General appearance: Present: mild distress, cachectic, other (ill-looking and less responsive ) - EENT Eyes: Present: PERRL, EOM intact ENT: clear oral mucosa - Neck Neck: Present: supple - Respiratory Respiratory effort: normal Respiratory: bilateral: rhonchi - Cardiovascular Rhythm: irregularly irregular Heart Sounds: Present: S1 & S2 - Extremities Extremities: No edema - Abdominal General gastrointestinal: soft, non-tender, normal bowel sounds - Integumentary Integumentary: Present: pale - Psychiatric Psychiatric: cooperative - Neurologic Neurologic: other (pt is confused) Results - Labs CBC & Chem 7: 03/18/19 06:40 03/18/19 06:40 Labs: Laboratory Last Values WBC 0.4 K/mm3 (4.5-11.0) L* 03/18/19 06:40 RBC 2.32 M/mm3 (3.65-5.03) L 03/18/19 06:40 Hgb 6.9 gm/dl (11.8-15.2) L 03/18/19 06:40 Hct 21.0 % (35.5-45.6) L 03/18/19 06:40 MCV 91 fl (84-94) 03/18/19 06:40 MCH 30 pg (28-32) 03/18/19 06:40 MCHC 33 % (32-34) 03/18/19 06:40 RDW 16.1 % (13.2-15.2) H 03/18/19 06:40 Plt Count 11 K/mm3 (140-440) L* 03/18/19 06:40 Lymph % (Auto) Restaurant Shift [employer] 03/18/19 06:40 Braxton % (Auto) Restaurant Shift Leader 03/18/19 06:40 Eos % (Auto) Restaurant Shift Leader 03/14/19 04:00 Baso % (Auto) Restaurant Shift Leader 03/14/19 04:00 Lymph # Restaurant Shift Leader 03/14/19 04:00 Braxton # Restaurant Shift Leader 03/14/19 04:00 Eos # Restaurant Shift Leader 03/14/19 04:00 Baso # Restaurant Shift Leader 03/14/19 04:00 Add Manual Diff Complete 03/17/19 05:30 Total Counted 100 03/17/19 05:30 Seg Neutrophils % Restaurant Shift Leader 03/18/19 06:40 Seg Neuts % (Manual) 18.0 % (40.0-70.0) L 03/17/19 05:30 Band Neutrophils % 1.0 % 03/17/19 05:30 Lymphocytes % (Manual) 67.0 % (13.4-35.0) H 03/17/19 05:30 Reactive Lymphs % (Man) 9.0 % 03/17/19 05:30 Monocytes % (Manual) 5.0 % (0.0-7.3) 03/17/19 05:30 Eosinophils % (Manual) 0 % (0.0-4.3) 03/17/19 05:30 Basophils % (Manual) 0 % (0.0-1.8) 03/17/19 05:30 Metamyelocytes % 0 % 03/17/19 05:30 Myelocytes % 0 % 03/17/19 05:30 Promyelocytes % 0 % 03/17/19 05:30 Blast Cells % 0 % 03/17/19 05:30 Nucleated RBC % Not Reportable 03/17/19 05:30 Seg Neutrophils # Restaurant Shift Leader 03/14/19 04:00 Seg Neutrophils # Man 0.1 K/mm3 (1.8-7.7) L 03/17/19 05:30 Band Neutrophils # 0.0 K/mm3 03/17/19 05:30 Lymphocytes # (Manual) 0.3 K/mm3 (1.2-5.4) L 03/17/19 05:30 Abs React Lymphs (Man) 0.0 K/mm3 03/17/19 05:30 Monocytes # (Manual) 0.0 K/mm3 (0.0-0.8) 03/17/19 05:30 Eosinophils # (Manual) 0.0 K/mm3 (0.0-0.4) 03/17/19 05:30 Basophils # (Manual) 0.0 K/mm3 (0.0-0.1) 03/17/19 05:30 Metamyelocytes # 0.0 K/mm3 03/17/19 05:30 Myelocytes # 0.0 K/mm3 03/17/19 05:30 Promyelocytes # 0.0 K/mm3 03/17/19 05:30 Blast Cells # 0.0 K/mm3 03/17/19 05:30 WBC Morphology Not Reportable 03/17/19 05:30 Hypersegmented Neuts Not Reportable 03/17/19 05:30 Hyposegmented Neuts Not Reportable 03/17/19 05:30 Hypogranular Neuts Not Reportable 03/17/19 05:30 Smudge Cells Not Reportable 03/17/19 05:30 Toxic Granulation Not Reportable 03/17/19 05:30 Toxic Vacuolation Not Reportable 03/17/19 05:30 Dohle Bodies Not Reportable 03/17/19 05:30 Pelger-Huet Anomaly Not Reportable 03/17/19 05:30 Andra Rods Not Reportable 03/17/19 05:30 Platelet Estimate Consistent w auto 03/17/19 05:30 Clumped Platelets Not Reportable 03/17/19 05:30 Plt Clumps, EDTA Not Reportable 03/17/19 05:30 Large Platelets Not Reportable 03/17/19 05:30 Giant Platelets Not Reportable 03/17/19 05:30 Platelet Satelliting Not Reportable 03/17/19 05:30 Plt Morphology Comment Not Reportable 03/17/19 05:30 RBC Morphology Not Reportable 03/17/19 05:30 Dimorphic RBCs Not Reportable 03/17/19 05:30 Polychromasia Not Reportable 03/17/19 05:30 Hypochromasia 1+ 03/17/19 05:30 Poikilocytosis Not Reportable 03/17/19 05:30 Anisocytosis Not Reportable 03/17/19 05:30 Microcytosis Not Reportable 03/17/19 05:30 Macrocytosis Not Reportable 03/17/19 05:30 Spherocytes Not Reportable 03/17/19 05:30 Pappenheimer Bodies Not Reportable 03/17/19 05:30 Sickle Cells Not Reportable 03/17/19 05:30 Target Cells Not Reportable 03/17/19 05:30 Tear Drop Cells Not Reportable 03/17/19 05:30 Ovalocytes Not Reportable 03/17/19 05:30 Helmet Cells Not Reportable 03/17/19 05:30 Joseph-[place] Bodies Not Reportable 03/17/19 05:[address] Rings Not Reportable 03/17/19 05:30 [place] Cells Not Reportable 03/17/19 05:30 Bite Cells Not Reportable 03/17/19 05:30 Crenated Cell Not Reportable 03/17/19 05:30 Elliptocytes Not Reportable 03/17/19 05:30 Acanthocytes (Spur) Not Reportable 03/17/19 05:30 Rouleaux Not Reportable 03/17/19 05:30 Hemoglobin C Crystals Not Reportable 03/17/19 05:30 Schistocytes Not Reportable 03/17/19 05:30 Malaria parasites Not Reportable 03/17/19 05:30 Donta Bodies Not Reportable 03/17/19 05:30 Hem Pathologist Commnt No 03/17/19 05:30 PT 18.5 Sec. (12.2-14.9) H 03/10/19 04:05 INR 1.57 (0.87-1.13) H 03/10/19 04:05 APTT 40.4 Sec. (24.2-36.6) H 03/10/19 04:05 Sodium 144 mmol/L (137-145) 03/18/19 06:40 Potassium 4.1 mmol/L (3.6-5.0) 03/18/19 06:40 Chloride 110.2 mmol/L (98-107) H 03/18/19 06:40 Carbon Dioxide 19 mmol/L (22-30) L 03/18/19 06:40 Anion Gap 19 mmol/L 03/18/19 06:40 BUN 64 mg/dL (9-20) H 03/18/19 06:40 Creatinine 3.3 mg/dL (0.8-1.5) H 03/18/19 06:40 Estimated GFR 18 ml/min 03/18/19 06:40 BUN/Creatinine Ratio 19 % 03/18/19 06:40 Glucose 125 mg/dL (75-100) H 03/18/19 06:40 POC Glucose 155 (70-105) H 03/13/19 07:38 Lactic Acid 0.80 mmol/L (0.7-2.0) 03/09/19 04:57 Calcium 8.4 mg/dL (8.4-10.2) 03/18/19 06:40 Magnesium 1.70 mg/dL (1.7-2.3) 03/13/19 07:24 Total Bilirubin 1.10 mg/dL (0.1-1.2) 03/09/19 02:16 AST 20 units/L (5-40) 03/09/19 02:16 ALT 18 units/L (7-56) 03/09/19 02:16 Alkaline Phosphatase 58 units/L (35-129) 03/09/19 02:16 Troponin T 0.042 ng/mL (0.00-0.029) H 03/09/19 02:16 Troponin T 0.043 ng/mL (0.00-0.029) H 03/09/19 02:16 NT-Pro-B Natriuret Pep 3715 pg/mL (0-900) H 03/09/19 02:16 Total Protein 6.9 g/dL (6.3-8.2) 03/09/19 02:16 Albumin 3.5 g/dL (3.9-5) L 03/09/19 02:16 Albumin/Globulin Ratio 1.0 % 03/09/19 02:16 Triglycerides 50 mg/dL (2-149) 03/09/19 02:16 Cholesterol 61 mg/dL (50-199) 03/09/19 02:16 LDL Cholesterol Direct 35 mg/dL (50-130) L 03/09/19 02:16 HDL Cholesterol 26 mg/dL (40-59) L 03/09/19 02:16 Cholesterol/HDL Ratio 2.34 % 03/09/19 02:16 Urine Color Yellow (Yellow) 03/09/19 22:15 Urine Turbidity Slightly-cloudy (Clear) 03/09/19 22:15 Urine pH 5.0 (5.0-7.0) 03/09/19 22:15 Ur Specific [place] 1.019 (1.003-1.030) 03/09/19 22:15 Urine Protein 100 mg/dl mg/dL (Negative) 03/09/19 22:15 Urine Glucose (UA) Neg mg/dL (Negative) 03/09/19 22:15 Urine Ketones Neg mg/dL (Negative) 03/09/19 22:15 Urine Blood Lg (Negative) 03/09/19 22:15 Urine Nitrite Neg (Negative) 03/09/19 22:15 Urine Bilirubin Neg (Negative) 03/09/19 22:15 Urine Urobilinogen < 2.0 mg/dL (<2.0) 03/09/19 22:15 Ur Leukocyte Esterase Neg (Negative) 03/09/19 22:15 Urine WBC (Auto) 5.0 /HPF (0.0-6.0) 03/09/19 22:15 Urine RBC (Auto) 2.0 /HPF (0.0-6.0) 03/09/19 22:15 U Epithel Cells (Auto) 1.0 /HPF (0-13.0) 03/09/19 22:15 Urine Bacteria (Auto) 1+ /HPF (Negative) 03/09/19 22:15 Urine Mucus Few /HPF 03/09/19 22:15 Vancomycin Trough 16.6 ug/mL (5.0-20.0) 03/16/19 15:55 Urine Opiates Screen Presumptive negative 03/09/19 22:15 Urine Methadone Screen Presumptive negative 03/09/19 22:15 Ur Barbiturates Screen Presumptive negative 03/09/19 22:15 Ur Phencyclidine Scrn Presumptive negative 03/09/19 22:15 Ur Amphetamines Screen Presumptive negative 03/09/19 22:15 U Benzodiazepines Scrn Presumptive negative 03/09/19 22:15 Urine Cocaine Screen Presumptive negative 03/09/19 22:15 U Marijuana (THC) Screen Presumptive negative 03/09/19 22:15 Drugs of Abuse Note Disclamer 03/09/19 22:15 Influenza A (Rapid) Negative (Negative) 03/09/19 Unknown Influenza B (Rapid) Negative (Negative) 03/09/19 Unknown Blood Type A POSITIVE 03/15/19 22:00 Antibody Screen Negative 03/15/19 22:00 Crossmatch See Detail 03/15/19 22:00 Active Medications - Current Medications Current Medications: Generic Name Dose Route Start Last Admin Trade Name Freq PRN Reason Stop Dose Admin Acetaminophen 650 mg 03/09/19 04:22 03/17/19 21:37 Tylenol PO 650 mg Q4H PRN Administration Pain MILD(1-3)/Fever >100.5/LLANES Albuterol 2.5 mg 03/13/19 15:03 03/14/19 09:03 Proventil IH 2.5 mg Q4HRT PRN Administration Shortness Of Breath Albuterol/Ipratropium 1 ampul 03/14/19 14:00 03/18/19 07:59 Duoneb *Not For Prn Use* IH 1 ampul TIDRT NANETTE Administration Amiodarone HCl 200 mg 03/13/19 16:00 03/18/19 11:06 Cordarone PO 200 mg DAILY NANETTE Administration Ascorbic Acid 500 mg 03/13/19 18:00 03/18/19 11:06 Vitamin C PO 500 mg QDAY NANETTE Administration Atorvastatin Calcium 40 mg 03/13/19 22:00 03/17/19 21:37 Lipitor PO 40 mg QHS NANETTE Administration Vancomycin HCl 1 gm in 250 mls @ 167.007 mls/hr 03/14/19 18:00 03/18/19 06:41 Vancomycin/Ns 1 Gm/250 Ml IV 167.007 mls/hr Q12H NANETTE Administration Sodium Chloride 1,000 mls @ 100 mls/hr 03/17/19 14:00 03/17/19 18:40 Nacl 0.9% 1000 Ml IV 100 mls/hr DIRECT NANETTE Administration Magnesium Hydroxide 30 ml 03/09/19 04:22 Milk Of Magnesia PO Q4H PRN Constipation Magnesium Oxide 400 mg 03/13/19 18:00 03/18/19 11:05 Mag-Ox PO 400 mg QDAY NANETTE Administration Metoprolol Tartrate 12.5 mg 03/13/19 22:00 03/18/19 11:06 Metoprolol PO 12.5 mg BID NANETTE Administration Ondansetron HCl 4 mg 03/09/19 04:22 Zofran IV Q8H PRN Nausea And Vomiting Sodium Chloride 10 ml 03/09/19 10:00 03/18/19 11:11 Sodium Chloride Flush Syringe 10 Ml IV 10 ml BID NANETTE Administration Sodium Chloride 10 ml 03/09/19 04:22 Sodium Chloride Flush Syringe 10 Ml IV PRN PRN LINE FLUSH Nutrition/Malnutrition Assess - Dietary Evaluation Nutrition/Malnutrition Findings: Nutrition Notes Start: 03/10/19 10:52 Freq: Status: Active Protocol: Document 03/16/19 10:41 CT (Rec: 03/16/19 11:19 CT [id number]) Co-Sign 03/16/19 10:41 LP Nutrition Notes Initial or Follow up Reassessment Current Diagnosis Acute Kidney Injury,COPD, Sepsis,Hypertension Other Pertinent Diagnosis AMI, AMS, Syncope Current Diet Cardiac w/Ensure Clear BID Labs/Tests Na 146 BUN 22 Glu 134 Pertinent Medications Lipitor Mag ox Vitamin C Height 5 ft 11 in Weight 56.3 kg [place] Body Weight (kg) 78.18 BMI 17.3 Subjective/Other Information Pt was sleeping at time of visit. Noted that he ate 5% of his breakfast. Noted unopen Ensure on table. Fruit is piling up on table. Spoke with RN and Pt Tyra, both stated he has not been eating anything. Burn Absent Trauma Absent GI Symptoms None Current % PO Negligible Minimum of two criteria Yes Energy Intake (severe) < or equal to 50% Estimated Energy Requirement > or equal to 5 days Interpretation of Weight Loss (severe) >5% in 1 month Body Fat Depletion Mild depletion (non-severe) Muscle Mass Mild Depletion (non-severe) #1 Nutrition Diagnosis Malnutrition Diagnosis Progress(for reassessment Continues documentation) Is patient on ventilator? No Is Patient Ambulatory and/or Out of Bed No REE-(Price-St. Jeor-confined to bed) 1584.768 Kcal/Kg value to use for calculation 35 Approximate Energy Requirements Using 1971 kcal/Kg Calculation Used for Recommendations Kcal/kg Additional Notes Protein needs are 67-84g (1.2- 1.5g/kg) Fluid needs are 1ml/kcal Nutrition Intervention Change Diet Order: Recommend TF if pt continues to consume >50% of meals/ONS Nutrition Support: Osmolite 1.5 55 ml/hr goal rate 160 ml free water flushes Q4h Kcal 1,980 Protein (gm) 83 Fluid (mL) 1,005 Add Supplement/Snack (indicate name/kcal d/c Ensure Clear BID if TF is /protein ) initiated Provides kCal: 480 Provides Protein (gm) 16 Goal #1 Meet at least 75% of kcal and protein needs via meals and ONS Goal #2 Wt gain/maintenance Anticipated Discharge Needs: unable to determine at this time Follow-Up By: 03/19/19 Additional Comments Follow for PO and ONS intakes/ need for TF
[2019-03-18] MEDS ORDERED: SODIUM CHLORIDE 0.9% 500 ML 500 ML IV ONE (13:00)
[2019-03-18 13:38] LABS: Total Cells Counted 100
[2019-03-18 13:39] LABS: Basophils % (Manual) 0 % (0.0-1.8); Eosinophils % (Manual) 0 % (0.0-4.3); Hypochromasia Few; Platelet Estimate Consistent w Auto
--- NOTE | 2019-03-18 15:56 | Ultrasound Report ---
ULTRASOUND RENAL INDICATION / CLINICAL INFORMATION: Acute renal failure.. COMPARISON: Abdominal ultrasound 07/13/2018 FINDINGS: RIGHT KIDNEY: Length = 13.5 cm. - Echogenicity: Normal. - Cortical Thickness: Normal. - Hydronephrosis: None. - Cyst or mass: No significant abnormality. - Stones: None seen. LEFT KIDNEY: Length = 12.0 cm. - Echogenicity: Normal. - Cortical Thickness: Normal. - Hydronephrosis: None. - Cyst or mass: Stable 2.4 cm cyst in the left kidney. - Stones: None seen. URINARY BLADDER: No significant abnormality. FREE FLUID: None. ADDITIONAL FINDINGS: None. IMPRESSION: 1. No acute abnormality. No significant change in the appearance of the kidneys compared to 07/13/2018 Signer Name: James Mendiola MD Signed: 03/18/2019 3:52 PM Workstation Name: [id number]
[2019-03-18] MEDS: ACETAMINOPHEN 325 MG TAB PO PRN (16:23)
[2019-03-18] MEDS: SODIUM CHLORIDE 0.9% 1000 ML 1,000 ML IV SCH (16:24)
[2019-03-19] MEDS ORDERED: SODIUM CHLORIDE 0.9% 500 ML 500 ML IV ONE (01:05)
--- NOTE | 2019-03-19 07:55 | Hem/Onc Progress Note ---
Assessment and Plan 1. Anemia, leukopenia, thrombocytopenia in a patient with history of myelodysplastic syndrome. He follows Dr. Rojas. In the past, the patient has received Dacogen. He was also getting Procrit. During this admission, he received platelet transfusion and G-CSF support. 2. History of hypertension. 3. History of coronary artery disease. 4. History of renal issues. 5. Carotid artery stenosis. 6. The patient has been having cytopenia for some time. We will do transfusion support while in the hospital and then he will follow with his oncologist, Dr. Rojas. ID team following for Infection and Abx some of his answers are not appropriate his counts are chronically low d/w ID - ? port removal On 03/14 - d/w Dr Rojas - pt has not been seen for a few months - he has been going to [place] for PR[facility] social issues if port a suspect for infection - removal an option overall prognosis guarded In past, [place] dr had spoken to me - pt got chemo at [facility] as per daughter - pt was good before admission. I had spoken to dr Bess and Dr Kerr - ct Supportive care - family not keen for hospice at this time. 03/19- less confused ct supportive care GCSF transfusion as needed - Patient Problems (1) Myelodysplastic syndrome, unspecified Current Visit: Yes Status: Chronic Subjective Date of service: 03/19/19 Principal diagnosis: MDS Interval history: alert awake - daughter present Objective - Exam Narrative Exam: Pain - none General appearance - more alert Performance status complete dependence Eyes - no icterus ENT - on o2 LNs cervical not palpable Neck - no LN Respiratory Normal Breath sounds - CTA anteriorly CVS S1 S2 + Extremities no edema General GI Soft Rectal deferred male - deferred Skin warm Musculoskeletal - moving limbs Neurologically less confused - Constitutional Vitals: Last Vital Signs Temp 98.6 F 03/19/19 05:43 Pulse 76 03/19/19 05:43 Resp 24 03/19/19 05:43 BP 126/60 03/19/19 05:43 Pulse Ox 99 03/19/19 03:43 - Labs Lab Results: Laboratory Results - last 24 hr 03/15/19 03/18/19 03/18/19 22:00 06:40 20:13 Add Manual Diff Complete Total Counted 100 Seg Neuts % (Manual) 27.0 L Band Neutrophils % 2.0 Lymphocytes % (Manual) 64.0 H Reactive Lymphs % (Man) 5.0 Monocytes % (Manual) 2.0 Eosinophils % (Manual) 0 Basophils % (Manual) 0 Metamyelocytes % 0 Myelocytes % 0 Promyelocytes % 0 Blast Cells % 0 Nucleated RBC % 1.0 H Seg Neutrophils # Man 0.1 L Band Neutrophils # 0.0 Lymphocytes # (Manual) 0.3 L Abs React Lymphs (Man) 0.0 Monocytes # (Manual) 0.0 Eosinophils # (Manual) 0.0 Basophils # (Manual) 0.0 Metamyelocytes # 0.0 Myelocytes # 0.0 Promyelocytes # 0.0 Blast Cells # 0.0 WBC Morphology Not Reportable Hypersegmented Neuts Not Reportable Hyposegmented Neuts Not Reportable Hypogranular Neuts Not Reportable Smudge Cells Not Reportable Toxic Granulation Not Reportable Toxic Vacuolation Not Reportable Dohle Bodies Not Reportable Pelger-Huet Anomaly Not Reportable Andra Rods Not Reportable Platelet Estimate Consistent w auto Clumped Platelets Not Reportable Plt Clumps, EDTA Not Reportable Large Platelets Not Reportable Giant Platelets Not Reportable Platelet Satelliting Not Reportable Plt Morphology Comment Not Reportable RBC Morphology Not Reportable Dimorphic RBCs Not Reportable Polychromasia Not Reportable Hypochromasia Few Poikilocytosis Not Reportable Anisocytosis Not Reportable Microcytosis Not Reportable Macrocytosis Not Reportable Spherocytes Not Reportable Pappenheimer Bodies Not Reportable Sickle Cells Not Reportable Target Cells Not Reportable Tear Drop Cells Not Reportable Ovalocytes Not Reportable Helmet Cells Not Reportable [place] Bodies Not Reportable [place] Rings Not Reportable [place] Cells Not Reportable Bite Cells Not Reportable Crenated Cell Not Reportable Elliptocytes Not Reportable Acanthocytes (Spur) Not Reportable Rouleaux Not Reportable Hemoglobin C Crystals Not Reportable Schistocytes Not Reportable Malaria parasites Not Reportable Donta Bodies Not Reportable Hem Pathologist Commnt No Random Vancomycin 34.3 Blood Type A POSITIVE Antibody Screen Negative Crossmatch See Detail 03/18/19 22:40 Add Manual Diff Total Counted Seg Neuts % (Manual) Band Neutrophils % Lymphocytes % (Manual) Reactive Lymphs % (Man) Monocytes % (Manual) Eosinophils % (Manual) Basophils % (Manual) Metamyelocytes % Myelocytes % Promyelocytes % Blast Cells % Nucleated RBC % Seg Neutrophils # Man Band Neutrophils # Lymphocytes # (Manual) Abs React Lymphs (Man) Monocytes # (Manual) Eosinophils # (Manual) Basophils # (Manual) Metamyelocytes # Myelocytes # Promyelocytes # Blast Cells # WBC Morphology Hypersegmented Neuts Hyposegmented Neuts Hypogranular Neuts Smudge Cells Toxic Granulation Toxic Vacuolation Dohle Bodies Pelger-Huet Anomaly Andra Rods Platelet Estimate Clumped Platelets Plt Clumps, EDTA Large Platelets Giant Platelets Platelet Satelliting Plt Morphology Comment RBC Morphology Dimorphic RBCs Polychromasia Hypochromasia Poikilocytosis Anisocytosis Microcytosis Macrocytosis Spherocytes Pappenheimer Bodies Sickle Cells Target Cells Tear Drop Cells Ovalocytes Helmet Cells [place] Bodies [place] Rings [place] Cells Bite Cells Crenated Cell Elliptocytes Acanthocytes (Spur) Rouleaux Hemoglobin C Crystals Schistocytes Malaria parasites Donta Bodies Hem Pathologist Commnt Random Vancomycin Blood Type A POSITIVE Antibody Screen Negative Crossmatch See Detail Medications & Allergies - Medications Allergies/Adverse Reactions: Allergies tetanus and diphtheria toxoids [tetanus & diphtheria toxoids] Allergy (Verified 07/12/18 13:31) Anaphylaxis Home Medications: Home Medications Medication Instructions Recorded Confirmed Last Taken Type Potassium Chloride 20 meq PO QDAY #10 packet 06/03/18 03/09/19 Unknown Rx Ascorbic Acid [Vitamin C] 500 mg PO DAILY 07/12/18 03/09/19 Unknown History Magnesium Oxide 400 mg PO DAILY 07/12/18 03/09/19 Unknown History Acyclovir [Zovirax Cap] 200 mg PO BID 30 Days #60 capsule 07/19/18 03/09/19 Unknown Rx Amiodarone [Cordarone 200 MG TAB] 200 mg PO DAILY #30 tablet 07/19/18 03/09/19 Unknown Rx Metoprolol [Lopressor TAB] 12.5 mg PO BID #60 tablet 07/19/18 03/09/19 Unknown Rx oxyCODONE /ACETAMINOPHEN [Percocet 1 tab PO Q6H PRN #30 tablet 07/19/18 03/09/19 Unknown Rx 5/325 mg] Active Medications: Generic Name Dose Route Start Last Admin Trade Name Freq PRN Reason Stop Dose Admin Acetaminophen 650 mg 03/09/19 04:22 03/18/19 16:23 Tylenol PO 650 mg Q4H PRN Administration Pain MILD(1-3)/Fever >100.5/LLANES Albuterol 2.5 mg 03/13/19 15:03 03/14/19 09:03 Proventil IH 2.5 mg Q4HRT PRN Administration Shortness Of Breath Albuterol/Ipratropium 1 ampul 03/14/19 14:00 03/18/19 20:35 Duoneb *Not For Prn Use* IH 1 ampul TIDRT NANETTE Administration Amiodarone HCl 200 mg 03/13/19 16:00 03/18/19 11:06 Cordarone PO 200 mg DAILY NANETTE Administration Ascorbic Acid 500 mg 03/13/19 18:00 03/18/19 11:06 Vitamin C PO 500 mg QDAY NANETTE Administration Atorvastatin Calcium 40 mg 03/13/19 22:00 03/18/19 21:05 Lipitor PO 40 mg QHS NANETTE Administration Vancomycin HCl 1 gm in 250 mls @ 167.007 mls/hr 03/14/19 18:00 03/18/19 19:48 Vancomycin/Ns 1 Gm/250 Ml IV 167.007 mls/hr Q12H NANETTE Administration Sodium Chloride 1,000 mls @ 100 mls/hr 03/17/19 14:00 03/18/19 16:24 Nacl 0.9% 1000 Ml IV 100 mls/hr DIRECT NANETTE Administration Magnesium Hydroxide 30 ml 03/09/19 04:22 Milk Of Magnesia PO Q4H PRN Constipation Magnesium Oxide 400 mg 03/13/19 18:00 03/18/19 11:05 Mag-Ox PO 400 mg QDAY NANETTE Administration Metoprolol Tartrate 12.5 mg 03/13/19 22:00 03/18/19 22:25 Metoprolol PO Not Given BID NANETTE Ondansetron HCl 4 mg 03/09/19 04:22 Zofran IV Q8H PRN Nausea And Vomiting Sodium Chloride 10 ml 03/09/19 10:00 03/18/19 22:09 Sodium Chloride Flush Syringe 10 Ml IV 10 ml BID NANETTE Administration Sodium Chloride 10 ml 03/09/19 04:22 Sodium Chloride Flush Syringe 10 Ml IV PRN PRN LINE FLUSH
[2019-03-19 08:04] LABS: Hemoglobin 7.5 gm/dl (11.8-15.2); Mean Corpuscular HGB Conc 34 % (32-34); Mean Corpuscular Volume 90 fl (84-94); Red Blood Count 2.44 M/mm3 (3.65-5.03); Red Cell Distribution Width 15.3 % (13.2-15.2)
[2019-03-19] MEDS: IPRATROPIUM/ALBUTEROL SULFATE 3 ML AMPUL.NEB IH SCH ×3 (08:14→20:42)
[2019-03-19 08:27] LABS: Albumin 2.5 g/dL (3.9-5); Bilirubin,Direct 0.4 mg/dL (0-0.2); Calcium 8.4 mg/dL (8.4-10.2)
[2019-03-19 08:51] LABS: Platelet Count 8 K/mm3 (140-440)
[2019-03-19] MEDS: ACETAMINOPHEN 325 MG TAB PO PRN ×2 (09:05→22:54)
[2019-03-19] MEDS: AMIODARONE 200 MG TAB PO SCH (09:21)
[2019-03-19] MEDS: ASCORBIC ACID 500 MG TAB PO SCH (09:21)
[2019-03-19] MEDS: METOPROLOL TARTRATE 25 MG TAB PO SCH ×2 (09:21→22:54)
[2019-03-19] MEDS: MAGNESIUM OXIDE 400 MG TAB PO SCH (09:21)
--- NOTE | 2019-03-19 09:22 | Progress Note ---
Assessment and Plan 1. Acute kidney injury: Likely vasomotor FAWAD in the setting of volume depletion. Renal US was negative for hydro. Urine studies ordered. Currently patient is not on IV fluids. Informed the RN to start the IV fluids. Renal function continue to decline. Monitor renal function. Renal prognosis is guarded. Avoid nephrotoxic agents. Meds dosage based on GFR. 2. FEN: Metabolic acidosis, monitor. Monitor lytes. 3. Sepsis: Continue Abx. 4. Pneumonia. 5. Pancytopenia: Followed by Heme-Onc. 6. Encephalopathy. 7. HTN. Examination: General appearance: well-developed, appears stated age, chronically ill, frail, on mittens HEENT: ATNC, AMY, mucous membranes dry Neck: trachea midline Respiratory: Clear to Ascultation Heart: regular, S1S2, no murmurs Gastrointestinal: soft, normoactive bowel sounds, not tenderness Integumentary: multiple seborrheic keratosis Neurologic: somnolent, confused, disoriented, not following any command Ext: no edema Subjective Date of service: 03/19/19 Principal diagnosis: MDS Interval history: Patient was seen and examined at the bedside. Objective - Vital Signs Vital signs: Vital Signs - 12hr 03/18/19 03/19/19 03/19/19 22:25 01:58 02:13 Temperature 97.5 F L 97.7 F Pulse Rate 92 H 79 Respiratory 24 24 Rate Blood Pressure 127/67 104/68 115/61 O2 Sat by Pulse 90 99 Oximetry 03/19/19 03/19/19 03/19/19 02:43 03:05 03:13 Temperature 98 F 98.3 F 98.2 F Pulse Rate 76 81 93 H Respiratory 25 H 24 24 Rate Blood Pressure 119/55 115/67 121/68 O2 Sat by Pulse 99 100 Oximetry 03/19/19 03/19/19 03/19/19 03:43 04:13 04:43 Temperature 98.5 F 97.6 F 97.2 F L Pulse Rate 89 91 H 72 Respiratory 24 24 24 Rate Blood Pressure 125/71 123/68 134/80 O2 Sat by Pulse 99 Oximetry 03/19/19 03/19/19 03/19/19 05:13 05:43 08:14 Temperature 97.3 F L 98.6 F 97.8 F Pulse Rate 86 76 76 Respiratory 24 24 22 Rate Blood Pressure 128/65 126/60 131/67 O2 Sat by Pulse 89 Oximetry 03/19/19 08:15 Temperature Pulse Rate 77 Respiratory Rate Blood Pressure O2 Sat by Pulse 90 Oximetry - Lab 03/19/19 07:30 03/19/19 07:30 Most recent lab results Calcium 8.4 mg/dL (8.4-10.2) 03/19/19 07:30 Phosphorus 5.10 mg/dL (2.5-4.5) H 03/19/19 07:30 Magnesium 2.30 mg/dL (1.7-2.3) 03/19/19 07:30 Medications & Allergies - Medications Allergies/Adverse Reactions: Allergies tetanus and diphtheria toxoids [tetanus & diphtheria toxoids] Allergy (Verified 07/12/18 13:31) Anaphylaxis Home Medications: Home Medications Medication Instructions Recorded Confirmed Last Taken Type Potassium Chloride 20 meq PO QDAY #10 packet 06/03/18 03/09/19 Unknown Rx Ascorbic Acid [Vitamin C] 500 mg PO DAILY 07/12/18 03/09/19 Unknown History Magnesium Oxide 400 mg PO DAILY 07/12/18 03/09/19 Unknown History Acyclovir [Zovirax Cap] 200 mg PO BID 30 Days #60 capsule 07/19/18 03/09/19 Unknown Rx Amiodarone [Cordarone 200 MG TAB] 200 mg PO DAILY #30 tablet 07/19/18 03/09/19 Unknown Rx Metoprolol [Lopressor TAB] 12.5 mg PO BID #60 tablet 07/19/18 03/09/19 Unknown Rx oxyCODONE /ACETAMINOPHEN [Percocet 1 tab PO Q6H PRN #30 tablet 07/19/18 03/09/19 Unknown Rx 5/325 mg] Active Medications: Generic Name Dose Route Start Last Admin Trade Name Freq PRN Reason Stop Dose Admin Acetaminophen 650 mg 03/09/19 04:22 03/18/19 16:23 Tylenol PO 650 mg Q4H PRN Administration Pain MILD(1-3)/Fever >100.5/LLANES Albuterol 2.5 mg 03/13/19 15:03 03/14/19 09:03 Proventil IH 2.5 mg Q4HRT PRN Administration Shortness Of Breath Albuterol/Ipratropium 1 ampul 03/14/19 14:00 03/18/19 20:35 Duoneb *Not For Prn Use* IH 1 ampul TIDRT NANETTE Administration Amiodarone HCl 200 mg 03/13/19 16:00 03/18/19 11:06 Cordarone PO 200 mg DAILY NANETTE Administration Ascorbic Acid 500 mg 03/13/19 18:00 03/18/19 11:06 Vitamin C PO 500 mg QDAY NANETTE Administration Atorvastatin Calcium 40 mg 03/13/19 22:00 03/18/19 21:05 Lipitor PO 40 mg QHS NANETTE Administration Sodium Chloride 1,000 mls @ 100 mls/hr 03/17/19 14:00 03/18/19 16:24 Nacl 0.9% 1000 Ml IV 100 mls/hr DIRECT NANETTE Administration Magnesium Hydroxide 30 ml 03/09/19 04:22 Milk Of Magnesia PO Q4H PRN Constipation Magnesium Oxide 400 mg 03/13/19 18:00 03/18/19 11:05 Mag-Ox PO 400 mg QDAY NANETTE Administration Metoprolol Tartrate 12.5 mg 03/13/19 22:00 03/18/19 22:25 Metoprolol PO Not Given BID [facility] Ondansetron HCl 4 mg 03/09/19 04:22 Zofran IV Q8H PRN Nausea And Vomiting Sodium Chloride 10 ml 03/09/19 10:00 03/18/19 22:09 Sodium Chloride Flush Syringe 10 Ml IV 10 ml BID NANETTE Administration Sodium Chloride 10 ml 03/09/19 04:22 Sodium Chloride Flush Syringe 10 Ml IV PRN PRN LINE FLUSH Tbo-Filgrastim 300 mcg 03/19/19 10:00 Granix SUB-Q 03/23/19 09:59 DAILY NANETTE
[2019-03-19] MEDS ORDERED: TBO-FILGRASTIM 300 MCG/0.5 ML SUB-Q SCH (10:00)
--- NOTE | 2019-03-19 10:04 | Progress Note ---
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 He is known to us from his previous hospitalizations. He has an indwelling PORT. Came in with weakness. #Sepsis: still low grade fever, immunocompromised host from chronic neutropenia. Etiology likely Diphtheroids bacteremia. #Diphtheroids bacteremia: 2 of 4 bottles, Diphteroids is usually a contaminant but given immunocompromised state, port in place and isolate growing on 2 different sets is considered as a real pathogen. TTE no vegetations. #Severe pancytopenia, MDS, immunocompromised host, not better #Lactic acidosis #Acute kidney injury: Renally dose antibiotics #Recurrent right sided pneumonia: in Apr 2018 at [facility], June 2018 at [facility] and Jan 2019 PF, full worked up for invasive fungal infection negative. Recs: Daughter declined inpatient hospice care continue vancomycin IV 1gm IV q 24h for now - likely to complete 2 weeks for presumptive true Diptheroid bacteremia. asked micro to fully identify diphtheroids - isolate sent out for quest ID at discharge will treat with vancomycin 1 gm IV q 24h total 14 days with goal 10-15 mcg/mL till 03/25/2019. order sent to rehabilitation caseworker by Dr. Kerr needs surveillance blood culture a week after IV abx infusion completed poor prognosis Will follow. [facility] ([facility]) M: [phone] O: [phone] F: [phone] Subjective Date of service: 03/19/19 Principal diagnosis: MDS Interval history: Afebrile, no other change. Objective - Exam Narrative Exam: Constitutional: Alert, cooperative. No acute distress Head, Ears, Nose: Normocephalic, atraumatic. External ears, nose normal Eyes: Conjunctivae/corneas clear. No icterus. No ptosis. Neck: Supple, no meningeal signs Oral: dentition fair, no thrush Cardiovascular: S1, S2 normal. Respiratory: RLL rhonchi GI: Soft, non-tender; bowel sounds normal. No peritoneal signs. Musculoskeletal: No pedal edema, no cyanosis. b/l leg wounds Skin: No rash or abscess Hem/Lymphatic: No palpable cervical or supraclavicular nodes. No lymphangitis Psych: sleepy Neurological: sleepy right port clean - Constitutional Vitals: Vital Signs Temp Pulse Resp BP Pulse Ox 97.8 F 96 H 23 131/67 90 03/19/19 08:14 03/19/19 09:51 03/19/19 09:51 03/19/19 08:14 03/19/19 08:15 Temperature -Last 24 Hours Temperature 97.8 F Temperature 98.6 F Temperature 97.3 F Temperature 97.2 F Temperature 97.6 F Temperature 98.5 F Temperature 98.2 F Temperature 98.3 F Temperature 98 F Temperature 97.7 F Temperature 97.5 F Temperature 97.8 F Temperature 97.0 F - Labs CBC & Chem 7: 03/19/19 07:30 03/19/19 07:30 Labs: Abnormal lab results 03/15/19 03/18/19 03/18/19 Range/Units 22:00 06:40 22:40 WBC (4.5-11.0) K/mm3 RBC (3.65-5.03) M/mm3 Hgb (11.8-15.2) gm/dl Hct (35.5-45.6) % RDW (13.2-15.2) % Plt Count (140-440) K/mm3 Seg Neuts % (Manual) 27.0 L (40.0-70.0) % Lymphocytes % (Manual) 64.0 H (13.4-35.0) % Nucleated RBC % 1.0 H (0.0-0.9) % Seg Neutrophils # Man 0.1 L (1.8-7.7) K/mm3 Lymphocytes # (Manual) 0.3 L (1.2-5.4) K/mm3 Chloride (98-107) mmol/L Carbon Dioxide (22-30) mmol/L BUN (9-20) mg/dL Creatinine (0.8-1.5) mg/dL Glucose (75-100) mg/dL Phosphorus (2.5-4.5) mg/dL Direct Bilirubin (0-0.2) mg/dL Albumin (3.9-5) g/dL Crossmatch See Detail See Detail 03/19/19 03/19/19 Range/Units 07:30 07:30 WBC 0.6 L* (4.5-11.0) K/mm3 RBC 2.44 L (3.65-5.03) M/mm3 Hgb 7.5 L (11.8-15.2) gm/dl Hct 22.0 L (35.5-45.6) % RDW 15.3 H (13.2-15.2) % Plt Count 8 L* (140-440) K/mm3 Seg Neuts % (Manual) (40.0-70.0) % Lymphocytes % (Manual) (13.4-35.0) % Nucleated RBC % (0.0-0.9) % Seg Neutrophils # Man (1.8-7.7) K/mm3 Lymphocytes # (Manual) (1.2-5.4) K/mm3 Chloride 110.7 H (98-107) mmol/L Carbon Dioxide 18 L (22-30) mmol/L BUN 77 H (9-20) mg/dL Creatinine 3.8 H (0.8-1.5) mg/dL Glucose 145 H (75-100) mg/dL Phosphorus 5.10 H (2.5-4.5) mg/dL Direct Bilirubin 0.4 H (0-0.2) mg/dL Albumin 2.5 L (3.9-5) g/dL Crossmatch
[2019-03-19] MEDS: SODIUM CHLORIDE 0.9% 1000 ML 1,000 ML IV SCH ×2 (10:09→17:52)
[2019-03-19] MEDS ORDERED: SODIUM CHLORIDE 0.9% 500 ML 500 ML IV NR (16:51)
--- NOTE | 2019-03-19 16:52 | Progress Note ---
Assessment and Plan Assessment and plan: 74-year-old man with myelodysplastic syndrome. The patient has now become pancytopenic, he has been receiving transfusion with packed red blood cells and platelets along with G-CSF supports. Hematology following closely along. Severe sepsis 2/2 PNA with Diptheroids Bacteremia -CXR showed findings suggestive of PNA -continue IV Vanc and Cefepime per ID -per ID, at discharge will treat with vancomycin 1 gm IV q 24h total 14 days with goal 10-15 mcg/mL till 03/25/2019. Neutropenic Fever -cont abx and neutropenic precautions -Hem/onco, Dr. Quiroga following, appreciate Syncope -Likely secondary to bilateral carotid artery stenosis v debility -carotid duplex showed 50-79% stenosis in bilateral ICA -echo showed EF 50-55% with normal diastolic dysf -Continue statin. Not on aspirin due to high risk for bleed Pancytopenia due to MDS -s/p 3u of plt and 5u of prbcs -hb:6.9 today, will transfuse additional 1u of PRBC today -will monitor levels -keep plt>10k and hb>7 -very poor prognosis -Hem/onco following: recommended hospice care but daughter declined Hypokalemia -resolved Metabolic Encephalopathy -pt continues to have intermittent confusion -CT head on 03/09 neg -repeat head CT scan on 03/17 neg Acute kidney injury likely vasomotor nephropathy -Due to dehydration -Creatinine level worsening, will monitor -Continue IV fluid -Nephrology consulted Metabolic Acidosis -Likely secondary to FAWAD -We'll monitor level Hypernatremia, likely 2/2 dehydration -improving, will monitor level COPD -no acute exacerbation -cont PRN neb tx H/o A.fib/A.flutter -HR controlled -cont home metoprolol and amiodarone Severe malnutrition -Nutrition consulted Debility -PT/OT consulted DVT/GI Prophy: SCD due to anemia and thrombocytopenia Discussed with the pt's daughter about his father's condition and she verbalized understanding Disp: very poor prognosis. Inpatient hospice care recommended but daughter declined History Interval history: Patient is obtunded He has been short of breath He has been nonverbal and not able to relate how he feels. Hospitalist Physical - Physical exam Narrative exam: General.: Appears ill HEENT: Moist mucous membranes, extraocular muscles intact, no lymphadenopathy Neck: supple Cardiac: S1-S2 heard Lungs: Rales, diminished air entry Abdomen: soft , nontender, nondistended, bowel sounds positive Extremities: no edema clubbing or cyanosis Skin: no rash or lesions Neurologic: Opens eyes, non-verbal, reduced responsiveness Psych: Drowsy - Constitutional Vitals: Temp Pulse Resp BP Pulse Ox 98.1 F 100 H 20 115/58 96 03/19/19 13:54 03/19/19 14:00 03/19/19 14:00 03/19/19 13:54 03/19/19 10:01 General appearance: Present: mild distress, cachectic, other (ill-looking and less responsive ) Results - Labs CBC & Chem 7: 03/20/19 06:30 03/20/19 06:30 Labs: Laboratory Last Values WBC 0.6 K/mm3 (4.5-11.0) L* 03/19/19 07:30 RBC 2.44 M/mm3 (3.65-5.03) L 03/19/19 07:30 Hgb 7.5 gm/dl (11.8-15.2) L 03/19/19 07:30 Hct 22.0 % (35.5-45.6) L 03/19/19 07:30 MCV 90 fl (84-94) 03/19/19 07:30 MCH 31 pg (28-32) 03/19/19 07:30 MCHC 34 % (32-34) 03/19/19 07:30 RDW 15.3 % (13.2-15.2) H 03/19/19 07:30 Plt Count 8 K/mm3 (140-440) L* 03/19/19 07:30 Lymph % (Auto) Collection Technician 03/18/19 06:40 [place] % (Auto) Collection Technician 03/18/19 06:40 Eos % (Auto) Collection Technician 03/14/19 04:00 Baso % (Auto) Collection Technician 03/14/19 04:00 Lymph # Collection Technician 03/14/19 04:00 [place] # Collection Technician 03/14/19 04:00 Eos # Collection Technician 03/14/19 04:00 Baso # Collection Technician 03/14/19 04:00 Add Manual Diff Complete 03/18/19 06:40 Total Counted 100 03/18/19 06:40 Seg Neutrophils % Collection Technician 03/18/19 06:40 Seg Neuts % (Manual) 27.0 % (40.0-70.0) L 03/18/19 06:40 Band Neutrophils % 2.0 % 03/18/19 06:40 Lymphocytes % (Manual) 64.0 % (13.4-35.0) H 03/18/19 06:40 Reactive Lymphs % (Man) 5.0 % 03/18/19 06:40 Monocytes % (Manual) 2.0 % (0.0-7.3) 03/18/19 06:40 Eosinophils % (Manual) 0 % (0.0-4.3) 03/18/19 06:40 Basophils % (Manual) 0 % (0.0-1.8) 03/18/19 06:40 Metamyelocytes % 0 % 03/18/19 06:40 Myelocytes % 0 % 03/18/19 06:40 Promyelocytes % 0 % 03/18/19 06:40 Blast Cells % 0 % 03/18/19 06:40 Nucleated RBC % 1.0 % (0.0-0.9) H 03/18/19 06:40 Seg Neutrophils # Collection Technician 03/14/19 04:00 Seg Neutrophils # Man 0.1 K/mm3 (1.8-7.7) L 03/18/19 06:40 Band Neutrophils # 0.0 K/mm3 03/18/19 06:40 Lymphocytes # (Manual) 0.3 K/mm3 (1.2-5.4) L 03/18/19 06:40 Abs React Lymphs (Man) 0.0 K/mm3 03/18/19 06:40 Monocytes # (Manual) 0.0 K/mm3 (0.0-0.8) 03/18/19 06:40 Eosinophils # (Manual) 0.0 K/mm3 (0.0-0.4) 03/18/19 06:40 Basophils # (Manual) 0.0 K/mm3 (0.0-0.1) 03/18/19 06:40 Metamyelocytes # 0.0 K/mm3 03/18/19 06:40 Myelocytes # 0.0 K/mm3 03/18/19 06:40 Promyelocytes # 0.0 K/mm3 03/18/19 06:40 Blast Cells # 0.0 K/mm3 03/18/19 06:40 WBC Morphology Not Reportable 03/18/19 06:40 Hypersegmented Neuts Not Reportable 03/18/19 06:40 Hyposegmented Neuts Not Reportable 03/18/19 06:40 Hypogranular Neuts Not Reportable 03/18/19 06:40 Smudge Cells Not Reportable 03/18/19 06:40 Toxic Granulation Not Reportable 03/18/19 06:40 Toxic Vacuolation Not Reportable 03/18/19 06:40 Dohle Bodies Not Reportable 03/18/19 06:40 Pelger-Huet Anomaly Not Reportable 03/18/19 06:40 Andra Rods Not Reportable 03/18/19 06:40 Platelet Estimate Consistent w auto 03/18/19 06:40 Clumped Platelets Not Reportable 03/18/19 06:40 Plt Clumps, EDTA Not Reportable 03/18/19 06:40 Large Platelets Not Reportable 03/18/19 06:40 Giant Platelets Not Reportable 03/18/19 06:40 Platelet Satelliting Not Reportable 03/18/19 06:40 Plt Morphology Comment Not Reportable 03/18/19 06:40 RBC Morphology Not Reportable 03/18/19 06:40 Dimorphic RBCs Not Reportable 03/18/19 06:40 Polychromasia Not Reportable 03/18/19 06:40 Hypochromasia Few 03/18/19 06:40 Poikilocytosis Not Reportable 03/18/19 06:40 Anisocytosis Not Reportable 03/18/19 06:40 Microcytosis Not Reportable 03/18/19 06:40 Macrocytosis Not Reportable 03/18/19 06:40 Spherocytes Not Reportable 03/18/19 06:40 Pappenheimer Bodies Not Reportable 03/18/19 06:40 Sickle Cells Not Reportable 03/18/19 06:40 Target Cells Not Reportable 03/18/19 06:40 Tear Drop Cells Not Reportable 03/18/19 06:40 Ovalocytes Not Reportable 03/18/19 06:40 Helmet Cells Not Reportable 03/18/19 06:40 [place] Bodies Not Reportable 03/18/19 06:40 [place] Rings Not Reportable 03/18/19 06:40 [place] Cells Not Reportable 03/18/19 06:40 Bite Cells Not Reportable 03/18/19 06:40 Crenated Cell Not Reportable 03/18/19 06:40 Elliptocytes Not Reportable 03/18/19 06:40 Acanthocytes (Spur) Not Reportable 03/18/19 06:40 Rouleaux Not Reportable 03/18/19 06:40 Hemoglobin C Crystals Not Reportable 03/18/19 06:40 Schistocytes Not Reportable 03/18/19 06:40 Malaria parasites Not Reportable 03/18/19 06:40 [place] Bodies Not Reportable 03/18/19 06:40 Hem Pathologist Commnt No 03/18/19 06:40 PT 18.5 Sec. (12.2-14.9) H 03/10/19 04:05 INR 1.57 (0.87-1.13) H 03/10/19 04:05 APTT 40.4 Sec. (24.2-36.6) H 03/10/19 04:05 Sodium 144 mmol/L (137-145) 03/19/19 07:30 Potassium 4.3 mmol/L (3.6-5.0) 03/19/19 07:30 Chloride 110.7 mmol/L (98-107) H 03/19/19 07:30 Carbon Dioxide 18 mmol/L (22-30) L 03/19/19 07:30 Anion Gap 20 mmol/L 03/19/19 07:30 BUN 77 mg/dL (9-20) H 03/19/19 07:30 Creatinine 3.8 mg/dL (0.8-1.5) H 03/19/19 07:30 Estimated GFR 16 ml/min 03/19/19 07:30 BUN/Creatinine Ratio 20 % 03/19/19 07:30 Glucose 145 mg/dL (75-100) H 03/19/19 07:30 POC Glucose 155 (70-105) H 03/13/19 07:38 Lactic Acid 0.80 mmol/L (0.7-2.0) 03/09/19 04:57 Calcium 8.4 mg/dL (8.4-10.2) 03/19/19 07:30 Phosphorus 5.10 mg/dL (2.5-4.5) H 03/19/19 07:30 Magnesium 2.30 mg/dL (1.7-2.3) 03/19/19 07:30 Total Bilirubin 1.00 mg/dL (0.1-1.2) 03/19/19 07:30 Direct Bilirubin 0.4 mg/dL (0-0.2) H 03/19/19 07:30 Indirect Bilirubin 0.6 mg/dL 03/19/19 07:30 AST 16 units/L (5-40) 03/19/19 07:30 ALT 22 units/L (7-56) 03/19/19 07:30 Alkaline Phosphatase 43 units/L (35-129) 03/19/19 07:30 Troponin T 0.042 ng/mL (0.00-0.029) H 03/09/19 02:16 Troponin T 0.043 ng/mL (0.00-0.029) H 03/09/19 02:16 NT-Pro-B Natriuret Pep 3715 pg/mL (0-900) H 03/09/19 02:16 Total Protein 6.5 g/dL (6.3-8.2) 03/19/19 07:30 Albumin 2.5 g/dL (3.9-5) L 03/19/19 07:30 Albumin/Globulin Ratio 0.6 % 03/19/19 07:30 Triglycerides 50 mg/dL (2-149) 03/09/19 02:16 Cholesterol 61 mg/dL (50-199) 03/09/19 02:16 LDL Cholesterol Direct 35 mg/dL (50-130) L 03/09/19 02:16 HDL Cholesterol 26 mg/dL (40-59) L 03/09/19 02:16 Cholesterol/HDL Ratio 2.34 % 03/09/19 02:16 Urine Color Yellow (Yellow) 03/09/19 22:15 Urine Turbidity Slightly-cloudy (Clear) 03/09/19 22:15 Urine pH 5.0 (5.0-7.0) 03/09/19 22:15 Ur Specific [place] 1.019 (1.003-1.030) 03/09/19 22:15 Urine Protein 100 mg/dl mg/dL (Negative) 03/09/19 22:15 Urine Glucose (UA) Neg mg/dL (Negative) 03/09/19 22:15 Urine Ketones Neg mg/dL (Negative) 03/09/19 22:15 Urine Blood Lg (Negative) 03/09/19 22:15 Urine Nitrite Neg (Negative) 03/09/19 22:15 Urine Bilirubin Neg (Negative) 03/09/19 22:15 Urine Urobilinogen < 2.0 mg/dL (<2.0) 03/09/19 22:15 Ur Leukocyte Esterase Neg (Negative) 03/09/19 22:15 Urine WBC (Auto) 5.0 /HPF (0.0-6.0) 03/09/19 22:15 Urine RBC (Auto) 2.0 /HPF (0.0-6.0) 03/09/19 22:15 U Epithel Cells (Auto) 1.0 /HPF (0-13.0) 03/09/19 22:15 Urine Bacteria (Auto) 1+ /HPF (Negative) 03/09/19 22:15 Urine Mucus Few /HPF 03/09/19 22:15 Vancomycin Trough 16.6 ug/mL (5.0-20.0) 03/16/19 15:55 Random Vancomycin 34.3 ug/mL (0-40.0) 03/18/19 20:13 Urine Opiates Screen Presumptive negative 03/09/19 22:15 Urine Methadone Screen Presumptive negative 03/09/19 22:15 Ur Barbiturates Screen Presumptive negative 03/09/19 22:15 Ur Phencyclidine Scrn Presumptive negative 03/09/19 22:15 Ur Amphetamines Screen Presumptive negative 03/09/19 22:15 U Benzodiazepines Scrn Presumptive negative 03/09/19 22:15 Urine Cocaine Screen Presumptive negative 03/09/19 22:15 U Marijuana (THC) Screen Presumptive negative 03/09/19 22:15 Drugs of Abuse Note Disclamer 03/09/19 22:15 Influenza A (Rapid) Negative (Negative) 03/09/19 Unknown Influenza B (Rapid) Negative (Negative) 03/09/19 Unknown Blood Type A POSITIVE 03/18/19 22:40 Antibody Screen Negative 03/18/19 22:40 Crossmatch See Detail 03/18/19 22:40 Active Medications - Current Medications Current Medications: Generic Name Dose Route Start Last Admin Trade Name Freq PRN Reason Stop Dose Admin Acetaminophen 650 mg 03/09/19 04:22 03/19/19 09:05 Tylenol PO 650 mg Q4H PRN Administration Pain MILD(1-3)/Fever >100.5/LLANES Albuterol 2.5 mg 03/13/19 15:03 03/14/19 09:03 Proventil IH 2.5 mg Q4HRT PRN Administration Shortness Of Breath Albuterol/Ipratropium 1 ampul 03/14/19 14:00 03/18/19 20:35 Duoneb *Not For Prn Use* IH 1 ampul TIDRT NANETTE Administration Amiodarone HCl 200 mg 03/13/19 16:00 03/19/19 09:21 Cordarone PO 200 mg DAILY NANETTE Administration Ascorbic Acid 500 mg 03/13/19 18:00 03/19/19 09:21 Vitamin C PO 500 mg QDAY NANETTE Administration Atorvastatin Calcium 40 mg 03/13/19 22:00 03/18/19 21:05 Lipitor PO 40 mg QHS NANETTE Administration Sodium Chloride 1,000 mls @ 100 mls/hr 03/17/19 14:00 03/19/19 10:09 Nacl 0.9% 1000 Ml IV 100 mls/hr DIRECT NANETTE Administration Magnesium Hydroxide 30 ml 03/09/19 04:22 Milk Of Magnesia PO Q4H PRN Constipation Magnesium Oxide 400 mg 03/13/19 18:00 03/19/19 09:21 Mag-Ox PO 400 mg QDAY NANETTE Administration Metoprolol Tartrate 12.5 mg 03/13/19 22:00 03/19/19 09:21 Metoprolol PO 12.5 mg BID NANETTE Administration Ondansetron HCl 4 mg 03/09/19 04:22 Zofran IV Q8H PRN Nausea And Vomiting Sodium Chloride 10 ml 03/09/19 10:00 03/19/19 09:22 Sodium Chloride Flush Syringe 10 Ml IV 10 ml BID NANETTE Administration Sodium Chloride 10 ml 03/09/19 04:22 Sodium Chloride Flush Syringe 10 Ml IV PRN PRN LINE FLUSH Tbo-Filgrastim 300 mcg 03/19/19 10:00 03/19/19 09:35 Granix SUB-Q 03/23/19 09:59 300 mcg DAILY NANETTE Administration Nutrition/Malnutrition Assess - Dietary Evaluation Nutrition/Malnutrition Findings: Nutrition Notes Start: 03/10/19 10:52 Freq: Status: Active Protocol: Document 03/19/19 12:44 LP (Rec: 03/19/19 12:48 LP [email or web address]) Nutrition Notes Initial or Follow up Reassessment Current Diagnosis Acute Kidney Injury,COPD, Sepsis,Hypertension Other Pertinent Diagnosis AMI, AMS, Syncope Current Diet Mechanical soft Labs/Tests Phos 5.1 Pertinent Medications Reviewed Height 5 ft 11 in Weight 60 kg [place] Body Weight (kg) 78.18 BMI 18.4 Weight Status Underweight Subjective/Other Information Pt consumed 35-40% of meal this AM. Supplement not ordered. Percent of energy/protein needs met: 43%/ 45% Burn Absent Trauma Absent GI Symptoms None Current % PO Negligible Minimum of two criteria Yes Energy Intake (severe) < or equal to 50% Estimated Energy Requirement > or equal to 5 days Interpretation of Weight Loss (severe) >5% in 1 month Body Fat Depletion Mild depletion (non-severe) Muscle Mass Mild Depletion (non-severe) #1 Nutrition Diagnosis Malnutrition Diagnosis Progress(for reassessment Continues documentation) Is patient on ventilator? No Is Patient Ambulatory and/or Out of Bed No REE-([place]-confined to bed) 1629.132 Kcal/Kg value to use for calculation 35 Approximate Energy Requirements Using 2100 kcal/Kg Calculation Used for Recommendations Kcal/kg Additional Notes Protein needs are 67-84g (1.2- 1.5g/kg) Fluid needs are 1ml/kcal Nutrition Intervention Change Diet Order: Continue Mechanical soft cardiac Add Supplement/Snack (indicate name/kcal Ensure Clear BID /protein ) Provides kCal: 480 Provides Protein (gm) 16 Goal #1 Meet at least 75% of kcal and protein needs via meals and ONS Goal #2 Wt gain/maintenance Anticipated Discharge Needs: Mechanical soft and ONS BID Follow-Up By: 03/21/19 Additional Comments Follow for intakes and ONS tolerance
[2019-03-19 19:12] LABS: Creatinine,Urine 160.7 mg/dL (0.1-20.0)
[2019-03-19 19:15] LABS: Color,Urine Yellow (Yellow)
[2019-03-19 19:16] LABS: Ictotest,Urine Negative (Negative); PH,Urine 6.5 (5.0-7.0); Urobilinogen,Urine < 2.0 mg/dL (<2.0)
[2019-03-19 19:20] LABS: Blood,Urine Large (Negative)
[2019-03-19 19:21] LABS: Bacteria,Urine 1+ /HPF (Negative)
[2019-03-20] MEDS: VANCOMYCIN/NS 1 GM/250 ML 1 GM/250 ML BAG IV SCH (00:36)
[2019-03-20 01:48] VITALS: BP 116/68
[2019-03-20] MEDS: SODIUM CHLORIDE 0.9% 1000 ML 1,000 ML IV SCH (01:55)
[2019-03-20] MEDS: ALBUTEROL 2.5 MG/3 ML NEBU IH PRN (04:55)
--- NOTE | 2019-03-20 05:34 | Hem/Onc Progress Note ---
Assessment and Plan 1. Anemia, leukopenia, thrombocytopenia in a patient with history of myelodysplastic syndrome. He follows Dr. Rojas. In the past, the patient has received Dacogen. He was also getting Procrit. During this admission, he received platelet transfusion and G-CSF support. 2. History of hypertension. 3. History of coronary artery disease. 4. History of renal issues. 5. Carotid artery stenosis. 6. The patient has been having cytopenia for some time. We will do transfusion support while in the hospital and then he will follow with his oncologist, Dr. Rojas. ID team following for Infection and Abx some of his answers are not appropriate his counts are chronically low d/w ID - ? port removal On 03/14 - d/w Dr Rojas - pt has not been seen for a few months - he has been going to [place] for [facility] social issues if port a suspect for infection - removal an option overall prognosis guarded In past, [place] dr had spoken to me - pt got chemo at [facility] as per daughter - pt was good before admission. I had spoken to dr Bess and Dr Kerr - ct Supportive care - family not keen for hospice at this time. `03/20 SOB CXR stat - Patient Problems (1) Myelodysplastic syndrome, unspecified Current Visit: Yes Status: Chronic Subjective Date of service: 03/20/19 Principal diagnosis: MDS Interval history: SOB Objective - Exam Narrative Exam: Pain - none General appearance - lethargic Performance status complete dependence Eyes - no icterus ENT - on o2 LNs cervical not palpable Neck - no LN Respiratory Normal Breath sounds - CTA anteriorly CVS S1 S2 + Extremities no edema General GI Soft Rectal deferred male - deferred Skin warm Musculoskeletal - lethargic Neurologically lethargic - Constitutional Vitals: Last Vital Signs Temp 97.0 F L 03/20/19 01:36 Pulse 77 03/20/19 01:47 Resp 28 H 03/20/19 01:36 BP 116/68 03/20/19 01:36 Pulse Ox 96 03/20/19 01:47 - Labs Lab Results: Laboratory Results - last 24 hr 03/18/19 03/18/19 03/19/19 18:48 22:40 07:30 WBC 0.6 L* RBC 2.44 L Hgb 7.5 L Hct 22.0 L MCV 90 MCH 31 MCHC 34 RDW 15.3 H Plt Count 8 L* Sodium Potassium Chloride Carbon Dioxide Anion Gap BUN Creatinine Estimated GFR BUN/Creatinine Ratio Glucose Calcium Phosphorus Magnesium Total Bilirubin Direct Bilirubin Indirect Bilirubin AST ALT Alkaline Phosphatase Total Protein Albumin Albumin/Globulin Ratio Urine Color Urine Turbidity Urine pH Ur Specific Redmond Urine Protein Urine Glucose (UA) Urine Ketones Urine Blood Urine Nitrite Urine Ictotest Urine Urobilinogen Ur Leukocyte Esterase Urine WBC (Auto) Urine RBC (Auto) Urine Bacteria (Auto) Urine Eosinophils None seen Urine Creatinine Urine Sodium Blood Type A POSITIVE Antibody Screen Negative Crossmatch See Detail 03/19/19 03/19/19 03/19/19 07:30 18:48 18:48 WBC RBC Hgb Hct MCV MCH MCHC RDW Plt Count Sodium 144 Potassium 4.3 Chloride 110.7 H Carbon Dioxide 18 L Anion Gap 20 BUN 77 H Creatinine 3.8 H Estimated GFR 16 BUN/Creatinine Ratio 20 Glucose 145 H Calcium 8.4 Phosphorus 5.10 H Magnesium 2.30 Total Bilirubin 1.00 Direct Bilirubin 0.4 H Indirect Bilirubin 0.6 AST 16 ALT 22 Alkaline Phosphatase 43 Total Protein 6.5 Albumin 2.5 L Albumin/Globulin Ratio 0.6 Urine Color Yellow Urine Turbidity Hazy Urine pH 6.5 Ur Specific Redmond 1.020 Urine Protein 100 mg/dl Urine Glucose (UA) Negative Urine Ketones Negative Urine Blood Large A Urine Nitrite Negative Urine Ictotest Negative Urine Urobilinogen < 2.0 Ur Leukocyte Esterase Negative Urine WBC (Auto) 1.0 Urine RBC (Auto) 4.0 Urine Bacteria (Auto) 1+ Urine Eosinophils Urine Creatinine 160.7 H Urine Sodium 10 Blood Type Antibody Screen Crossmatch Medications & Allergies - Medications Allergies/Adverse Reactions: Allergies tetanus and diphtheria toxoids [tetanus & diphtheria toxoids] Allergy (Verified 07/12/18 13:31) Anaphylaxis Home Medications: Home Medications Medication Instructions Recorded Confirmed Last Taken Type Potassium Chloride 20 meq PO QDAY #10 packet 06/03/18 03/09/19 Unknown Rx Ascorbic Acid [Vitamin C] 500 mg PO DAILY 07/12/18 03/09/19 Unknown History Magnesium Oxide 400 mg PO DAILY 07/12/18 03/09/19 Unknown History Acyclovir [Zovirax Cap] 200 mg PO BID 30 Days #60 capsule 07/19/18 03/09/19 Unknown Rx Amiodarone [Cordarone 200 MG TAB] 200 mg PO DAILY #30 tablet 07/19/18 03/09/19 Unknown Rx Metoprolol [Lopressor TAB] 12.5 mg PO BID #60 tablet 07/19/18 03/09/19 Unknown Rx oxyCODONE /ACETAMINOPHEN [Percocet 1 tab PO Q6H PRN #30 tablet 07/19/18 03/09/19 Unknown Rx 5/325 mg] Active Medications: Generic Name Dose Route Start Last Admin Trade Name Freq PRN Reason Stop Dose Admin Acetaminophen 650 mg 03/09/19 04:22 03/19/19 22:54 Tylenol PO 650 mg Q4H PRN Administration Pain MILD(1-3)/Fever >100.5/LLANES Albuterol 2.5 mg 03/13/19 15:03 03/14/19 09:03 Proventil IH 2.5 mg Q4HRT PRN Administration Shortness Of Breath Albuterol/Ipratropium 1 ampul 03/14/19 14:00 03/19/19 20:42 Duoneb *Not For Prn Use* IH 1 ampul TIDRT NANETTE Administration Amiodarone HCl 200 mg 03/13/19 16:00 03/19/19 09:21 Cordarone PO 200 mg DAILY NANETTE Administration Ascorbic Acid 500 mg 03/13/19 18:00 03/19/19 09:21 Vitamin C PO 500 mg QDAY NANETTE Administration Atorvastatin Calcium 40 mg 03/13/19 22:00 03/19/19 22:54 Lipitor PO 40 mg QHS NANETTE Administration Sodium Chloride 1,000 mls @ 100 mls/hr 03/17/19 14:00 03/20/19 01:55 Nacl 0.9% 1000 Ml IV 100 mls/hr DIRECT NANETTE Administration Magnesium Hydroxide 30 ml 03/09/19 04:22 Milk Of Magnesia PO Q4H PRN Constipation Magnesium Oxide 400 mg 03/13/19 18:00 03/19/19 09:21 Mag-Ox PO 400 mg QDAY NANETTE Administration Metoprolol Tartrate 12.5 mg 03/13/19 22:00 03/19/19 22:54 Metoprolol PO 12.5 mg BID NANETTE Administration Ondansetron HCl 4 mg 03/09/19 04:22 Zofran IV Q8H PRN Nausea And Vomiting Sodium Chloride 10 ml 03/09/19 10:00 03/19/19 22:57 Sodium Chloride Flush Syringe 10 Ml IV 10 ml BID NANETTE Administration Sodium Chloride 10 ml 03/09/19 04:22 Sodium Chloride Flush Syringe 10 Ml IV PRN PRN LINE FLUSH Tbo-Filgrastim 300 mcg 03/19/19 10:00 03/19/19 09:35 Granix SUB-Q 03/23/19 09:59 300 mcg DAILY NANETTE Administration
[2019-03-20 07:10] LABS: Hematocrit 22.8 % (35.5-45.6); Hemoglobin 7.5 gm/dl (11.8-15.2); Mean Corpuscular HGB Conc 33 % (32-34); Mean Corpuscular Volume 92 fl (84-94); Red Blood Count 2.47 M/mm3 (3.65-5.03); Red Cell Distribution Width 15.6 % (13.2-15.2)
[2019-03-20 07:19] LABS: Platelet Count 13 K/mm3 (140-440)
[2019-03-20 07:25] LABS: Calcium 8.7 mg/dL (8.4-10.2)
[2019-03-20] MEDS: IPRATROPIUM/ALBUTEROL SULFATE 3 ML AMPUL.NEB IH SCH ×3 (08:47→22:10)
--- NOTE | 2019-03-20 08:54 | XRay Report ---
CHEST 1 VIEW INDICATION: sob. COMPARISON: 03/09/2019. FINDINGS: Support devices: Right IJ chest port unchanged. Heart: Within normal limits. Lungs/Pleura: Development of complete opacification of the right chest. Mild left-sided vascular daniel estion. Additional findings: None. IMPRESSION: 1. Complete opacification right chest. 2. Mild left-sided vascular congestion. Signer Name: David Diana MD Signed: 03/20/2019 8:50 AM Workstation Name: [id number]
--- NOTE | 2019-03-20 09:14 | Progress Note ---
Assessment and Plan 1. Acute kidney injury: Likely vasomotor FAWAD in the setting of volume depletion. Renal US was negative for hydro. Renal function continue to decline. Monitor renal function. Renal prognosis is guarded. Avoid nephrotoxic agents. Meds dosage based on GFR. 2. FEN: Metabolic acidosis, monitor. Monitor lytes. 3. Sepsis: Pneumonia. Continue Abx. 4. Respiratory distress: CXR findings noted. 5. Pancytopenia: Followed by Heme-Onc. 6. Encephalopathy. 7. HTN. D/w his daughter at the bedside. She wants comfort care only and no aggressive measures. No dialysis per daughter. Examination: General appearance: well-developed, appears stated age, chronically ill, frail, on NRB, appears to be in respiratory distress HEENT: ATNC, AMY, mucous membranes dry Neck: trachea midline Respiratory: Coarse rales Heart: regular, S1S2, no murmurs Gastrointestinal: soft, normoactive bowel sounds, not tenderness Integumentary: multiple seborrheic keratosis Neurologic: stuporous, not following any command Ext: no edema Subjective Date of service: 03/20/19 Principal diagnosis: MDS Interval history: Patient was seen and examined at the bedside. Daughter at the bedside. Objective - Vital Signs Vital signs: Vital Signs - 12hr 03/19/19 03/19/19 03/19/19 22:00 22:45 22:54 Temperature Pulse Rate 75 Pulse Rate [ Bilateral Throughout] Respiratory 28 H 28 H Rate Respiratory Rate [Bilateral Throughout] Respiratory 20 Rate [ Generalized] Blood Pressure 134/71 O2 Sat by Pulse 96 Oximetry 03/19/19 03/20/19 03/20/19 23:54 00:21 00:36 Temperature 97.4 F L 97.3 F L Pulse Rate 70 72 Pulse Rate [ Bilateral Throughout] Respiratory 28 H 28 H 28 H Rate Respiratory Rate [Bilateral Throughout] Respiratory Rate [ Generalized] Blood Pressure 109/55 108/56 O2 Sat by Pulse 97 96 Oximetry 03/20/19 03/20/19 03/20/19 00:39 01:06 01:07 Temperature 97.3 F L 97.3 F L 97.3 F L Pulse Rate 66 67 71 Pulse Rate [ Bilateral Throughout] Respiratory 28 H 28 H 28 H Rate Respiratory Rate [Bilateral Throughout] Respiratory Rate [ Generalized] Blood Pressure 108/56 112/59 112/59 O2 Sat by Pulse 97 96 96 Oximetry 03/20/19 03/20/19 03/20/19 01:16 01:36 01:47 Temperature 97.0 F L Pulse Rate 71 70 77 Pulse Rate [ Bilateral Throughout] Respiratory 28 H Rate Respiratory Rate [Bilateral Throughout] Respiratory Rate [ Generalized] Blood Pressure 116/68 O2 Sat by Pulse 98 96 Oximetry 03/20/19 03/20/19 03/20/19 04:56 08:46 08:47 Temperature Pulse Rate Pulse Rate [ 102 H 84 Bilateral Throughout] Respiratory Rate Respiratory 24 30 H Rate [Bilateral Throughout] Respiratory Rate [ Generalized] Blood Pressure O2 Sat by Pulse 96 Oximetry - Lab 03/20/19 06:30 03/20/19 06:30 Most recent lab results Calcium 8.7 mg/dL (8.4-10.2) 03/20/19 06:30 Phosphorus 5.10 mg/dL (2.5-4.5) H 03/19/19 07:30 Magnesium 2.30 mg/dL (1.7-2.3) 03/19/19 07:30 Urine Creatinine 160.7 mg/dL (0.1-20.0) H 03/19/19 18:48 Urine Sodium 10 mmol/L 03/19/19 18:48 Medications & Allergies - Medications Allergies/Adverse Reactions: Allergies tetanus and diphtheria toxoids [tetanus & diphtheria toxoids] Allergy (Verified 07/12/18 13:31) Anaphylaxis Home Medications: Home Medications Medication Instructions Recorded Confirmed Last Taken Type Potassium Chloride 20 meq PO QDAY #10 packet 06/03/18 03/09/19 Unknown Rx Ascorbic Acid [Vitamin C] 500 mg PO DAILY 07/12/18 03/09/19 Unknown History Magnesium Oxide 400 mg PO DAILY 07/12/18 03/09/19 Unknown History Acyclovir [Zovirax Cap] 200 mg PO BID 30 Days #60 capsule 07/19/18 03/09/19 Unknown Rx Amiodarone [Cordarone 200 MG TAB] 200 mg PO DAILY #30 tablet 07/19/18 03/09/19 Unknown Rx Metoprolol [Lopressor TAB] 12.5 mg PO BID #60 tablet 07/19/18 03/09/19 Unknown Rx oxyCODONE /ACETAMINOPHEN [Percocet 1 tab PO Q6H PRN #30 tablet 07/19/18 03/09/19 Unknown Rx 5/325 mg] Active Medications: Generic Name Dose Route Start Last Admin Trade Name Freq PRN Reason Stop Dose Admin Acetaminophen 650 mg 03/09/19 04:22 03/19/19 22:54 Tylenol PO 650 mg Q4H PRN Administration Pain MILD(1-3)/Fever >100.5/LLANES Albuterol 2.5 mg 03/13/19 15:03 03/20/19 04:55 Proventil IH 2.5 mg Q4HRT PRN Administration Shortness Of Breath Albuterol/Ipratropium 1 ampul 03/14/19 14:00 03/20/19 08:47 Duoneb *Not For Prn Use* IH 1 ampul TIDRT NANETTE Administration Amiodarone HCl 200 mg 03/13/19 16:00 03/19/19 09:21 Cordarone PO 200 mg DAILY NANETTE Administration Ascorbic Acid 500 mg 03/13/19 18:00 03/19/19 09:21 Vitamin C PO 500 mg QDAY NANETTE Administration Atorvastatin Calcium 40 mg 03/13/19 22:00 03/19/19 22:54 Lipitor PO 40 mg QHS NANETTE Administration Sodium Chloride 1,000 mls @ 100 mls/hr 03/17/19 14:00 03/20/19 01:55 Nacl 0.9% 1000 Ml IV 100 mls/hr DIRECT NANETTE Administration Magnesium Hydroxide 30 ml 03/09/19 04:22 Milk Of Magnesia PO Q4H PRN Constipation Magnesium Oxide 400 mg 03/13/19 18:00 03/19/19 09:21 Mag-Ox PO 400 mg QDAY NANETTE Administration Metoprolol Tartrate 12.5 mg 03/13/19 22:00 03/19/19 22:54 Metoprolol PO 12.5 mg BID NANETTE Administration Ondansetron HCl 4 mg 03/09/19 04:22 Zofran IV Q8H PRN Nausea And Vomiting Sodium Chloride 10 ml 03/09/19 10:00 03/19/19 22:57 Sodium Chloride Flush Syringe 10 Ml IV 10 ml BID NANETTE Administration Sodium Chloride 10 ml 03/09/19 04:22 Sodium Chloride Flush Syringe 10 Ml IV PRN PRN LINE FLUSH Tbo-Filgrastim 300 mcg 03/19/19 10:00 03/19/19 09:35 Granix SUB-Q 03/23/19 09:59 300 mcg DAILY NANETTE Administration
[2019-03-20] MEDS ORDERED: CEFEPIME/NS 2 GM/100 ML 2 GM/100 ML BAG IV SCH (10:00)
[2019-03-20] MEDS: MAGNESIUM OXIDE 400 MG TAB PO SCH (10:16)
[2019-03-20] MEDS ORDERED: MORPHINE 4 MG/1 ML INJ IV PRN (10:19)
[2019-03-20] MEDS: METOPROLOL TARTRATE 25 MG TAB PO SCH (10:30)
[2019-03-20] MEDS: MORPHINE 2 MG/1 ML INJ IV PRN ×2 (10:35→14:53)
[2019-03-20] MEDS: ASCORBIC ACID 500 MG TAB PO SCH (10:35)
[2019-03-20] MEDS: AMIODARONE 200 MG TAB PO SCH (10:53)
[2019-03-20] MEDS ORDERED: CEFEPIME/NS 1 GM/100 ML 1 GM/100 ML BAG IV SCH (11:00)
--- NOTE | 2019-03-20 11:40 | Progress Note ---
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 He is known to us from his previous hospitalizations. He has an indwelling PORT. Came in with weakness. #Sepsis: still low grade fever, immunocompromised host from chronic neutropenia. Etiology likely Diphtheroids bacteremia. #Diphtheroids bacteremia: 2 of 4 bottles, Diphteroids is usually a contaminant but given immunocompromised state, port in place and isolate growing on 2 different sets is considered as a real pathogen. TTE no vegetations. #Severe pancytopenia, MDS, immunocompromised host, not better #Lactic acidosis #Acute kidney injury: Renally dose antibiotics #Recurrent right sided pneumonia: in Apr 2018 at [facility], June 2018 at [facility] and Jan 2019 PF, full worked up for invasive fungal infection negative. Recs: Daughter declined inpatient hospice care continue vancomycin IV 1gm IV q 24h for now - likely to complete 2 weeks for presumptive true Diptheroid bacteremia. asked micro to fully identify diphtheroids - isolate sent out for quest ID at discharge will treat with vancomycin 1 gm IV q 24h total 14 days with goal 10-15 mcg/mL till 03/25/2019. order sent to case making machine operator by Dr. Kerr needs surveillance blood culture a week after IV abx infusion completed poor prognosis Will follow. [facility] ([facility]) M: [phone] O: [phone] F: [phone] Subjective Date of service: 03/20/19 Principal diagnosis: MDS Interval history: Afebrile, no other change. Objective - Exam Narrative Exam: Constitutional: Alert, cooperative. No acute distress Head, Ears, Nose: Normocephalic, atraumatic. External ears, nose normal Eyes: Conjunctivae/corneas clear. No icterus. No ptosis. Neck: Supple, no meningeal signs Oral: dentition fair, no thrush Cardiovascular: S1, S2 normal. Respiratory: RLL rhonchi GI: Soft, non-tender; bowel sounds normal. No peritoneal signs. Musculoskeletal: No pedal edema, no cyanosis. b/l leg wounds Skin: No rash or abscess Hem/Lymphatic: No palpable cervical or supraclavicular nodes. No lymphangitis Psych: sleepy Neurological: sleepy right port clean - Constitutional Vitals: Vital Signs Temp Pulse Resp BP Pulse Ox 97.0 F L 84 26 H 116/68 96 03/20/19 01:36 03/20/19 08:47 03/20/19 08:47 03/20/19 01:36 03/20/19 08:46 Temperature -Last 24 Hours Temperature 97.0 F Temperature 97.3 F Temperature 97.3 F Temperature 97.3 F Temperature 97.3 F Temperature 97.4 F Temperature 97.4 F Temperature 97.5 F Temperature 98.1 F - Labs CBC & Chem 7: 03/20/19 06:30 03/20/19 06:30 Labs: Abnormal lab results 03/18/19 03/19/19 03/19/19 Range/Units 22:40 18:48 18:48 WBC (4.5-11.0) K/mm3 RBC (3.65-5.03) M/mm3 Hgb (11.8-15.2) gm/dl Hct (35.5-45.6) % RDW (13.2-15.2) % Plt Count (140-440) K/mm3 Chloride (98-107) mmol/L Carbon Dioxide (22-30) mmol/L BUN (9-20) mg/dL Creatinine (0.8-1.5) mg/dL Glucose (75-100) mg/dL Urine Blood Large A (Negative) Urine Creatinine 160.7 H (0.1-20.0) mg/dL Crossmatch See Detail 03/20/19 03/20/19 Range/Units 06:30 06:30 WBC 0.5 L* (4.5-11.0) K/mm3 RBC 2.47 L (3.65-5.03) M/mm3 Hgb 7.5 L (11.8-15.2) gm/dl Hct 22.8 L (35.5-45.6) % RDW 15.6 H (13.2-15.2) % Plt Count 13 L* (140-440) K/mm3 Chloride 110.7 H (98-107) mmol/L Carbon Dioxide 18 L (22-30) mmol/L BUN 85 H (9-20) mg/dL Creatinine 4.4 H (0.8-1.5) mg/dL Glucose 166 H (75-100) mg/dL Urine Blood (Negative) Urine Creatinine (0.1-20.0) mg/dL Crossmatch
[2019-03-20] MEDS: FUROSEMIDE 40 MG/4 ML INJ IV SCH ×2 (14:55→18:32)
--- NOTE | 2019-03-20 21:30 | Death Note ---
Note Date of : 03/20/19 Time of : 19:00 Time Pronounced: 19:05 - Preliminary Cause of (problem) (1) Myelodysplastic syndrome, unspecified Preliminary cause of Notified, by nursing staff that patient was not breathing. Pt seen and evaluated by me. Pt found to have absent breath sounds, absent heartbeat. Pupils fixed and dilated. Pt pronounced at 1905 hrs.
[2019-03-20] MEDS ORDERED: TBO-FILGRASTIM 300 MCG/0.5 ML SUB-Q SCH (22:00)
--- NOTE | 2019-03-22 15:25 | Discharge Summary ---
Providers - Providers Date of Admission: 03/09/19 03:31 Attending physician: JOHN CORONEL MD 03/09/19 08:29 Consult to Physician [CONS] Routine Comment: Called to office Mary/ Quyen Consulting Provider: MONIQUE BRODY Physician Instructions: Reason For Exam: MYEDISPLASTIC SYNDROME 03/09/19 08:31 Consult to Physician [CONS] Routine Comment: Called to office Hao/ Quyen Consulting Provider: MINDA RUBALCAVA Physician Instructions: Reason For Exam: SEPSIS 03/09/19 08:55 Physical Therapy Evaluation and Treat [CONS] Routine Comment: Reason For Exam: Weakness 03/12/19 17:32 Consult to Case Management [CONS] Stat Services Needed at Discharge: Other Notified:: transitions manager rn Additional Physician Instructions: MIDC Please infuse: vancomycin 1 gm IV q day total 2 week till 03/25/2019 Diagnosis: Diphtheroids bacteremia immunocompormised host with transfusion dependent MDS Labs: CBC, CRP, creatinine and vancomycin troguh every tuesday. Goal vancomycin 10-15. fax results to [phone]. Critical labs call [phone] Dr Kerr 03/13/19 15:07 Occupational Therapy Evaluate and Treat [CONS] Routine Comment: Reason For Exam: debility 03/18/19 07:30 Consult to Physician [CONS] Routine Comment: called dr. serrano/ delaney Consulting Provider: DANILO SERRANO Physician Instructions: Reason For Exam: FAWAD 03/18/19 12:39 Consult to Dietitian/Nutrition [CONS] Routine Physician Instructions: Reason For Exam: Reason for Consult: Malnutrition 03/20/19 18:31 Consult to Physician [CONS] Routine Comment: Consulting Provider: ROSALIA DILLON Physician Instructions: Reason For Exam: acute resp failure Consult to Physician [CONS] Routine Comment: Consulting Provider: MINDA RUBALCAVA Physician Instructions: Reason For Exam: sepsis Primary care physician: TAVO DAMIAN Hospitalization Disposition: DC-20 Core Measure Documentation - Palliative Care Palliative Care/ Comfort Measures: Not Applicable Exam - Constitutional Vitals: Temp Pulse Resp BP Pulse Ox 97.0 F L 84 26 H 116/68 96 03/20/19 01:36 03/20/19 14:00 03/20/19 14:00 03/20/19 01:36 03/20/19 10:00 Plan Follow up with: PRIMARY CARE, [Referring] - 3-5 Days
--- NOTE | 2019-03-23 15:00 | Death Summary ---
Summary - Providers Consults: 03/09/19 08:29 Consult to Physician [CONS] Routine Comment: Called to office Mary/ Quyen Consulting Provider: MONIQUE QUIROGA Physician Instructions: Reason For Exam: MYEDISPLASTIC SYNDROME 03/09/19 08:31 Consult to Physician [CONS] Routine Comment: Called to office Hao/ Quyen Consulting Provider: MINDA RUBALCAVA Physician Instructions: Reason For Exam: SEPSIS 03/09/19 08:55 Physical Therapy Evaluation and Treat [CONS] Routine Comment: Reason For Exam: Weakness 03/12/19 17:32 Consult to Case Management [CONS] Stat Services Needed at Discharge: Other Notified:: concessions manager Additional Physician Instructions: MIDC Please infuse: vancomycin 1 gm IV q day total 2 week till 03/25/2019 Diagnosis: Diphtheroids bacteremia immunocompormised host with transfusion dependent MDS Labs: CBC, CRP, creatinine and vancomycin troguh every tuesday. Goal vancomycin 10-15. fax results to [phone]. Critical labs call [phone] Dr Kerr 03/13/19 15:07 Occupational Therapy Evaluate and Treat [CONS] Routine Comment: Reason For Exam: debility 03/18/19 07:30 Consult to Physician [CONS] Routine Comment: called dr. serrano/ delaney Consulting Provider: DANILO SERRANO Physician Instructions: Reason For Exam: FAWAD 03/18/19 12:39 Consult to Dietitian/Nutrition [CONS] Routine Physician Instructions: Reason For Exam: Reason for Consult: Malnutrition 03/20/19 18:31 Consult to Physician [CONS] Routine Comment: Consulting Provider: ROSALIA DILLON Physician Instructions: Reason For Exam: acute resp failure Consult to Physician [CONS] Routine Comment: Consulting Provider: MINDA RUBALCAVA Physician Instructions: Reason For Exam: sepsis Attending: JOHN CORONEL MD - summary Date of admission: 03/09/19 03:31 Date of : 03/20/19 Significant findings: 74-year-old man with myelodysplastic syndrome. The patient has now become saenz cytopenic, he has been receiving transfusion with packed red blood cells and platelets along with G-CSF supports. Hematology following closely along. -Patient developed diphtheroid bacteremia, he was neutropenic with reduced immunity. Therefore infectious disease recommended broad-spectrum antibiotics for patient. -He was given multiple units of packed red blood cells, platelets and Neupogen for pancytopenia. His electrolytes were repleted, confusion and altered mental status was most likely due to metabolic encephalopathy, CT of his head x2 did not show any acute findings, -The patient suffered acute kidney injury and his kidney function was worsening despite supportive management. -He received IV fluids for dehydration -His medications are optimized for chronic conditions, he received dietitian consult for malnutrition. Despite aggressive therapy the patient continued to worsen his daughter was made aware of his poor prognosis, she made him DNR but she was not agreeable to hospice at the time she wanted to continue aggressive management. -She expressed desire for patient to be transferred to [place], however Dr. Quiroga, the oncologist did speak to [place] and they advised to continue aggressive therapy, they did not offer to transfer the patient -The patient was then found to have worsening hypoxia and respiratory distress, chest x-ray showed worsening pneumonia. Antibiotics were broadened, but patient unfortunately Diagnosis Severe sepsis with multiorgan failure Neutropenia Pneumonia Diphtheroid bacteremia Acute metabolic encephalopathy Acute kidney injury due to vasomotor nephropathy and ATN History of COPD History of A. fib/a flutter Severe malnutrition
== END 2019-03-20 19:00 | DRG 871 ==
LOC: ED 01:42 → 2B-ACE 03:31
PROVIDERS: ADMIT Internal Medicine Geriatric Medicine; ATTEND Internal Medicine
PROC: 30233R1 Transfusion of Nonautologous Platelets into Peripheral Vein, Percutaneous Approach (ICD-10-PCS; principal; 2019-03-10)
PROC: 30233N1 Transfusion of Nonautologous Red Blood Cells into Peripheral Vein, Percutaneous Approach (ICD-10-PCS; 2019-03-10)
DX: A41.9 Sepsis, unspecified organism (principal); N17.0 Acute kidney failure with tubular necrosis; G93.41 Metabolic encephalopathy; J18.9 Pneumonia, unspecified organism; J96.01 Acute respiratory failure with hypoxia; E43 Unspecified severe protein-calorie malnutrition; E87.2 Acidosis; D61.818 Other pancytopenia; I48.92 Unspecified atrial flutter; E87.1 Hypo-osmolality and hyponatremia; E87.0 Hyperosmolality and hypernatremia; I25.10 Atherosclerotic heart disease of native coronary artery without angina pectoris; I65.23 Occlusion and stenosis of bilateral carotid arteries; R65.20 Severe sepsis without septic shock; F10.10 Alcohol abuse, uncomplicated; Y90.9 Presence of alcohol in blood, level not specified; J44.9 Chronic obstructive pulmonary disease, unspecified; D89.9 Disorder involving the immune mechanism, unspecified; A41.89 Other specified sepsis; E86.0 Dehydration; Z66 Do not resuscitate; Z51.5 Encounter for palliative care; E87.6 Hypokalemia; D46.9 Myelodysplastic syndrome, unspecified; Z88.7 Allergy status to serum and vaccine; Z87.891 Personal history of nicotine dependence; I25.2 Old myocardial infarction; Z92.21 Personal history of antineoplastic chemotherapy; Z68.22 Body mass index [BMI] 22.0-22.9, adult
CPT/HCPCS: 31720; 36415; 36430; 70450; 71045; 76770; 80048; 80053; 80061; 80076; 80202; 80307; 81001; 82140; 82570; 82962; 83735; 83880; 84100; 84300; 84484; 85007; 85014; 85018; 85025; 85027; 85049; 85610; 85730; 86850; 86900; 86901; 86920; 87040; 87086; 87400; 89050; 93005; 93010; 93306; 93880; 94640; 94760; G0378; A9270-GY; J0692; J1447; J1940; J1956; J2270; J3370; J3480; J7030; J7040; P9016; P9035